=== PATIENT | female | born 1935 | race Caucasian/White ===

== ENCOUNTER → 2017-01-22 | Outpatient (CLI) | payer OTHER ==
[~2017-01-22] MED LIST: ATV5 PO; CMD/25 PO; CPROT OPR; DILT1TAB PO; HYDR12.56 PO; LORA10TA5 PO; LOSA1TAB PO; LPR25 PO; NEPA0.6D OPR; PRED1SUS3 OPL; PRLSR20 PO; ULT/50 PO
--- NOTE | 2017-01-22 16:09 | MAMMOGRAPHY REPORT ---
BILATERAL DIGITAL SCREENING MAMMOGRAM WITH CAD: 01/22/2017 CLINICAL HISTORY: Routine screening. Patient has no complaints. TECHNIQUE: Bilateral CC and MLO views were obtained. Current study was also evaluated with a Compute r Aided Detection (CAD) system. COMPARISON: Comparison is made to exams dated: 01/20/2016 mammogram, 01/18/2015 mammogram, 10/12/2013 m ammogram, 10/09/2012 mammogram, 10/08/2011 mammogram, and 10/05/2010 mammogram - [facility] enter. BREAST COMPOSITION: There are scattered areas of fibroglandular density in both breasts. FINDINGS: There are mild vascular calcifications and scattered benign-appearing calcifications bilate rally. No suspicious mass, architectural distortion or cluster of suspicious microcalcifications is seen. IMPRESSION: ACR BI-RADS CATEGORY 1: NEGATIVE There is no mammographic evidence of malignancy. A 1 year screening mammogram is recommended. The pa tient will receive written notification of the results. Approximately 10% of breast cancers are not detected with mammography. A negative mammographic report should not delay biopsy if a clinically suggestive mass is present. Desiree Petty M.D. ay/:01/22/2017 15:25:04 Ballistic Expert: Orlin Lewis, M, [facility] letter sent: Normal 1/2 BI-RADS Code: ACR BI-RADS Category 1: Negative
== END | disposition home or self-care (01) ==
LOC: C.MAMM 10:12
PROVIDERS: ATTEND Family Medicine
DX: Z12.31 Encounter for screening mammogram for malignant neoplasm of breast (principal)

== ENCOUNTER 2020-01-16 15:05 | Inpatient (IN) ==
[2020-01-16] MEDS ORDERED: SODIUM CHLORIDE 0.9% 1000ML 1,000 ML IV ONE (16:24)
[2020-01-16] MEDS ORDERED: ONDANSETRON INJ 2 MG/ML 2 ML VIAL IV STA (16:29)
[2020-01-16] MEDS ORDERED: MoRPHine SULFATE 4 MG/ML 1 ML CARP\\VIAL IV STA (16:29)
--- NOTE | 2020-01-16 16:40 | Emergency Department Note ---
Impression & Plan Acute pyelonephritis, Acute left flank pain, Hypertensive urgency ED Provider Note Provider: Thompson Magallanes MD DATE OF SERVICE: 01/16/2020 CHIEF COMPLAINT: Abdominal pain HISTORY OF PRESENT ILLNESS: Patient is a 84-year-old female with a history of diverticulitis presenting here today complaining of onset yesterday of severe left-sided left flank pain. Pain is fairly severe. Denies diarrhea. Dors is nausea and vomiting. Denies fever although she states she felt warm last night. Denies trauma. Denies headache or shortness of breath. Denies chest pain. No right-sided abdominal pain or tenderness. States feels similar when she had diverticulitis before. Had prior episode and prior bowel resection approximately 20 years ago without recurrence since. Denies a history of nephr olithiasis. Took some Motrin prior to arrival with little improvement of symptoms. Denies urinary symptoms. REVIEW OF SYSTEMS: A total of 10 review of systems was obtained and negative except as stated above in the HPI. PAST MEDICAL HISTORY: As noted above MEDICATIONS:Reviewed home medication list. SOCIAL HISTORY:Nonsmoker, Lives at home. PHYSICAL EXAM: GENERAL: alert and oriented laying on stretcher with eyes closed holding the left side of her abdomen appears uncomfortable. Head: normocephalic and atraumatic EYES: No injection, discharge or icterus. . NECK: Trachea midline. Supple. ENT: Mucous membranes pink and moist. LUNGS: Airway patent. No retractions. Breath sounds clear HEART: Regular rate and rhythm. No chest wall tenderness ABDOMEN: Soft left-sided tenderness. Not peritoneal. No right-sided abdominal tenderness. No guarding. BACK: Some left-sided flank tenderness appreciated. SKIN: Acyanotic, warm, dry, without rashes EXTREMITIES: Without tenderness or deformity with trace edema. NEUROLOGICAL: No focal deficits. No aphasia. No facial droop or slurred speech. EK bpm of sinus bradycardia with an incomplete right bundle branch block. No acute ST segment elevation is noted. Inferior T wave inversion noted. Compared to previous available from March 042018 appears similar. CONTINUOUS CARDIAC MONITORING: was ordered and showed a heart rate of 50's to 60's bpm in sinus bradycardia to NSR Patient's hypertension was referred to the hospitalist PDMP was checked without noted issue. HOSPITAL COURSE: 1628 Patient was first seen and H&P performed. 1820 Patient reassessed and updated. Patient was having improvement of pain and resolution on nausea. Discussed with her and family options/plan of care. Patient's laboratory studies and imaging reviewed. Differential includes Appendicitis, infections, diverticulitis, UTI, obstruction, mesenteric ischemia, aortic pathology, inflammatory bowel disease, renal colic, PUD, pancreatitis, biliary pathology, hernia, volvulus, constipation, as well as other pathologies. IMPRESSION/MEDICAL DECISION MAKING: Patient presents with severe left flank pain starting yesterday and states he felt a bit warm last night. No trauma reported. Patient states history diverticulitis and this feels similar. Patient denies a history of kidney stones. Patient likely without significant leukocytosis here. Patient does have evidence of a concerning UA with 2+ leuk esterase and greater than 30 white cells although 5-10 epithelial cells are noted on the sample. TSH within normal is. No evidence of transaminitis. Negative troponin. Doubt this represents PE or cardiac disease. Patient's creatinine is somewhat higher than the last 5 immediately available to me here from 2014 at 1.5. Given IV fluid, morphine, and Zofran here initially. CT scan was ordered to evaluate for acute intra-abdominal pathology. Given a dose of ceftriaxone here. Imaging likely without evidence of kidney stone or acute diverticulitis. Believe this likely represents a pyelonephritis given her pain complaint. Does not look septic at this time. Did receive some IV fluid. Will give dose ceftriaxone. Reassessment the patient is having improvement of her pain and her nausea is actually resolved. Discussed with the patient options of discharge for the observation. Given the severity of her pain earlier patient felt more comfortable being observed here overnight. Will contact the hospitalist. Patient was noted to be more hypertensive later in the encounter and given a small dose of hydralazine given some bradycardia here to help treat this. Patient states compliance with home medications. DIAGNOSIS: Pyelonephritis, left flank pain, hypertensive urgency DISPOSITION: Hospitalist will evaluate Patient was agreeable with this plan. Past Med/Surg History Social History Smoking Status: Never smoker Hx Alcohol Use: No Hx Substance Use: No Preferred Language: Danish Communication Ability: Effective Teaseler Required: No Beliefs That Will Affect Care: None Current Living Situation: Family Feels Safe at Home: Yes Allergies Allergies Allergy/AdvReac Type Severity Reaction Status Date / Time lisinopril Allergy Mild COUGH Verified 03/04/19 07:09 guaifenesin Allergy Unknown Unknown Verified 03/04/19 07:09 phenylpropanolamine Allergy Unknown Unknown Verified 03/04/19 07:09 sulindac Allergy Unknown Unknown Verified 03/04/19 07:09 Home Meds Home Medications Medication Instructions Recorded Confirmed Lorazepam (Ativan *) 0.5 - 1 mg PO BID PRN #0 05/16/07 04/08/19 OMEPRAZOLE (PRILOSEC) 20 mg PO BID #0 04/09/11 04/08/19 LORATADINE (CLARITIN) 10 mg PO DAILY PRN PRN #0 tab 11/24/11 04/08/19 LOSARTAN POTASSIUM (COZAAR) 25 mg PO QAM #0 tab 11/24/11 04/08/19 METOPROLOL TARTRATE (LOPRESSOR) 50 mg PO BID #0 tab 11/24/11 04/08/19 WARFARIN SOD (Coumadin) 2.5 mg PO QAM #0 tab 11/24/11 04/08/19 Alive Once Daily Women 50 Plus 1 tab PO DAILY 03/04/19 04/08/19 Restasis 2 drp OPHTHALMIC (EYE) Q12H 03/04/19 04/08/19 albuterol sulfate [ProAir HFA] 2 puff INHALATION Q6H PRN 03/04/19 04/08/19 alendronate [Fosamax] 70 mg PO WK 03/04/19 04/08/19 amiodarone 200 mg PO BID 03/04/19 04/08/19 atorvastatin 20 mg PO DAILY 03/04/19 04/08/19 cholecalciferol (vitamin D3) 1,000 unit PO DAILY 03/04/19 04/08/19 fluticasone propionate [Flonase 1 spray INTRANASAL DAILY 03/04/19 04/08/19 Allergy Relief] tolterodine [Detrol LA] 2 mg PO DAILY 03/04/19 04/08/19 Previous Rx's Medication Instructions Recorded furosemide 20 mg PO DAILY #30 tab 04/08/19 Results & Data (ED) Vital Signs Vital Signs - 24 hr 01/16/20 15:17 01/16/20 18:27 01/16/20 18:36 Temperature 36.3 C L Temperature Source Oral Oral Pulse Rate 80 Pulse Rate [Apical] 58 L Respiratory Rate 20 18 Respiratory Effort / Characteristics Non-Labored Respiratory Depth Normal Respiratory Pattern Regular Blood Pressure [Right Arm] 215/77 H Blood Pressure Mean [Right Arm] 123 Blood Pressure Position Sitting Pulse Oximetry 95 93 Oxygen Delivery Method Room Air Room Air Sepsis Recent Fever Within 48 Hours No Sepsis New/Unexplained Change in Mental Status No Sepsis Action Taken by Nursing No Action Required Laboratory Data Result diagrams: 01/16/20 16:39 01/16/20 16:39 Lab Results 01/16/20 01/16/20 01/16/20 Range/Units 16:39 16:39 16:39 WBC 10.57 (4.8-10.8) K/uL RBC 4.52 (4.2-5.4) M/uL Hgb 13.5 (12.0-16.0) g/dL Hct 41.8 (37-47) % MCV 92.5 (80-100) fL MCH 29.9 (25-34) pg MCHC 32.3 (32-36) g/dL RDW Std Deviation 48.5 H (36.4-46.3) fL RDW Coeff of Jay 14.2 (11.5-14.5) % Plt Count 248 (130-400) K/uL MPV 9.3 (7.4-10.4) fL Immature Gran % (Auto) 0.3 % Neut % (Auto) 79.0 % Lymph % (Auto) 10.8 % Johnson % (Auto) 7.3 % Eos % (Auto) 2.3 % Baso % (Auto) 0.3 % Neut # (Auto) 8.36 H (1.4-6.5) K/uL Lymph # (Auto) 1.14 L (1.2-3.4) K/uL Johnson # (Auto) 0.77 H (0.11-0.59) K/uL Eos # (Auto) 0.24 (0-0.5) K/uL Baso # (Auto) 0.03 (0-0.2) K/uL Immature Gran # (Auto) 0.03 H (0.00-0.02) K/uL PT (9.0-12.0) Seconds INR (0.9-1.1) Sodium 140 (136-145) mmol/L Potassium 4.7 (3.5-5.1) mmol/L Chloride 110 H (98-107) mmol/L Carbon Dioxide 23 (21-32) mmol/L Anion Gap 8.0 (3-11) BUN 25 H (7-18) mg/dl Creatinine 1.53 H (0.6-1.2) mg/dl Est Cr Clr Drug Dosing 31.2 ml/min Est GFR ( Amer) 36.3 Est GFR (Non-Af Amer) 31.4 BUN/Creatinine Ratio 16.0 (10-20) Glucose 109 H (70-99) mg/dl Calcium 9.4 (8.5-10.1) mg/dl Magnesium 2.2 (1.8-2.4) mg/dl Total Bilirubin 0.4 (0.2-1) mg/dl AST 21 (15-37) U/L ALT 21 (12-78) U/L Alkaline Phosphatase 110 (45-117) U/L Troponin I < 0.015 (0-0.045) ng/ml Total Protein 8.1 (6.4-8.2) gm/dl Albumin 3.7 (3.4-5.0) gm/dl Globulin 4.4 H (2.5-4.0) gm/dl Albumin/Globulin Ratio 0.8 L (0.9-2) Lipase 122 (73-393) U/L TSH 2.020 (0.300-4.500) uIu/ml Specimen Hemolysis Urine Color Yellow Urine Appearance Cloudy A (Clear) Urine pH 5.0 (4.5-7.5) Ur Specific Hardy 1.031 H (1.000-1.030) Urine Protein Negative (Negative) Urine Glucose (UA) Negative (Negative) Urine Ketones Trace H (Negative) Urine Blood Negative (Negative) Urine Nitrite Negative (Negative) Urine Bilirubin Negative (Negative) Urine Urobilinogen Negative (Negative) Ur Leukocyte Esterase 2+ H (Negative) Urine WBC (Auto) >30 H (0-5) /hpf Urine RBC (Auto) 0-4 (0-4) /hpf U Hyaline Cast (Auto) 10-30 H (0-5) /lpf U Epithel Cells (Auto) >30 H (0-5) /lpf Urine Bacteria (Auto) Negative (Negative) Ur Renal Epithelial Cell 5-10 H (0-5) /lpf WBC Casts 1-5 H (0) /lpf 08/22/20 Range/Units 16:39 WBC (4.8-10.8) K/uL RBC (4.2-5.4) M/uL Hgb (12.0-16.0) g/dL Hct (37-47) % MCV (80-100) fL MCH (25-34) pg MCHC (32-36) g/dL RDW Std Deviation (36.4-46.3) fL RDW Coeff of Jay (11.5-14.5) % Plt Count (130-400) K/uL MPV (7.4-10.4) fL Immature Gran % (Auto) % Neut % (Auto) % Lymph % (Auto) % Johnson % (Auto) % Eos % (Auto) % Baso % (Auto) % Neut # (Auto) (1.4-6.5) K/uL Lymph # (Auto) (1.2-3.4) K/uL Johnson # (Auto) (0.11-0.59) K/uL Eos # (Auto) (0-0.5) K/uL Baso # (Auto) (0-0.2) K/uL Immature Gran # (Auto) (0.00-0.02) K/uL PT 18.8 H (9.0-12.0) Seconds INR 1.8 H (0.9-1.1) Sodium (136-145) mmol/L Potassium (3.5-5.1) mmol/L Chloride (98-107) mmol/L Carbon Dioxide (21-32) mmol/L Anion Gap (3-11) BUN (7-18) mg/dl Creatinine (0.6-1.2) mg/dl Est Cr Clr Drug Dosing ml/min Est GFR ( Amer) Est GFR (Non-Af Amer) BUN/Creatinine Ratio (10-20) Glucose (70-99) mg/dl Calcium (8.5-10.1) mg/dl Magnesium (1.8-2.4) mg/dl Total Bilirubin (0.2-1) mg/dl AST (15-37) U/L ALT (12-78) U/L Alkaline Phosphatase (45-117) U/L Troponin I (0-0.045) ng/ml Total Protein (6.4-8.2) gm/dl Albumin (3.4-5.0) gm/dl Globulin (2.5-4.0) gm/dl Albumin/Globulin Ratio (0.9-2) Lipase (73-393) U/L TSH (0.300-4.500) uIu/ml Specimen Hemolysis Urine Color Urine Appearance (Clear) Urine pH (4.5-7.5) Ur Specific Hardy (1.000-1.030) Urine Protein (Negative) Urine Glucose (UA) (Negative) Urine Ketones (Negative) Urine Blood (Negative) Urine Nitrite (Negative) Urine Bilirubin (Negative) Urine Urobilinogen (Negative) Ur Leukocyte Esterase (Negative) Urine WBC (Auto) (0-5) /hpf Urine RBC (Auto) (0-4) /hpf U Hyaline Cast (Auto) (0-5) /lpf U Epithel Cells (Auto) (0-5) /lpf Urine Bacteria (Auto) (Negative) Ur Renal Epithelial Cell (0-5) /lpf WBC Casts (0) /lpf Administered Medications Discontinued Medications Hydralazine HCl (Hydralazine Hcl 20 Mg/Ml Vial) 5 mg IV NOW ONE Stop: 01/16/20 18:46 Last Admin: 01/16/20 19:01 Dose: 5 mg Documented by: [id number] Sodium Chloride (Nss 1000ml) 1,000 mls @ 999 mls/hr IV .Q1H1M ONE Stop: 01/16/20 17:24 Last Infusion: 01/16/20 18:10 Dose: 0 mls/hr Documented by: [id number] Admin: 01/16/20 16:42 Dose: 999 mls/hr Documented by: [id number] Ceftriaxone Sodium (Rocephin) 2,000 mg in 70 mls @ 140 mls/hr IV NOW STA Stop: 01/16/20 18:52 Last Admin: 01/16/20 19:02 Dose: 140 mls/hr Documented by: [id number] Ioversol (Ioversol 100ml) 91 ml IV ONCE ONE Stop: 01/16/20 17:58 Last Admin: 01/16/20 17:57 Dose: 91 ml Documented by: [id number] Morphine Sulfate (Morphine Sulfate 4 Mg/Ml 1 Ml Carp\Vial) 4 mg IV NOW STA Stop: 01/16/20 16:30 Last Admin: 01/16/20 16:45 Dose: 4 mg Documented by: [id number] Ondansetron HCl (Ondansetron Inj 2 Mg/Ml 2 Ml Vial) 4 mg IV NOW STA Stop: 01/16/20 16:30 Last Admin: 01/16/20 16:45 Dose: 4 mg Documented by: [id number] Discharge Plan Visit Data Chief Complaint: Flank Pain Stated Complaint: SEVERE FLANK PAIN ED Provider: Thompson Magallanes Discharge Problem: Acute pyelonephritis, Acute left flank pain, Hypertensive urgency Patient Disposition: Being Evaluated by Hospitalist Forms Stand Alone Forms: [facility] Prescriptions Prescriptions: No Action Lorazepam (Ativan *) 0.5 MG tablet 0.5 - 1 mg PO BID PRN Qty: 0 RF: 0 OMEPRAZOLE (PRILOSEC) 20 MG CONTR REL CAP 20 mg PO BID Qty: 0 RF: 0 LORATADINE (CLARITIN) 10 MG tablet 10 mg PO DAILY PRN PRN (Reason: Allergy Symptoms) Qty: 0 RF: 0 LOSARTAN POTASSIUM (COZAAR) 25 MG tablet 25 mg PO QAM Qty: 0 RF: 0 METOPROLOL TARTRATE (LOPRESSOR) 25 MG tablet 50 mg PO BID Qty: 0 RF: 0 WARFARIN SOD (Coumadin) 2.5 MG tablet 2.5 mg PO QAM Qty: 0 RF: 0 tolterodine [Detrol LA] 2 mg Capsule,Extended Release 24hr 2 mg PO DAILY RF: 0 atorvastatin 20 mg Tablet 20 mg PO DAILY RF: 0 amiodarone 200 mg Tablet 200 mg PO BID RF: 0 alendronate [Fosamax] 70 mg Tablet 70 mg PO WK RF: 0 albuterol sulfate [ProAir HFA] 90 mcg/actuation Hfa Aerosol Inhaler 2 puff INHALATION Q6H PRN (Reason: Shortness Of Breath) RF: 0 fluticasone propionate [Flonase Allergy Relief] 50 mcg/actuation [place],Suspension 1 spray INTRANASAL DAILY RF: 0 cholecalciferol (vitamin D3) 1,000 unit Capsule 1,000 unit PO DAILY RF: 0 Restasis 0.05 % Dropperette 2 drp OPHTHALMIC (EYE) Q12H RF: 0 Alive Once Daily Women 50 Plus 800-100 mcg Tablet 1 tab PO DAILY RF: 0 furosemide 20 mg tablet 20 mg PO DAILY Qty: 30 RF: 3 Referrals Referrals: Saida,David E., MD [Primary Care Provider] -
[2020-01-16 16:50] LABS: Basophils # (auto) 0.03 K/uL (0-0.2); Basophils % (auto) 0.3 %; Eosinophils # (auto) 0.24 K/uL (0-0.5); Eosinophils % (auto) 2.3 %; Hematocrit (blood only) 41.8 % (37-47); Hemoglobin 13.5 g/dL (12.0-16.0); Immature Granulocytes # (auto) 0.03 K/uL (0.00-0.02); Immature Granulocytes % (auto) 0.3 %; Lymphocytes # (auto) 1.14 K/uL (1.2-3.4); Lymphocytes % (auto) 10.8 %; Mean Corpuscular Hemoglobin 29.9 pg (25-34); Mean Corpuscular Hgb Conc 32.3 g/dL (32-36); Mean Corpuscular Volume 92.5 fL (80-100); Mean Platelet Volume 9.3 fL (7.4-10.4); Monocytes # (auto) 0.77 K/uL (0.11-0.59); Monocytes % (auto) 7.3 %; Neutrophils # (auto) 8.36 K/uL (1.4-6.5); Platelet Count 248 K/uL (130-400); RDW Coefficient of Variation 14.2 % (11.5-14.5); RDW Standard Deviation 48.5 fL (36.4-46.3); Red Blood Count 4.52 M/uL (4.2-5.4); White Blood Count 10.57 K/uL (4.8-10.8)
[2020-01-16 17:02] LABS: Appearance Urine Cloudy (Clear); Bacteria Urine Automated Negative (Negative); Bilirubin Urine Negative (Negative); Blood Urine Negative (Negative); Color Urine Yellow; Epithelial Cell Urine Auto >30 /lpf (0-5); Glucose Urine UA Negative (Negative); Ketones Urine Trace (Negative); Leukocyte Esterase Urine 2+ (Negative); Nitrite Urine Negative (Negative); Protein Urine Negative (Negative); RBC Urine Automated 0-4 /hpf (0-4); Specific Gravity Urine 1.031 (1.000-1.030); Urobilinogen Urine Negative (Negative); WBC Urine Automated >30 /hpf (0-5)
[2020-01-16 17:13] LABS: Albumin Level 3.7 gm/dl (3.4-5.0); Aspartate Aminotransferase 21 U/L (15-37); Blood Urea Nitrogen 25 mg/dl (7-18); Calcium 9.4 mg/dl (8.5-10.1); Carbon Dioxide 23 mmol/L (21-32); Chloride 110 mmol/L (98-107); Creatinine Clr Calc Pharmacy 31.2 ml/min; Est GFR (African American) 36.3; Est GFR (Non-African American) 31.4; Glucose 109 mg/dl (70-99); Lipase 122 U/L (73-393); Magnesium 2.2 mg/dl (1.8-2.4); Potassium 4.7 mmol/L (3.5-5.1); Sodium 140 mmol/L (136-145)
[2020-01-16 17:21] LABS: Alanine Aminotransferase 21 U/L (12-78); Albumin Globulin Ratio 0.8 (0.9-2); Alkaline Phosphatase 110 U/L (45-117); Bilirubin,Total 0.4 mg/dl (0.2-1); Globulin 4.4 gm/dl (2.5-4.0); Total Protein 8.1 gm/dl (6.4-8.2); Troponin I < 0.015 ng/ml (0-0.045)
[2020-01-16] MEDS ORDERED: IOVERSOL 100ml IV ONE (17:57)
--- NOTE | 2020-01-16 18:16 | CT Scan Report ---
ABDOMEN AND PELVIS CT WITH IV CONTRAST CT DOSE: 900.59 mGy.cm HISTORY: lower abd pain TECHNIQUE: Multiaxial CT images of the abdomen and pelvis were performed following the use of intrave nous contrast. A dose lowering technique was utilized adhering to the principles of ALARA. COMPARISON STUDY: Abdomen and pelvis CT 12/22/2006. FINDINGS: Mild dependent changes seen at the lung bases. No pneumoperitoneum. No pneumatosis. No susp icious lytic or blastic osseous lesions. The heart remains mildly enlarged. Degenerative changes with in the lumbar spine. No retroperitoneal or pelvic lymphadenopathy. No pelvic free fluid. The bladder is not well-distended. The uterus and bilateral adnexa are within normal limits. Prior rectosigmoid a nastomosis. Scattered colonic diverticula. No evidence for diverticulitis. No bowel wall thickening o r obstruction. The appendix is not identified and reportedly surgically absent. Mild calcified plaque within the normal caliber abdominal aorta. The liver, pancreas, spleen, and adrenal glands are unrem arkable. The kidneys enhance normally. No hydronephrosis. Prior cholecystectomy. The main portal vein is patent. IMPRESSION: 1. No bowel wall thickening or obstruction. 2. Colonic diverticulosis. No evidence for acute diverticulitis. 3. Prior cholecystectomy and appendectomy. 4. No hydronephrosis. ACT 112: Negative or not required by law. Electronically signed by: Ralph Benitez M.D. 01/16/2020 6:15 PM
[2020-01-16] MEDS ORDERED: cefTRIAXone SODIUM 2,000 MG/70 ML BAG IV STA (18:23)
[2020-01-16] MEDS ORDERED: HydrALAZINE HCL 20 MG/ML VIAL IV ONE (18:45)
[2020-01-16 19:00] LABS: INR 1.8 (0.9-1.1); Prothrombin Time 18.8 Seconds (9.0-12.0)
--- NOTE | 2020-01-16 21:50 | History and Physical Report ---
DATE OF ADMISSION: 01/16/2020 CHIEF COMPLAINT: Left flank pain. HISTORY OF PRESENT ILLNESS: This is an 84-year-old female with past medical history significant for moderate persistent asthma, chronic rhinitis, chronic kidney disease stage III, hypertension, incomplete right branch block, paroxysmal atrial fibrillation, GERD, Parkinson's disease, antiphospholipid antibody syndrome, generalized anxiety disorder, who presents with left flank pain. The patient said the pain started yesterday, 10/10 in severity, radiated to the left groin region. She was nauseous. Denies any fevers at home. She has occasional cough, runny nose from allergies and she is always short of breath because of her asthma, follows with pulmonary. Denies any chest pain. No headache, no blurred visions, no earache, no runny nose, no sore throat. She has a loss of sense of smell and taste for a long time from her medications .No diarrhea or constipation, no blood in stool or black stools, no burning micturition or hematuria. She has left ankle swelling on and off chronically. No rash seen. Ambulates okay. ALLERGIES: LISINOPRIL, GUAIFENESIN, PHENYLPROPANOLAMINE, SULINDAC. PAST MEDICAL HISTORY: As mentioned above. PAST SURGICAL HISTORY: Colonoscopy, cystoscopies, partial removal of colon in 2006, appendectomy, cholecystectomy. MEDICATIONS: The patient is on levothyroxine 50 mcg p.o. daily, Flonase 2 sprays into each nostril daily, Lasix 20 mg on Mondays, Wednesdays and Fridays, Lipitor 20 mg p.o. daily, Cozaar 50 mg p.o. daily, Imdur 30 mg p.o. daily, alendronate 70 mg p.o. weekly, amiodarone 200 mg p.o. daily, Flonase, Breo Ellipta 200/25 mcg 1 puff daily, omeprazole 20 mg p.o. b.i.d., Lopressor 50 mg p.o. b.i.d., albuterol 2 puffs every 4 hours p.r.n., Singulair 10 mg p.o. at bedtime, Coumadin 2.5 mg on all days except , on 3.75 mg, Ativan 0.25-0.5 mg b.i.d. p.r.n., triamcinolone 0.1% cream p.r.n., vitamin D 1000 units p.o. daily, multivitamins 1 tablet daily, Restasis 0.05% ophthalmic 2 drops to both eyes b.i.d., loratadine 10 mg p.o. daily p.r.n., albuterol nebulization q. 4 hours p.r.n. FAMILY HISTORY: Significant for mother had ovarian cancer, bowel rupture; father had black lung; sister had lung cancer; brother has heart disorder. SOCIAL HISTORY: . No smoking, no alcohol, no drug use. REVIEW OF SYSTEMS: As per HPI. Rest of review of systems negative. PHYSICAL EXAMINATION: GENERAL: The patient is of moderate build, not in acute distress. VITAL SIGNS: Temperature 36.3, pulse 58, respiratory rate 18, blood pressure 215/77, oxygen 93% on room air. HEENT: No pallor, no icterus. Pupils equal, round, reactive to light. Extraocular muscles intact. NECK: Supple. No neck masses seen. CARDIOVASCULAR: S1, S2 heard, regular rate and rhythm, no murmur, no gallop. RESPIRATORY SYSTEM: Normal AP diameter. No accessory muscle use. No wheezing, no crackles. ABDOMEN: Soft, bowel sounds present. Mild left lower quadrant tenderness. No guarding, no rigidity, no distention. Left mild CVA tenderness present. CENTRAL NERVOUS SYSTEM: Cranial nerves II-XII grossly intact. Nonfocal. EXTREMITIES: No edema, no erythema. LABORATORY DATA: WBC 10.5, hemoglobin 13.5, hematocrit 41.8, platelets 248. PT 18.8, INR 1.8. Sodium 140, potassium 4.7, chloride 110, bicarbonate 23, BUN 25, creatinine 1.5, serum glucose 109, calcium 9.4, magnesium 2.2, total bilirubin 0.4, AST 21, ALT 21, alkaline phosphatase 110. Troponin I less than 0.015. Lipase 122. TSH 2.02. Urinalysis positive for leukocyte esterase. IMAGING DATA: CT of abdomen and pelvis, no bowel wall thickening or obstruction, colonic diverticulitis. No evidence for acute diverticulitis. EKG: Sinus bradycardia at the rate of 57, incomplete right bundle branch block, no acute ST changes seen. ASSESSMENT AND PLAN: This is an 84-year-old female who presents with left flank pain and found to have urinary tract infection and possible pyelonephritis. 1. Left flank pain, possible pyelonephritis. UA is positive. The patient received Rocephin in the ER which will continue. IV morphine p.r.n. for pain, IV fluids. The patient's daughter is worried that several years ago, she had recurrent UTIs. At that time, in the colonoscopy was found to have colonic abscess and she had partial colectomy and the frequent urinary tract infections thought to be by colonic abscess and similar thing is not happening now, but CT scan seems okay. We will monitor. 2. Hypertension. Blood pressure is running high. Will continue her home medications of Lopressor, Imdur, losartan, and place on IV hydralazine p.r.n. Monitor blood pressure closely. 3. History of paroxysmal atrial fibrillation, on amiodarone, Lopressor, and Coumadin. INR is 1.8. Will continue on Coumadin. Follow the INR. 4. Hypothyroidism. Continue Synthroid. 5. History of antiphospholipid antibody syndrome, on Coumadin. 6. History of moderate persistent asthma, currently stable. Continue home inhalers. 7. Hyperlipidemia, continue statin. 8. Gastroesophageal reflux disease, PPI. 9. Generalized anxiety disorder, Ativan p.r.n. 10. Deep venous thrombosis prophylaxis, on Coumadin. Follow PT/INR. DISPOSITION: Admit to medical floor. Expect to discharge home and follow with family doctor. Level 1 full code. Social service to help with discharge planning. [facility] CENTERAugustina
[2020-01-16] MEDS ORDERED: MoRPHine SULFATE 4 MG/ML 1 ML CARP\\VIAL IV PRN (22:26)
[2020-01-16] MEDS ORDERED: HydrALAZINE HCL 20 MG/ML VIAL IV PRN (22:26)
[2020-01-16] MEDS ORDERED: ONDANSETRON INJ 2 MG/ML 2 ML VIAL IV PRN (22:26)
[2020-01-16] MEDS ORDERED: LORazepam 0.5 MG TAB PO PRN (22:26)
[2020-01-16] MEDS ORDERED: WARFARIN SOD 2.5 MG TAB PO STA (22:26)
[2020-01-16] MEDS ORDERED: ALBUTEROL HFA 8 GM INHALER INH PRN (22:39)
[2020-01-16] MEDS: SODIUM CHLORIDE 0.9% 1000ML 1,000 ML IV SCH (22:43)
[2020-01-16] MEDS: PANTOprazole 40 MG TAB PO SCH (23:37)
[2020-01-16] MEDS: METOPROLOL TARTRATE 50 MG TAB PO SCH (23:37)
[2020-01-17] MEDS: RESTASIS~ORDER AWAITING ACTION SCH ×3 (00:01→18:15)
[2020-01-17] MEDS: LEVOTHYROXINE SODIUM 50 MCG TABLET PO SCH (05:07)
[2020-01-17 05:43] LABS: Basophils # (auto) 0.02 K/uL (0-0.2); Basophils % (auto) 0.2 %; Eosinophils # (auto) 0.29 K/uL (0-0.5); Eosinophils % (auto) 2.8 %; Hematocrit (blood only) 38.5 % (37-47); Hemoglobin 12.1 g/dL (12.0-16.0); Immature Granulocytes # (auto) 0.02 K/uL (0.00-0.02); Immature Granulocytes % (auto) 0.2 %; Lymphocytes # (auto) 1.45 K/uL (1.2-3.4); Mean Corpuscular Hemoglobin 29.2 pg (25-34); Mean Corpuscular Hgb Conc 31.4 g/dL (32-36); Mean Platelet Volume 9.2 fL (7.4-10.4); Monocytes # (auto) 0.94 K/uL (0.11-0.59); Monocytes % (auto) 9.1 %; Neutrophils # (auto) 7.61 K/uL (1.4-6.5); Neutrophils % (auto) 73.7 %; Platelet Count 229 K/uL (130-400); RDW Coefficient of Variation 14.7 % (11.5-14.5); RDW Standard Deviation 50.2 fL (36.4-46.3); Red Blood Count 4.14 M/uL (4.2-5.4); White Blood Count 10.33 K/uL (4.8-10.8)
[2020-01-17 05:53] LABS: INR 2.1 (0.9-1.1)
[2020-01-17] MEDS ORDERED: ALENDRONATE SODIUM 70 MG TAB PO SCH (06:00)
[2020-01-17 06:10] LABS: BUN Creatinine Ratio 16.8 (10-20); Creatinine Clr Calc Pharmacy 41.6 ml/min; Est GFR (African American) 51.3; Est GFR (Non-African American) 44.3; Potassium 4.1 mmol/L (3.5-5.1)
[2020-01-17] MEDS: METOPROLOL TARTRATE 50 MG TAB PO SCH ×2 (09:21→21:07)
[2020-01-17] MEDS: ISOSORBIDE MONO EXTENDED REL 30 MG TABCR PO SCH (09:21)
[2020-01-17] MEDS: MONTELUKAST SODIUM 10 MG TABLET PO SCH (09:22)
[2020-01-17] MEDS: AMIODARONE 200 MG TAB PO SCH (09:22)
[2020-01-17] MEDS: ATORVASTATIN 20 MG TAB PO SCH (09:22)
[2020-01-17] MEDS: LORATADINE 10 MG TAB PO SCH (09:22)
[2020-01-17] MEDS: CEROVITE ADV FORMULA TAB PO SCH (09:22)
[2020-01-17] MEDS: CHOLECALCIFEROL 1,000 UNITS 25 MCG TAB PO SCH (09:23)
[2020-01-17] MEDS: FLUTICASONE PROPIONATE NA SPR 16 GM BTL SCH (09:23)
[2020-01-17] MEDS: PANTOprazole 40 MG TAB PO SCH ×2 (09:23→21:07)
[2020-01-17] MEDS: LOSARTAN POTASSIUM 50 MG TAB PO SCH (09:23)
[2020-01-17] MEDS: SODIUM CHLORIDE 0.9% 1000ML 1,000 ML IV SCH (11:24)
[2020-01-17] MEDS: ACETAMINOPHEN 325 MG TAB PO PRN ×2 (12:24→21:25)
--- NOTE | 2020-01-17 13:33 | Hospitalist Progress Note ---
Date of Service January 17, 2020 Assessment & Plan (1) Acute pyelonephritis: Admitted with left flank pain and noted to have positive UA with white blood cell cast in urine No sepsis Has been started on intravenous ceftriaxone Blood and urine cultures are pending Clinically better (2) Hypertensive urgency: Blood pressure was noted to be high at presentation likely secondary to pain and anxiety Has been improving We will continue current medications (3) Chronic kidney disease (CKD), stage III (moderate): Presented with acute on chronic kidney disease Secondary to infection and dehydration Receiving intravenous fluid Creatinine has been normalized (4) Asthma: Seems to be controlled No wheezing and/or shortness of breath (5) Paroxysmal A-fib: Rate is controlled Continue current medications (6) Antiphospholipid antibody syndrome: Has been on anticoagulation INR remains therapeutic Other significant medical conditions remain stable Admission and Anticipated Discharge Date Admission Date: January 16, 2020 Subjective 01/17/2020 The patient was seen and examined in medical floor She has been feeling lot better following admission but still has some pain left flank No fever and/or chills Review of Systems Review of Systems: All systems reviewed and are unremarkable except as noted below Gastrointestinal: Left flank and line pain Physical Exam 2 Physical Exam: Lying in bed comfortably Constitutional: well developed and well nourished; no acute distress and not ill appearing Eyes: PERRL, conjunctivae normal, anicteric sclerae ENMT: external ear and nose normal, oropharynx normal Neck: trachea midline, no thyromegaly Respiratory: normal respiratory effort; no respiratory distress Auscultation: lungs clear to auscultation bilaterally Cardiovascular: Rate/Rhythm: regular rate and regular rhythm Heart Sounds: no murmur Gastrointestinal (Abdomen): Inspection/Auscultation: abdomen normal to inspection and normal bowel sounds; abdomen not distended Percussion/Palpation: + abdomen tender (Left renal angle and hypogastrium) Musculoskeletal: No acute arthritis involving any joints Neurologic: moves all extremities; no focal motor deficits Alert, awake and oriented x3 Results & Data Results & Data ([facility]) Vital Signs (Past 12 Hours) Vital Signs Temp Pulse Resp BP Pulse Ox 01/17/20 07:49 36.6 C 56 L 20 165/83 H 91 Laboratory Results Short CBC 01/16/20 01/17/20 Range/Units 16:39 05:17 WBC 10.57 10.33 (4.8-10.8) K/uL Hgb 13.5 12.1 (12.0-16.0) g/dL Hct 41.8 38.5 (37-47) % Plt Count 248 229 (130-400) K/uL BMP 01/16/20 01/17/20 16:39 05:17 Sodium 140 140 Potassium 4.7 4.1 Chloride 110 H 113 H Carbon Dioxide 23 22 BUN 25 H 19 H Creatinine 1.53 H 1.15 D Glucose 109 H 98 Calcium 9.4 8.0 L Cardiac Enzymes 01/16/20 Range/Units 16:39 Troponin I < 0.015 (0-0.045) ng/ml Liver Function 01/16/20 Range/Units 16:39 Total Bilirubin 0.4 (0.2-1) mg/dl AST 21 (15-37) U/L ALT 21 (12-78) U/L Alkaline Phosphatase 110 (45-117) U/L Albumin 3.7 (3.4-5.0) gm/dl Urine 01/16/20 Range/Units 16:39 Urine Color Yellow Urine Appearance Cloudy A (Clear) Urine pH 5.0 (4.5-7.5) Ur Specific [place] 1.031 H (1.000-1.030) Urine Protein Negative (Negative) Urine Glucose (UA) Negative (Negative) Medications Administered Current Inpatient Medications Acetaminophen (Acetaminophen 325 Mg Tab) 650 mg PO Q4H PRN PRN Reason: pain/fever Stop: 02/15/20 22:25 Last Admin: 01/17/20 12:24 Dose: 650 mg Documented by: Albuterol (Albuterol Hfa 8 Gm Inhaler) 2 puffs INH Q6H PRN PRN Reason: Shortness Of Breath Stop: 02/15/20 22:38 Alendronate Sodium (Alendronate Sodium 70 Mg Tab) 70 mg PO Renee@0600 [facility] Stop: 02/16/20 05:59 Last Admin: 01/17/20 05:07 Dose: Not Given Documented by: Amiodarone HCl (Amiodarone 200 Mg Tab) 200 mg PO DAILY ALICIA Stop: 02/16/20 08:59 Last Admin: 01/17/20 09:22 Dose: 200 mg Documented by: Atorvastatin Calcium (Atorvastatin 20 Mg Tab) 20 mg PO DAILY [facility] Stop: 09/22/20 08:59 Last Admin: 01/17/20 09:22 Dose: 20 mg Documented by: Fluticasone Propionate (Fluticasone Propionate Na Spr 16 Gm Btl) 1 sprays NA DAILY [facility] Stop: 02/16/20 08:59 Last Admin: 01/17/20 09:23 Dose: Not Given Documented by: Hydralazine HCl (Hydralazine Hcl 20 Mg/Ml Vial) 7.5 mg IV Q6H PRN PRN Reason: Hypertension Stop: 02/15/20 22:25 Ceftriaxone Sodium 2,000 mg/ (Dextrose) 70 mls @ 100 mls/hr IV Q24H ALICIA; Protocol Stop: 01/25/20 18:41 Sodium Chloride (Nss 1000ml) 1,000 mls @ 80 mls/hr IV .[id number] [facility] Stop: 02/15/20 22:25 Last Admin: 01/17/20 11:24 Dose: 80 mls/hr Documented by: Isosorbide Mononitrate (Isosorbide [place] Extended Rel 30 Mg Tabcr) 30 mg PO DAILY ALICIA Stop: 02/16/20 08:59 Last Admin: 01/17/20 09:21 Dose: 30 mg Documented by: Levothyroxine Sodium (Levothyroxine Sodium 50 Mcg Tablet) 50 mcg PO DAILYBB [facility] Stop: 02/16/20 06:29 Last Admin: 01/17/20 05:07 Dose: 50 mcg Documented by: Loratadine (Loratadine 10 Mg Tab) 10 mg PO DAILY ALICIA Stop: 02/16/20 08:59 Last Admin: 01/17/20 09:22 Dose: 10 mg Documented by: Lorazepam (Lorazepam 0.5 Mg Tab) 0.25 - 0.5 mg PO DAILY PRN PRN Reason: Anxiety Stop: 02/15/20 22:25 Losartan Potassium (Losartan Potassium 50 Mg Tab) 50 mg PO DAILY [facility] Stop: 02/16/20 08:59 Last Admin: 01/17/20 09:23 Dose: 50 mg Documented by: Metoprolol Tartrate (Metoprolol Tartrate 50 Mg Tab) 50 mg PO BID [facility] Stop: 02/15/20 22:25 Last Admin: 01/17/20 09:21 Dose: 50 mg Documented by: Miscellaneous (Restasis~Order Awaiting Action) 1 ea N/A QS [facility] Stop: 02/16/20 00:00 Last Admin: 01/17/20 07:36 Dose: Not Given Documented by: Montelukast Sodium (Montelukast Sodium 10 Mg Tablet) 10 mg PO DAILY ALICIA Stop: 02/16/20 08:59 Last Admin: 01/17/20 09:22 Dose: 10 mg Documented by: Morphine Sulfate (Morphine Sulfate 4 Mg/Ml 1 Ml Carp\Vial) 3 mg IV Q3H PRN PRN Reason: Pain Stop: 01/30/20 22:25 Multivitamins/Minerals (Cerovite Adv Formula Tab) 1 tab PO DAILY ALICIA Stop: 02/16/20 08:59 Last Admin: 01/17/20 09:22 Dose: 1 tab Documented by: Ondansetron HCl (Ondansetron Inj 2 Mg/Ml 2 Ml Vial) 4 mg IV Q6H PRN PRN Reason: Nausea Stop: 02/15/20 22:25 Last Admin: 01/17/20 07:36 Dose: 4 mg Documented by: Pantoprazole Sodium (Pantoprazole 40 Mg Tab) 40 mg PO BID ALICIA Stop: 02/15/20 22:44 Last Admin: 01/17/20 09:23 Dose: 40 mg Documented by: Vitamin D (Cholecalciferol 1,000 Units 25 Mcg Tab) 1,000 units PO DAILY ALICIA Stop: 02/16/20 08:59 Last Admin: 01/17/20 09:23 Dose: 1,000 units Documented by:
[2020-01-17] MEDS ORDERED: cefTRIAXone SODIUM 2,000 MG in DEXTROSE 5% 50 ML IV SCH (18:00)
[2020-01-17] MEDS ORDERED: POLYETHYLENE (MIRALAX) 17 GM PACK PO PRN (19:40)
[2020-01-18] MEDS: SODIUM CHLORIDE 0.9% 1000ML 1,000 ML IV SCH (00:42)
[2020-01-18] MEDS: RESTASIS~ORDER AWAITING ACTION SCH ×2 (00:54→08:34)
[2020-01-18] MEDS: LEVOTHYROXINE SODIUM 50 MCG TABLET PO SCH (05:31)
[2020-01-18 06:00] LABS: Basophils # (auto) 0.02 K/uL (0-0.2); Basophils % (auto) 0.2 %; Eosinophils # (auto) 0.34 K/uL (0-0.5); Eosinophils % (auto) 3.3 %; Hematocrit (blood only) 38.8 % (37-47); Hemoglobin 12.1 g/dL (12.0-16.0); Immature Granulocytes # (auto) 0.03 K/uL (0.00-0.02); Immature Granulocytes % (auto) 0.3 %; Lymphocytes # (auto) 1.42 K/uL (1.2-3.4); Mean Corpuscular Hemoglobin 29.2 pg (25-34); Mean Corpuscular Hgb Conc 31.2 g/dL (32-36); Mean Corpuscular Volume 93.7 fL (80-100); Mean Platelet Volume 9.1 fL (7.4-10.4); Monocytes # (auto) 0.94 K/uL (0.11-0.59); Monocytes % (auto) 9.3 %; Neutrophils # (auto) 7.41 K/uL (1.4-6.5); Neutrophils % (auto) 72.9 %; Platelet Count 202 K/uL (130-400); RDW Coefficient of Variation 14.8 % (11.5-14.5); RDW Standard Deviation 50.5 fL (36.4-46.3); Red Blood Count 4.14 M/uL (4.2-5.4); White Blood Count 10.16 K/uL (4.8-10.8)
[2020-01-18 06:13] LABS: INR 2.9 (0.9-1.1); Prothrombin Time 29.2 Seconds (9.0-12.0)
[2020-01-18 06:19] LABS: BUN Creatinine Ratio 15.8 (10-20); Calcium 7.8 mg/dl (8.5-10.1); Creatinine Clr Calc Pharmacy 44.3 ml/min; Est GFR (African American) 55.4; Est GFR (Non-African American) 47.8; Potassium 4.2 mmol/L (3.5-5.1)
[2020-01-18] MEDS: ACETAMINOPHEN 325 MG TAB PO PRN (07:27)
[2020-01-18] MEDS: METOPROLOL TARTRATE 50 MG TAB PO SCH (07:27)
[2020-01-18] MEDS: PANTOprazole 40 MG TAB PO SCH (07:28)
[2020-01-18] MEDS: AMIODARONE 200 MG TAB PO SCH (07:28)
[2020-01-18] MEDS: LOSARTAN POTASSIUM 50 MG TAB PO SCH (07:28)
[2020-01-18] MEDS: ISOSORBIDE MONO EXTENDED REL 30 MG TABCR PO SCH (07:28)
[2020-01-18] MEDS: MONTELUKAST SODIUM 10 MG TABLET PO SCH (08:33)
[2020-01-18] MEDS: CEROVITE ADV FORMULA TAB PO SCH (08:33)
[2020-01-18] MEDS: LORATADINE 10 MG TAB PO SCH (08:33)
[2020-01-18] MEDS: CHOLECALCIFEROL 1,000 UNITS 25 MCG TAB PO SCH (08:33)
[2020-01-18] MEDS: ATORVASTATIN 20 MG TAB PO SCH (08:33)
[2020-01-18] MEDS: FLUTICASONE PROPIONATE NA SPR 16 GM BTL SCH (08:34)
--- NOTE | 2020-01-18 09:26 | Electrocardiogram Report ---
Test Reason : Blood Pressure : / mmHG Vent. Rate : 057 BPM Atrial Rate : 057 BPM P-R Int : 192 ms QRS Dur : 100 ms QT Int : 442 ms P-R-T Axes : 081 078 023 degrees QTc Int : 430 ms Sinus bradycardia Incomplete right bundle branch block Borderline ECG When compared with ECG of 04-MAR-2019 08:50, Nonspecific T wave abnormality no longer evident in Lateral leads Incomplete right bundle branch block now present Confirmed by Brenden Marroquin ([id number]) on 01/18/2020 9:25:50 AM Referred By: REFERRED SELF Confirmed By:Brenden Marroquin
[2020-01-18] MEDS ORDERED: HydrALAZINE HCL 20 MG/ML VIAL IV ONE (13:10)
[2020-01-18] MEDS ORDERED: cephALEXin 500 MG CAP PO SCH (14:00)
--- NOTE | 2020-01-19 08:38 | Discharge Summary ---
Date of Service January 19, 2020 Admission HPI Per Admitting Provider DICTATED BY: Pipo Morrison MD DATE OF ADMISSION: 01/16/2020 CHIEF COMPLAINT: Left flank pain. HISTORY OF PRESENT ILLNESS: This is an 84-year-old female with past medical history significant for moderate persistent asthma, chronic rhinitis, chronic kidney disease stage III, hypertension, incomplete right branch block, paroxysmal atrial fibrillation, GERD, Parkinson's disease, antiphospholipid antibody syndrome, generalized anxiety disorder, who presents with left flank pain. The patient said the pain started yesterday, 10/10 in severity, radiated to the left groin region. She was nauseous. Denies any fevers at home. She has occasional cough, runny nose from allergies and she is always short of breath because of her asthma, follows with pulmonary. Denies any chest pain. No headache, no blurred visions, no earache, no runny nose, no sore throat. She has a loss of sense of smell and taste for a long time from her medications .No diarrhea or constipation, no blood in stool or black stools, no burning micturition or hematuria. She has left ankle swelling on and off chronically. No rash seen. Ambulates okay. Admission Exam Per Admitting Provider GENERAL: The patient is of moderate build, not in acute distress. VITAL SIGNS: Temperature 36.3, pulse 58, respiratory rate 18, blood pressure 215/77, oxygen 93% on room air. HEENT: No pallor, no icterus. Pupils equal, round, reactive to light. Extraocular muscles intact. NECK: Supple. No neck masses seen. CARDIOVASCULAR: S1, S2 heard, regular rate and rhythm, no murmur, no gallop. RESPIRATORY SYSTEM: Normal AP diameter. No accessory muscle use. No wheezing, no crackles. ABDOMEN: Soft, bowel sounds present. Mild left lower quadrant tenderness. No guarding, no rigidity, no distention. Left mild CVA tenderness present. CENTRAL NERVOUS SYSTEM: Cranial nerves II-XII grossly intact. Nonfocal. EXTREMITIES: No edema, no erythema. Principal Diagnosis Possible pyelonephritis, hypertensive urgency, paroxysmal A. fib, controlled asthma Discharge Exam Constitutional well developed and well nourished; no acute distress and not ill appearing Eyes PERRL, conjunctivae normal, anicteric sclerae ENMT external ear and nose normal, oropharynx normal Neck trachea midline, no thyromegaly Respiratory normal respiratory effort; no respiratory distress Auscultation: lungs clear to auscultation bilaterally Cardiovascular Rate/Rhythm: regular rate and regular rhythm Heart Sounds: no murmur Gastrointestinal (Abdomen) Inspection/Auscultation: abdomen normal to inspection and normal bowel sounds; abdomen not distended Percussion/Palpation: + abdomen tender (Left renal angle and hypogastrium) Neurologic moves all extremities; no focal motor deficits Discharge Data Allergies Allergy/AdvReac Type Severity Reaction Status Date / Time lisinopril Allergy Mild COUGH Verified 01/16/20 20:24 guaifenesin Allergy Unknown Unknown Verified 01/16/20 20:24 phenylpropanolamine Allergy Unknown Unknown Verified 01/16/20 20:24 sulindac Allergy Unknown Unknown Verified 01/16/20 20:25 Consultations 01/16/20 18:43 ED Decision to Admit Stat 01/16/20 22:26 Consult Case Management - Discharge Planning Routine Ordered Studies 01/16/20 16:24 CT abd pelvis IV con only Stat Hospital Course (1) Acute pyelonephritis: Admitted with left flank pain and noted to have positive UA with white blood cell cast in urine No sepsis Has been started on intravenous ceftriaxone Blood and urine cultures are pending Clinically better (2) Hypertensive urgency: Blood pressure was noted to be high at presentation likely secondary to pain and anxiety Has been improving We will continue current medications (3) Chronic kidney disease (CKD), stage III (moderate): Presented with acute on chronic kidney disease Secondary to infection and dehydration Receiving intravenous fluid Creatinine has been normalized (4) Asthma: Seems to be controlled No wheezing and/or shortness of breath (5) Paroxysmal A-fib: Rate is controlled Continue current medications (6) Antiphospholipid antibody syndrome: Has been on anticoagulation INR remains therapeutic Other significant medical conditions remain stable Total Time Total Time Spent Total Time Spent (In Minutes): 35 minutes Total Time Includes: Examination of the Patient, Discharge Planning, Medication Reconciliation and Communication With Other Providers Discharge Plan Discharge Items Patient Disposition: Home - Self-Care Reason For Visit: LEFT FLANK PAIN Discharge Diagnosis: Possible pyelonephritis, hypertensive urgency, paroxysmal A. fib, controlled asthma Condition on Discharge: Good Activity: Resume your previous activity Non-emergency contact: Primary Care Provider Call non-emergency contact if: you have any medication questions Follow-up/Referrals: David Cintron MD [Primary Care Provider] - 01/25/20 11:00 am ( Date & Time 01/25/2020 11:00 AM Provider David Cintron III, MD Department Family Practice [facility] ) Diet: Heart Healthy Addtl Attending Provider Instructions: Please take precaution to avoid falls Drink more fluid Please have regular follow-up with your Coumadin clinic You are on antibiotic and that may interfere with your INR-please let Coumadin clinic know Pending Studies at Discharge: No Stand-Alone Forms: My [facility], Smoking Cessation Medications and DC Order Prescriptions: New cephalexin 500 mg Capsule 500 mg PO BID Qty: 14 RF: 0 Continued atorvastatin 20 mg Tablet 20 mg PO DAILY RF: 0 amiodarone 200 mg Tablet 200 mg PO DAILY RF: 0 alendronate [Fosamax] 70 mg Tablet 70 mg PO WK RF: 0 albuterol sulfate [ProAir HFA] 90 mcg/actuation Hfa Aerosol Inhaler 2 puff INHALATION Q6H PRN (Reason: Shortness Of Breath) RF: 0 fluticasone propionate [Flonase Allergy Relief] 50 mcg/actuation [place],Suspension 1 spray INTRANASAL DAILY RF: 0 cholecalciferol (vitamin D3) 1,000 unit Capsule 1,000 unit PO DAILY RF: 0 Restasis 0.05 % Dropperette 2 drp OPHTHALMIC (EYE) Q12H RF: 0 Alive Once Daily Women 50 Plus 800-100 mcg Tablet 1 tab PO DAILY RF: 0 furosemide 20 mg tablet 20 mg PO 3XWK RF: 0 loratadine [Claritin] 10 mg Tablet 10 mg PO DAILY RF: 0 losartan 50 mg Tablet 50 mg PO DAILY RF: 0 omeprazole 20 mg Capsule,Delayed Release(Dr/Ec) 20 mg PO BID RF: 0 montelukast 10 mg tablet 10 mg PO DAILY RF: 0 levothyroxine 50 mcg tablet 50 mcg PO QAM RF: 0 isosorbide mononitrate 30 mg tablet extended release 24 hr 30 mg PO DAILY RF: 0 Breo Ellipta 200-25 mcg/dose blister with device 2 inh INHALATION DAILY RF: 0 metoprolol tartrate 50 mg tablet 50 mg PO BID RF: 0 warfarin [Jantoven] 2.5 mg tablet 2.5 mg PO 2XWK RF: 0 warfarin [Jantoven] 2.5 mg tablet 1.25 mg PO 5XWK RF: 0 lorazepam 0.5 mg Tablet 0.25 - 0.5 mg PO DAILY PRN (Reason: Anxiety) RF: 0 warfarin [Coumadin] 2.5 mg Tablet 2.5 mg PO USEASDIRECTD RF: 0 Discharge Orders: Discharge Order (Routine); Ordered 01/18/20 Ordered By: Margot Casarez Admission Data Admit Date/Time: 01/16/20 19:56 Attending Provider: Margot Casarez Admit Provider: Pipo Morrison Primary Care Provider: David Cintron Other Providers: Pipo Morrison Other Interventions: Discharge Summary Assessment (RN) Last Done: 01/18/20 12:52
== END 2020-01-18 15:05 | disposition home or self-care (01) | DRG 690 ==
LOC: ED 15:05 → 3E 19:56

== ENCOUNTER 2020-03-18 23:25 | Inpatient (IN) ==
[2020-03-18] MEDS ORDERED: SODIUM CHLORIDE 0.9% 500 ML IV SCH (23:45)
--- NOTE | 2020-03-18 23:49 | Emergency Department Note ---
Impression & Plan Acute GI bleeding, Anemia, Coagulopathy, History of colonoscopy ED Provider Note NAME: SAMIR ALEJANDRO AGE: 84 SEX: F : 1935 ARRIVES VIA: Walk-In INFORMANT: [Patient] ED PROVIDER(S): [Todd Garcia MD] CHIEF COMPLAINT: Rectal bleeding HISTORY OF PRESENT ILLNESS: The patient is an 84-year-old female who states that 3 days ago she underwent a colonoscopy at [facility]. 2 polyps were removed. She has been bridging with Lovenox. She has taken Coumadin yesterday and today. The patient had some mild bleeding the first day after colonoscopy but in the last 24 hours, the bleeding has become fairly excessive. She feels the urge to have a bowel movement and she just passes blood. The patient has not had a fever. She has no pain really. No vomiting or nausea. She does feel more short of breath with exertion than baseline. She feels she looks pale in the mirror. The patient has never had a blood transfusion before. She states that she has never had colonic polyps removed before. REVIEW OF SYSTEMS: See HPI for pertinent positives and negatives. A total of ten systems were reviewed and were otherwise negative. PMHx/PSHx: See Below SOCIAL HISTORY: See Below. PHYSICAL EXAM: GENERAL: Patient is in no acute distress. HEENT: No acute trauma, normocephalic atraumatic, mucous membranes moist, no nasal congestion, no scleral icterus. NECK: No stridor, no adenopathy, no meningismus, trachea is midline. LUNGS: Clear to auscultation bilaterally, no wheeze, no rhonchi, breath sounds equal. HEART: Without murmurs gallops or rubs, regular rate and rhythm. ABDOMEN: Soft, nontender, bowel sounds positive, no hernias, no peritonitis. EXTREMITIES: No cyanosis, moderate bilateral pedal edema, full range of motion of all the joints without pain or difficulty, no signs for acute trauma. NEUROLOGIC: Oriented x 3, no acute motor or sensory deficits, no focal weakness. SKIN: No rash, no jaundice, no diaphoresis. Pale. Rectal: Dark maroon stool, heme positive. No external source for bleeding. DIFFERENTIAL DIAGNOSIS: Diverticulosis, AVM, coagulopathy, colitis, inflammatory bowel disease, malignancy, [place] tear, esophagitis, peptic ulcer disease, variceal bleed, gastritis, epistaxis, fissure, hemorrhoids, as well as other pathologies. EMERGENCY DEPARTMENT COURSE/PROCEDURES: ECG: Indication was GI bleeding and shortness of breath. The ECG shows a sinus bradycardia with a rate of 54. There is some nonspecific ST change. The QTc is 436. There is no ST elevation, no PVCs. Continuous Cardiac Monitoring: An order was placed for continuous cardiac monitoring. The monitor shows a rate of 56 with sinus bradycardia. MEDICAL DECISION MAKING: There is a mild leukocytosis, this could be consistent with infection or just the stress of her presentation. Hemoglobin was somewhat low at 10.5. This is about a two-point drop for her. There is a normal platelet count. INR is elevated 2.2, this is consistent with her Coumadin use. Creatinine is elevated at 1.61. The creatinine is higher than baseline and the elevation could be consistent with some dehydration. No concerning liver enzyme elevation. ECG shows a sinus bradycardia, no acute ischemia. Cardiac enzyme testing x1 is not consistent with acute cardiac injury. Chest film shows some cardiomegaly, no worrisome CHF or pneumonia. On exam, the patient had dark maroon-colored stool which was heme positive. She seemed pale. Abdominal and pelvis CT is pending. Patient received IV saline, 1 L. She was given a dose of oral vitamin K, 5 mg. The patient is in need of a hospital stay. I did discuss her case with the on- call GI physician. No emergent intervention this evening. She will need hydrated, her hemoglobin will need followed. She needs her coagulopathy reversed. She may require a colonoscopy if she continues to bleed. I did speak to the patient, I spoke with case management. The on-call hospitalist was consulted. Past Med/Surg History Medical History Antiphospholipid antibody syndrome Anxiety Asthma Chronic kidney disease (CKD), stage III (moderate) GERD (gastroesophageal reflux disease) HLD (hyperlipidemia) HTN (hypertension) Hypothyroid Incomplete bundle branch block Parkinsons Paroxysmal A-fib Rhinitis Social History Smoking Status: Never smoker Hx Alcohol Use: No Hx Substance Use: No Preferred Language: Swedish Communication Ability: Effective Corporate Director Of Pharmacy Required: No Beliefs That Will Affect Care: None Current Living Situation: Family Feels Safe at Home: Yes Assistive Devices: None Allergies Allergies Allergy/AdvReac Type Severity Reaction Status Date / Time lisinopril Allergy Mild COUGH Verified 03/19/20 00:26 guaifenesin Allergy Unknown Unknown Verified 03/19/20 00:26 phenylpropanolamine Allergy Unknown Unknown Verified 03/19/20 00:26 sulindac Allergy Unknown Unknown Verified 03/19/20 00:26 Home Meds Home Medications Medication Instructions Recorded Confirmed Alive Once Daily Women 50 Plus 1 tab PO DAILY 03/04/19 03/19/20 Restasis 2 drp OPHTHALMIC (EYE) Q12H 03/04/19 03/19/20 albuterol sulfate [ProAir HFA] 2 puff INHALATION Q6H PRN 03/04/19 03/19/20 alendronate [Fosamax] 70 mg PO WK 03/04/19 03/19/20 amiodarone 200 mg PO DAILY 03/04/19 03/19/20 atorvastatin 20 mg PO DAILY 03/04/19 03/19/20 cholecalciferol (vitamin D3) 1,000 unit PO DAILY 03/04/19 03/19/20 fluticasone propionate [Flonase 1 spray INTRANASAL DAILY 03/04/19 03/19/20 Allergy Relief] Breo Ellipta 2 inh INHALATION DAILY 01/16/20 03/19/20 furosemide 20 mg PO 3XWK 01/16/20 03/19/20 isosorbide mononitrate 30 mg PO DAILY 01/16/20 03/19/20 levothyroxine 50 mcg PO QAM 01/16/20 03/19/20 loratadine [Claritin] 10 mg PO DAILY 01/16/20 03/19/20 lorazepam 0.25 - 0.5 mg PO DAILY PRN 01/16/20 03/19/20 losartan 50 mg PO DAILY 01/16/20 03/19/20 metoprolol tartrate 50 mg PO BID 01/16/20 03/19/20 montelukast 10 mg PO DAILY 01/16/20 03/19/20 omeprazole 20 mg PO BID 01/16/20 03/19/20 warfarin See Rx Instructions .ROUTE .COMPLEX 03/19/20 03/19/20 Results & Data (ED) Vital Signs Vital Signs - 24 hr 03/18/20 23:30 03/18/20 23:40 03/19/20 00:16 Temperature 36.4 C L Temperature Source Oral Pulse Rate 54 L 53 L Pulse Rate from SpO2 Sensor 52 L Respiratory Rate 22 20 Respiratory Effort / Characteristics Non-Labored Spontaneous Respiratory Depth Normal Blood Pressure 167/61 H 184/44 H Blood Pressure Mean 96 104 Pulse Oximetry 98 96 98 Oxygen Delivery Method Room Air Room Air Sepsis New/Unexplained Change in Mental Status N/A Sepsis Action Taken by Nursing No Action Required 03/19/20 00:32 Temperature Temperature Source Pulse Rate 56 L Pulse Rate from SpO2 Sensor Respiratory Rate 23 Respiratory Effort / Characteristics Respiratory Depth Blood Pressure 200/54 H Blood Pressure Mean 113 Pulse Oximetry 98 Oxygen Delivery Method Sepsis New/Unexplained Change in Mental Status Sepsis Action Taken by Longterm Medications Current Medication List: was personally reviewed by me Laboratory Data Attestation: I reviewed the patient's lab results. Result diagrams: 03/18/20 23:50 03/18/20 23:50 Lab Results 03/18/20 03/18/20 03/18/20 Range/Units 23:50 23:50 23:50 WBC 11.00 H (4.8-10.8) K/uL RBC 3.58 L (4.2-5.4) M/uL Hgb 10.5 L (12.0-16.0) g/dL Hct 32.9 L (37-47) % MCV 91.9 (80-100) fL MCH 29.3 (25-34) pg MCHC 31.9 L (32-36) g/dL RDW Std Deviation 53.5 H (36.4-46.3) fL RDW Coeff of Jay 16.0 H (11.5-14.5) % Plt Count 187 (130-400) K/uL MPV 9.4 (7.4-10.4) fL Immature Gran % (Auto) 0.5 % Neut % (Auto) 65.4 % Lymph % (Auto) 21.9 % [place] % (Auto) 8.3 % Eos % (Auto) 3.5 % Baso % (Auto) 0.4 % Neut # (Auto) 7.19 H (1.4-6.5) K/uL Lymph # (Auto) 2.41 (1.2-3.4) K/uL [place] # (Auto) 0.91 H (0.11-0.59) K/uL Eos # (Auto) 0.39 (0-0.5) K/uL Baso # (Auto) 0.04 (0-0.2) K/uL Immature Gran # (Auto) 0.06 H (0.00-0.02) K/uL PT 21.9 H (9.0-12.0) Seconds INR 2.2 H (0.9-1.1) APTT 125.7 H* (21.0-31.0) Seconds PTT Ratio 4.5 Sodium 143 (136-145) mmol/L Potassium 4.8 (3.5-5.1) mmol/L Chloride 114 H (98-107) mmol/L Carbon Dioxide 25 (21-32) mmol/L Anion Gap 4.0 (3-11) BUN 30 H (7-18) mg/dl Creatinine 1.61 H (0.6-1.2) mg/dl Est Cr Clr Drug Dosing 30.2 ml/min Est GFR ( Amer) 34.2 Est GFR (Non-Af Amer) 29.5 BUN/Creatinine Ratio 18.4 (10-20) Glucose 104 H (70-99) mg/dl Calcium 8.5 (8.5-10.1) mg/dl Magnesium 2.0 (1.8-2.4) mg/dl Total Bilirubin 0.3 (0.2-1) mg/dl AST 32 (15-37) U/L ALT 54 (12-78) U/L Alkaline Phosphatase 85 (45-117) U/L Troponin I < 0.015 (0-0.045) ng/ml Total Protein 6.9 (6.4-8.2) gm/dl Albumin 3.2 L (3.4-5.0) gm/dl Globulin 3.7 (2.5-4.0) gm/dl Albumin/Globulin Ratio 0.9 (0.9-2) Specimen Hemolysis Blood Type Antibody Screen 03/19/20 Range/Units 00:15 WBC (4.8-10.8) K/uL RBC (4.2-5.4) M/uL Hgb (12.0-16.0) g/dL Hct (37-47) % MCV (80-100) fL MCH (25-34) pg MCHC (32-36) g/dL RDW Std Deviation (36.4-46.3) fL RDW Coeff of Jay (11.5-14.5) % Plt Count (130-400) K/uL MPV (7.4-10.4) fL Immature Gran % (Auto) % Neut % (Auto) % Lymph % (Auto) % [place] % (Auto) % Eos % (Auto) % Baso % (Auto) % Neut # (Auto) (1.4-6.5) K/uL Lymph # (Auto) (1.2-3.4) K/uL [place] # (Auto) (0.11-0.59) K/uL Eos # (Auto) (0-0.5) K/uL Baso # (Auto) (0-0.2) K/uL Immature Gran # (Auto) (0.00-0.02) K/uL PT (9.0-12.0) Seconds INR (0.9-1.1) APTT (21.0-31.0) Seconds PTT Ratio Sodium (136-145) mmol/L Potassium (3.5-5.1) mmol/L Chloride (98-107) mmol/L Carbon Dioxide (21-32) mmol/L Anion Gap (3-11) BUN (7-18) mg/dl Creatinine (0.6-1.2) mg/dl Est Cr Clr Drug Dosing ml/min Est GFR ( Amer) Est GFR (Non-Af Amer) BUN/Creatinine Ratio (10-20) Glucose (70-99) mg/dl Calcium (8.5-10.1) mg/dl Magnesium (1.8-2.4) mg/dl Total Bilirubin (0.2-1) mg/dl AST (15-37) U/L ALT (12-78) U/L Alkaline Phosphatase (45-117) U/L Troponin I (0-0.045) ng/ml Total Protein (6.4-8.2) gm/dl Albumin (3.4-5.0) gm/dl Globulin (2.5-4.0) gm/dl Albumin/Globulin Ratio (0.9-2) Specimen Hemolysis Blood Type O Negative Antibody Screen NEGATIVE Administered Medications Discontinued Medications Hydralazine HCl (Hydralazine Hcl 20 Mg/Ml Vial) 5 mg IV NOW STA Stop: 03/19/20 00:45 Last Admin: 03/19/20 01:00 Dose: 5 mg Documented by: [id number] Sodium Chloride (Nss) 500 mls @ 999 mls/hr IV .Q31M ALICIA Stop: 03/19/20 00:15 Last Infusion: 03/19/20 01:04 Dose: 0 mls/hr Documented by: [id number] Admin: 03/19/20 00:00 Dose: 999 mls/hr Documented by: [id number] Sodium Chloride (Nss 1000ml) 500 mls @ 999 mls/hr IV .Q31M ONE Stop: 03/19/20 01:08 Last Infusion: 03/19/20 01:17 Dose: 0 mls/hr Documented by: [id number] Admin: 03/19/20 00:45 Dose: 999 mls/hr Documented by: [id number] Phytonadione (Phytonadione 5 Mg Tab) 5 mg PO NOW STA Stop: 03/19/20 00:48 Last Admin: 03/19/20 01:00 Dose: 5 mg Documented by: [id number] Imaging Data Radiologist's Impression: XR chest 1V portable HISTORY: 84 years-old Female renal failure acute renal failure COMPARISON: Chest radiograph 05/25/2015 TECHNIQUE: Portable AP view of the chest FINDINGS: Cardiac silhouette is enlarged. No overt pulmonary edema, pneumothorax, or large pleural effusion. Mild subsegmental bibasilar opacities. Bones appear grossly intact. IMPRESSION: 1. Cardiomegaly without overt pulmonary edema. 2. Mild bibasilar densities favor atelectasis. Pneumonitis considered less likely. Abdominal and pelvis CT is pending. Discharge Plan Visit Data Chief Complaint: Rectal Bleed Stated Complaint: RECTAL BLEEDING, POLYPS REMOVED TUES ED Provider: Todd Garcia Discharge Problem: Acute GI bleeding, Anemia, Coagulopathy, History of colonoscopy Patient Disposition: Admitted As Inpatient Condition: Good Forms Stand Alone Forms: My HandUp PBC Prescriptions Prescriptions: No Action atorvastatin 20 mg Tablet 20 mg PO DAILY RF: 0 amiodarone 200 mg Tablet 200 mg PO DAILY RF: 0 alendronate [Fosamax] 70 mg Tablet 70 mg PO WK RF: 0 albuterol sulfate [ProAir HFA] 90 mcg/actuation Hfa Aerosol Inhaler 2 puff INHALATION Q6H PRN (Reason: Shortness Of Breath) RF: 0 fluticasone propionate [Flonase Allergy Relief] 50 mcg/actuation [place],Suspension 1 spray INTRANASAL DAILY RF: 0 cholecalciferol (vitamin D3) 1,000 unit Capsule 1,000 unit PO DAILY RF: 0 Restasis 0.05 % [place] 2 drp OPHTHALMIC (EYE) Q12H RF: 0 Alive Once Daily Women 50 Plus 800-100 mcg Tablet 1 tab PO DAILY RF: 0 furosemide 20 mg tablet 20 mg PO 3XWK RF: 0 loratadine [Claritin] 10 mg Tablet 10 mg PO DAILY RF: 0 losartan 50 mg Tablet 50 mg PO DAILY RF: 0 omeprazole 20 mg Capsule,Delayed Release(Dr/Ec) 20 mg PO BID RF: 0 montelukast 10 mg tablet 10 mg PO DAILY RF: 0 levothyroxine 50 mcg tablet 50 mcg PO QAM RF: 0 isosorbide mononitrate 30 mg tablet extended release 24 hr 30 mg PO DAILY RF: 0 Breo Ellipta 200-25 mcg/dose blister with device 2 inh INHALATION DAILY RF: 0 metoprolol tartrate 50 mg tablet 50 mg PO BID RF: 0 lorazepam 0.5 mg Tablet 0.25 - 0.5 mg PO DAILY PRN (Reason: Anxiety) RF: 0 warfarin 2.5 mg Tablet See Rx Instructions .ROUTE .COMPLEX RF: 0 Referrals Referrals: David Cintron MD [Primary Care Provider] - Discharge Problem: Anemia Qualifiers: Anemia type: unspecified type Qualified Code(s): D64.9 - Anemia, unspecified
[2020-03-19 00:05] LABS: Basophils # (auto) 0.04 K/uL (0-0.2); Basophils % (auto) 0.4 %; Eosinophils # (auto) 0.39 K/uL (0-0.5); Eosinophils % (auto) 3.5 %; Hematocrit (blood only) 32.9 % (37-47); Hemoglobin 10.5 g/dL (12.0-16.0); Immature Granulocytes # (auto) 0.06 K/uL (0.00-0.02); Immature Granulocytes % (auto) 0.5 %; Lymphocytes # (auto) 2.41 K/uL (1.2-3.4); Lymphocytes % (auto) 21.9 %; Mean Corpuscular Hemoglobin 29.3 pg (25-34); Mean Corpuscular Hgb Conc 31.9 g/dL (32-36); Mean Corpuscular Volume 91.9 fL (80-100); Mean Platelet Volume 9.4 fL (7.4-10.4); Monocytes # (auto) 0.91 K/uL (0.11-0.59); Monocytes % (auto) 8.3 %; Neutrophils # (auto) 7.19 K/uL (1.4-6.5); Neutrophils % (auto) 65.4 %; Platelet Count 187 K/uL (130-400); RDW Standard Deviation 53.5 fL (36.4-46.3); Red Blood Count 3.58 M/uL (4.2-5.4)
[2020-03-19 00:26] LABS: INR 2.2 (0.9-1.1); Partial Thromboplastin Ratio 4.5; Prothrombin Time 21.9 Seconds (9.0-12.0)
[2020-03-19 00:31] LABS: Alanine Aminotransferase 54 U/L (12-78); Albumin Level 3.2 gm/dl (3.4-5.0); Aspartate Aminotransferase 32 U/L (15-37); BUN Creatinine Ratio 18.4 (10-20); Blood Urea Nitrogen 30 mg/dl (7-18); Calcium 8.5 mg/dl (8.5-10.1); Carbon Dioxide 25 mmol/L (21-32); Chloride 114 mmol/L (98-107); Creatinine Clr Calc Pharmacy 30.2 ml/min; Est GFR (African American) 34.2; Est GFR (Non-African American) 29.5; Glucose 104 mg/dl (70-99); Potassium 4.8 mmol/L (3.5-5.1); Sodium 143 mmol/L (136-145)
[2020-03-19] MEDS ORDERED: SODIUM CHLORIDE 0.9% 1000ML 500 ML IV ONE (00:38)
[2020-03-19 00:42] LABS: Partial Thromboplastin Time 125.7 Seconds (21.0-31.0)
[2020-03-19] MEDS ORDERED: hydrALAZINE HCL 20 MG/ML VIAL IV STA (00:44)
[2020-03-19 00:46] LABS: Albumin Globulin Ratio 0.9 (0.9-2); Alkaline Phosphatase 85 U/L (45-117); Bilirubin,Total 0.3 mg/dl (0.2-1); Globulin 3.7 gm/dl (2.5-4.0); Total Protein 6.9 gm/dl (6.4-8.2); Troponin I < 0.015 ng/ml (0-0.045)
[2020-03-19] MEDS ORDERED: PHYTONADIONE 5 MG TAB PO STA (00:47)
--- NOTE | 2020-03-19 00:57 | XRay Report ---
XR chest 1V portable HISTORY: 84 years-old Female renal failure acute renal failure COMPARISON: Chest radiograph 05/25/2015 TECHNIQUE: Portable AP view of the chest FINDINGS: Cardiac silhouette is enlarged. No overt pulmonary edema, pneumothorax, or large pleural effusion. Mi ld subsegmental bibasilar opacities. Bones appear grossly intact. IMPRESSION: 1. Cardiomegaly without overt pulmonary edema. 2. Mild bibasilar densities favor atelectasis. Pneumonitis considered less likely. ACT 112: Negative or not required by law. The above report was generated using voice recognition software. It may contain grammatical, syntax o r spelling errors. Electronically signed by: Lon Pineda M.D. 03/19/2020 12:56 AM
--- NOTE | 2020-03-19 01:13 | History & Physical Report ---
Date of Service March 19, 2020 Assessment & Plan (1) Acute lower GI bleeding: In the setting of anticoagulation for hx antiphospholipid antibody syndrome/PAF with history TIA Post polypectomy bleed Rule out C. difficile Hypertensive urgency secondary to illness, anxiety Nonobstructive CAD as per records ARF secondary to illness Parkinson's disease as per records, stable on regimen Medical telemetry Hold anticoagulation for now Stool C. difficile GI consult RE L GIB (ER provider already in touch with Dr. Raphael.) Trend H&H, transfuse PRBC if hemoglobin less than 8 and or for symptomatic anemia Baseline UA, monitor creatinine response to IVF, hold home losartan until creatinine back to baseline Hydralazine 1 dose now, facilitate home BP meds, add Amlodipine to regimen if still uncontrolled. DVT prophylaxis. SCDs RE L GIB Full code Text document was generated using [employer] voice recognition software. It may contain grammatical or spelling errors. Kindly contact undersigned for clarification of any documentation item in question. . History of Present Illness Chief Complaint: Rectal bleeding Primary Care Provider: David Cintron MD History obtained from patient and records. Medical history significant for antiphospholipid antibody syndrome/PAF on Coumadin, nonobstructive CAD as per records, history TIA, hypertension, asthma, GERD, colonic polyps, Parkinson's disease as per records. Last confinement December 2019 for hypertensive urgency, possible pyelonephritis. Patient Coumadin on hold the last few weeks due to elevated INR and in anticipation of scheduled outpatient colonoscopy for March 15. Patient has been on weight-based Lovenox interim. Patient underwent outpatient colonoscopy 4 days ago. Diverticulosis and nonbleeding internal hemorrhoids noted during procedure. 2 polyps subsequently resected and retrieved. Coumadin Rx subsequently initiated post procedure, weight-based Lovenox injections completed following [facility] anticoagulation clinic's instructions post procedure. Patient noted loose bloody stools with minimal abdominal cramping which seem to progress every day. No hematemesis/coffee-ground emesis. No fever, no chills. No chest pain, no S OB. No headache. Some lightheadedness. Poor appetite. No OTC NSAID intake. At the ER, patient received vitamin K for L GIB, Coumadin coagulopathy. Medical History as above Surgical History : Cystoscopy, partial colectomy, appendectomy, cholecystectomy, vaginal delivery Family History : Ovarian cancer, lung cancer, heart disease Personal/Social history : Non-smoker, no EtOH intake Allergies Allergy/AdvReac Type Severity Reaction Status Date / Time lisinopril Allergy Mild COUGH Verified 03/19/20 00:26 guaifenesin Allergy Unknown Unknown Verified 03/19/20 00:26 phenylpropanolamine Allergy Unknown Unknown Verified 03/19/20 00:26 sulindac Allergy Unknown Unknown Verified 03/19/20 00:26 Home Medications Home Medications Medication Instructions Recorded Confirmed Type Alive Once Daily Women 50 Plus 1 tab PO DAILY 03/04/19 03/19/20 History Restasis 2 drp OPHTHALMIC (EYE) Q12H 03/04/19 03/19/20 History albuterol sulfate [ProAir HFA] 2 puff INHALATION Q6H PRN 03/04/19 03/19/20 History alendronate [Fosamax] 70 mg PO WK 03/04/19 03/19/20 History amiodarone 200 mg PO DAILY 03/04/19 03/19/20 History atorvastatin 20 mg PO DAILY 03/04/19 03/19/20 History cholecalciferol (vitamin D3) 1,000 unit PO DAILY 03/04/19 03/19/20 History fluticasone propionate [Flonase 1 spray INTRANASAL DAILY 03/04/19 03/19/20 History Allergy Relief] Breo Ellipta 2 inh INHALATION DAILY 01/16/20 03/19/20 History furosemide 20 mg PO 3XWK 01/16/20 03/19/20 History isosorbide mononitrate 30 mg PO DAILY 01/16/20 03/19/20 History levothyroxine 50 mcg PO QAM 01/16/20 03/19/20 History loratadine [Claritin] 10 mg PO DAILY 01/16/20 03/19/20 History lorazepam 0.25 - 0.5 mg PO DAILY PRN 01/16/20 03/19/20 History losartan 50 mg PO DAILY 01/16/20 03/19/20 History metoprolol tartrate 50 mg PO BID 01/16/20 03/19/20 History montelukast 10 mg PO DAILY 01/16/20 03/19/20 History omeprazole 20 mg PO BID 01/16/20 03/19/20 History warfarin See Rx Instructions .ROUTE .COMPLEX 03/19/20 03/19/20 History Past Med/Surg History Medical History Antiphospholipid antibody syndrome Anxiety Asthma Chronic kidney disease (CKD), stage III (moderate) GERD (gastroesophageal reflux disease) HLD (hyperlipidemia) HTN (hypertension) Hypothyroid Incomplete bundle branch block Parkinsons Paroxysmal A-fib Rhinitis Social History Smoking Status: Never smoker Hx Alcohol Use: No Hx Substance Use: No Preferred Language: Yi Communication Ability: Effective 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 Required: No Beliefs That Will Affect Care: None Current Living Situation: Family Current Living Situation Comment: Grandson Other Information That Helps Us Care for You: No Feels Safe at Home: Yes Safety Concerns: Feels Safe At This Time Assistive Devices: Denture - Lower Assistive Devices Comment: denures not with paient- partials Review of Systems Review of Systems: As per HPI, all 10 systems reviewed, all other ROS negative Physical Exam Physical Exam: GENERAL: Comfortable, slightly anxious, obese, no respiratory distress SKIN: Pallor , warm HEENT: Pale palpebral conjunctivae, no ptosis, dry buccal mucosa NECK : Supple, short neck, no tenderness CHEST : CTA, no tenderness HEART : Bradycardic , no obvious murmurs ABDOMEN: Some distention, minimal hypogastric tenderness EXTREMITIES : Minimal LE swelling, no LE tenderness, no other conspicuous deformities noted NEUROLOGIC : Coherent, no facial asymmetry, no other gross focality Results & Data Results & Data ([facility]) Vital Signs (Past 12 Hours) Vital Signs Temp Pulse Resp BP Pulse Ox 03/19/20 00:32 56 L 23 200/54 H 98 03/19/20 00:16 53 L 20 184/44 H 98 03/18/20 23:40 96 03/18/20 23:30 36.4 C L 54 L 22 167/61 H 98 Laboratory Results Laboratory Results WBC 11.00 K/uL (4.8-10.8) H 03/18/20 23:50 RBC 3.58 M/uL (4.2-5.4) L 03/18/20 23:50 Hgb 10.5 g/dL (12.0-16.0) L 03/18/20 23:50 Hct 32.9 % (37-47) L 03/18/20 23:50 MCV 91.9 fL (80-100) 03/18/20 23:50 MCH 29.3 pg (25-34) 03/18/20 23:50 MCHC 31.9 g/dL (32-36) L 03/18/20 23:50 RDW Std Deviation 53.5 fL (36.4-46.3) H 03/18/20 23:50 RDW Coeff of Jay 16.0 % (11.5-14.5) H 03/18/20 23:50 Plt Count 187 K/uL (130-400) 03/18/20 23:50 MPV 9.4 fL (7.4-10.4) 03/18/20 23:50 Immature Gran % (Auto) 0.5 % 03/18/20 23:50 Neut % (Auto) 65.4 % 03/18/20 23:50 Lymph % (Auto) 21.9 % 03/18/20 23:50 [place] % (Auto) 8.3 % 03/18/20 23:50 Eos % (Auto) 3.5 % 03/18/20 23:50 Baso % (Auto) 0.4 % 03/18/20 23:50 Neut # (Auto) 7.19 K/uL (1.4-6.5) H 03/18/20 23:50 Lymph # (Auto) 2.41 K/uL (1.2-3.4) 03/18/20 23:50 [place] # (Auto) 0.91 K/uL (0.11-0.59) H 03/18/20 23:50 Eos # (Auto) 0.39 K/uL (0-0.5) 03/18/20 23:50 Baso # (Auto) 0.04 K/uL (0-0.2) 03/18/20 23:50 Immature Gran # (Auto) 0.06 K/uL (0.00-0.02) H 03/18/20 23:50 PT 21.9 Seconds (9.0-12.0) H 03/18/20 23:50 INR 2.2 (0.9-1.1) H 03/18/20 23:50 APTT 125.7 Seconds (21.0-31.0) H* 03/18/20 23:50 PTT Ratio 4.5 03/18/20 23:50 Sodium 143 mmol/L (136-145) 03/18/20 23:50 Potassium 4.8 mmol/L (3.5-5.1) 03/18/20 23:50 Chloride 114 mmol/L (98-107) H 03/18/20 23:50 Carbon Dioxide 25 mmol/L (21-32) 03/18/20 23:50 Anion Gap 4.0 (3-11) 03/18/20 23:50 BUN 30 mg/dl (7-18) H 03/18/20 23:50 Creatinine 1.61 mg/dl (0.6-1.2) H 03/18/20 23:50 Est Cr Clr Drug Dosing 30.2 ml/min 03/18/20 23:50 Est GFR ( Amer) 34.2 03/18/20 23:50 Est GFR (Non-Af Amer) 29.5 03/18/20 23:50 BUN/Creatinine Ratio 18.4 (10-20) 03/18/20 23:50 Glucose 104 mg/dl (70-99) H 03/18/20 23:50 Calcium 8.5 mg/dl (8.5-10.1) 03/18/20 23:50 Magnesium 2.0 mg/dl (1.8-2.4) 03/18/20 23:50 Total Bilirubin 0.3 mg/dl (0.2-1) 03/18/20 23:50 AST 32 U/L (15-37) 03/18/20 23:50 ALT 54 U/L (12-78) 03/18/20 23:50 Alkaline Phosphatase 85 U/L (45-117) 03/18/20 23:50 Troponin I < 0.015 ng/ml (0-0.045) 03/18/20 23:50 Total Protein 6.9 gm/dl (6.4-8.2) 03/18/20 23:50 Albumin 3.2 gm/dl (3.4-5.0) L 03/18/20 23:50 Globulin 3.7 gm/dl (2.5-4.0) 03/18/20 23:50 Albumin/Globulin Ratio 0.9 (0.9-2) 03/18/20 23:50 Specimen Hemolysis 03/18/20 23:[address] abdomen pelvis initial read: Liver, spleen, and pancreas appear normal. Gallbladder is surgically absent. Previous colonic resection. Appendix not visualized. 5 x 3 mm metallic density cecum adjacent to ileocecal valve, surgical vascular clips from colonoscopy. Chest x-ray : 1. Cardiomegaly without overt pulmonary edema. 2. Mild bibasilar densities favor atelectasis. Pneumonitis considered less likely. EKG as per my interpretation : Rate 55, sinus bradycardia, normal axis, no ischemia
[2020-03-19] MEDS ORDERED: SODIUM CHLORIDE 0.45 % 1,000 ML IV SCH (01:20)
[2020-03-19] MEDS ORDERED: traMADol HCL 50 MG TABLET PO PRN (02:06)
[2020-03-19] MEDS ORDERED: HYDROmorphone INJ 0.5 MG/0.5 ML SYR IV PRN (02:06)
[2020-03-19] MEDS ORDERED: LORazepam 0.25 MG/0.5 ML VIAL IV PRN (02:06)
[2020-03-19] MEDS ORDERED: PROMETHAZINE HCL 12.5 MG in SODIUM CHLORIDE 0.9% 50 ML IV PRN (02:06)
[2020-03-19] MEDS ORDERED: ALBUT/IPRATROP 3MG/0.5MG NEB 3 ML VIAL NEB PRN (02:54)
[2020-03-19] MEDS ORDERED: ALBUT/IPRATROP 3MG/0.5MG NEB 3 ML VIAL NEB STA (03:42)
[2020-03-19] MEDS: ISOSORBIDE MONO EXTENDED REL 30 MG TABCR PO SCH (04:05)
[2020-03-19 04:10] LABS: Basophils # (auto) 0.03 K/uL (0-0.2); Basophils % (auto) 0.3 %; Eosinophils # (auto) 0.41 K/uL (0-0.5); Eosinophils % (auto) 3.7 %; Hematocrit (blood only) 31.6 % (37-47); Immature Granulocytes # (auto) 0.03 K/uL (0.00-0.02); Immature Granulocytes % (auto) 0.3 %; Lymphocytes # (auto) 2.56 K/uL (1.2-3.4); Lymphocytes % (auto) 23.3 %; Mean Corpuscular Hemoglobin 29.3 pg (25-34); Mean Corpuscular Hgb Conc 31.6 g/dL (32-36); Mean Corpuscular Volume 92.7 fL (80-100); Mean Platelet Volume 9.4 fL (7.4-10.4); Monocytes # (auto) 0.89 K/uL (0.11-0.59); Monocytes % (auto) 8.1 %; Neutrophils # (auto) 7.09 K/uL (1.4-6.5); Neutrophils % (auto) 64.3 %; Platelet Count 199 K/uL (130-400); RDW Standard Deviation 53.7 fL (36.4-46.3); Red Blood Count 3.41 M/uL (4.2-5.4); White Blood Count 11.01 K/uL (4.8-10.8)
[2020-03-19 04:19] LABS: INR 2.3 (0.9-1.1)
[2020-03-19 04:28] LABS: BUN Creatinine Ratio 20.3 (10-20); Blood Urea Nitrogen 28 mg/dl (7-18); Calcium 8.4 mg/dl (8.5-10.1); Carbon Dioxide 26 mmol/L (21-32); Chloride 116 mmol/L (98-107); Creatinine Clr Calc Pharmacy 35.5 ml/min; Est GFR (African American) 41.9; Est GFR (Non-African American) 36.1; Glucose 106 mg/dl (70-99); Potassium 4.8 mmol/L (3.5-5.1); Sodium 145 mmol/L (136-145)
[2020-03-19 04:33] LABS: Troponin I < 0.015 ng/ml (0-0.045)
[2020-03-19] MEDS: LEVOTHYROXINE SODIUM 50 MCG TABLET PO SCH (06:03)
[2020-03-19] MEDS: RESTASIS~ORDER AWAITING ACTION SCH ×2 (07:32→18:35)
--- NOTE | 2020-03-19 07:44 | XRay Report ---
XR chest 1V portable CLINICAL HISTORY: Shortness of breath. COMPARISON STUDY: Chest radiograph March 19, 2020 at 12:45 AM. FINDINGS: Lung volumes are normal. There is no pneumothorax or pleural effusion. No evidence for pulm onary edema or pneumonia. Moderate cardiomegaly is unchanged. IMPRESSION: No acute cardiopulmonary findings. ACT 112: Negative or not required by law. Electronically signed by: Heron Winchester M.D. 03/19/2020 7:42 AM
--- NOTE | 2020-03-19 08:08 | CT Scan Report ---
CT OF THE ABDOMEN AND PELVIS WITHOUT CONTRAST CLINICAL HISTORY: rectal bleeding after colonoscopy COMPARISON STUDY: CT of the abdomen and pelvis January 16, 2020. TECHNIQUE: Axial images of the abdomen and pelvis were obtained without IV contrast. Images were revi ewed in the axial, sagittal, and coronal planes. Automated exposure control was utilized for the chun dy. A dose lowering technique was utilized adhering to the principles of ALARA. FINDINGS: Note is made of moderate cardiomegaly. Interlobular septal thickening within the lower lung s suggests mild pulmonary edema. There are mild groundglass opacities. No pneumatosis, free air or po rtal venous gas is present. The liver is slightly dense. There is a lipoma within the proximal duoden um. There is no biliary ductal dilatation status post cholecystectomy. Evaluation of the abdomen and pelvis is suboptimal as unenhanced exam. The spleen, adrenal glands, kidneys and pancreas are unremar kable. There is no peripancreatic infiltration. No hydronephrosis is noted. A sigmoid resection is no jerri. Endoscopic clips within the proximal ascending colon are noted. There may be minimal adjacent hy perdense material. There is also possible intraluminal fluid versus wall thickening of the distal asc ending colon shown best on axial image 163 of 436. A few colonic diverticula are noted. There is no l ymphadenopathy. Subcutaneous injection sites of the anterior abdominal wall are noted. There are no s uspicious osseous lesions. IMPRESSION: 1. No pneumoperitoneum. No bowel obstruction. 2. Endoscopic clips from recent biopsy within the proximal ascending colon. Possible small amount of intraluminal hemorrhage versus wall thickening of the distal ascending colon which be correlated with colonoscopy results. No extraluminal hemorrhage. This finding will be called/faxed to the ordering p radha at time of dictation. ACT 112: Negative or not required by law. Electronically signed by: Heron Winchester M.D. 03/19/2020 8:06 AM
[2020-03-19] MEDS: FLUTICASONE/VILANTEROL 200/25MCG 14 PUFFS/INHALER INH SCH (09:26)
[2020-03-19] MEDS: ATORVASTATIN 20 MG TAB PO SCH (09:26)
[2020-03-19] MEDS: PANTOprazole 40 MG TAB PO SCH ×2 (09:27→20:45)
[2020-03-19] MEDS: AMIODARONE 200 MG TAB PO SCH (09:28)
[2020-03-19] MEDS: LORATADINE 10 MG TAB PO SCH (09:28)
[2020-03-19] MEDS: MONTELUKAST SODIUM 10 MG TABLET PO SCH (09:30)
[2020-03-19] MEDS: FLUTICASONE PROPIONATE NA SPR 16 GM BTL SCH (09:31)
[2020-03-19] MEDS: METOPROLOL TARTRATE 25 MG TAB PO SCH ×2 (09:32→20:46)
[2020-03-19 10:03] LABS: Appearance Urine Clear (Clear); Bacteria Urine Automated Negative (Negative); Bilirubin Urine Negative (Negative); Blood Urine Negative (Negative); Cast Urine Automated 0 /lpf (0-5); Color Urine Yellow; Glucose Urine UA Negative (Negative); Ketones Urine Negative (Negative); Leukocyte Esterase Urine Trace (Negative); Nitrite Urine Negative (Negative); Protein Urine Negative (Negative); RBC Urine Automated 0-4 /hpf (0-4); Specific Gravity Urine 1.018 (1.000-1.030); Urobilinogen Urine Negative (Negative)
[2020-03-19] MEDS ORDERED: POLYETHYLENE (MIRALAX) 17 GM PACK PO ONE ×2 (10:31→13:45)
--- NOTE | 2020-03-19 11:12 | Gastrointestinal Consultation ---
Date of Consultation March 19, 2020 Assessment & Plan (1) Acute lower GI bleeding: Patient with Lower GI bleeding post recent colonoscopy with Polypectomy in the setting of Coumadin use and coagulopathy, also has diverticulosis on colonoscopy. At this time bleeding seems to have slowed down and H/H is stable. Start Clear liquids, give a dose of Miralax to cleanse the colon. Please check H/H at 8 PM today. Repeat H/H and INR tomorrow, if stable with no bleeding then may discharge and resume Coumadin as OP in 48 hrs to allow healing of the polypectomy area. Otherwise if H/H drops or continues to bleed overnight then give 2 L of Golytely and plan for colonoscopy tomorrow. (2) Coagulopathy: History of Present Illness Reason for Consultation: Lower GI bleed Attending Physician: Edward Lopez MD History of Present Illness 84 years old female patient with Afib, antiphospholipid syndrome, Hx of TIA, CAD, HTN, Parkinson's disease, had surveillance colonoscopy on 03/15, one 12 mm polyp removed from ascending colon with saline lift and hot snare, two clips placed, she resumed Lovenox and Coumadin post procedure, after 48 hrs, she developed rectal bleeding hence presented to the hospital. Denies nausea, vomiting, abdominal pain or fever. She was found with INR of 2.2 and PTT of 125 hence given one dose of PO Vitamin K 5 mg. Hgb drop from 12 to 10 but now stable at 10. No rectal bleeding since admission but stool is still black. Allergies Allergy/AdvReac Type Severity Reaction Status Date / Time lisinopril Allergy Mild COUGH Verified 03/19/20 00:26 guaifenesin Allergy Unknown Unknown Verified 03/19/20 00:26 phenylpropanolamine Allergy Unknown Unknown Verified 03/19/20 00:26 sulindac Allergy Unknown Unknown Verified 03/19/20 00:26 Home Medications Home Medications Medication Instructions Recorded Confirmed Type Alive Once Daily Women 50 Plus 1 tab PO DAILY 03/04/19 03/19/20 History Restasis 2 drp OPHTHALMIC (EYE) Q12H 03/04/19 03/19/20 History albuterol sulfate [ProAir HFA] 2 puff INHALATION Q6H PRN 03/04/19 03/19/20 History alendronate [Fosamax] 70 mg PO WK 03/04/19 03/19/20 History amiodarone 200 mg PO DAILY 03/04/19 03/19/20 History atorvastatin 20 mg PO DAILY 03/04/19 03/19/20 History cholecalciferol (vitamin D3) 1,000 unit PO DAILY 03/04/19 03/19/20 History fluticasone propionate [Flonase 1 spray INTRANASAL DAILY 03/04/19 03/19/20 History Allergy Relief] Breo Ellipta 2 inh INHALATION DAILY 01/16/20 03/19/20 History furosemide 20 mg PO 3XWK 01/16/20 03/19/20 History isosorbide mononitrate 30 mg PO DAILY 01/16/20 03/19/20 History levothyroxine 50 mcg PO QAM 01/16/20 03/19/20 History loratadine [Claritin] 10 mg PO DAILY 01/16/20 03/19/20 History lorazepam 0.25 - 0.5 mg PO DAILY PRN 01/16/20 03/19/20 History losartan 50 mg PO DAILY 01/16/20 03/19/20 History metoprolol tartrate 50 mg PO BID 01/16/20 03/19/20 History montelukast 10 mg PO DAILY 01/16/20 03/19/20 History omeprazole 20 mg PO BID 01/16/20 03/19/20 History warfarin See Rx Instructions .ROUTE .COMPLEX 03/19/20 03/19/20 History Patient History Medical History Antiphospholipid antibody syndrome Anxiety Asthma Chronic kidney disease (CKD), stage III (moderate) GERD (gastroesophageal reflux disease) HLD (hyperlipidemia) HTN (hypertension) Hypothyroid Incomplete bundle branch block Parkinsons Paroxysmal A-fib Rhinitis Social History Smoking Status: Never smoker Hx Alcohol Use: No Hx Substance Use: No Preferred Language: Slovak Communication Ability: Effective Band Ripsaw Operator Required: No Beliefs That Will Affect Care: None Current Living Situation: Family Current Living Situation Comment: Grandson Other Information That Helps Us Care for You: No Feels Safe at Home: Yes Safety Concerns: Feels Safe At This Time Assistive Devices: Denture - Lower Assistive Devices Comment: denures not with paient- partials Review of Systems Constitutional: no fever, no chills, no fatigue and no weight loss Eyes: no eye pain and no worsening vision Ear, Nose, Mouth, Throat: no tinnitus, no dizziness, no nasal discharge and no epistaxis Respiratory: no cough, no dyspnea, no dyspnea on exertion and no wheezing Cardiovascular: no chest pain, no orthopnea, no palpitations and no edema Gastrointestinal: as per Subjective / HPI Genitourinary: no dysuria, no urinary frequency, no urinary incontinence and no hematuria Musculoskeletal: no stiffness and no myalgia Neurologic: no localized weakness, no paralysis, no tremor(s) and no headache(s) Endocrine: no polydipsia and no polyuria Hematologic / Lymphatic: no easy bleeding and no night sweats Physical Exam Constitutional: + well hydrated, cooperative and comfortable Eyes: PERRL, conjunctivae normal, anicteric sclerae ENMT: external ear and nose normal, oropharynx normal Neck: normal visual inspection and trachea midline Respiratory: normal respiratory effort, lungs clear to auscultation Auscultation: no wheezes Cardiovascular: RRR, no murmur, no edema Gastrointestinal (Abdomen): normal bowel sounds, soft, nontender, no hepatosplenomegaly Musculoskeletal: no cyanosis or clubbing, extremities motor strength 5/5 Skin: no rashes, warm and dry Neurologic: awake; no focal motor deficits Motor/Sensory: no tremor Results & Data ([facility]) Vital Signs (Past 12 Hours) Vital Signs Temp Pulse Pulse Resp BP BP Pulse Ox 03/19/20 07:29 36.4 C L 53 L 20 131/67 96 03/19/20 07:00 52 L 03/19/20 03:48 50 L 18 98 03/19/20 03:43 148/73 H 100 03/19/20 02:07 36.4 C L 51 L 20 161/58 H 98 03/19/20 01:01 52 L 20 160/67 H 98 03/19/20 00:32 56 L 23 200/54 H 98 03/19/20 00:16 53 L 20 184/44 H 98 03/18/20 23:40 96 03/18/20 23:30 36.4 C L 54 L 22 167/61 H 98 Laboratory Results Laboratory Results - last 24 hr 03/18/20 03/18/20 03/18/20 23:50 23:50 23:50 WBC 11.00 H RBC 3.58 L Hgb 10.5 L Hct 32.9 L MCV 91.9 MCH 29.3 MCHC 31.9 L RDW Std Deviation 53.5 H RDW Coeff of Jay 16.0 H Plt Count 187 MPV 9.4 Immature Gran % (Auto) 0.5 Neut % (Auto) 65.4 Lymph % (Auto) 21.9 [place] % (Auto) 8.3 Eos % (Auto) 3.5 Baso % (Auto) 0.4 Neut # (Auto) 7.19 H Lymph # (Auto) 2.41 Freestone # (Auto) 0.91 H Eos # (Auto) 0.39 Baso # (Auto) 0.04 Immature Gran # (Auto) 0.06 H PT 21.9 H INR 2.2 H APTT 125.7 H* PTT Ratio 4.5 Sodium 143 Potassium 4.8 Chloride 114 H Carbon Dioxide 25 Anion Gap 4.0 BUN 30 H Creatinine 1.61 H Est Cr Clr Drug Dosing 30.2 Est GFR ( Amer) 34.2 Est GFR (Non-Af Amer) 29.5 BUN/Creatinine Ratio 18.4 Glucose 104 H Calcium 8.5 Magnesium 2.0 Total Bilirubin 0.3 AST 32 ALT 54 Alkaline Phosphatase 85 Troponin I < 0.015 Total Protein 6.9 Albumin 3.2 L Globulin 3.7 Albumin/Globulin Ratio 0.9 Specimen Hemolysis Urine Color Urine Appearance Urine pH Ur Specific [place] Urine Protein Urine Glucose (UA) Urine Ketones Urine Blood Urine Nitrite Urine Bilirubin Urine Urobilinogen Ur Leukocyte Esterase Urine WBC (Auto) Urine RBC (Auto) U Hyaline Cast (Auto) U Epithel Cells (Auto) Urine Bacteria (Auto) Stl C. diff Tox B Gene Blood Type Antibody Screen 03/19/20 03/19/20 03/19/20 00:15 03:53 03:53 WBC 11.01 H RBC 3.41 L Hgb 10.0 L Hct 31.6 L MCV 92.7 MCH 29.3 MCHC 31.6 L RDW Std Deviation 53.7 H RDW Coeff of Jay 16.0 H Plt Count 199 MPV 9.4 Immature Gran % (Auto) 0.3 Neut % (Auto) 64.3 Lymph % (Auto) 23.3 Fre[place] % (Auto) 8.1 Eos % (Auto) 3.7 Baso % (Auto) 0.3 Neut # (Auto) 7.09 H Lymph # (Auto) 2.56 Fre[place] # (Auto) 0.89 H Eos # (Auto) 0.41 Baso # (Auto) 0.03 Immature Gran # (Auto) 0.03 H PT 23.0 H INR 2.3 H APTT PTT Ratio Sodium Potassium Chloride Carbon Dioxide Anion Gap BUN Creatinine Est Cr Clr Drug Dosing Est GFR ( Amer) Est GFR (Non-Af Amer) BUN/Creatinine Ratio Glucose Calcium Magnesium Total Bilirubin AST ALT Alkaline Phosphatase Troponin I Total Protein Albumin Globulin Albumin/Globulin Ratio Specimen Hemolysis Urine Color Urine Appearance Urine pH Ur Specific [place] Urine Protein Urine Glucose (UA) Urine Ketones Urine Blood Urine Nitrite Urine Bilirubin Urine Urobilinogen Ur Leukocyte Esterase Urine WBC (Auto) Urine RBC (Auto) U Hyaline Cast (Auto) U Epithel Cells (Auto) Urine Bacteria (Auto) Stl C. diff Tox B Gene Blood Type O Negative Antibody Screen NEGATIVE 03/19/20 03/19/20 03/19/20 03:53 05:40 09:46 WBC RBC Hgb Hct MCV MCH MCHC RDW Std Deviation RDW Coeff of Jay Plt Count MPV Immature Gran % (Auto) Neut % (Auto) Lymph % (Auto) Freestone % (Auto) Eos % (Auto) Baso % (Auto) Neut # (Auto) Lymph # (Auto) Fre[place] # (Auto) Eos # (Auto) Baso # (Auto) Immature Gran # (Auto) PT INR APTT PTT Ratio Sodium 145 Potassium 4.8 Chloride 116 H Carbon Dioxide 26 Anion Gap 3.0 BUN 28 H Creatinine 1.36 H Est Cr Clr Drug Dosing 35.5 Est GFR ( Amer) 41.9 Est GFR (Non-Af Amer) 36.1 BUN/Creatinine Ratio 20.3 H Glucose 106 H Calcium 8.4 L Magnesium Total Bilirubin AST ALT Alkaline Phosphatase Troponin I < 0.015 Total Protein Albumin Globulin Albumin/Globulin Ratio Specimen Hemolysis Urine Color Yellow Urine Appearance Clear Urine pH 6.0 Ur Specific [place] 1.018 Urine Protein Negative Urine Glucose (UA) Negative Urine Ketones Negative Urine Blood Negative Urine Nitrite Negative Urine Bilirubin Negative Urine Urobilinogen Negative Ur Leukocyte Esterase Trace H Urine WBC (Auto) 1-5 Urine RBC (Auto) 0-4 U Hyaline Cast (Auto) 0 U Epithel Cells (Auto) 10-20 H Urine Bacteria (Auto) Negative Stl C. diff Tox B Gene Negative Cdiff Gene Blood Type Antibody Screen
[2020-03-19 12:35] LABS: Hemoglobin 8.7 g/dL (12.0-16.0)
[2020-03-19] MEDS ORDERED: Nursing to Pharmacy Communication SCH (13:45)
--- NOTE | 2020-03-19 13:52 | Gastroenterology Progress Note ---
Date of Service March 19, 2020 Assessment & Plan Admission and Anticipated Discharge Date Admission Date: March 19, 2020 Subjective Repeat H/H showed significant drop hence will need another dose of vitamin K, one unit PRBC in view of her CAD and will perform urgent colonoscopy today to control the bleeding. Please obtain COVID test. Give rectal enema. NPO. Results & Data ([facility]) Vital Signs (Past 12 Hours) Vital Signs Temp Pulse Pulse Resp BP Pulse Ox 03/19/20 12:00 36.3 C L 52 L 18 130/54 L 96 03/19/20 07:29 36.4 C L 53 L 20 131/67 96 03/19/20 07:00 52 L 03/19/20 03:48 50 L 18 98 03/19/20 03:43 148/73 H 100 03/19/20 02:07 36.4 C L 51 L 20 161/58 H 98
[2020-03-19] MEDS ORDERED: PHYTONADIONE 5 MG in SODIUM CHLORIDE 0.9% 50 ML IV STA (13:53)
[2020-03-19] MEDS ORDERED: SODIUM CHLORIDE 0.9% 250 ML IV PRN (13:57)
[2020-03-19 14:34] LABS: INR 1.8 (0.9-1.1); Prothrombin Time 18.8 Seconds (9.0-12.0)
--- NOTE | 2020-03-19 15:11 | Hospitalist Progress Note ---
Date of Service March 19, 2020 Assessment & Plan (1) Acute lower GI bleeding: Present to the ER with episode of GI bleed associated with abdomen discomfort S/P recent colonoscopy with Polypectomy in the setting of Coumadin use about [address] abdomen showed endoscopic clips from recent biopsy within the proximal ascending colon. Possible small amount of intraluminal hemorrhage versus wall thickening of the distal ascending colon. Hgb on admission 10.5 with baseline 12.1 (01/13 Hgb dropped to 8.7 today Received PO Vit K in the ER INR on presentation 2.2 with repeat INR 2.3 few 2-3 hrs after receiving Vit K Gastro on board case discussed with Dr. Raphael that plan to do emergent colonoscopy Enema and Miralax x 2 given to cleanse the colon Continue to hold coumadin Will give an additional VIt K 5mg x1 COVID 19 screen done for pre-op negative Type and cross and will transfuse 1 unit PRBC now. Will put another 1 unit on hold Keep NPO for now for the colonoscopy Continue monitor PT/INR and CBC Continue monitor closely Hx Antiphospholipid antibody Will hold coumadin due to GI bleed Discussed with patient about the risk of holding anticoagulant that can lead to clot, but if resume the anticoagulant that can worsening the bleeding Continue monitor Afib Rate controlled with amiodarone and metoprolol EKG showed sinus bradycardia Coumadin on hold due to GI bleeding and plan for urgent colonoscopy Received Vit K, INR 1.8 Continue monitor closely in telemetry Hypothyroidism Continue levothyroxine Hypertension Elevated BP on admission possible related to hospital setting Will keep BP low to avoid further bleeding Losartan on hold Continue Metoprolol and Isosorbide mononitrate Will add hydralazine PRN MATEO Possible related to GI bleeding/dehydration Creatinine on admission 1.6 Received IVF, creatinine improved to 1.3 Continue to hold Lasix and Losartan Consider to add low dose amlodipine if BP remains elevating Continue monitor BMP DVT prophylaxis. SCDs due to GI bleeding CODE STATUS Full code Disposition Continue monitor in telemetry Admission and Anticipated Discharge Date Admission Date: March 19, 2020 Subjective Pt was seen and examined Lying in be with no distress Pt said that she feels ok She said that early today she felt dizzy She had 2 episodes of dark stools early today Denies any chest pain, palpitation, dizziness and SOB Physical Exam Physical Exam: General- No acute distress Head- atraumatic Eyes- PERRL, EOMI, ENT- oropharynx clear Neck- supple, no JVD Lungs- clear to auscultation Heart- regular rhythm; no murmur Abdomen- normal bowel sounds, soft, nontender Extremities- no calf tenderness Neuro- alert, oriented x 3; PERRL, EOMI; no facial palsy; no dysarthria Skin- warm & dry Results & Data Results & Data ([facility]) Vital Signs (Past 12 Hours) Vital Signs Temp Pulse Pulse Resp BP Pulse Ox 03/19/20 14:50 36.3 C L 56 L 16 153/68 H 95 03/19/20 14:25 36.4 C L 60 18 159/68 H 95 03/19/20 14:10 36.4 C L 60 16 159/72 H 96 03/19/20 12:00 36.3 C L 52 L 18 130/54 L 96 03/19/20 07:29 36.4 C L 53 L 20 131/67 96 03/19/20 07:00 52 L 03/19/20 03:48 50 L 18 98 03/19/20 03:43 148/73 H 100
[2020-03-19] MEDS ORDERED: PROPOFOL IV EMULSION 10 MG/ML 20 ML VIAL IV ONE (15:54)
[2020-03-19] MEDS ORDERED: hydrALAZINE HCL 20 MG/ML VIAL IV PRN (15:57)
[2020-03-19] MEDS ORDERED: ePHEDrine sulfate 50 MG/ML AMP IV PRN (16:29)
[2020-03-19] MEDS ORDERED: ATROPINE SULFATE 0.1 MG/ML 10ML SYR IV PRN (16:29)
--- NOTE | 2020-03-19 16:29 | Anesthesiology Consultation ---
Date of Service March 19, 2020 Assessment & Plan ASA [id number] Proposed Anesthesia Anesthesia Type: MAC Risk / Benefits Reviewed With: PT / POA / Parent / Guardian, Accepts Plan and Informed Consent Obtained History Surgery Operation Date: 03/19/20 15:00 Proposed Procedures p Colonoscopy - Janell Raphael MD Height/Weight Height: 5 ft 4 in Weight: 94.2 kg Allergies Allergy/AdvReac Type Severity Reaction Status Date / Time lisinopril Allergy Mild COUGH Verified 03/19/20 00:26 guaifenesin Allergy Unknown Unknown Verified 03/19/20 00:26 phenylpropanolamine Allergy Unknown Unknown Verified 03/19/20 00:26 sulindac Allergy Unknown Unknown Verified 03/19/20 00:26 Medications Home Medications Medication Instructions Recorded Confirmed Last Taken Alive Once Daily Women 50 Plus 1 tab PO DAILY 03/04/19 03/19/20 03/18/20 Restasis 2 drp OPHTHALMIC (EYE) Q12H 03/04/19 03/19/20 03/18/20 albuterol sulfate [ProAir HFA] 2 puff INHALATION Q6H PRN 03/04/19 03/19/20 Unknown alendronate [Fosamax] 70 mg PO WK 03/04/19 03/19/20 03/13/20 amiodarone 200 mg PO DAILY 03/04/19 03/19/20 03/18/20 atorvastatin 20 mg PO DAILY 03/04/19 03/19/20 03/18/20 cholecalciferol (vitamin D3) 1,000 unit PO DAILY 03/04/19 03/19/20 03/18/20 fluticasone propionate [Flonase 1 spray INTRANASAL DAILY 03/04/19 03/19/2002/25 Allergy Relief] Breo Ellipta 2 inh INHALATION DAILY 01/16/20 03/19/20 03/18/20 furosemide 20 mg PO 3XWK 01/16/20 03/19/20 03/18/20 isosorbide mononitrate 30 mg PO DAILY 01/16/20 03/19/20 03/18/20 levothyroxine 50 mcg PO QAM 01/16/20 03/19/20 03/18/20 loratadine [Claritin] 10 mg PO DAILY 01/16/20 03/19/20 03/18/20 lorazepam 0.25 - 0.5 mg PO DAILY PRN 01/16/20 03/19/20 Unknown losartan 50 mg PO DAILY 01/16/20 03/19/20 03/18/20 metoprolol tartrate 50 mg PO BID 01/16/20 03/19/20 03/18/20 montelukast 10 mg PO DAILY 01/16/20 03/19/20 03/18/20 omeprazole 20 mg PO BID 01/16/20 03/19/20 03/18/20 warfarin See Rx Instructions .ROUTE .COMPLEX 03/19/20 03/19/20 03/18/20 Active Medications Generic Name Dose Route Start Last Admin Trade Name Freq PRN Reason Stop Dose Admin Amiodarone HCl 200 mg 03/19/20 09:00 03/19/20 09:28 Amiodarone 200 Mg Tab PO 04/18/20 08:59 200 mg DAILY ALICIA Administration Atorvastatin Calcium 20 mg 03/19/20 09:00 03/19/20 09:26 Atorvastatin 20 Mg Tab PO 04/18/20 08:59 20 mg DAILY ALICIA Administration Fluticasone Propionate 1 sprays 03/19/20 09:00 03/19/20 09:31 Fluticasone Propionate Na Spr 16 Gm Btl NA 04/18/20 08:59 Not Given DAILY ALICIA Fluticasone/Vilanterol 2 puffs 03/19/20 09:00 03/19/20 09:26 Fluticasone/Vilanterol 200/25mcg 14 Puffs/Inhaler INH 04/18/20 08:59 2 puffs DAILY ALICIA Administration Sodium Chloride 1,000 mls @ 60 mls/hr 03/19/20 01:20 03/19/20 03:41 1/2 Nss IV 04/18/20 01:19 0 mls/hr .[id number] ALICIA Infusion Isosorbide Mononitrate 30 mg 03/19/20 02:55 03/19/20 04:05 Isosorbide Cavalier Extended Rel 30 Mg Tabcr PO 04/18/20 02:54 30 mg DAILY ALICIA Administration Levothyroxine Sodium 50 mcg 03/19/20 06:30 03/19/20 06:03 Levothyroxine Sodium 50 Mcg Tablet PO 04/18/20 06:29 50 mcg DAILYBB ALICIA Administration Loratadine 10 mg 03/19/20 09:00 03/19/20 09:28 Loratadine 10 Mg Tab PO 04/18/20 08:59 10 mg DAILY ALICIA Administration Metoprolol Tartrate 25 mg 03/19/20 09:00 03/19/20 09:32 Metoprolol Tartrate 25 Mg Tab PO 04/18/20 08:59 Not Given BID ALICIA Miscellaneous 1 ea 03/19/20 08:00 03/19/20 07:32 Restasis~Order Awaiting Action N/A 04/18/20 07:59 1 ea QS ALICIA Administration Montelukast Sodium 10 mg 03/19/20 09:00 03/19/20 09:30 Montelukast Sodium 10 Mg Tablet PO 04/18/20 08:59 10 mg DAILY ALICIA Administration Pantoprazole Sodium 40 mg 03/19/20 09:00 03/19/20 09:27 Pantoprazole 40 Mg Tab PO 04/18/20 08:59 40 mg BID ALICIA Administration NPO Date Last Intake of Fluids: 03/19/20 Time Last Intake of Fluids: 12:00 Date Last Intake of Solids: 03/18/20 Time Last Intake of Solids: 12:00 Past Medical History Medical History Antiphospholipid antibody syndrome Anxiety Asthma Chronic kidney disease (CKD), stage III (moderate) GERD (gastroesophageal reflux disease) HLD (hyperlipidemia) HTN (hypertension) Hypothyroid Incomplete bundle branch block Parkinsons Paroxysmal A-fib Rhinitis Exercise / Class Metabolic Activity II 4-5 Yardwork/Stairs/Walk up hill Past Anesthesia History No Hx of Anesthesia Complications and No Family Hx of Anesthesia Complications History of PONV No Hx of PONV and No Hx of Motion Sickness Social History Smoking Status: Never smoker Hx Alcohol Use: No Hx Substance Use: No substance use type: does not use Review of Systems denies fever/cough/ colds/ chest pain/ SOB/ SWETHA denies SWETHA Physical Exam Vital Signs Last Vital Signs Temp 36.1 C L 03/19/20 16:28 Pulse 58 L 03/19/20 16:28 Resp 18 03/19/20 16:28 BP 168/49 H 03/19/20 16:28 Pulse Ox 97 03/19/20 16:28 ENMT Mouth: no TMJ abnormality and no dentition abnormality Thyromental Distance: > or= 3.5 Finger Breadths Mallampati Class: II Neck neck extension not limited Respiratory normal respiratory effort; no respiratory distress Auscultation: lungs clear to auscultation bilaterally Cardiovascular Rate/Rhythm: regular rate and regular rhythm Neurologic moves all extremities Psychiatric Orientation: alert and oriented x 3 Testing Laboratory Results 03/19/20 12:12 03/19/20 03:53 PT 18.8 Seconds (9.0-12.0) H 03/19/20 14:05 INR 1.8 (0.9-1.1) H 03/19/20 14:05 APTT 125.7 Seconds (21.0-31.0) H* 03/18/20 23:50 Urine Color Yellow 03/19/20 09:46 Urine Appearance Clear (Clear) 03/19/20 09:46 Urine pH 6.0 (4.5-7.5) 03/19/20 09:46 Ur Specific [place] 1.018 (1.000-1.030) 03/19/20 09:46 Urine Protein Negative (Negative) 03/19/20 09:46 Urine Glucose (UA) Negative (Negative) 03/19/20 09:46 Urine Ketones Negative (Negative) 03/19/20 09:46 Urine Nitrite Negative (Negative) 03/19/20 09:46 Ur Leukocyte Esterase Trace (Negative) H 03/19/20 09:46 Urine WBC (Auto) 1-5 /hpf (0-5) 03/19/20 09:46 Urine RBC (Auto) 0-4 /hpf (0-4) 03/19/20 09:46 U Hyaline Cast (Auto) 0 /lpf (0-5) 03/19/20 09:46 U Epithel Cells (Auto) 10-20 /lpf (0-5) H 03/19/20 09:46 Urine Bacteria (Auto) Negative (Negative) 03/19/20 09:46 Blood Type O Negative 03/19/20 00:15 Antibody Screen NEGATIVE 03/19/20 00:15
--- NOTE | 2020-03-19 17:08 | Operative Report ---
Post Operative Report Pre & Post Diagnosis Operation Date: 03/19/20 15:00 Pre-Op Diagnosis: Lower gastrointestinal bleed Post-Op Diagnosis: Lower gastrointestinal bleed I identified the patient and participated in the time-out.: Yes Procedure Operation Date: 03/19/20 15:00 Actual Procedures p Colonoscopy(Not Applicable) - Janell Raphael MD Surgeon Janell Raphael MD Nib Inspector None Estimated Blood Loss 2 Findings See Below (Bleeding post polypectomy ulcer, treated with clips and Epi) Specimens None Description of Procedure Colonoscopy I attest to the content of the Intraoperative Record and any orders documented therein. Any exceptions are noted below.
--- NOTE | 2020-03-19 17:40 | GI REPORT ---
Patient Name: Jolanta Horn Procedure Date: 03/19/2020 4:15 PM Date of : 1935 Admit Type: Inpatient Age: 84 Gender: Female Attending MD: Janell Raphael MD Procedure: Colonoscopy Providers: Janell Raphael MD Referring MD: MAMI BASURTO Indications: Rectal bleeding Medicines: Propofol per Anesthesia Complications: No immediate complications. Estimated Blood Loss: Estimated blood loss: none. Procedure: Pre-Anesthesia Assessment: - Prior to the procedure, a History and Physical was performed, and patient medications, allergies and sensitivities were reviewed. The patient's tolerance of previous anesthesia was reviewed. - The risks and benefits of the procedure and the sedation options and risks were discussed with the patient. All questions were answered and informed consent was obtained. - Patient identification and proposed procedure were verified prior to the procedure by the physician and the nurse. The procedure was verified in the procedure room. - Pre-procedure physical examination revealed no contraindications to sedation. After I obtained informed consent, the scope was passed under direct vision. Throughout the procedure, the patient's blood pressure, pulse, and oxygen saturations were monitored continuously. The Scope was introduced through the anus and advanced to the cecum, identified by appendiceal orifice and ileocecal valve. The colonoscopy was performed without difficulty. The patient tolerated the procedure well. The quality of the bowel preparation was fair. The ileocecal valve, appendiceal orifice, and rectum were photographed. Findings: The perianal and digital rectal examinations were normal. Oozing blood was seen in the ascending colon, secondary to previous polypectomy procedure. Two endoclips were seen and remained intact on the ulcer base. There was a blood clot above the area of oozing, this was removed with cold snare to expose the bleeding point. Coagulation for hemostasis using snare tip with soft coag current (4:80) was successful. Area was successfully injected with 5 mL of a 1:10,000 solution of epinephrine for hemostasis. Four hemostatic clips were successfully placed (MR conditional). There was no bleeding at the end of the procedure. A single (solitary) ten mm ulcer was found in the descending colon. No bleeding was present. For hemostasis, four hemostatic clips were successfully placed (MR conditional). There was no bleeding at the end of the procedure. Area was successfully injected with 4 mL of a 1:10,000 solution of epinephrine for hemostasis. There was evidence of a prior end-to-side colo-colonic anastomosis in the sigmoid colon. This was patent and was characterized by healthy appearing mucosa. The anastomosis was traversed. Impression: - Bleeding in the ascending colon secondary to previous polypectomy. Treated with snare tip soft coag, Epinephrine injection and Clips with adequate control of bleeding. - Non-bleeding post polypectomy ulcer in the descending colon. Clips (MR conditional) were placed. Injected. - Patent end-to-side colo-colonic anastomosis, characterized by healthy appearing mucosa. Recommendation: - Return patient to [facility] for [facility] care. - Clear liquid diet. - No aspirin, ibuprofen, naproxen, or other non-steroidal anti-inflammatory drugs for 5 days. - Hold Coumadin for 3 days. - Monitor H/H, if remains stable after 24 hrs then may consider Heparin drip without bolus. Janell Raphael MD 03/19/2020 5:40:12 PM This report has been signed electronically. Note Initiated On: 03/19/2020 4:15 PM Number of Addenda: 0 I attest to the content of the Intraoperative Record and orders documented therein, exceptions below {[id number]}
--- NOTE | 2020-03-19 17:45 | Anesthesiology Progress Note ---
Date of Service March 19, 2020 Anesthesia Post Procedure Vital Signs Vital Signs: Temp Pulse Pulse Pulse Resp BP BP 03/19/20 17:35 60 24 132/71 03/19/20 17:25 61 16 162/55 H 03/19/20 17:15 37.5 C 62 16 135/48 L 03/19/20 16:28 36.1 C L 58 L 18 168/49 H 03/19/20 16:15 36.3 C L 56 L 18 151/48 H 03/19/20 16:11 36.3 C L 56 L 18 147/42 H 03/19/20 16:05 36.3 C L 55 L 18 146/58 H 03/19/20 16:03 36.3 C L 56 L 16 163/52 H 03/19/20 15:41 36.7 C 59 L 20 158/75 H 03/19/20 14:50 36.3 C L 56 L 16 153/68 H 03/19/20 14:25 36.4 C L 60 18 159/68 H 03/19/20 14:20 61 03/19/20 14:10 36.4 C L 60 16 159/72 H 03/19/20 12:00 36.3 C L 52 L 18 130/54 L 03/19/20 07:29 36.4 C L 53 L 20 131/67 03/19/20 07:00 52 L 03/19/20 03:48 50 L 18 03/19/20 03:43 148/73 H 03/19/20 02:07 36.4 C L 51 L 20 161/58 H 03/19/20 01:01 52 L 20 160/67 H 03/19/20 00:32 56 L 23 200/54 H 03/19/20 00:16 53 L 20 184/44 H 03/18/20 23:40 03/18/20 23:30 36.4 C L 54 L 22 167/61 H Pulse Ox 03/19/20 17:35 99 03/19/20 17:25 99 03/19/20 17:15 99 03/19/20 16:28 97 03/19/20 16:15 99 03/19/20 16:11 97 03/19/20 16:05 99 03/19/20 16:03 97 03/19/20 15:41 96 03/19/20 14:50 95 03/19/20 14:25 95 03/19/20 14:20 03/19/20 14:10 96 03/19/20 12:00 96 03/19/20 07:29 96 03/19/20 07:00 03/19/20 03:48 98 03/19/20 03:43 100 03/19/20 02:07 98 03/19/20 01:01 98 03/19/20 00:32 98 03/19/20 00:16 98 03/18/20 23:40 96 03/18/20 23:30 98 Pain Intensity Chest: Pain Intensity: 3 Transfer of Care Handoff Completed per policy Notes Mental Status: alert / awake / arousable and participated in evaluation Patient Amnestic to Procedure: Yes Nausea / Vomiting: adequately controlled Pain: adequately controlled Airway Patency, RR, SpO2: stable & adequate BP & HR: stable & adequate Hydration State: stable & adequate Anesthetic Complications: no major complications apparent and Pt Satisfied with anesthetic care
[2020-03-19 21:11] LABS: Hemoglobin 9.2 g/dL (12.0-16.0)
[2020-03-20] MEDS: RESTASIS~ORDER AWAITING ACTION SCH ×3 (00:57→15:51)
[2020-03-20] MEDS: LEVOTHYROXINE SODIUM 50 MCG TABLET PO SCH (05:32)
[2020-03-20 06:06] LABS: INR 1.3 (0.9-1.1)
[2020-03-20 08:45] LABS: Hematocrit (blood only) 29.1 % (37-47); Hemoglobin 9.2 g/dL (12.0-16.0); Mean Corpuscular Hemoglobin 29.1 pg (25-34); Mean Corpuscular Hgb Conc 31.6 g/dL (32-36); Mean Corpuscular Volume 92.1 fL (80-100); Mean Platelet Volume 9.6 fL (7.4-10.4); Platelet Count 172 K/uL (130-400); RDW Coefficient of Variation 16.2 % (11.5-14.5); RDW Standard Deviation 54.2 fL (36.4-46.3); Red Blood Count 3.16 M/uL (4.2-5.4); White Blood Count 10.44 K/uL (4.8-10.8)
[2020-03-20 08:59] LABS: BUN Creatinine Ratio 15.5 (10-20); Creatinine Clr Calc Pharmacy 45.5 ml/min; Est GFR (Non-African American) 48.3
[2020-03-20] MEDS: MONTELUKAST SODIUM 10 MG TABLET PO SCH (09:25)
[2020-03-20] MEDS: METOPROLOL TARTRATE 25 MG TAB PO SCH ×2 (09:25→22:05)
[2020-03-20] MEDS: LORATADINE 10 MG TAB PO SCH (09:25)
[2020-03-20] MEDS: PANTOprazole 40 MG TAB PO SCH ×2 (09:26→20:52)
[2020-03-20] MEDS: AMIODARONE 200 MG TAB PO SCH (09:26)
[2020-03-20] MEDS: ATORVASTATIN 20 MG TAB PO SCH (09:26)
[2020-03-20] MEDS: FLUTICASONE PROPIONATE NA SPR 16 GM BTL SCH (09:26)
[2020-03-20] MEDS: ISOSORBIDE MONO EXTENDED REL 30 MG TABCR PO SCH (09:26)
[2020-03-20] MEDS: FLUTICASONE/VILANTEROL 200/25MCG 14 PUFFS/INHALER INH SCH (09:32)
--- NOTE | 2020-03-20 10:33 | Gastroenterology Progress Note ---
Date of Service March 20, 2020 Assessment & Plan Admission and Anticipated Discharge Date Admission Date: March 19, 2020 Subjective Patient was seen and examined today, feels well, no bleeding since colonoscopy yesterday, had normal color BM today. On exam abdomen is soft. Labs: reviewed H/H stable. Recommend: Start IV Heparin drip today without a bolus. If H/H remains stable tomorrow while on Heparin then can discharge home on Coumadin. Results & Data ([facility]) Vital Signs (Past 12 Hours) Vital Signs Temp Pulse Pulse Resp BP Pulse Ox 03/20/20 09:29 36.6 C 55 L 16 134/63 96 03/20/20 07:00 36.5 C 54 L 59 L 20 157/73 H 96 03/20/20 04:44 145/68 H 03/20/20 03:52 36.4 C L 63 19 169/72 H 95 03/20/20 00:08 58 L 03/19/20 23:25 36.5 C 60 18 159/61 H 96
[2020-03-20] MEDS ORDERED: Heparin IV Standard *NO* Bolus IV SCH (13:43)
--- NOTE | 2020-03-20 13:48 | Hospitalist Progress Note ---
Date of Service March 20, 2020 Assessment & Plan (1) Acute lower GI bleeding: Present to the ER with episode of GI bleed associated with abdomen discomfort S/P recent colonoscopy with Polypectomy in the setting of Coumadin use about [address] abdomen showed endoscopic clips from recent biopsy within the proximal ascending colon. Possible small amount of intraluminal hemorrhage versus wall thickening of the distal ascending colon. Hgb on admission 10.5 with baseline 12.1 (01/13 Hgb dropped to 8.7 today Received PO Vit K in the ER INR on presentation 2.2 with repeat INR 2.3 few 2-3 hrs after receiving Vit K Gastro on board case discussed with Dr. Raphael that plan to do emergent colonoscopy Enema and Miralax x 2 given to cleanse the colon Continue to hold coumadin Will give an additional VIt K 5mg x1 COVID 19 screen done for pre-op negative Type and cross and will transfuse 1 unit PRBC now. Will put another 1 unit on hold Keep NPO for now for the colonoscopy Continue monitor PT/INR and CBC Continue monitor closely 03/20 S/P emergent colonoscopy on 03/[address] Raphael Bleeding in the ascending colon secondary to previous polypectomy. Treated with snare tip soft coag, Epinephrine injection and Clips with adequate control of bleeding. Case discussed with Gastro and ok to start heparin drip with no bolus around 3PM today if no bleeding reoccurs Continue to avoid NSAID Diet advanced as tolerated Plan to resume coumadin tomorrow Continue monitor hemoglobin Hx Antiphospholipid antibody Continue to hold coumadin due to GI bleed Discussed with patient about the risk of holding anticoagulant that can lead to clot, but if resume the anticoagulant that can worsening the bleeding Ok with Gastro to start on heparin drip today Continue monitor H/H Afib Rate controlled with amiodarone and metoprolol EKG showed sinus bradycardia Coumadin on hold due to GI bleeding Received Vit K, INR 1.3 today Initiated heparin drip Continue monitor closely in telemetry Hypothyroidism Continue levothyroxine Hypertension Elevated BP on admission possible related to hospital setting Will keep BP low to avoid further bleeding Losartan on hold Continue Metoprolol and Isosorbide mononitrate Will add hydralazine PRN MATEO Possible related to GI bleeding/dehydration Creatinine on admission 1.6 Received IVF, creatinine improved to 1.1 today Continue to hold losartan Will give lasix x1 today since received adequate IVF and blood product BP stable Continue monitor BMP DVT prophylaxis. will start on heparin drip CODE STATUS Full code Disposition Continue monitor in telemetry Admission and Anticipated Discharge Date Admission Date: March 19, 2020 Subjective Pt was seen and examined. Lying in bed with no distress. Pt said that she feels ok She said that she had a normal bowel movement today with no bleeding She said that her breathing is ok Denies any chest pain, palpitation, dizziness and SOB Physical Exam Physical Exam: General- No acute distress Head- atraumatic Eyes- PERRL, EOMI, ENT- oropharynx clear Neck- supple, no JVD Lungs- clear to auscultation Heart- regular rhythm; no murmur Abdomen- normal bowel sounds, soft, nontender Extremities- no calf tenderness Neuro- alert, oriented x 3; PERRL, EOMI; no facial palsy; no dysarthria Skin- warm & dry Results & Data Results & Data ([facility]) Vital Signs (Past 12 Hours) Vital Signs Temp Pulse Pulse Resp BP Pulse Ox 03/20/20 11:37 36.8 C 58 L 20 137/64 97 03/20/20 09:29 36.6 C 55 L 16 134/63 96 03/20/20 07:00 36.5 C 54 L 59 L 20 157/73 H 96 03/20/20 04:44 145/68 H 03/20/20 03:52 36.4 C L 63 19 169/72 H 95
[2020-03-20] MEDS ORDERED: FUROSEMIDE 20 MG TAB PO ONE (14:00)
[2020-03-20] MEDS ORDERED: HEPARIN SODIUM/DEXTROSE 25,000 UNITS/500 ML BAG IV SCH (15:00)
[2020-03-20] MEDS: ACETAMINOPHEN 325 MG TAB PO PRN (15:50)
[2020-03-20 16:32] LABS: Partial Thromboplastin Ratio 4.2
[2020-03-20 16:52] LABS: Partial Thromboplastin Time 118.3 Seconds (21.0-31.0)
--- NOTE | 2020-03-20 21:35 | Electrocardiogram Report ---
Test Reason : Blood Pressure : / mmHG Vent. Rate : 054 BPM Atrial Rate : 054 BPM P-R Int : 194 ms QRS Dur : 104 ms QT Int : 460 ms P-R-T Axes : 077 065 019 degrees QTc Int : 436 ms Sinus bradycardia Otherwise normal ECG When compared with ECG of 16-JAN-2020 16:40, No significant change was found Confirmed by Ranulfo Alexander ([id number]) on 03/20/2020 9:35:45 PM Referred By: REFERRED SELF Confirmed By:Ranulfo Alexander
[2020-03-21 00:13] LABS: Partial Thromboplastin Ratio > 5.0
[2020-03-21 00:14] LABS: Partial Thromboplastin Time > 139.0 Seconds (21.0-31.0)
[2020-03-21] MEDS: RESTASIS~ORDER AWAITING ACTION SCH ×2 (00:40→07:21)
[2020-03-21 01:42] LABS: Partial Thromboplastin Ratio > 5.0
[2020-03-21 01:50] LABS: Partial Thromboplastin Time > 139.0 Seconds (21.0-31.0)
[2020-03-21 02:37] LABS: Hematocrit (blood only) 27.4 % (37-47); Hemoglobin 8.8 g/dL (12.0-16.0); Mean Corpuscular Hemoglobin 29.2 pg (25-34); Mean Corpuscular Hgb Conc 32.1 g/dL (32-36); Mean Platelet Volume 9.1 fL (7.4-10.4); Nucleated RBC # (auto) 0.03 K/uL (0-0); Nucleated RBC % (auto) 0.3 %; Platelet Count 154 K/uL (130-400); RDW Coefficient of Variation 16.4 % (11.5-14.5); RDW Standard Deviation 54.1 fL (36.4-46.3); Red Blood Count 3.01 M/uL (4.2-5.4); White Blood Count 8.74 K/uL (4.8-10.8)
[2020-03-21 02:59] LABS: INR 1.2 (0.9-1.1); Partial Thromboplastin Ratio 2.8; Prothrombin Time 12.8 Seconds (9.0-12.0)
[2020-03-21] MEDS: LEVOTHYROXINE SODIUM 50 MCG TABLET PO SCH (06:22)
[2020-03-21] MEDS: PANTOprazole 40 MG TAB PO SCH (08:51)
[2020-03-21] MEDS: FLUTICASONE PROPIONATE NA SPR 16 GM BTL SCH (08:51)
[2020-03-21] MEDS: AMIODARONE 200 MG TAB PO SCH (08:52)
[2020-03-21] MEDS: MONTELUKAST SODIUM 10 MG TABLET PO SCH (08:52)
[2020-03-21] MEDS: ISOSORBIDE MONO EXTENDED REL 30 MG TABCR PO SCH (08:52)
[2020-03-21] MEDS: METOPROLOL TARTRATE 25 MG TAB PO SCH (08:52)
[2020-03-21] MEDS: LORATADINE 10 MG TAB PO SCH (08:53)
[2020-03-21] MEDS: ATORVASTATIN 20 MG TAB PO SCH (08:53)
[2020-03-21] MEDS: FLUTICASONE/VILANTEROL 200/25MCG 14 PUFFS/INHALER INH SCH (08:54)
[2020-03-21] MEDS ORDERED: LOSARTAN POTASSIUM 50 MG TAB PO SCH (09:00)
--- NOTE | 2020-03-21 09:25 | Gastroenterology Progress Note ---
Date of Service March 21, 2020 Assessment & Plan (1) Acute lower GI bleeding: Pt is a 84 y/o female seen for post polypectomy bleeding, bleeding site clipped, injected w epinephrine. No more signs of LGIB since then. Blood ct stable. - No contraindication for DC home and resume Coumadin from GI standpoint; Avoid NSAIDs 5 days post colonoscopy on 03/19 - Advance diet as tolerated - Relayed pt's complaints of slight CAMPOS w chest pressure upon ambulation to bathroom to her primary hospitalist; defer further workup to hospitalist - GI to sign off; pls recall prn Admission and Anticipated Discharge Date Admission Date: March 19, 2020 Supervising Physician Co-Signing Physician Notes I performed a history and physical examination of the patient today, including specifically on physical exam - soft abdomen. I have discussed the patient's management with the advanced practitioner. Please refer to the nurse practitioner's note for the documented findings and plan of care. Bleeding resolved after colonoscopy with clips placement. Resume Coumadin. Recall Gi if needed. Subjective Pt reports 2 BMs yesterday w/o black/tarry appearance or bloody. Denies abd pain, n/v. Did report feeling slightly SOB and having mid chest pressure on ambulation to bathroom this AM, symptoms are improved w rest VS, H/H stable. Review of Systems Review of Systems: All systems reviewed & are unremarkable except as noted in HPI & below Physical Exam Constitutional: WD/WN, vitals as above well groomed, cooperative and comfortable Eyes: PERRL, conjunctivae normal, anicteric sclerae ENMT: external ear and nose normal, oropharynx normal Respiratory: normal respiratory effort, lungs clear to auscultation Cardiovascular: RRR, no murmur, no edema Gastrointestinal (Abdomen): normal bowel sounds, soft, nontender, no hepatosplenomegaly Skin: no rashes, warm and dry no jaundice Psychiatric: A+Ox3, euthymic affect Lymphatic: no lymphedema Results & Data ([facility]) Vital Signs (Past 12 Hours) Vital Signs Temp Pulse Pulse Resp BP Pulse Ox 03/21/20 07:02 36.7 C 61 18 184/77 H 96 03/21/20 04:00 36.6 C 58 L 18 155/71 H 96 03/20/20 23:45 58 L 03/20/20 23:00 36.6 C 71 18 148/60 H 94
[2020-03-21 09:40] LABS: Partial Thromboplastin Ratio > 5.0
[2020-03-21 09:41] LABS: Partial Thromboplastin Time > 139.0 Seconds (21.0-31.0)
[2020-03-21] MEDS ORDERED: hydrALAZINE HCL 20 MG/ML VIAL IV ONE (09:52)
--- NOTE | 2020-03-21 10:53 | Hospitalist Progress Note ---
Date of Service March 21, 2020 Assessment & Plan (1) Acute lower GI bleeding: Present to the ER with episode of GI bleed associated with abdomen discomfort S/P recent colonoscopy with Polypectomy in the setting of Coumadin use about [address] abdomen showed endoscopic clips from recent biopsy within the proximal ascending colon. Possible small amount of intraluminal hemorrhage versus wall thickening of the distal ascending colon. Hgb on admission 10.5 with baseline 12.1 (01/13 Hgb dropped to 8.7 today Received PO Vit K in the ER INR on presentation 2.2 with repeat INR 2.3 few 2-3 hrs after receiving Vit K Gastro on board case discussed with Dr. Raphael that plan to do emergent colonoscopy Enema and Miralax x 2 given to cleanse the colon Continue to hold coumadin Will give an additional VIt K 5mg x1 COVID 19 screen done for pre-op negative Type and cross and will transfuse 1 unit PRBC now. Will put another 1 unit on hold Keep NPO for now for the colonoscopy Continue monitor PT/INR and CBC Continue monitor closely 03/21 S/P emergent colonoscopy on 03/[address] Raphael Bleeding in the ascending colon secondary to previous polypectomy. Treated with snare tip soft coag, Epinephrine injection and Clips with adequate control of bleeding. Case discussed with Gastro and ok to start heparin drip Continue to avoid NSAID for at least 5 days Diet advanced as tolerated has been on heparin drip and no active sign of bleeding Will resume coumadin today Ok from GI standpoint to transition to Lovenox bridge until INR therapeutic Called the [facility] clinic to discuss the case, waiting for call back Will check cbc with 1 week to monitor hemoglobin Hx Antiphospholipid antibody Continue to hold coumadin due to GI bleed Discussed with patient about the risk of holding anticoagulant that can lead to clot, but if resume the anticoagulant that can worsening the bleeding Ok with Gastro to start on heparin drip Currently on heparin drip and no evidence of active bleeding Pt has risk factors for stoke, GI is ok about Lovenox bridge until INR therapeutic called co[facility] clinic and waiting for call back Follow up with the [facility] clinic to monitor PT/INR Afib Rate controlled with amiodarone and metoprolol EKG showed sinus bradycardia Coumadin on hold due to GI bleeding Received Vit K, INR 1.2 today On IV heparin drip Will resume coumadin today Hypothyroidism Continue levothyroxine Hypertension Elevated BP on admission possible related to hospital setting Will keep BP low to avoid further bleeding Losartan resumed Continue Metoprolol and Isosorbide mononitrate lasix 20mg x1 today MATEO Possible related to GI bleeding/dehydration Creatinine on admission 1.6 Received IVF, creatinine improved to 1.1 today Continue to hold losartan Will give lasix x1 today since received adequate IVF and blood product BP stable Continue monitor BMP Resolved DVT prophylaxis on IV heparin drip CODE STATUS Full code Disposition Plan to discharge home today Admission and Anticipated Discharge Date Admission Date: March 19, 2020 Subjective Pt was seen and examined. Sitting in bed with no distress. Pt said that she feels ok she said that early this morning she had mild breathing discomfort after walking from the bathroom She said that is doing good now She has no more bowel movement Denies any chest pain, palpitation, dizziness and SOB Physical Exam Physical Exam: General- No acute distress Head- atraumatic Eyes- PERRL, EOMI, ENT- oropharynx clear Neck- supple, no JVD Lungs- clear to auscultation Heart- regular rhythm; no murmur Abdomen- normal bowel sounds, soft, nontender Extremities- no calf tenderness Neuro- alert, oriented x 3; PERRL, EOMI; no facial palsy; no dysarthria Skin- warm & dry Results & Data Results & Data ([facility]) Vital Signs (Past 12 Hours) Vital Signs Temp Pulse Pulse Resp BP Pulse Ox 03/21/20 10:44 69 18 157/71 H 03/21/20 07:02 36.7 C 61 18 184/77 H 96 03/21/20 04:00 36.6 C 58 L 18 155/71 H 96 03/20/20 23:45 58 L 03/20/20 23:00 36.6 C 71 18 148/60 H 94
[2020-03-21] MEDS ORDERED: FUROSEMIDE 20 MG TAB PO ONE (11:00)
[2020-03-21 12:25] LABS: Partial Thromboplastin Ratio 1.8
[2020-03-21] MEDS: ACETAMINOPHEN 325 MG TAB PO PRN (13:09)
[2020-03-21] MEDS ORDERED: ENOXAPARIN 100 MG/1ML SYR SQ SCH (13:15)
[2020-03-21] MEDS ORDERED: WARFARIN SOD 2.5 MG TAB PO SCH (16:00)
--- NOTE | 2020-03-22 08:55 | Discharge Summary ---
Date of Service March 21, 2020 Admission HPI Per Admitting Provider History obtained from patient and records. Medical history significant for antiphospholipid antibody syndrome/PAF on Coumadin, nonobstructive CAD as per records, history TIA, hypertension, asthma, GERD, colonic polyps, Parkinson's disease as per records. Last confinement December 2019 for hypertensive urgency, possible pyelonephritis. Patient Coumadin on hold the last few weeks due to elevated INR and in anticipa tion of scheduled outpatient colonoscopy for March 15. Patient has been on weight-based Lovenox interim. Patient underwent outpatient colonoscopy 4 days ago. Diverticulosis and nonbleeding internal hemorrhoids noted during procedure. 2 polyps subsequently resected and retrieved. Coumadin Rx subsequently initiated post procedure, weight-based Lovenox injections completed following [facility] anticoagulation clinic's instructions post procedure. Patient noted loose bloody stools with minimal abdominal cramping which seem to progress every day. No hematemesis/coffee-ground emesis. No fever, no chills. No chest pain, no S OB. No headache. Some lightheadedness. Poor appetite. No OTC NSAID intake. At the ER, patient received vitamin K for L GIB, Coumadin coagulopathy. Medical History as above Surgical History : Cystoscopy, partial colectomy, appendectomy, cholecystectomy, vaginal delivery Family History : Ovarian cancer, lung cancer, heart disease Personal/Social history : Non-smoker, no EtOH intake Admission Exam Per Admitting Provider GENERAL: Comfortable, slightly anxious, obese, no respiratory distress SKIN: Pallor , warm HEENT: Pale palpebral conjunctivae, no ptosis, dry buccal mucosa NECK : Supple, short neck, no tenderness CHEST : CTA, no tenderness HEART : Bradycardic , no obvious murmurs ABDOMEN: Some distention, minimal hypogastric tenderness EXTREMITIES : Minimal LE swelling, no LE tenderness, no other conspicuous deformities noted NEUROLOGIC : Coherent, no facial asymmetry, no other gross focality Principal Diagnosis Acute lower GI bleeding: Hx Antiphospholipid antibody Hx Atrial fibrillation Hypothyroidism Hypertension Acute Kidney injury Discharge Exam General- No acute distress Head- atraumatic Eyes- PERRL, EOMI, ENT- oropharynx clear Neck- supple, no JVD Lungs- clear to auscultation Heart- regular rhythm; no murmur Abdomen- normal bowel sounds, soft, nontender Extremities- no calf tenderness Neuro- alert, oriented x 3; PERRL, EOMI; no facial palsy; no dysarthria Skin- warm & dry Discharge Data Allergies Allergy/AdvReac Type Severity Reaction Status Date / Time lisinopril Allergy Mild COUGH Verified 03/19/20 00:26 guaifenesin Allergy Unknown Unknown Verified 03/19/20 00:26 phenylpropanolamine Allergy Unknown Unknown Verified 03/19/20 00:26 sulindac Allergy Unknown Unknown Verified 03/19/20 00:26 Consultations 03/19/20 00:29 ED Decision to Admit Stat 03/19/20 02:06 Consult Gastroenterology Routine 03/19/20 08:36 Consult Gastroenterology Routine Procedures Performed Operation Date: 03/19/20 15:00 Actual Procedures p Colonoscopy(Not Applicable) - Janell Raphael MD Ordered Studies 03/18/20 23:45 CT abd pelvis wo con Urgent XR chest 1V portable CLINICAL HISTORY: Shortness of breath. COMPARISON STUDY: Chest radiograph March 19, 2020 at 12:45 AM. FINDINGS: Lung volumes are normal. There is no pneumothorax or pleural effusion. No evidence for pulmonary edema or pneumonia. Moderate cardiomegaly is unchanged. IMPRESSION: No acute cardiopulmonary findings. ACT 112: Negative or not required by law. Electronically signed by: Heron Winchester M.D. 03/19/2020 7:42 AM Dictated: 03/19/20 0741 Transcribed: 03/19/2041 XR chest 1V portable HISTORY: 84 years-old Female renal failure acute renal failure COMPARISON: Chest radiograph 05/25/2015 TECHNIQUE: Portable AP view of the chest FINDINGS: Cardiac silhouette is enlarged. No overt pulmonary edema, pneumothorax, or large pleural effusion. Mild subsegmental bibasilar opacities. Bones appear grossly intact. IMPRESSION: 1. Cardiomegaly without overt pulmonary edema. 2. Mild bibasilar densities favor atelectasis. Pneumonitis considered less likely. ACT 112: Negative or not required by law. The above report was generated using voice recognition software. It may contain grammatical, syntax or spelling errors. Electronically signed by: Lon Pineda M.D. 03/19/2020 12:56 AM Dictated: 03/19/20 0055 Transcribed: 03/19/2054 CT OF THE ABDOMEN AND PELVIS WITHOUT CONTRAST CLINICAL HISTORY: rectal bleeding after colonoscopy COMPARISON STUDY: CT of the abdomen and pelvis January 16, 2020. TECHNIQUE: Axial images of the abdomen and pelvis were obtained without IV contrast. Images were reviewed in the axial, sagittal, and coronal planes. Automated exposure control was utilized for the study. A dose lowering technique was utilized adhering to the principles of ALARA. FINDINGS: Note is made of moderate cardiomegaly. Interlobular septal thickening within the lower lungs suggests mild pulmonary edema. There are mild groundglass opacities. No pneumatosis, free air or portal venous gas is present. The liver is slightly dense. There is a lipoma within the proximal duodenum. There is no biliary ductal dilatation status post cholecystectomy. Evaluation of the abdomen and pelvis is suboptimal as unenhanced exam. The spleen, adrenal glands, kidneys and pancreas are unremarkable. There is no peripancreatic infiltration. No hydronephrosis is noted. A sigmoid resection is noted. Endoscopic clips within the proximal ascending colon are noted. There may be minimal adjacent hyperdense material. There is also possible intraluminal fluid versus wall thickening of the distal ascending colon shown best on axial image 163 of 436. A few colonic diverticula are noted. There is no lymphadenopathy. Subcutaneous injection sites of the anterior abdominal wall are noted. There are no suspicious osseous lesions. IMPRESSION: 1. No pneumoperitoneum. No bowel obstruction. 2. Endoscopic clips from recent biopsy within the proximal ascending colon. Possible small amount of intraluminal hemorrhage versus wall thickening of the distal ascending colon which be correlated with colonoscopy results. No extraluminal hemorrhage. This finding will be called/faxed to the ordering pr aman at time of dictation. ACT 112: Negative or not required by law. Electronically signed by: Heron Winchester M.D. 03/19/2020 8:06 AM Hospital Course (1) Acute lower GI bleeding: Present to the ER with episode of GI bleed associated with abdomen discomfort S/P recent colonoscopy with Polypectomy in the setting of Coumadin use about [address] abdomen showed endoscopic clips from recent biopsy within the proximal ascending colon. Possible small amount of intraluminal hemorrhage versus wall thickening of the distal ascending colon. Hgb on admission 10.5 with baseline 12.1 (01/13 Hgb dropped to 8.7 today Received PO Vit K in the ER INR on presentation 2.2 with repeat INR 2.3 few 2-3 hrs after receiving Vit K Gastro on board case discussed with Dr. Raphael that plan to do emergent colonoscopy Enema and Miralax x 2 given to cleanse the colon Continue to hold coumadin Will give an additional VIt K 5mg x1 COVID 19 screen done for pre-op negative Type and cross and will transfuse 1 unit PRBC now. Will put another 1 unit on hold Keep NPO for now for the colonoscopy Continue monitor PT/INR and CBC Continue monitor closely 03/21 S/P emergent colonoscopy on 03/[address] Raphael Bleeding in the ascending colon secondary to previous polypectomy. Treated with snare tip soft coag, Epinephrine injection and Clips with adequate control of bleeding. Case discussed with Gastro and ok to start heparin drip Continue to avoid NSAID for at least 5 days Diet advanced as tolerated has been on heparin drip and no active sign of bleeding Will resume coumadin today Ok from GI standpoint to transition to Lovenox bridge until INR therapeutic Called the coag clinic to discuss the case, waiting for call back Will check cbc with 1 week to monitor hemoglobin Hx Antiphospholipid antibody Continue to hold coumadin due to GI bleed Discussed with patient about the risk of holding anticoagulant that can lead to clot, but if resume the anticoagulant that can worsening the bleeding Ok with Gastro to start on heparin drip Currently on heparin drip and no evidence of active bleeding Pt has risk factors for stoke, GI is ok about Lovenox bridge until INR therapeutic called coag clinic and waiting for call back Follow up with the coag clinic to monitor PT/INR Afib Rate controlled with amiodarone and metoprolol EKG showed sinus bradycardia Coumadin on hold due to GI bleeding Received Vit K, INR 1.2 today On IV heparin drip Will resume coumadin today Hypothyroidism Continue levothyroxine Hypertension Elevated BP on admission possible related to hospital setting Will keep BP low to avoid further bleeding Losartan resumed Continue Metoprolol and Isosorbide mononitrate lasix 20mg x1 today MATEO Possible related to GI bleeding/dehydration Creatinine on admission 1.6 Received IVF, creatinine improved to 1.1 today Continue to hold losartan Will give lasix x1 today since received adequate IVF and blood product BP stable Continue monitor BMP Resolved DVT prophylaxis on IV heparin drip CODE STATUS Full code Disposition Plan to discharge home today Total Time Total Time Spent Total Time Spent (In Minutes): 35 minutes Total Time Includes: Examination of the Patient, Discharge Planning, Medication Reconciliation, Communication With Other Providers and Other Discharge Plan Discharge Items Patient Disposition: Home - Self-Care Reason For Visit: HTN URG, LGIB Discharge Diagnosis: Acute lower GI bleeding: Hx Antiphospholipid antibody Hx Atrial fibrillation Hypothyroidism Hypertension Acute Kidney injury Condition on Discharge: Good Activity: Resume your previous activity Non-emergency contact: Primary Care Provider Call non-emergency contact if: you have any medication questions Follow-up/Referrals: David Cintron MD [Primary Care Provider] - 03/23/20 10:00 am Diet: Heart Healthy Addtl Attending Provider Instructions: Follow up with your primary care provider Dr. Cintron on 03/23 @ 10AM Follow up with the coumadin clinic to monitor PT/INR on 03/23 (Check PT/INR on Saturday ) Check CBC on Saturday (03/23) to monitor your hemoglobin (Your physician will order it ) Seek medical attention if you see any blood in your stool or any abnormal bleeding Next dose of Lovenox tomorrow (Coag clinic will intruct you if you need to continue the Lovenox injection at your next coumadin clinic appointment Take Coumadin 2.5 mg today and tomorrow (Then on Saturday follow the coumadin clinic recommendation) Avoid any NSAID for now such as motrin, aleve, advil, naproxen, Ibuprofen, .... fall precaution Pending Studies at Discharge: No Stand-Alone Forms: My [facility] [employer], Smoking Cessation Medications and DC Order Prescriptions: New enoxaparin 100 mg/mL Syringe 100 mg subcut DAILY 2 Days Qty: 2 RF: 0 Continued atorvastatin 20 mg Tablet 20 mg PO DAILY RF: 0 amiodarone 200 mg Tablet 200 mg PO DAILY RF: 0 alendronate [Fosamax] 70 mg Tablet 70 mg PO WK RF: 0 albuterol sulfate [ProAir HFA] 90 mcg/actuation Hfa Aerosol Inhaler 2 puff INHALATION Q6H PRN (Reason: Shortness Of Breath) RF: 0 fluticasone propionate [Flonase Allergy Relief] 50 mcg/actuation Centre,Suspension 1 spray INTRANASAL DAILY RF: 0 cholecalciferol (vitamin D3) 1,000 unit Capsule 1,000 unit PO DAILY RF: 0 Restasis 0.05 % Dropperette 2 drp OPHTHALMIC (EYE) Q12H RF: 0 Alive Once Daily Women 50 Plus 800-100 mcg Tablet 1 tab PO DAILY RF: 0 furosemide 20 mg tablet 20 mg PO 3XWK RF: 0 loratadine [Claritin] 10 mg Tablet 10 mg PO DAILY RF: 0 losartan 50 mg Tablet 50 mg PO DAILY RF: 0 omeprazole 20 mg Capsule,Delayed Release(Dr/Ec) 20 mg PO BID RF: 0 montelukast 10 mg tablet 10 mg PO DAILY RF: 0 levothyroxine 50 mcg tablet 50 mcg PO QAM RF: 0 isosorbide mononitrate 30 mg tablet extended release 24 hr 30 mg PO DAILY RF: 0 Breo Ellipta 200-25 mcg/dose blister with device 2 inh INHALATION DAILY RF: 0 metoprolol tartrate 50 mg tablet 50 mg PO BID RF: 0 lorazepam 0.5 mg Tablet 0.25 - 0.5 mg PO DAILY PRN (Reason: Anxiety) RF: 0 warfarin 2.5 mg Tablet See Rx Instructions .ROUTE .COMPLEX RF: 0 Discharge Orders: Discharge Order (Routine); Ordered 03/21/20 Ordered By: Edward Lopez Admission Data Admit Date/Time: 03/19/20 01:15 Attending Provider: Edward Lopez Admit Provider: Sergio Carvajal Primary Care Provider: David Cintron Other Providers: Janell Raphael ; Sergio Carvajal ; Raj Workman ; Noa Ellis ; Stacey Lovett ; Rajwinder Marcum ; Matt Aceves ; Rob Vargas ; River Gold ; Nestor Garcia ; Bassem Kim ; Dayan Ochoa ; Maura Cerna ; Addis Mcneal ; Micaela Zarate Other Interventions: Discharge Summary Assessment (RN) Last Done: 03/21/20 14:07
--- NOTE | 2020-04-03 14:33 | Coding Query ---
CODING QUERY To promote full compliance with coding requirements relating to patient care, provider participation is requested in all cases of wallcovering texturer uncertainty. Please assist us with the question(s) below: Coding Question(s): Acute lower GI bleeding is documented with documentation on the H&P of Coumadin Coagulopathy and documentation of recent colonoscopy with Polypectomy in the setting of Coumadin use and documentation of bleeding in the ascending colon secondary to previous polypectomy. Please specify below, in your clinical opinion, regarding the etiology of Acute Lower GI Bleeding. ( ) Acute Lower GI Bleeding likely due to both Coumadin Coagulopathy and due to Complication of recent Polypectomy ( ) Acute Lower GI Bleeding likely due to Coumadin Coagulopathy ( ) Acute Lower GI Bleeding likely due to Complication of recent Polypectomy ( x) Acute Lower GI Bleeding likely due to Other: Please Specify Due to recent Polypectomy in the setting of Coumadin use and Lovenox ( ) Acute Lower GI Bleeding with Unknown likely etiology Physician's Response(s): Thank you Caren Raza Principal Diagnosis: "that condition established after study, to be chiefly responsible for occasioning the admission of the patient to the hospital for care." Co-Existing Principal Diagnosis: "when two or more diagnoses equally meet the criteria for principal diagnosis as determined by the circumstances of admission, diagnostic work up, and/or therapy provided, and the Alphabetic Index, Tabular List, or another coding guideline does not provide sequencing direction, any one of the diagnoses may be sequenced first." "When the physician has documented what appears to be a current diagnosis in the body of the record, but has not included the diagnosis in the final diagnostic statement, the physician should be asked whether the diagnosis should be added." (Source Coding Clinic 2 QTR90. p3-4) MARYLU
== END 2020-03-21 14:56 | disposition home or self-care (01) | DRG 920 ==
LOC: ED 23:25 → 2W 03-19 01:15

== ENCOUNTER 2022-09-10 07:19 | Inpatient (IN) ==
[2022-09-10] MEDS ORDERED: ACETAMINOPHEN 500 MG TAB PO STA (07:50)
[2022-09-10] MEDS ORDERED: dexAMETHasone**PF** 10 MG/ML VIAL IV ONE (07:50)
[2022-09-10] MEDS ORDERED: ALBUT/IPRATROP 3MG/0.5MG NEB 3 ML VIAL NEB ONE (07:50)
--- NOTE | 2022-09-10 07:54 | Emergency Department Note ---
Impression & Plan Asthma exacerbation ED Provider Note Name: SAMIR ALEJANDRO Age: 87 Sex: F Arrives Via: Walk-In Informant: Patient, daughter ED Provider: Lyndon Monreal MD Chief Complaint: Shortness of breath Impression: As per impressions above Medical Decision Making: Pleasant 87-year-old female with a history of paroxysmal A-fib on Coumadin, asthma, hypothyroid, GERD, hypertension amongst others arrives for evaluation of worsening shortness of breath. On arrival patient with diffuse wheezing tight lung sounds. She was given hour-long DuoNeb with IV steroids. She does have a mild improvement in her breathing but her cough and wheezing is still somewhat concerning. Do not feel this is consistent with PE given her exam and history she is on Coumadin. She may have an underlying congestive background but I do not feel this is the primary cause of her breathing issues. I did obtain septic work-up initially though there is no clear evidence that this is sepsis or pneumonia at this time. She was treated with some IV doxycycline for possible secondary infection and management of complicated bronchitis. Given her poor lung sounds and continued cough I think hospitalization would be indicated and hospitalist consulted for further management Prior Medical Record and Triage/Nursing Notes reviewed by Me External chart reviewed by me Differentials:Asthma/COPD exacerbation, CHF, pneumonia, pneumothorax, PE, COVID, multiple other pathologies considered Vital Signs: reviewed and remarkable for mild hypertension Interventions: DuoNeb 1 hour, Decadron 10 mg IV, doxycycline 100 mg IV Labs:Reviewed and remarkable for unremarkable white blood cell count/lactate/procalcitonin all labs reviewed Imagin view chest x-ray as per my interpretation no infiltrate, effusion or pneumothorax. EKG:As per my interpretation. Indication shortness of breath. Normal sinus rhythm at 61 bpm and a QTc of 477. There is an incomplete right bundle branch block. There is no ectopy nor ischemia. When compared to an EKG of January 02, 2022 there is no significant change. Cardiac/Tele Monitoring: Cardiac Monitoring: An Order was placed for continuous cardiac monitoring. The monitor shows a rate of 60 with a normal sinus rhythm. Consults:Hospitalist Plan: Disposition:Hospitalization. Condition: Good History of Present Illness:87-year-old female arrives for evaluation of shortness of breath. Patient with 2 to 3 days worsening cough congestion fatigue. Chills at home. No overt fevers. Unable to bring up what ever she is coughing. Denies any chest pain, syncope, back pain abdominal pain. She does note that she has had no appetite the last few days. No leg swelling. Denies urinary burning or frequency. No headache or neck stiffness. Denies any recent sick contacts. No medication prior to arrival other than her inhaler which does not help. She does have a history of bronchitis about 6 months ago requiring antibiotics and steroids. No previous hospitalizations for this. Past History:See Below Home Medications:See Below Allergies:See Below Vitals:Blood Pressure: 170/76, Pulse 70, RR 18, T 36.7C, O2 92% on RA Physical Exam: GENERAL: Patient is tired appearing and in mild distress. EYES: No scleral icterus, unremarkable pupils. ENT: Mucous membranes moist, no nasal congestion. NECK: No masses appreciated, nomeningismus, trachea is midline. RESPIRATORY: Moderate tachypnea/dyspnea with diffuse wheezing and crackles all lung degroot CARDIOVASCULAR: Irregular GASTROINTESTINAL: Abdomen soft, non-tender, no peritonitis. EXTREMITIES: Normal motion all extremities, no cyanosis, no edema. NEUROLOGIC: Alert and oriented, no acute motor or sensory deficits. SKIN: No rash, no jaundice, no diaphoresis. PSYCH: Appropriate GCS: 15 ED Course: Times/Reassessments: Patient is breathing improved though still has diffuse tight lung sounds and moderately worse cough agreeable to hospitalization Lyndon Monreal MD Past Med/Surg History Medical History (Updated 09/11/22 @ 13:21 by Lyndon Monreal MD) Acute GI bleeding Anemia Antiphospholipid antibody syndrome Anxiety Asthma CAD (coronary artery disease) Moderate nonobstructive coronary artery disease via April 08, 2019 coronary angiography Chronic cough CKD (chronic kidney disease) stage 4, GFR 15-29 ml/min Diastolic congestive heart failure Elevated brain natriuretic peptide (BNP) level GERD (gastroesophageal reflux disease) History of TIA (transient ischemic attack) (04/10/11) HLD (hyperlipidemia) HTN (hypertension) Hypothyroid Incomplete bundle branch block Parkinsons Paroxysmal A-fib Rhinitis Senile osteoporosis (04/10/11) Shortness of breath Surgical History History of appendectomy History of cholecystectomy History of colonoscopy History of partial colectomy Family History Brother Heart disease Brother Heart disease Sister Cancer Mother Cancer Social History Smoking Status: Never smoker Hx Alcohol Use: No Hx Substance Use: No Preferred Language: Divehi Communication Ability: Effective Scorekeeper Required: No Beliefs That Will Affect Care: None Current Living Situation: Other Current Living Situation Comment: Live with grandson Other Information That Helps Us Care for You: No Feels Safe at Home: Yes Safety Concerns: Feels Safe At This Time Assistive Devices: Cane and Glasses Allergies Allergies Allergy/AdvReac Type Severity Reaction Status Date / Time lisinopril Allergy Mild COUGH Verified 03/19/20 00:26 guaifenesin Allergy Unknown Unknown Verified 03/19/20 00:26 phenylpropanolamine Allergy Unknown Unknown Verified 03/19/20 00:26 sulindac Allergy Unknown Unknown Verified 03/19/20 00:26 Home Meds Home Medications Medication Instructions Recorded Confirmed albuterol sulfate 90 mcg/actuation 2 puff inhalation Q6H PRN 03/04/19 09/10/22 aerosol inhaler (ProAir HFA) Shortness Of Breath amiodarone 200 mg tablet 200 mg PO DAILY 03/04/19 09/10/22 atorvastatin 20 mg tablet 20 mg PO DAILY 03/04/19 09/10/22 cholecalciferol (vitamin D3) 25 1,000 unit PO DAILY 03/04/19 09/10/22 mcg (1,000 unit) capsule cyclosporine 0.05 % eye drops in a 2 drp ophthalmic (eye) Q12H 03/04/19 09/10/22 dropperette (Restasis) fluticasone propionate 50 1 spray intranasal DAILY PRN 03/04/19 09/10/22 mcg/actuation nasal allergies spray,suspension (Flonase Allergy Relief) multivit,mineral-folic acid 800 1 tab PO DAILY 03/04/19 09/10/22 mcg-vit K 100 mcg-herbal no.289 tablet (Alive Once Daily Women 50 Plus) fluticasone furoate 200 1 inh inhalation DAILY 01/16/20 09/10/22 mcg-vilanterol 25 mcg/dose inhalation powder (Breo Ellipta) furosemide 20 mg tablet 20 mg PO DAILY 01/16/20 09/10/22 levothyroxine 50 mcg tablet 50 mcg PO QPM 01/16/20 09/10/22 loratadine 10 mg tablet (Claritin) 10 mg PO DAILY 01/16/20 09/10/22 lorazepam 0.5 mg tablet 0.25 - 0.5 mg PO DAILY PRN Anxiety 01/16/20 09/10/22 losartan 50 mg tablet 50 mg PO DAILY 01/16/20 09/10/22 montelukast 10 mg tablet 10 mg PO HS 01/16/20 09/10/22 warfarin 2.5 mg tablet See Rx Instructions .Route .COMPLEX 03/19/20 09/10/22 amlodipine 5 mg tablet 5 mg PO DAILY 09/10/22 09/10/22 benzonatate 100 mg capsule 100 mg PO TID PRN Cough 09/10/22 09/10/22 hydralazine 25 mg tablet 12.5 mg PO TID 09/10/22 09/10/22 isosorbide mononitrate 60 mg 60 mg PO DAILY 09/10/22 09/10/22 tablet,extended release 24 hr metoprolol succinate 25 mg 25 mg PO DAILY 09/10/22 09/10/22 tablet,extended release 24 hr omeprazole 40 mg capsule,delayed 40 mg PO BID 09/10/22 09/10/22 release Results & Data (ED) Vital Signs Vital Signs - 24 hr 09/10/22 07:29 Temperature 36.7 C Temperature Source Temporal Artery Scan Pulse Rate 70 Respiratory Rate 18 Respiratory Effort / Characteristics Non-Labored Respiratory Depth Normal Respiratory Pattern Regular Blood Pressure 170/76 H Blood Pressure Mean 107 Pulse Oximetry 92 Oxygen Delivery Method Room Air Sepsis Recent Fever Within 48 Hours No Sepsis New/Unexplained Change in Mental Status N/A Sepsis Action Taken by Nursing No Action Required Laboratory Data 09/11/22 08:07 09/11/22 08:07 Lab Results 09/10/22 09/10/22 09/10/22 Range/Units 07:59 07:59 07:59 WBC 10.37 (4.8-10.8) K/ul RBC 3.97 L (4.20-5.40) M/uL Hgb 11.8 L (12.0-16.0) g/dl Hct 35.6 L (37.0-47.0) % MCV 89.7 (80.0-100.0) fL MCH 29.7 (25.0-34.0) pg MCHC 33.1 (32.0-36.0) g/dL RDW Std Deviation 50.4 H (36.4-46.3) fL RDW Coeff of Jay 15.3 H (11.5-14.5) % Plt Count 212 (130-400) K/uL MPV 9.3 L (9.4-12.4) fL Immature Gran % (Auto) 0.5 % Neut % (Auto) 82.2 % Lymph % (Auto) 7.4 % Andrews % (Auto) 8.3 % Eos % (Auto) 1.2 % Baso % (Auto) 0.4 % Neut # (Auto) 8.53 H (1.40-6.50) K/uL Lymph # (Auto) 0.77 L (1.2-3.4) K/uL Andrews # (Auto) 0.86 H (0.11-0.59) K/uL Eos # (Auto) 0.12 (0-0.50) K/uL Baso # (Auto) 0.04 (0-0.2) K/uL Immature Gran # (Auto) 0.05 (0.01-0.20) K/uL PT (9.0-12.0) Seconds INR (0.9-1.1) APTT (21.0-31.0) Seconds PTT Ratio Sodium 140 (136-145) mmol/L Potassium 3.1 L (3.5-5.1) mmol/L Chloride 111 H (98-107) mmol/L Carbon Dioxide 22 (21-32) mmol/L Anion Gap 7 (3-11) BUN 13 (6-23) mg/dl Creatinine 1.18 (0.6-1.2) mg/dl Est Cr Clr Drug Dosing 37.8 ml/min Est GFR ( Amer) 48.7 ml/min Est GFR (Non-Af Amer) 42.0 ml/min BUN/Creatinine Ratio 11.0 (10-20) Glucose 111 H (70-99(Fasting)) mg/dl Lactate 1.4 (0.4-2.0) mmol/L Calcium 8.8 (8.6-10.3) mg/dl Magnesium 1.9 (1.7-2.4) mg/dl Total Bilirubin 0.7 (0.2-1.0) mg/dl Direct Bilirubin 0.2 (0-0.2) mg/dl AST 17 (13-39) U/L ALT 14 (7-52) U/L Alkaline Phosphatase 90 (34-104) U/L Troponin I High Sens 15.8 H (0-14) pg/ml Total Protein 7.3 (6.0-8.3) gm/dl Albumin 3.9 (3.4-5.0) gm/dl Procalcitonin (0-0.5) ng/ml Urine Color Urine Appearance (Clear) Urine pH (4.5-7.5) Ur Specific [place] (1.000-1.030) Urine Protein (Negative) Urine Glucose (UA) (Negative) Urine Ketones (Negative) Urine Blood (Negative) Urine Nitrite (Negative) Urine Bilirubin (Negative) Urine Urobilinogen (Negative) Ur Leukocyte Esterase (Negative) Urine WBC (Auto) (0-5) /hpf Urine RBC (Auto) (0-4) /hpf U Hyaline Cast (Auto) (0-5) /lpf U Epithel Cells (Auto) (0-5) /lpf Urine Bacteria (Auto) (Negative) SARS-CoV-2 (PCR) (Negative) Influenza Type A (PCR) (Neg) Influenza Type B (PCR) (Neg) RSV (RT-PCR) (Neg) 09/10/22 09/10/22 09/10/22 Range/Units 07:59 07:59 09:30 WBC (4.8-10.8) K/ul RBC (4.20-5.40) M/uL Hgb (12.0-16.0) g/dl Hct (37.0-47.0) % MCV (80.0-100.0) fL MCH (25.0-34.0) pg MCHC (32.0-36.0) g/dL RDW Std Deviation (36.4-46.3) fL RDW Coeff of Jay (11.5-14.5) % Plt Count (130-400) K/uL MPV (9.4-12.4) fL Immature Gran % (Auto) % Neut % (Auto) % Lymph % (Auto) % Andrews % (Auto) % Eos % (Auto) % Baso % (Auto) % Neut # (Auto) (1.40-6.50) K/uL Lymph # (Auto) (1.2-3.4) K/uL Andrews # (Auto) (0.11-0.59) K/uL Eos # (Auto) (0-0.50) K/uL Baso # (Auto) (0-0.2) K/uL Immature Gran # (Auto) (0.01-0.20) K/uL PT 22.3 H (9.0-12.0) Seconds INR 2.2 H (0.9-1.1) APTT 66.2 H* (21.0-31.0) Seconds PTT Ratio 2.4 Sodium (136-145) mmol/L Potassium (3.5-5.1) mmol/L Chloride (98-107) mmol/L Carbon Dioxide (21-32) mmol/L Anion Gap (3-11) BUN (6-23) mg/dl Creatinine (0.6-1.2) mg/dl Est Cr Clr Drug Dosing ml/min Est GFR ( Amer) ml/min Est GFR (Non-Af Amer) ml/min BUN/Creatinine Ratio (10-20) Glucose (70-99(Fasting)) mg/dl Lactate (0.4-2.0) mmol/L Calcium (8.6-10.3) mg/dl Magnesium (1.7-2.4) mg/dl Total Bilirubin (0.2-1.0) mg/dl Direct Bilirubin (0-0.2) mg/dl AST (13-39) U/L ALT (7-52) U/L Alkaline Phosphatase (34-104) U/L Troponin I High Sens (0-14) pg/ml Total Protein (6.0-8.3) gm/dl Albumin (3.4-5.0) gm/dl Procalcitonin 0.10 (0-0.5) ng/ml Urine Color Yellow Urine Appearance Clear (Clear) Urine pH 6.0 (4.5-7.5) Ur Specific [place] 1.008 (1.000-1.030) Urine Protein Negative (Negative) Urine Glucose (UA) Negative (Negative) Urine Ketones Negative (Negative) Urine Blood Negative (Negative) Urine Nitrite Negative (Negative) Urine Bilirubin Negative (Negative) Urine Urobilinogen Negative (Negative) Ur Leukocyte Esterase Trace H (Negative) Urine WBC (Auto) 1-5 (0-5) /hpf Urine RBC (Auto) 0-4 (0-4) /hpf U Hyaline Cast (Auto) 1-5 (0-5) /lpf U Epithel Cells (Auto) 5-10 H (0-5) /lpf Urine Bacteria (Auto) Negative (Negative) SARS-CoV-2 (PCR) (Negative) Influenza Type A (PCR) (Neg) Influenza Type B (PCR) (Neg) RSV (RT-PCR) (Neg) 09/10/22 Range/Units 09:35 WBC (4.8-10.8) K/ul RBC (4.20-5.40) M/uL Hgb (12.0-16.0) g/dl Hct (37.0-47.0) % MCV (80.0-100.0) fL MCH (25.0-34.0) pg MCHC (32.0-36.0) g/dL RDW Std Deviation (36.4-46.3) fL RDW Coeff of Jay (11.5-14.5) % Plt Count (130-400) K/uL MPV (9.4-12.4) fL Immature Gran % (Auto) % Neut % (Auto) % Lymph % (Auto) % Andrews % (Auto) % Eos % (Auto) % Baso % (Auto) % Neut # (Auto) (1.40-6.50) K/uL Lymph # (Auto) (1.2-3.4) K/uL Andrews # (Auto) (0.11-0.59) K/uL Eos # (Auto) (0-0.50) K/uL Baso # (Auto) (0-0.2) K/uL Immature Gran # (Auto) (0.01-0.20) K/uL PT (9.0-12.0) Seconds INR (0.9-1.1) APTT (21.0-31.0) Seconds PTT Ratio Sodium (136-145) mmol/L Potassium (3.5-5.1) mmol/L Chloride (98-107) mmol/L Carbon Dioxide (21-32) mmol/L Anion Gap (3-11) BUN (6-23) mg/dl Creatinine (0.6-1.2) mg/dl Est Cr Clr Drug Dosing ml/min Est GFR ( Amer) ml/min Est GFR (Non-Af Amer) ml/min BUN/Creatinine Ratio (10-20) Glucose (70-99(Fasting)) mg/dl Lactate (0.4-2.0) mmol/L Calcium (8.6-10.3) mg/dl Magnesium (1.7-2.4) mg/dl Total Bilirubin (0.2-1.0) mg/dl Direct Bilirubin (0-0.2) mg/dl AST (13-39) U/L ALT (7-52) U/L Alkaline Phosphatase (34-104) U/L Troponin I High Sens (0-14) pg/ml Total Protein (6.0-8.3) gm/dl Albumin (3.4-5.0) gm/dl Procalcitonin (0-0.5) ng/ml Urine Color Urine Appearance (Clear) Urine pH (4.5-7.5) Ur Specific [place] (1.000-1.030) Urine Protein (Negative) Urine Glucose (UA) (Negative) Urine Ketones (Negative) Urine Blood (Negative) Urine Nitrite (Negative) Urine Bilirubin (Negative) Urine Urobilinogen (Negative) Ur Leukocyte Esterase (Negative) Urine WBC (Auto) (0-5) /hpf Urine RBC (Auto) (0-4) /hpf U Hyaline Cast (Auto) (0-5) /lpf U Epithel Cells (Auto) (0-5) /lpf Urine Bacteria (Auto) (Negative) SARS-CoV-2 (PCR) NEGATIVE (Negative) Influenza Type A (PCR) Negative (Neg) Influenza Type B (PCR) Negative (Neg) RSV (RT-PCR) Negative (Neg) Administered Medications Acetaminophen (Acetaminophen 325 Mg Tab) 650 mg PO Q4H PRN PRN Reason: Pain or Fever Stop: 10/10/22 13:12 Last Admin: 09/10/22 20:01 Dose: 650 mg Documented By: TRISTIN Albuterol (Albut/Ipratrop 3mg/0.5mg Neb 3 Ml Vial) 3 ml NEB QIDR ALICIA; Protocol Stop: 10/10/22 12:14 Last Admin: 09/11/22 11:07 Dose: 3 ml Documented By: Admin: 09/11/22 07:08 Dose: 3 ml Documented By: Admin: 09/10/22 19:24 Dose: 3 ml Documented By: Admin: 09/10/22 15:23 Dose: 3 ml Documented By: Admin: 09/10/22 15:23 Dose: Not Given Documented By: [email or web address] Amiodarone HCl (Amiodarone 200 Mg Tab) 200 mg PO DAILY ALICIA Stop: 10/11/22 08:59 Last Admin: 09/11/22 08:44 Dose: 200 mg Documented By: [id number] Amlodipine Besylate (Amlodipine Besylate 5 Mg Tab) 5 mg PO DAILY ALICIA Stop: 10/11/22 08:59 Last Admin: 09/11/22 08:45 Dose: 5 mg Documented By: [id number] Atorvastatin Calcium (Atorvastatin 20 Mg Tab) 20 mg PO DAILY ALICIA Stop: 10/11/22 08:59 Last Admin: 09/11/22 08:44 Dose: 20 mg Documented By: [id number] Benzonatate (Benzonatate 100 Mg Capsule) 100 mg PO TID PRN PRN Reason: Cough Stop: 10/10/22 13:12 Last Admin: 09/10/22 21:03 Dose: 100 mg Documented By: TRISTIN Fluticasone/Vilanterol (Fluticasone/Vilanterol 200/25mcg 14 Puffs/Inhaler) 1 puffs INH DAILY ALICIA Stop: 10/11/22 08:59 Last Admin: 09/11/22 08:46 Dose: 1 puffs Documented By: [id number] Furosemide (Furosemide 20 Mg Tab) 20 mg PO DAILY ALICIA Stop: 10/11/22 08:59 Last Admin: 09/11/22 11:58 Dose: Not Given Documented By: [id number] Hydralazine HCl (Hydralazine Hcl 25 Mg Tab) 12.5 mg PO TID [facility] Stop: 10/10/22 13:59 Last Admin: 09/11/22 08:44 Dose: 12.5 mg Documented By: [id number] Admin: 09/10/22 20:02 Dose: 12.5 mg Documented By: Admin: 09/10/22 14:00 Dose: 12.5 mg Documented By: MILAGRO Doxycycline Hyclate 100 mg/ (Dextrose) 110 mls @ 50 mls/hr IV Q12H ALICIA Stop: 09/17/22 20:59 Last Infusion: 09/11/22 11:58 Dose: 0 mls/hr Documented By: [id number] Admin: 09/11/22 08:50 Dose: 50 mls/hr Documented By: [id number] Infusion: 09/10/22 23:18 Dose: 0 mls/hr Documented By: Admin: 09/10/22 21:03 Dose: 50 mls/hr Documented By: TRISTIN Isosorbide Mononitrate (Isosorbide Andrews Extended Rel 60 Mg Tabcr) 60 mg PO CANDIDO Y ALICIA Stop: 10/11/22 08:59 Last Admin: 09/11/22 08:43 Dose: 60 mg Documented By: [id number] Levothyroxine Sodium (Levothyroxine Sodium 50 Mcg Tablet) 50 mcg PO QPM ALICIA Stop: 10/10/22 20:59 Last Admin: 09/10/22 20:01 Dose: 50 mcg Documented By: TRISTIN Loratadine (Loratadine 10 Mg Tab) 10 mg PO DAILY ALICIA Stop: 10/11/22 08:59 Last Admin: 09/11/22 08:45 Dose: 10 mg Documented By: [id number] Losartan Potassium (Losartan Potassium 50 Mg Tab) 50 mg PO DAILY ALICIA Stop: 10/11/22 08:59 Last Admin: 09/11/22 08:45 Dose: 50 mg Documented By: [id number] Metoprolol Succinate (Metoprolol Succ 25mg Ext Rel Tab) 25 mg PO DAILY ALICIA Stop: 10/11/22 08:59 Last Admin: 09/11/22 08:46 Dose: 25 mg Documented By: [id number] Miscellaneous (Restasis~Order Awaiting Action) 1 each N/A QS ALICIA Stop: 10/10/22 15:59 Last Admin: 09/11/22 08:40 Dose: Not Given Documented By: [id number] Admin: 09/11/22 00:02 Dose: Not Given Documented By: Admin: 09/10/22 15:00 Dose: Not Given Documented By: MILAGRO Montelukast Sodium (Montelukast Sodium 10 Mg Tablet) 10 mg PO HS ALICIA Stop: 10/10/22 20:59 Last Admin: 09/10/22 20:02 Dose: 10 mg Documented By: TRISTIN Pantoprazole Sodium (Pantoprazole 40 Mg Tab) 40 mg PO BID ALICIA Stop: 10/10/22 20:59 Last Admin: 09/11/22 08:46 Dose: 40 mg Documented By: [id number] Admin: 09/10/22 20:01 Dose: 40 mg Documented By: TRISTIN Sodium Chloride (Sodium Chlor 7% 4 Ml Neb) 4 ml NEB BIDR ALICIA Stop: 10/10/22 18:59 Last Admin: 09/11/22 07:08 Dose: 4 ml Documented By: Admin: 09/10/22 19:24 Dose: 4 ml Documented By: [email or web address] Vitamin D (Cholecalciferol 1,000 Units 25 Mcg Tab) 1,000 units PO DAILY ALICIA Stop: 10/11/22 08:59 Last Admin: 09/11/22 08:46 Dose: 1,000 units Documented By: [id number] Warfarin Sodium (Warfarin Sod 2.5 Mg Tab) 2.5 mg PO [id number]@1600 ALICIA Stop: 10/10/22 15:59 Last Admin: 09/10/22 17:03 Dose: Not Given Documented By: MILAGRO Discontinued Medications Acetaminophen (Acetaminophen 500 Mg Tab) 1,000 mg PO NOW STA Stop: 09/10/22 07:51 Last Admin: 09/10/22 08:19 Dose: 1,000 mg Documented By: PAIGE Albuterol (Albut/Ipratrop 3mg/0.5mg Neb 3 Ml Vial) 12 ml NEB ONE ONE; Protocol Stop: 09/10/22 07:51 Last Admin: 09/10/22 08:23 Dose: 12 ml Documented By: FIOR Dexamethasone Sodium Phosphate (DexamethasonePf 10 Mg/Ml Vial) 10 mg IV NOW ONE Stop: 09/10/22 07:51 Last Admin: 09/10/22 08:18 Dose: 10 mg Documented By: PAIGE Furosemide (Furosemide Inj 20 Mg/2 Ml Vial) 20 mg IV ONE ONE Stop: 09/10/22 20:55 Last Admin: 09/10/22 21:03 Dose: 20 mg Documented By: TRISTIN Sodium Chloride (Nss 1000ml) 1,000 mls @ 999 mls/hr IV .Q1H1M ALICIA Stop: 09/10/22 09:00 Last Infusion: 09/10/22 09:27 Dose: 0 mls/hr Documented By: Admin: 09/10/22 08:19 Dose: 999 mls/hr Documented By: PAIGE Doxycycline Hyclate 100 mg/ (Dextrose) 110 mls @ 50 mls/hr IV NOW STA Stop: 09/10/22 12:04 Last Infusion: 09/10/22 13:16 Dose: 0 mls/hr Documented By: Admin: 09/10/22 10:26 Dose: 50 mls/hr Documented By: PAIGE Perflutren Lipid Microsphere (Perflutren Lipid Microsphere (Definity)) 2 ml IV ONCE ONE Stop: 09/11/22 07:52 Last Admin: 09/11/22 07:51 Dose: 2 ml Documented By: DANNY Potassium Chloride (Potassium Chloride Crtab 20 Meq Tabcr) 40 meq PO NOW STA Stop: 09/10/22 13:36 Last Admin: 09/10/22 14:00 Dose: 40 meq Documented By: MILAGRO Potassium Chloride (Potassium Chloride Crtab 20 Meq Tabcr) 20 meq PO NOW STA Stop: 09/10/22 20:56 Last Admin: 09/10/22 21:03 Dose: 20 meq Documented By: TRISTIN Discharge Plan Visit Data Chief Complaint: Shortness of Breath/Dyspnea Stated Complaint: SHORTNESS OF BREATH ED Provider: Lyndon Monreal Discharge Problem: Asthma exacerbation Patient Disposition: Admitted As Inpatient Discharge Instructions Interventions: ED Discharge Assessment Last Done: 09/10/22 12:19
[2022-09-10] MEDS ORDERED: SODIUM CHLORIDE 0.9% 1000ML 1,000 ML IV SCH (08:00)
--- NOTE | 2022-09-10 08:32 | XRay Report ---
XR chest 1V portable CLINICAL HISTORY: Sepsis TECHNIQUE: Single frontal radiograph of the chest was obtained. Comparison: Comparison is made to chest radiograph 01/02/2022 FINDINGS: No lines and tubes are seen. Cardiomegaly is noted. The lungs are clear. No evidence of pleural effus ion or pneumothorax. IMPRESSION: Cardiomegaly without evidence of pneumonia or other acute abnormality. ACT 112: Negative or not required by law. Electronically signed by: Steve Bailon M.D. 09/10/2022 8:31 AM
[2022-09-10 08:33] LABS: Basophils # (auto) 0.04 K/uL (0-0.2); Basophils % (auto) 0.4 %; Eosinophils # (auto) 0.12 K/uL (0-0.50); Eosinophils % (auto) 1.2 %; Hematocrit (blood only) 35.6 % (37.0-47.0); Hemoglobin 11.8 g/dl (12.0-16.0); Immature Granulocytes # (auto) 0.05 K/uL (0.01-0.20); Immature Granulocytes % (auto) 0.5 %; Lymphocytes # (auto) 0.77 K/uL (1.2-3.4); Lymphocytes % (auto) 7.4 %; Mean Corpuscular Hemoglobin 29.7 pg (25.0-34.0); Mean Corpuscular Hgb Conc 33.1 g/dL (32.0-36.0); Mean Corpuscular Volume 89.7 fL (80.0-100.0); Mean Platelet Volume 9.3 fL (9.4-12.4); Monocytes # (auto) 0.86 K/uL (0.11-0.59); Monocytes % (auto) 8.3 %; Neutrophils # (auto) 8.53 K/uL (1.40-6.50); Neutrophils % (auto) 82.2 %; Platelet Count 212 K/uL (130-400); RDW Coefficient of Variation 15.3 % (11.5-14.5); RDW Standard Deviation 50.4 fL (36.4-46.3); Red Blood Count 3.97 M/uL (4.20-5.40); White Blood Count 10.37 K/ul (4.8-10.8)
[2022-09-10 09:13] LABS: Troponin I High Sensitivity 15.8 pg/ml (0-14)
[2022-09-10 09:44] LABS: Albumin Level 3.9 gm/dl (3.4-5.0); Bilirubin Direct 0.2 mg/dl (0-0.2); Bilirubin,Total 0.7 mg/dl (0.2-1.0); Calcium 8.8 mg/dl (8.6-10.3); Magnesium 1.9 mg/dl (1.7-2.4); Potassium 3.1 mmol/L (3.5-5.1)
[2022-09-10 09:47] LABS: INR 2.2 (0.9-1.1); Partial Thromboplastin Ratio 2.4; Prothrombin Time 22.3 Seconds (9.0-12.0)
[2022-09-10 09:48] LABS: Appearance Urine Clear (Clear); Bacteria Urine Automated Negative (Negative); Bilirubin Urine Negative (Negative); Blood Urine Negative (Negative); Color Urine Yellow; Glucose Urine UA Negative (Negative); Ketones Urine Negative (Negative); Leukocyte Esterase Urine Trace (Negative); Nitrite Urine Negative (Negative); Protein Urine Negative (Negative); RBC Urine Automated 0-4 /hpf (0-4); Specific Gravity Urine 1.008 (1.000-1.030); Urobilinogen Urine Negative (Negative)
[2022-09-10 09:50] LABS: Creatinine Clr Calc Pharmacy 37.8 ml/min; Est GFR (African American) 48.7 ml/min; Total Protein 7.3 gm/dl (6.0-8.3)
[2022-09-10] MEDS ORDERED: DOXYCYCLINE HYCLATE 100 MG in DEXTROSE 5% 100 ML IV STA (09:53)
[2022-09-10 10:18] LABS: Partial Thromboplastin Time 66.2 Seconds (21.0-31.0)
[2022-09-10 10:49] LABS: Influenza A virus by PCR Negative (Neg); Influenza B virus by PCR Negative (Neg); RSV by PCR Negative (Neg); SARS CoV2 RNA(COVID-19) Ceph NEGATIVE (Negative)
--- NOTE | 2022-09-10 11:45 | History & Physical Report ---
Date of Service September 10, 2022 Assessment & Plan (1) Asthma exacerbation: Plan: 87 y/o female with asthma, antiphospholipid antibody syndrome, CKD4, HTN, hyperlipidemia, hypothyroid, PAF, Parkinsons, CAD, anxiety, and prior GI bleed who presents to the ED today with worsening asthma symptoms that started after URI four days ago. Has been using albuterol with transient relief. Not currently hypoxic in the ED. Suspect exacerbation triggered by viral illness. Unlikely to have PE as pt is chronically anticoagulated on warfarin/INR is therapeutic. - Admit to PCU - Received dexamethasone in the ED - consider continuing methylpred - Scheduled nebs QID with up to Q2 hrs prn - Consult pulmonology for additional recommendations - Continue doxycycline started in the ED - Check VBG, [facility] resp panel - Labs in AM - CBC, BMP, INR (2) Hypokalemia: Plan: Oral repletion ordered Mag normal (3) Paroxysmal A-fib: (4) HTN (hypertension): (5) Antiphospholipid antibody syndrome: (6) CKD (chronic kidney disease) stage 4, GFR 15-29 ml/min: (7) Hypothyroid: (8) GERD (gastroesophageal reflux disease): (9) Anxiety: Plan Continue other home medications as appropriate Pt seen and reviewed with collaborating physician, Dr. Duke. Plan of care discussed and as outlined above Code Status: Full code DVT Prophylaxis: therapeutic on chronic warfarin Sven Miner PA-C History of Present Illness Chief Complaint: Worsening asthma symptoms Primary Care Provider: David Cintron MD This is a 87 y/o female with asthma, antiphospholipid antibody syndrome, CKD4, HTN, hyperlipidemia, hypothyroid, PAF, Parkinsons, CAD, anxiety, and prior GI bleed who presents to the ED today with worsening asthma symptoms, specifically chest tightness and wheezing. Pt reports starting with a "head cold" on Th day of last week (four days ago). Three days ago, "it moved into my chest" which she describes as chest tightness/congestion and wheezing. Her cough was initially productive but now non-productive for the last two days, may come in fits to the point of emesis. She has had intermittent fevers up to 101F with associated chills and sweats. Some transient relief of respiratory symptoms with albuterol but only taking 3x/day. Significant chest tightness today but denies chest pain or palpitations. Breathing worse with any exertion. Loss of appetite but denies N/V/D. No known sick contacts. Using Tessalon Perles for the cough with some relief. Cannot tolerate Mucinex due to GI upset. Allergies Allergy/AdvReac Type Severity Reaction Status Date / Time lisinopril Allergy Mild COUGH Verified 03/19/20 00:26 guaifenesin Allergy Unknown Unknown Verified 03/19/20 00:26 phenylpropanolamine Allergy Unknown Unknown Verified 03/19/20 00:26 sulindac Allergy Unknown Unknown Verified 03/19/20 00:26 Home Medications Medication Instructions Recorded Confirmed Type albuterol sulfate 90 mcg/actuation 2 puff inhalation Q6H PRN 03/04/19 09/10/22 History aerosol inhaler (ProAir HFA) Shortness Of Breath amiodarone 200 mg tablet 200 mg PO DAILY 03/04/19 09/10/22 History atorvastatin 20 mg tablet 20 mg PO DAILY 03/04/19 09/10/22 History cholecalciferol (vitamin D3) 25 1,000 unit PO DAILY 03/04/19 09/10/22 History mcg (1,000 unit) capsule cyclosporine 0.05 % eye drops in a 2 drp ophthalmic (eye) Q12H 03/04/19 09/10/22 History dropperette (Restasis) fluticasone propionate 50 1 spray intranasal DAILY PRN 03/04/19 09/10/22 History mcg/actuation nasal allergies spray,suspension (Flonase Allergy Relief) multivit,mineral-folic acid 800 1 tab PO DAILY 03/04/19 09/10/22 History mcg-vit K 100 mcg-herbal no.289 tablet (Alive Once Daily Women 50 Plus) fluticasone furoate 200 1 inh inhalation DAILY 01/16/20 09/10/22 History mcg-vilanterol 25 mcg/dose inhalation powder (Breo Ellipta) furosemide 20 mg tablet 20 mg PO DAILY 01/16/20 09/10/22 History levothyroxine 50 mcg tablet 50 mcg PO QPM 01/16/20 09/10/22 History loratadine 10 mg tablet (Claritin) 10 mg PO DAILY 01/16/20 09/10/22 History lorazepam 0.5 mg tablet 0.25 - 0.5 mg PO DAILY PRN Anxiety 01/16/20 09/10/22 History losartan 50 mg tablet 50 mg PO DAILY 01/16/20 09/10/22 History montelukast 10 mg tablet 10 mg PO HS 01/16/20 09/10/22 History warfarin 2.5 mg tablet See Rx Instructions .Route .COMPLEX 03/19/20 09/10/22 History amlodipine 5 mg tablet 5 mg PO DAILY 09/10/22 09/10/22 History benzonatate 100 mg capsule 100 mg PO TID PRN Cough 09/10/22 09/10/22 History hydralazine 25 mg tablet 12.5 mg PO TID 09/10/22 09/10/22 History isosorbide mononitrate 60 mg 60 mg PO DAILY 09/10/22 09/10/22 History tablet,extended release 24 hr metoprolol succinate 25 mg 25 mg PO DAILY 09/10/22 09/10/22 History tablet,extended release 24 hr omeprazole 40 mg capsule,delayed 40 mg PO BID 09/10/22 09/10/22 History release Past Med/Surg History Medical History (Updated 09/10/22 @ 16:30 by Darling Miner PA-C) Acute GI bleeding Anemia Antiphospholipid antibody syndrome Anxiety Asthma CAD (coronary artery disease) Moderate nonobstructive coronary artery disease via April 08, 2019 coronary angiography Chronic cough CKD (chronic kidney disease) stage 4, GFR 15-29 ml/min Diastolic congestive heart failure Elevated brain natriuretic peptide (BNP) level GERD (gastroesophageal reflux disease) History of TIA (transient ischemic attack) (04/10/11) HLD (hyperlipidemia) HTN (hypertension) Hypothyroid Incomplete bundle branch block Parkinsons Paroxysmal A-fib Rhinitis Senile osteoporosis (04/10/11) Shortness of breath Surgical History History of appendectomy History of cholecystectomy History of colonoscopy History of partial colectomy Family History Brother Heart disease Brother Heart disease Sister Cancer Mother Cancer Social History Smoking Status: Never smoker Hx Alcohol Use: No Hx Substance Use: No Preferred Language: Tamazight Communication Ability: Effective Non Destructive Tester Required: No Beliefs That Will Affect Care: None Current Living Situation: Other Current Living Situation Comment: Live with grandson Other Information That Helps Us Care for You: No Feels Safe at Home: Yes Safety Concerns: Feels Safe At This Time Assistive Devices: None Review of Systems Review of Systems: All systems reviewed & are unremarkable except as noted in HPI & below Constitutional: + fever, + chills, + sweats, + fatigue and + anorexia Eyes: no diplopia Ear, Nose, Mouth, Throat: + nasal congestion and + sore throat Respiratory: + cough, + chest congestion, + dyspnea and + wheezing Cardiovascular: no chest pain, no palpitations, no syncope and no edema Gastrointestinal: no abdominal pain, no nausea, no vomiting and no diarrhea/loose stools Genitourinary: no dysuria and no hematuria Musculoskeletal: no back pain and no neck pain Integumentary: no yellowing of the skin Neurologic: + dizziness; no headache(s) Psychiatric: no depression and no anxiety Physical Exam Constitutional: + ill appearing markedly increased WOB, conversational dyspnea Eyes: + anicteric sclerae Neck: trachea midline Respiratory: + labored breathing, + tachypneic and + audible wheezes Auscultation: + diminished lung sounds and + wheezes Cardiovascular: Rate/Rhythm: regular rate and regular rhythm Extremities: no pedal edema Gastrointestinal (Abdomen): Inspection/Auscultation: normal bowel sounds; abdomen not distended Percussion/Palpation: abdomen soft; abdomen nontender Musculoskeletal: Head/Neck/Chest: normocephalic, head atraumatic and neck supple Skin: no jaundice Neurologic: moves all extremities; no focal motor deficits and not confused Psychiatric: A+Ox3, euthymic affect Results & Data Results & Data Vital Signs (Past 12 Hours) Vital Signs Temp Pulse Pulse Resp BP Pulse Ox O2 Del Method 09/10/22 11:30 64 21 92 Room Air 09/10/22 11:00 67 22 93 Room Air 09/10/22 11:00 164/52 H 09/10/22 10:30 68 28 H 93 Room Air 09/10/22 10:30 152/53 H 09/10/22 10:00 69 25 H 92 Room Air 09/10/22 10:00 149/52 H 09/10/22 09:31 70 27 H 95 Room Air 09/10/22 09:31 159/55 H 09/10/22 09:30 72 30 H 96 Room Air 09/10/22 09:01 136/48 L 09/10/22 09:01 62 25 H 99 09/10/22 09:00 63 24 100 Nebulizer 09/10/22 08:30 60 25 H 99 Nebulizer 09/10/22 08:30 171/59 H 09/10/22 08:07 62 30 H 09/10/22 07:50 Room Air 09/10/22 08:23 63 26 H 94 Room Air 09/10/22 08:10 61 09/10/22 07:50 93 Room Air 09/10/22 07:29 36.7 C 70 18 170/76 H 92 Room Air Laboratory Results Laboratory Results - last 24 hr 09/10/22 09/10/22 09/10/22 07:59 07:59 07:59 WBC 10.37 RBC 3.97 L Hgb 11.8 L Hct 35.6 L MCV 89.7 MCH 29.7 MCHC 33.1 RDW Std Deviation 50.4 H RDW Coeff of Jay 15.3 H Plt Count 212 MPV 9.3 L Immature Gran % (Auto) 0.5 Neut % (Auto) 82.2 Lymph % (Auto) 7.4 [place] % (Auto) 8.3 Eos % (Auto) 1.2 Baso % (Auto) 0.4 Neut # (Auto) 8.53 H Lymph # (Auto) 0.77 L [place] # (Auto) 0.86 H Eos # (Auto) 0.12 Baso # (Auto) 0.04 Immature Gran # (Auto) 0.05 PT INR APTT PTT Ratio Sodium 140 Potassium 3.1 L Chloride 111 H Carbon Dioxide 22 Anion Gap 7 BUN 13 Creatinine 1.18 Est Cr Clr Drug Dosing 37.8 Est GFR ( Amer) 48.7 Est GFR (Non-Af Amer) 42.0 BUN/Creatinine Ratio 11.0 Glucose 111 H Lactate 1.4 Calcium 8.8 Magnesium 1.9 Total Bilirubin 0.7 Direct Bilirubin 0.2 AST 17 ALT 14 Alkaline Phosphatase 90 Troponin I High Sens 15.8 H Total Protein 7.3 Albumin 3.9 Procalcitonin Urine Color Urine Appearance Urine pH Ur Specific Datil Urine Protein Urine Glucose (UA) Urine Ketones Urine Blood Urine Nitrite Urine Bilirubin Urine Urobilinogen Ur Leukocyte Esterase Urine WBC (Auto) Urine RBC (Auto) U Hyaline Cast (Auto) U Epithel Cells (Auto) Urine Bacteria (Auto) SARS-CoV-2 (PCR) Influenza Type A (PCR) Influenza Type B (PCR) RSV (RT-PCR) 09/10/22 09/10/22 09/10/22 07:59 07:59 09:30 WBC RBC Hgb Hct MCV MCH MCHC RDW Std Deviation RDW Coeff of Jay Plt Count MPV Immature Gran % (Auto) Neut % (Auto) Lymph % (Auto) [place] % (Auto) Eos % (Auto) Baso % (Auto) Neut # (Auto) Lymph # (Auto) [place] # (Auto) Eos # (Auto) Baso # (Auto) Immature Gran # (Auto) PT 22.3 H INR 2.2 H APTT 66.2 H* PTT Ratio 2.4 Sodium Potassium Chloride Carbon Dioxide Anion Gap BUN Creatinine Est Cr Clr Drug Dosing Est GFR ( Amer) Est GFR (Non-Af Amer) BUN/Creatinine Ratio Glucose Lactate Calcium Magnesium Total Bilirubin Direct Bilirubin AST ALT Alkaline Phosphatase Troponin I High Sens Total Protein Albumin Procalcitonin 0.10 Urine Color Yellow Urine Appearance Clear Urine pH 6.0 Ur Specific Datil 1.008 Urine Protein Negative Urine Glucose (UA) Negative Urine Ketones Negative Urine Blood Negative Urine Nitrite Negative Urine Bilirubin Negative Urine Urobilinogen Negative Ur Leukocyte Esterase Trace H Urine WBC (Auto) 1-5 Urine RBC (Auto) 0-4 U Hyaline Cast (Auto) 1-5 U Epithel Cells (Auto) 5-10 H Urine Bacteria (Auto) Negative SARS-CoV-2 (PCR) Influenza Type A (PCR) Influenza Type B (PCR) RSV (RT-PCR) 09/10/22 09:35 WBC RBC Hgb Hct MCV MCH MCHC RDW Std Deviation RDW Coeff of Jay Plt Count MPV Immature Gran % (Auto) Neut % (Auto) Lymph % (Auto) [place] % (Auto) Eos % (Auto) Baso % (Auto) Neut # (Auto) Lymph # (Auto) [place] # (Auto) Eos # (Auto) Baso # (Auto) Immature Gran # (Auto) PT INR APTT PTT Ratio Sodium Potassium Chloride Carbon Dioxide Anion Gap BUN Creatinine Est Cr Clr Drug Dosing Est GFR ( Amer) Est GFR (Non-Af Amer) BUN/Creatinine Ratio Glucose Lactate Calcium Magnesium Total Bilirubin Direct Bilirubin AST ALT Alkaline Phosphatase Troponin I High Sens Total Protein Albumin Procalcitonin Urine Color Urine Appearance Urine pH Ur Specific Datil Urine Protein Urine Glucose (UA) Urine Ketones Urine Blood Urine Nitrite Urine Bilirubin Urine Urobilinogen Ur Leukocyte Esterase Urine WBC (Auto) Urine RBC (Auto) U Hyaline Cast (Auto) U Epithel Cells (Auto) Urine Bacteria (Auto) SARS-CoV-2 (PCR) NEGATIVE Influenza Type A (PCR) Negative Influenza Type B (PCR) Negative RSV (RT-PCR) Negative Diagnostic Findings Chest X-Ray 09/10/22 07:50 XR chest 1V portable CLINICAL HISTORY: Sepsis TECHNIQUE: Single frontal radiograph of the chest was obtained. Comparison: Comparison is made to chest radiograph 01/02/2022 FINDINGS: No lines and tubes are seen. Cardiomegaly is noted. The lungs are clear. No evidence of pleural effusion or pneumothorax. IMPRESSION: Cardiomegaly without evidence of pneumonia or other acute abnormality. Medications Administered Doxycycline Hyclate 100 mg/ (Dextrose) 110 mls @ 50 mls/hr IV NOW STA Stop: 09/10/22 12:04 Last Admin: 09/10/22 10:26 Dose: 50 mls/hr Documented By: PAIGE Discontinued Medications Acetaminophen (Acetaminophen 500 Mg Tab) 1,000 mg PO NOW STA Stop: 09/10/22 07:51 Last Admin: 09/10/22 08:19 Dose: 1,000 mg Documented By: PAIGE Albuterol (Albut/Ipratrop 3mg/0.5mg Neb 3 Ml Vial) 12 ml NEB ONE ONE; Protocol Stop: 09/10/22 07:51 Last Admin: 09/10/22 08:23 Dose: 12 ml Documented By: FIOR Dexamethasone Sodium Phosphate (DexamethasonePf 10 Mg/Ml Vial) 10 mg IV NOW ONE Stop: 09/10/22 07:51 Last Admin: 09/10/22 08:18 Dose: 10 mg Documented By: PAIGE Sodium Chloride (Nss 1000ml) 1,000 mls @ 999 mls/hr IV .Q1H1M ALICIA Stop: 09/10/22 09:00 Last Infusion: 09/10/22 09:27 Dose: 0 mls/hr Documented By: Admin: 09/10/22 08:19 Dose: 999 mls/hr Documented By: NMS Code Status & VTE Plan VTE Prophylaxis Plan VTE Prophylaxis will be ordered: No Reason for no VTE drug order: Treatment not indicated Supervising Physician Co-Signing Physician Notes Patient was seen and examined independently. Chart reviewed. Case discussed with AVRIL
[2022-09-10 12:43] LABS: Base Excess VBG -5.9 mEq/L; HCO3 VBG 19 mmol/L; Oxygen Saturation VBG 78.2 %; PCO2 VBG 33 mmHg (38-50); PO2 VBG 44 mmHg; pH VBG 7.36 (7.36-7.41)
[2022-09-10] MEDS ORDERED: ACETAMINOPHEN 325 MG TAB PO PRN (13:13)
[2022-09-10] MEDS ORDERED: POTASSIUM CHLORIDE CRTAB 20 MEQ TABCR PO STA ×2 (13:35→20:55)
[2022-09-10] MEDS: hydrALAZINE HCL 25 MG TAB PO SCH ×2 (14:00→20:02)
[2022-09-10] MEDS: ALBUT/IPRATROP 3MG/0.5MG NEB 3 ML VIAL NEB SCH ×3 (15:23→19:24)
--- NOTE | 2022-09-10 15:45 | Pulmonary Consultation ---
Date of Consultation September 10, 2022 Assessment & Plan (1) Shortness of breath: Likely multifactorial possibly secondary to acute viral bronchitis, acute CHF and deconditioning. CT chest without contrast ordered to further evaluate for parenchymal lung disease. Notably, the patient is chronically on amiodarone. Pulmonary embolism unlikely given low pretest probability and given that she is on chronic warfarin. Chest x-ray was largely unrevealing. (2) Elevated brain natriuretic peptide (BNP) level: Suspect an element of acute CHF in the context of an elevated BNP, idiopathic dyspnea and elevated BP on admission. Echocardiogram ordered. (3) Chronic cough: Possibly exacerbated secondary to CHF and possible viral bronchitis. Cepheid viral panel negative on admission. Continue DuoNebs every 4 hours. Discontinue methylprednisolone at this time as no evidence of overt bronchospasm. Hypertonic saline and flutter valve ordered for mucociliary clearance. Incentive spirometer to treat and prevent atelectasis. Discussed with RT at bedside. Plan Thank you for allowing us to participate in the care of this patient. We will continue to follow. History of Present Illness Reason for Consultation: Asthma Attending Physician: Fei Duke MD History of Present Illness Chart reviewed extensively along with imaging. History obtained from discussion with patient and chart review. 87-year-old female with a past medical history of recurrent bronchitis, obesity, hypertension and anxiety who presented to the hospital due to increasing cough and shortness of breath. Patient notes that earlier today she had sputum production which was quite significant. She also has shortness of breath with minimal activity. She notes that she is followed by pulmonology at [facility] as an outpatient. She describes that she takes Breo Ellipta daily and albuterol 3 times a day. She is also on Singulair. She notes that she had some upper respiratory symptoms which started last week including some sinus congestion. She also noted some rigors and fevers earlier today which is since subsided this afternoon. She denies any significant chest pain. Chest x-ray on admission with evidence of cardiomegaly. No infiltrate seen. CT abdomen pelvis from 2019 reviewed in particular lower lung degroot. No evidence of ILD noted lower lung degroot on CT abdomen pelvis. Minimal pleural thickening on the left. No pleural effusion. Videofluoroscopic swallow study 2020 with no aspiration identified. Mild esophageal dysmotility. She is currently on methylprednisolone 40 mg 3 times daily and doxycycline as ordered by her primary team. Procalcitonin negative on admission. BNP was elevated to 437. Patient denies any significant history of tobacco abuse. She is ambulatory at home. She lives with her son. She occasionally drives. Patient notes that she has "bronchitis twice a year". Allergies Allergy/AdvReac Type Severity Reaction Status Date / Time lisinopril Allergy Mild COUGH Verified 03/19/20 00:26 guaifenesin Allergy Unknown Unknown Verified 03/19/20 00:26 phenylpropanolamine Allergy Unknown Unknown Verified 03/19/20 00:26 sulindac Allergy Unknown Unknown Verified 03/19/20 00:26 Home Medications Medication Instructions Recorded Confirmed Type albuterol sulfate 90 mcg/actuation 2 puff inhalation Q6H PRN 03/04/19 09/10/22 History aerosol inhaler (ProAir HFA) Shortness Of Breath amiodarone 200 mg tablet 200 mg PO DAILY 03/04/19 09/10/22 History atorvastatin 20 mg tablet 20 mg PO DAILY 03/04/19 09/10/22 History cholecalciferol (vitamin D3) 25 1,000 unit PO DAILY 03/04/19 09/10/22 History mcg (1,000 unit) capsule cyclosporine 0.05 % eye drops in a 2 drp ophthalmic (eye) Q12H 03/04/19 09/10/22 History dropperette (Restasis) fluticasone propionate 50 1 spray intranasal DAILY PRN 03/04/19 09/10/22 History mcg/actuation nasal allergies spray,suspension (Flonase Allergy Relief) multivit,mineral-folic acid 800 1 tab PO DAILY 03/04/19 09/10/22 History mcg-vit K 100 mcg-herbal no.289 tablet (Alive Once Daily Women 50 Plus) fluticasone furoate 200 1 inh inhalation DAILY 01/16/20 09/10/22 History mcg-vilanterol 25 mcg/dose inhalation powder (Breo Ellipta) furosemide 20 mg tablet 20 mg PO DAILY 01/16/20 09/10/22 History levothyroxine 50 mcg tablet 50 mcg PO QPM 01/16/20 09/10/22 History loratadine 10 mg tablet (Claritin) 10 mg PO DAILY 01/16/20 09/10/22 History lorazepam 0.5 mg tablet 0.25 - 0.5 mg PO DAILY PRN Anxiety 01/16/20 09/10/22 History losartan 50 mg tablet 50 mg PO DAILY 01/16/20 09/10/22 History montelukast 10 mg tablet 10 mg PO HS 01/16/20 09/10/22 History warfarin 2.5 mg tablet See Rx Instructions .Route .COMPLEX 03/19/20 09/10/22 History amlodipine 5 mg tablet 5 mg PO DAILY 09/10/22 09/10/22 History benzonatate 100 mg capsule 100 mg PO TID PRN Cough 09/10/22 09/10/22 History hydralazine 25 mg tablet 12.5 mg PO TID 09/10/22 09/10/22 History isosorbide mononitrate 60 mg 60 mg PO DAILY 09/10/22 09/10/22 History tablet,extended release 24 hr metoprolol succinate 25 mg 25 mg PO DAILY 09/10/22 09/10/22 History tablet,extended release 24 hr omeprazole 40 mg capsule,delayed 40 mg PO BID 09/10/22 09/10/22 History release Patient History Medical History (Updated 09/10/22 @ 15:35 by Sudheer Sarmiento MD) Acute GI bleeding Anemia Antiphospholipid antibody syndrome Anxiety Asthma CAD (coronary artery disease) Moderate nonobstructive coronary artery disease via April 08, 2019 coronary angiography Chronic cough CKD (chronic kidney disease) stage 4, GFR 15-29 ml/min Diastolic congestive heart failure Elevated brain natriuretic peptide (BNP) level GERD (gastroesophageal reflux disease) History of TIA (transient ischemic attack) (04/10/11) HLD (hyperlipidemia) HTN (hypertension) Hypothyroid Incomplete bundle branch block Parkinsons Paroxysmal A-fib Rhinitis Senile osteoporosis (04/10/11) Shortness of breath Surgical History History of appendectomy History of cholecystectomy History of colonoscopy History of partial colectomy Family History Brother Heart disease Brother Heart disease Sister Cancer Mother Cancer Social History Smoking Status: Never smoker Hx Alcohol Use: No Hx Substance Use: No Preferred Language: Syriac Communication Ability: Effective Car Salter Required: No Beliefs That Will Affect Care: None Current Living Situation: Other Current Living Situation Comment: Live with grandson Other Information That Helps Us Care for You: No Feels Safe at Home: Yes Safety Concerns: Feels Safe At This Time Assistive Devices: None Review of Systems Review of Systems: All systems reviewed & are unremarkable except as noted in HPI & below Physical Exam Physical Exam: Constitutional: Patient appears to be of their stated age. Patient is in no apparent distress. Patient is well-developed. Eyes: Pupils are equal round and reactive to light. Conjunctivae are normal. Anicteric sclera. Ears nose, mouth and throat: Deferred. Neck: Trachea is midline. Visual inspection is normal. Respiratory: Mildly diminished at the bases with some mild crackles. Cardiovascular: Regular rate and rhythm. No murmurs. No edema. Gastrointestinal: Normal bowel sounds, soft, nontender and nondistended. No hepatosplenomegaly noted. Musculoskeletal: No cyanosis. Patient is able to move all extremities. Strength is 5 out of 5 in the upper and lower extremities. Skin: No rashes, warm dry and intact. Neurologic: No obvious focal neurological deficits seen. Psychiatric: Alert and oriented x3 with a euthymic affect. Results & Data Results & Data Vital Signs (Past 12 Hours) Vital Signs Temp Pulse Pulse Resp BP BP BP 09/10/22 15:26 98 H 20 09/10/22 15:20 36.4 C L 65 22 166/65 H 09/10/22 13:33 09/10/22 13:13 36.5 C 72 18 157/62 H 09/10/22 13:13 09/10/22 11:30 64 21 09/10/22 11:00 67 22 09/10/22 11:00 164/52 H 09/10/22 10:30 68 28 H 09/10/22 10:30 152/53 H 09/10/22 10:00 69 25 H 09/10/22 10:00 149/52 H 09/10/22 09:31 70 27 H 09/10/22 09:31 159/55 H 09/10/22 09:30 72 30 H 09/10/22 09:01 136/48 L 09/10/22 09:01 62 25 H 09/10/22 09:00 63 24 09/10/22 08:30 60 25 H 09/10/22 08:30 171/59 H 09/10/22 08:07 62 30 H 09/10/22 07:50 09/10/22 08:23 63 26 H 09/10/22 08:10 61 09/10/22 07:50 09/10/22 07:29 36.7 C 70 18 170/76 H Pulse Ox Pulse Ox O2 Del Method O2 Del Method 09/10/22 15:26 95 Room Air 09/10/22 15:20 95 Room Air 09/10/22 13:33 Room Air 09/10/22 13:13 93 Room Air 09/10/22 13:13 93 Room Air 09/10/22 11:30 92 Room Air 09/10/22 11:00 93 Room Air 09/10/22 11:00 09/10/22 10:30 93 Room Air 09/10/22 10:30 09/10/22 10:00 92 Room Air 09/10/22 10:00 09/10/22 09:31 95 Room Air 09/10/22 09:31 09/10/22 09:30 96 Room Air 09/10/22 09:01 09/10/22 09:01 99 09/10/22 09:00 100 Nebulizer 09/10/22 08:30 99 Nebulizer 09/10/22 08:30 09/10/22 08:07 09/10/22 07:50 Room Air 09/10/22 08:23 94 Room Air 09/10/22 08:10 09/10/22 07:50 93 Room Air 09/10/22 07:29 92 Room Air PG Care Time/CCT Total # of Minutes Spent Total Time Spent with Patient: Total time spent is greater than 50% in coordination of care (as documented) at patient's floor/unit and/or counseling patient: Coding Level of Care Code 82361 INT INP/OBS CARE 3/75MIN Diagnoses Shortness of breath R06.02 Elevated brain natriuretic peptide (BNP) level R79.89 Chronic cough R05.3
[2022-09-10] MEDS ORDERED: WARFARIN SOD 2.5 MG TAB PO SCH (16:00)
--- NOTE | 2022-09-10 17:17 | CT Scan Report ---
CT chest diagnostic wo con CLINICAL HISTORY: dyspnea, crackles, aspiration, chf? TECHNIQUE: Multidetector row helical CT of the chest was performed. Coronal and sagittal reformations were obtained. Automated dose lowering techniques and/or adjustment according to patient size were u tilized for this exam. CT DOSE: 440.15 mGycm Comparison: Comparison is made to chest radiograph 03/12/2023 FINDINGS: Lungs and pleura: Bronchiectasis is seen. There is trace left pleural effusion and atelectasis. Heart and pericardium: Cardiomegaly is seen with biatrial enlargement. Vessels: Moderate atherosclerotic changes in the aorta and coronary arteries. Pulmonary trunk measure s 32 mm in diameter. Mediastinum and zacarias: Subcentimeter lymph nodes are seen. Chest wall and lower neck: Unremarkable. Abdomen: Patient is status post cholecystectomy. Partial visualization of duodenal diverticulum. Bones: Degenerative changes in the thoracic spine. IMPRESSION: Atelectasis and bronchiectasis are seen. There is a trace left pleural effusion. There is mild pulmon sai hypertension and cardiomegaly but no evidence of significant pulmonary edema. ACT 112: Negative or not required by law. Electronically signed by: Steve Bailon M.D. 09/10/2022 5:16 PM
--- NOTE | 2022-09-10 17:46 | Electrocardiogram Report ---
Test Reason : Blood Pressure : / mmHG Vent. Rate : 061 BPM Atrial Rate : 061 BPM P-R Int : 198 ms QRS Dur : 098 ms QT Int : 474 ms P-R-T Axes : 044 033 040 degrees QTc Int : 477 ms Normal sinus rhythm Incomplete right bundle branch block Nonspecific ST abnormality Abnormal ECG When compared with ECG of 02-JAN-2022 09:18, No significant change was found Confirmed by Rahul Ponce ([id number]) on 09/10/2022 5:46:09 PM Referred By: REFERRED SELF Confirmed By:Gurmeet Ponce
[2022-09-10 17:52] LABS: Adenovirus PCR Not Detected (NotDetected); Bordetella parapertussis PCR Not Detected (NotDetected); Bordetella pertussis PCR Not Detected (NotDetected); Chlamydia pneumoniae PCR Not Detected (NotDetected); Coronavirus 229E PCR Not Detected (NotDetected); Coronavirus CoV-2 (COVID19)PCR Not Detected (NotDetected); Coronavirus HKU1 PCR Not Detected (NotDetected); Coronavirus NL63 PCR Not Detected (NotDetected); Coronavirus OC43PCR Not Detected (NotDetected); Human Metapneumovirus PCR Not Detected (NotDetected); Influenza A PCR Not Detected (NotDetected); Influenza B PCR Not Detected (NotDetected); Mycoplasma pneumoniae PCR Not Detected (NotDetected); Parainfluenza Virus 1 PCR Not Detected (NotDetected); Parainfluenza Virus 2 PCR Not Detected (NotDetected); Parainfluenza Virus 4 PCR Not Detected (NotDetected); Respiratory Syncytial VirusPCR Not Detected (NotDetected); Rhinovirus/Enterovirus PCR Not Detected (NotDetected)
[2022-09-10] MEDS ORDERED: methylPREDNISolone 40 MG in SYRINGE 0 ML IV SCH (18:00)
[2022-09-10 18:07] LABS: Parainfluenza Virus 3 PCR DETECTED (NotDetected)
[2022-09-10] MEDS: SODIUM CHLOR 7% 4 ML NEB NEB SCH (19:24)
[2022-09-10] MEDS: PANTOprazole 40 MG TAB PO SCH (20:01)
[2022-09-10] MEDS: LEVOTHYROXINE SODIUM 50 MCG TABLET PO SCH (20:01)
[2022-09-10] MEDS: MONTELUKAST SODIUM 10 MG TABLET PO SCH (20:02)
[2022-09-10] MEDS ORDERED: FUROSEMIDE INJ 20 MG/2 ML VIAL IV ONE (20:54)
[2022-09-10] MEDS: BENZONATATE 100 MG CAPSULE PO PRN (21:03)
[2022-09-10] MEDS: DOXYCYCLINE HYCLATE 100 MG in DEXTROSE 5% 100 ML IV SCH (21:03)
[2022-09-11] MEDS: ALBUT/IPRATROP 3MG/0.5MG NEB 3 ML VIAL NEB SCH ×4 (07:08→19:46)
[2022-09-11] MEDS: SODIUM CHLOR 7% 4 ML NEB NEB SCH ×2 (07:08→20:33)
[2022-09-11] MEDS ORDERED: PERFLUTREN LIPID MICROSPHERE (DEFINITY) IV ONE (07:51)
[2022-09-11] MEDS: ISOSORBIDE MONO EXTENDED REL 60 MG TABCR PO SCH (08:43)
[2022-09-11] MEDS: ATORVASTATIN 20 MG TAB PO SCH (08:44)
[2022-09-11] MEDS: AMIODARONE 200 MG TAB PO SCH (08:44)
[2022-09-11] MEDS: hydrALAZINE HCL 25 MG TAB PO SCH ×3 (08:44→20:32)
[2022-09-11] MEDS: LORATADINE 10 MG TAB PO SCH (08:45)
[2022-09-11] MEDS: LOSARTAN POTASSIUM 50 MG TAB PO SCH (08:45)
[2022-09-11] MEDS: amLODIPine BESYLATE 5 MG TAB PO SCH (08:45)
[2022-09-11 08:46] LABS: Basophils # (auto) 0.01 K/uL (0-0.2); Basophils % (auto) 0.1 %; Hematocrit (blood only) 31.8 % (37.0-47.0); Hemoglobin 10.3 g/dl (12.0-16.0); Immature Granulocytes # (auto) 0.08 K/uL (0.01-0.20); Immature Granulocytes % (auto) 0.9 %; Lymphocytes # (auto) 0.81 K/uL (1.2-3.4); Mean Corpuscular Hemoglobin 29.4 pg (25.0-34.0); Mean Corpuscular Hgb Conc 32.4 g/dL (32.0-36.0); Mean Corpuscular Volume 90.9 fL (80.0-100.0); Mean Platelet Volume 9.2 fL (9.4-12.4); Monocytes % (auto) 11.1 %; Neutrophils # (auto) 7.14 K/uL (1.40-6.50); Neutrophils % (auto) 78.9 %; Platelet Count 187 K/uL (130-400); RDW Coefficient of Variation 15.5 % (11.5-14.5); RDW Standard Deviation 51.2 fL (36.4-46.3); White Blood Count 9.04 K/ul (4.8-10.8)
[2022-09-11] MEDS: FLUTICASONE/VILANTEROL 200/25MCG 14 PUFFS/INHALER INH SCH (08:46)
[2022-09-11] MEDS: METOPROLOL SUCC 25MG EXT REL TAB PO SCH (08:46)
[2022-09-11] MEDS: PANTOprazole 40 MG TAB PO SCH ×2 (08:46→20:30)
[2022-09-11] MEDS: CHOLECALCIFEROL 1,000 UNITS 25 MCG TAB PO SCH (08:46)
[2022-09-11] MEDS: DOXYCYCLINE HYCLATE 100 MG in DEXTROSE 5% 100 ML IV SCH ×2 (08:50→20:30)
[2022-09-11 09:03] LABS: BUN Creatinine Ratio 18.2 (10-20); Calcium 8.4 mg/dl (8.6-10.3); Creatinine Clr Calc Pharmacy 36.9 ml/min; Est GFR (African American) 47.2 ml/min; Est GFR (Non-African American) 40.8 ml/min; Magnesium 1.9 mg/dl (1.7-2.4); Potassium 3.8 mmol/L (3.5-5.1)
[2022-09-11 09:32] LABS: Prothrombin Time 20.2 Seconds (9.0-12.0)
[2022-09-11] MEDS: FUROSEMIDE 20 MG TAB PO SCH (11:58)
--- NOTE | 2022-09-11 12:11 | Hospitalist Progress Note ---
Date of Service September 11, 2022 Assessment & Plan (1) Asthma exacerbation: (2) Hypokalemia: (3) Paroxysmal A-fib: (4) HTN (hypertension): (5) Antiphospholipid antibody syndrome: (6) CKD (chronic kidney disease) stage 4, GFR 15-29 ml/min: (7) Hypothyroid: (8) GERD (gastroesophageal reflux disease): (9) Anxiety: (10) Diastolic heart failure: (11) Parainfluenza virus bronchitis: Plan 87 y/o female with asthma, antiphospholipid antibody syndrome, CKD4, HTN, hyperlipidemia, hypothyroid, PAF, Parkinsons, CAD, anxiety, and prior GI bleed who presents to the ED today with worsening asthma symptoms that started after URI four days ago. Chest x-ray on admission personally reviewed; cardiomegaly without any evidence of pneumonia or pulmonary edema CT chest personally reviewed; atelectasis and bronchiectasis present. Mild pulmonary hypertension cardiomegaly present. Respiratory viral panel positive for parainfluenza virus Labs reviewed; BNP greater than 400. Discussed with pulmonology; recommend [id number] DuoNeb and hypertonic saline. Currently on doxycycline; will provide 5-day course. Echocardiogram results reviewed; EF of 60 to 65%; moderate concentric left ventricular hypertrophy. Grade 3 diastolic dysfunction present. Patient follows up with cardiology as outpatient and has a follow-up coming up. Continue to monitor oxygen saturation; maintain saturation above 92% PT OT evaluation. Chronic conditions; Hypertensioncontinue to monitor blood pressure. Continue on amlodipine, losartan, metoprolol and isosorbide mononitrate, hydralazine Diastolic heart failure, compensatedcontinue on beta-regino, Lasix 20 mg once daily. Atrial fibrillationcontinue on warfarin and beta-regino. Continue telemetry monitoring. Antiphospholipid syndromecontinue on warfarin Hypothyroidismcontinue on levothyroxine Full code DVT prophylaxis warfarin Dispositionpending PT OT eval. Please note the above document was generated using voice recognition software. It may contain grammatical, syntax or spelling errors. Any formal questions or concerns about the content, text or information contained within the body of this dictation should be directly addressed to the provider for clarification Admission and Anticipated Discharge Date Admission Date: September 10, 2022 Subjective Patient seen and examined at bedside. She is lying on the bed comfortably; reports exertional shortness of breath. She also reports generalized weakness. Review of Systems Review of Systems: All systems reviewed & are unremarkable except as noted in Subjective Physical Exam Physical Exam: Constitutional: WD/WN, vitals as above, NAD, sitting up in bed, pleasant, conversing easily Respiratory: Occasional wheeze; no other additional sounds. Cardiovascular: RRR, no murmur, no edema Vessels: no JVD or carotid bruit Chest: normal inspection of chest Abdomen: normal bowel sounds, soft, nontender, no hepatosplenomegaly Musculoskeletal: no cyanosis or clubbing, extremities motor strength 5/5 Skin: no rashes, warm and dry normal turgor Neurologic: PERRL, EOMI, accommodation nl, no face palsy, no dysarthria CN's II- XI intact bilaterally and moves all extremities Psychiatric: A+Ox3, euthymic affect Lymphatic: no cervical or axillary lymphadenopathy : deferred Results & Data Results & Data Vital Signs (Past 12 Hours) Vital Signs Temp Pulse Pulse Resp BP Pulse Ox O2 Del Method 09/11/22 11:53 36.7 C 64 20 140/57 L 95 Room Air 09/11/22 11:07 60 18 97 Room Air 09/11/22 09:00 Room Air 09/11/22 08:00 36.4 C L 62 20 153/73 H 97 Room Air 09/11/22 07:00 66 09/11/22 07:08 77 18 94 Room Air 09/11/22 04:27 36.7 C 63 18 161/65 H 96 Room Air Laboratory Results Laboratory Results WBC 9.04 K/ul (4.8-10.8) 09/11/22 08:07 RBC 3.50 M/uL (4.20-5.40) L 09/11/22 08:07 Hgb 10.3 g/dl (12.0-16.0) L 09/11/22 08:07 Hct 31.8 % (37.0-47.0) L 09/11/22 08:07 MCV 90.9 fL (80.0-100.0) 09/11/22 08:07 MCH 29.4 pg (25.0-34.0) 09/11/22 08:07 MCHC 32.4 g/dL (32.0-36.0) 09/11/22 08:07 RDW Std Deviation 51.2 fL (36.4-46.3) H 09/11/22 08:07 RDW Coeff of Jay 15.5 % (11.5-14.5) H 09/11/22 08:07 Plt Count 187 K/uL (130-400) 09/11/22 08:07 MPV 9.2 fL (9.4-12.4) L 09/11/22 08:07 Immature Gran % (Auto) 0.9 % 09/11/22 08:07 Neut % (Auto) 78.9 % 09/11/22 08:07 Lymph % (Auto) 9.0 % 09/11/22 08:07 Stark % (Auto) 11.1 % 09/11/22 08:07 Eos % (Auto) 0.0 % 09/11/22 08:07 Baso % (Auto) 0.1 % 09/11/22 08:07 Neut # (Auto) 7.14 K/uL (1.40-6.50) H 09/11/22 08:07 Lymph # (Auto) 0.81 K/uL (1.2-3.4) L 09/11/22 08:07 Stark # (Auto) 1.00 K/uL (0.11-0.59) H 09/11/22 08:07 Eos # (Auto) 0.00 K/uL (0-0.50) 09/11/22 08:07 Baso # (Auto) 0.01 K/uL (0-0.2) 09/11/22 08:07 Immature Gran # (Auto) 0.08 K/uL (0.01-0.20) 09/11/22 08:07 PT 20.2 Seconds (9.0-12.0) H 09/11/22 08:07 INR 2.0 (0.9-1.1) H 09/11/22 08:07 APTT 66.2 Seconds (21.0-31.0) H* 09/10/22 07:59 PTT Ratio 2.4 09/10/22 07:59 VBG pH 7.36 (7.36-7.41) 09/10/22 12:32 VBG pCO2 33 mmHg (38-50) L 09/10/22 12:32 VBG pO2 44 mmHg 04/17/23 12:32 VBG HCO3 19 mmol/L 09/10/22 12:32 VBG O2 Saturation 78.2 % 09/10/22 12:32 VBG Base Excess -5.9 mEq/L 09/10/22 12:32 Sodium 140 mmol/L (136-145) 09/11/22 08:07 Potassium 3.8 mmol/L (3.5-5.1) D 09/11/22 08:07 Chloride 112 mmol/L (98-107) H 09/11/22 08:07 Carbon Dioxide 19 mmol/L (21-32) L 09/11/22 08:07 Anion Gap 9 (3-11) 09/11/22 08:07 BUN 22 mg/dl (6-23) 09/11/22 08:07 Creatinine 1.21 mg/dl (0.6-1.2) H 09/11/22 08:07 Est Cr Clr Drug Dosing 36.9 ml/min 09/11/22 08:07 Est GFR ( Amer) 47.2 ml/min 09/11/22 08:07 Est GFR (Non-Af Amer) 40.8 ml/min 09/11/22 08:07 BUN/Creatinine Ratio 18.2 (10-20) 09/11/22 08:07 Glucose 121 mg/dl (70-99(Fasting)) H 09/11/22 08:07 Lactate 1.4 mmol/L (0.4-2.0) 09/10/22 07:59 Calcium 8.4 mg/dl (8.6-10.3) L 09/11/22 08:07 Magnesium 1.9 mg/dl (1.7-2.4) 09/11/22 08:07 Total Bilirubin 0.7 mg/dl (0.2-1.0) 09/10/22 07:59 Direct Bilirubin 0.2 mg/dl (0-0.2) 09/10/22 07:59 AST 17 U/L (13-39) 09/10/22 07:59 ALT 14 U/L (7-52) 09/10/22 07:59 Alkaline Phosphatase 90 U/L (34-104) 09/10/22 07:59 Troponin I High Sens 11.8 pg/ml (0-14) D 09/10/22 12:32 B-Natriuretic Peptide 437 pg/ml (0-100) H 09/10/22 14:37 Total Protein 7.3 gm/dl (6.0-8.3) 09/10/22 07:59 Albumin 3.9 gm/dl (3.4-5.0) 09/10/22 07:59 Procalcitonin 0.10 ng/ml (0-0.5) 09/10/22 07:59 Urine Color Yellow 09/10/22 09:30 Urine Appearance Clear (Clear) 09/10/22 09:30 Urine pH 6.0 (4.5-7.5) 09/10/22 09:30 Ur Specific [facility] 1.008 (1.000-1.030) 09/10/22 09:30 Urine Protein Negative (Negative) 09/10/22 09:30 Urine Glucose (UA) Negative (Negative) 09/10/22 09:30 Urine Ketones Negative (Negative) 09/10/22 09:30 Urine Blood Negative (Negative) 09/10/22 09:30 Urine Nitrite Negative (Negative) 09/10/22 09:30 Urine Bilirubin Negative (Negative) 09/10/22 09:30 Urine Urobilinogen Negative (Negative) 09/10/22 09:30 Ur Leukocyte Esterase Trace (Negative) H 09/10/22 09:30 Urine WBC (Auto) 1-5 /hpf (0-5) 09/10/22 09:30 Urine RBC (Auto) 0-4 /hpf (0-4) 09/10/22 09:30 U Hyaline Cast (Auto) 1-5 /lpf (0-5) 09/10/22 09:30 U Epithel Cells (Auto) 5-10 /lpf (0-5) H 09/10/22 09:30 Urine Bacteria (Auto) Negative (Negative) 09/10/22 09:30 Adenovirus (PCR) Not Detected (NotDetected) 09/10/22 16:42 B. pertussis DNA (PCR) Not Detected (NotDetected) 09/10/22 16:42 B.parapertussis DNA PCR Not Detected (NotDetected) 09/10/22 16:42 C. pneumoniae DNA (PCR) Not Detected (NotDetected) 09/10/22 16:42 Coronavirus OC43 (PCR) Not Detected (NotDetected) 09/10/22 16:42 Coronavirus HKU1 (PCR) Not Detected (NotDetected) 09/10/22 16:42 Coronavirus 229E (PCR) Not Detected (NotDetected) 09/10/22 16:42 SARS-CoV-2 (PCR) Not Detected (NotDetected) 09/10/22 16:42 Coronavirus NL63 (PCR) Not Detected (NotDetected) 09/10/22 16:42 Human Metapneumovir PCR Not Detected (NotDetected) 09/10/22 16:42 Influenza Type A (PCR) Not Detected (NotDetected) 09/10/22 16:42 Influenza Type B (PCR) Not Detected (NotDetected) 09/10/22 16:42 M. pneumoniae (PCR) Not Detected (NotDetected) 09/10/22 16:42 Parainfluenza 1 (PCR) Not Detected (NotDetected) 09/10/22 16:42 Parainfluenza 2 (PCR) Not Detected (NotDetected) 09/10/22 16:42 Parainfluenza 3 (PCR) DETECTED (NotDetected) A* 09/10/22 16:42 Parainfluenza 4 (PCR) Not Detected (NotDetected) 09/10/22 16:42 RSV (RT-PCR) Negative (Neg) 09/10/22 09:35 RSV (PCR) Not Detected (NotDetected) 09/10/22 16:42 Entero/Rhino (PCR) Not Detected (NotDetected) 09/10/22 16:42 Impressions Chest X-Ray 09/10/22 07:50 XR chest 1V portable CLINICAL HISTORY: Sepsis TECHNIQUE: Single frontal radiograph of the chest was obtained. Comparison: Comparison is made to chest radiograph 01/02/2022 FINDINGS: No lines and tubes are seen. Cardiomegaly is noted. The lungs are clear. No evidence of pleural effusion or pneumothorax. IMPRESSION: Cardiomegaly without evidence of pneumonia or other acute abnormality. ACT 112: Negative or not required by law. Electronically signed by: Steve Bailon M.D. 09/10/2022 8:[address] 09/10/22 15:34 CT chest diagnostic wo con CLINICAL HISTORY: dyspnea, crackles, aspiration, chf? TECHNIQUE: Multidetector row helical CT of the chest was performed. Coronal and sagittal reformations were obtained. Automated dose lowering techniques and/or adjustment according to patient size were utilized for this exam. CT DOSE: 440.15 mGycm Comparison: Comparison is made to chest radiograph 03/12/2023 FINDINGS: Lungs and pleura: Bronchiectasis is seen. There is trace left pleural effusion and atelectasis. Heart and pericardium: Cardiomegaly is seen with biatrial enlargement. Vessels: Moderate atherosclerotic changes in the aorta and coronary arteries. Pulmonary trunk measures 32 mm in diameter. Mediastinum and zacarias: Subcentimeter lymph nodes are seen. Chest wall and lower neck: Unremarkable. Abdomen: Patient is status post cholecystectomy. Partial visualization of duodenal diverticulum. Bones: Degenerative changes in the thoracic spine. IMPRESSION: Atelectasis and bronchiectasis are seen. There is a trace left pleural effusion. There is mild pulmonary hypertension and cardiomegaly but no evidence of significant pulmonary edema. ACT 112: Negative or not required by law. Electronically signed by: Steve Bailon M.D. 09/10/2022 5:16 PM
--- NOTE | 2022-09-11 13:12 | Pulmonology Progress Note ---
Date of Service September 11, 2022 Assessment & Plan (1) Shortness of breath: Plan: * Likely multifactorial possibly secondary to acute viral bronchitis, acute CHF and deconditioning. * Chest CT shows atelectasis and bronchiectasis. * Continue with hypertonic saline which has provided some relief. * Continue IS and Flutter valve. * Encourage OOB and activity as tolerated. (2) Elevated brain natriuretic peptide (BNP) level: Plan: * Suspect an element of acute CHF in the context of an elevated BNP, idiopathic dyspnea and elevated BP on admission. * Echocardiogram demonstrates diastolic dysfunction. (3) Chronic cough: Plan: * Possibly exacerbated secondary to CHF and viral bronchitis (positive parainfluenza on extended viral panel). Plan Thank you for allowing us to participate in the care of this patient. We will continue to follow. Admission and Anticipated Discharge Date Admission Date: September 10, 2022 Subjective Patient was seen and evaluated by myself. She reports that the nebulized treatments have seemed to be helping and she is able to cough up some yellowish sputum. She has been able to walk back and forth throughout her room, although she does get relatively short of breath. She reports that this is much better than when she arrived. Review of Systems Review of Systems: A complete 6 point review of systems was reviewed with the patient with pertinent positives and negatives as per history of present illness. All else were negative. Physical Exam Physical Exam: VITAL SIGNS - Vital signs and nursing notes were reviewed. GENERAL - 87-year-old female appearing her stated age who is in no acute distress. Communicates well with provider and answers questions appropriately. NOSE - Midline and without cyanosis. MOUTH/OROPHARYNX - Without perioral cyanosis. NECK - Neck with FROM. LUNGS - Auscultation reveals slight wheeze at the LEFT-sided lung base. Coarse breath sounds appreciated throughout. CARDIAC - RRR with S1/S2. No murmur, rubs, or gallops appreciated. ABDOMEN - BS normoactive all four quadrants. No tenderness, palpable masses, or ascites noted. EXTREMITIES -no peripheral cyanosis. No pretibial edema present. +3/5 radial palpated throughout. PSYCH - A&Ox3 and cooperates fully with examiner. Pt is very pleasant and interacts well with examiner. Results & Data Results & Data Vital Signs (Past 12 Hours) Vital Signs Temp Pulse Pulse Resp BP Pulse Ox O2 Del Method 09/11/22 11:53 36.7 C 64 20 140/57 L 95 Room Air 09/11/22 11:07 60 18 97 Room Air 09/11/22 09:00 Room Air 09/11/22 08:00 36.4 C L 62 20 153/73 H 97 Room Air 09/11/22 07:00 66 09/11/22 07:08 77 18 94 Room Air 09/11/22 04:27 36.7 C 63 18 161/65 H 96 Room Air PG Care Time/CCT Total # of Minutes Spent Total Time Spent with Patient: Total time spent is greater than 50% in coordination of care (as documented) at patient's floor/unit and/or counseling patient: Coding Level of Care Code 05079 SUB INP/OBS CARE 3/50MIN Diagnoses Shortness of breath R06.02 Elevated brain natriuretic peptide (BNP) level R79.89 Chronic cough R05.3
[2022-09-11] MEDS: WARFARIN SOD 1.25 MG TAB PO SCH (15:55)
[2022-09-11] MEDS ORDERED: ARTIFICIAL TEARS OPB PRN (16:02)
[2022-09-11] MEDS: MONTELUKAST SODIUM 10 MG TABLET PO SCH (20:31)
[2022-09-11] MEDS: LEVOTHYROXINE SODIUM 50 MCG TABLET PO SCH (20:32)
[2022-09-12 06:19] LABS: A calco-baum cmplx NotReported Not Detected (NotDetected); Bact fragilis Not Reported Not Detected (NotDetected); C auris Not Reported Not Detected (NotDetected); Calbicans Not Reported Not Detected (NotDetected); Candida glabrata Not Reported Not Detected (NotDetected); Candida krusei Not Reported Not Detected (NotDetected); Cneoformans/gatti Not Reported Not Detected (NotDetected); Cparapsilosis Not Reported Not Detected (NotDetected); Ctropicalis Not Reported Not Detected (NotDetected); E cloacae compx Not Reported Not Detected (NotDetected); Efaecalis Not Reported Not Detected (NotDetected); Efaecium Not Reported Not Detected (NotDetected); Enterobacterales Not Reported Not Detected (NotDetected); Escherichia coli Not Reported Not Detected (NotDetected); H influenzae Not Reported Not Detected (NotDetected); K aerogenes Not Reported Not Detected (NotDetected); Koxytoca Not Reported Not Detected (NotDetected); Kpneumoniae grp Not Reported Not Detected (NotDetected); Lmonocyt Not Reported Not Detected (NotDetected); N meningitidis Not Reported Not Detected (NotDetected); P aeruginosa Not Reported Not Detected (NotDetected); Proteus spp Not Reported Not Detected (NotDetected); Salmonella spp Not Reported Not Detected (NotDetected); Smarcescens Not Reported Not Detected (NotDetected); Staph lugdunensis Not Reported Not Detected (NotDetected); Staph spp. Not Reported Not Detected (NotDetected); Staphaureus Not Reported Not Detected (NotDetected); Staphepi Not Reported Not Detected (NotDetected); Stenmaltophilia Not Reported Not Detected (NotDetected); Strep agal(GrpB) Not Reported Not Detected (NotDetected); Strep pneum Not Reported Not Detected (NotDetected); Strep pyog (GrpA) Not Reported Not Detected (NotDetected); Strep spp Not Reported Not Detected (NotDetected)
[2022-09-12] MEDS: POLYETHYLENE (MIRALAX) 17 GM PACK PO PRN ×2 (06:19→16:56)
[2022-09-12] MEDS ORDERED: VANCOMYCIN CONSULT ACTIVE PRN (06:30)
[2022-09-12] MEDS ORDERED: VANCOMYCIN HCL 1,000 MG in SODIUM CHLORIDE 0.9% 250 ML IV SCH (06:30)
[2022-09-12] MEDS ORDERED: VANCOMYCIN HCL 2,000 MG in SODIUM CHLORIDE 0.9% 500 ML IV ONE (07:00)
[2022-09-12] MEDS: ALBUT/IPRATROP 3MG/0.5MG NEB 3 ML VIAL NEB SCH ×4 (07:26→20:07)
[2022-09-12] MEDS: SODIUM CHLOR 7% 4 ML NEB NEB SCH ×3 (07:26→20:07)
[2022-09-12] MEDS: hydrALAZINE HCL 25 MG TAB PO SCH ×3 (08:10→20:43)
[2022-09-12] MEDS: PANTOprazole 40 MG TAB PO SCH ×2 (08:10→20:43)
[2022-09-12] MEDS: AMIODARONE 200 MG TAB PO SCH (08:10)
[2022-09-12] MEDS: CHOLECALCIFEROL 1,000 UNITS 25 MCG TAB PO SCH (08:12)
[2022-09-12] MEDS: ATORVASTATIN 20 MG TAB PO SCH (08:13)
[2022-09-12] MEDS: amLODIPine BESYLATE 5 MG TAB PO SCH (08:13)
[2022-09-12] MEDS: ISOSORBIDE MONO EXTENDED REL 60 MG TABCR PO SCH (08:13)
[2022-09-12] MEDS: METOPROLOL SUCC 25MG EXT REL TAB PO SCH (08:13)
[2022-09-12] MEDS: FUROSEMIDE 20 MG TAB PO SCH ×2 (08:13→16:06)
[2022-09-12] MEDS: LORATADINE 10 MG TAB PO SCH (08:14)
[2022-09-12] MEDS: LOSARTAN POTASSIUM 50 MG TAB PO SCH (08:14)
[2022-09-12 08:17] LABS: Basophils # (auto) 0.04 K/uL (0-0.2); Basophils % (auto) 0.3 %; Eosinophils % (auto) 0.8 %; Hematocrit (blood only) 32.8 % (37.0-47.0); Hemoglobin 10.7 g/dl (12.0-16.0); Immature Granulocytes # (auto) 0.07 K/uL (0.01-0.20); Immature Granulocytes % (auto) 0.6 %; Lymphocytes # (auto) 1.93 K/uL (1.2-3.4); Lymphocytes % (auto) 16.3 %; Mean Corpuscular Hemoglobin 29.7 pg (25.0-34.0); Mean Corpuscular Hgb Conc 32.6 g/dL (32.0-36.0); Mean Corpuscular Volume 91.1 fL (80.0-100.0); Mean Platelet Volume 9.4 fL (9.4-12.4); Monocytes # (auto) 1.01 K/uL (0.11-0.59); Monocytes % (auto) 8.5 %; Neutrophils # (auto) 8.68 K/uL (1.40-6.50); Neutrophils % (auto) 73.5 %; Platelet Count 242 K/uL (130-400); RDW Coefficient of Variation 15.7 % (11.5-14.5); RDW Standard Deviation 52.1 fL (36.4-46.3); White Blood Count 11.83 K/ul (4.8-10.8)
[2022-09-12] MEDS: FLUTICASONE/VILANTEROL 200/25MCG 14 PUFFS/INHALER INH SCH (08:20)
[2022-09-12] MEDS: DOXYCYCLINE HYCLATE 100 MG in DEXTROSE 5% 100 ML IV SCH (08:27)
[2022-09-12 08:31] LABS: Albumin Globulin Ratio 1.3 (0.9-2); Albumin Level 3.8 gm/dl (3.4-5.0); BUN Creatinine Ratio 22.6 (10-20); Bilirubin,Total 0.4 mg/dl (0.2-1.0); Calcium 8.8 mg/dl (8.6-10.3); Creatinine Clr Calc Pharmacy 36.2 ml/min; Est GFR (African American) 45.9 ml/min; Est GFR (Non-African American) 39.6 ml/min; Potassium 3.9 mmol/L (3.5-5.1); Total Protein 6.8 gm/dl (6.0-8.3)
[2022-09-12 08:37] LABS: INR 1.8 (0.9-1.1); Prothrombin Time 18.8 Seconds (9.0-12.0)
--- NOTE | 2022-09-12 13:29 | Pharmacy Report ---
Pharmacy PK ABX Note - Date of Service September 12, 2022 - Assessment and Plan Assessment 87 year old F receiving receiving empiric vancomycin for treatment of possible bacteremia (no obvious source). Pertinent microbiologic data includes: 1 of 2 blood cultures (09/10) growing gram-positive cocci clusters. BCID-2 panel negative for reported organisms. May represent Micrococcus vs. non-reported Staphylococcus species. Possible contamination? Decision to treat likely based on clinical signs/symptoms of infection. Leukocytosis noted today (WBC: 11.8 K) and patient reported fever/chills. Empiric vancomycin okay for now. Patient with acute shortness of breath (possibly secondary to acute viral bronchitis, CHF, etc.). No evidence of pneumonia on chest x-ray. Day # 1 of antimicrobial therapy. Plan Vancomycin * Loading dose: 2000 mg IV x 1 * Maintenance dose: 1250 mg IV every 24 hours * Regimen is predicted to achieve target AUC/MING of 400-600 mg/L.hr * Will order random vanco level if therapy continued beyond 48 hours Pharmacy will continue to follow and will adjust dose/frequency as necessary. Thank you. Pharmacy has transitioned to AUC monitoring for vancomycin. AUC/MING is the preferred PK/PD target and is associated with decreased risk of nephrotoxicity compared to traditional trough targets.
--- NOTE | 2022-09-12 15:13 | Hospitalist Progress Note ---
Date of Service September 12, 2022 Assessment & Plan (1) Asthma exacerbation: (2) Hypokalemia: (3) Paroxysmal A-fib: (4) HTN (hypertension): (5) Antiphospholipid antibody syndrome: (6) CKD (chronic kidney disease) stage 4, GFR 15-29 ml/min: (7) Hypothyroid: (8) GERD (gastroesophageal reflux disease): (9) Anxiety: (10) Diastolic heart failure: (11) Parainfluenza virus bronchitis: Plan per Dr. Dorman's notes with addendum: 87 y/o female with asthma, antiphospholipid antibody syndrome, CKD4, HTN, hyperlipidemia, hypothyroid, PAF, Parkinsons, CAD, anxiety, and prior GI bleed who presents to the ED today with worsening asthma symptoms that started after URI four days ago. Chest x-ray on admission personally reviewed; cardiomegaly without any evidence of pneumonia or pulmonary edema CT chest personally reviewed; atelectasis and bronchiectasis present. Mild pulmonary hypertension cardiomegaly present. Respiratory viral panel positive for parainfluenza virus Labs reviewed; BNP greater than 400. Discussed with pulmonology; recommend snqop-ior-vpyau DuoNeb and hypertonic saline. Currently on doxycycline; will provide 5-day course. Echocardiogram results reviewed; EF of 60 to 65%; moderate concentric left ventricular hypertrophy. Grade 3 diastolic dysfunction present. Patient follows up with cardiology as outpatient and has a follow-up coming up. Continue to monitor oxygen saturation; maintain saturation above 92% PT OT evaluation. 09/12 clinically improving continue Nebs + HS continue ABx monitor closely r/o Bacteremia - Blood cx: (+) gram positive cocci in 1 bottle - awaiting final report - continue empiric Vanco Chronic conditions; Hypertensioncontinue to monitor blood pressure. Continue on amlodipine, losartan, metoprolol and isosorbide mononitrate, hydralazine Diastolic heart failure, compensatedcontinue on beta-regino, Lasix 20 mg--> increase to BID Atrial fibrillationcontinue on warfarin and beta-regino. Continue telemetry monitoring. Antiphospholipid syndromecontinue on warfarin Hypothyroidismcontinue on levothyroxine Full code DVT prophylaxis warfarin Disposition- PT/OT eval plan of care discussed with patient in detail and at length all questions answered she is understanding, agreeable, comfortable with the plan of care Admission and Anticipated Discharge Date Admission Date: September 12, 2022 Subjective ff up for asthma exacerbation, etc seen resting in bed, comfortable on room air states her breathing is improving cough improving no chest pain, dyspnea, palpitations, dizziness no other symptoms Review of Systems Review of Systems: all noted and negative except for above Physical Exam Physical Exam: General- oriented x 3, not in distress, speaks in sentences with no effort or accessory muscle use Eyes- anicteric Neck- no JVD Lungs- mild rhonchi at the bases no wheezing Heart- normal rate, regular rhythm; no murmurs Abdomen- normal bowel sounds, nondistended, soft, nontender Extremities- mild pretibial edema, no calf tenderness Neuro- alert, oriented x 3; no gross focal neurologic deficits Skin- warm & dry Results & Data Results & Data Vital Signs (Past 12 Hours) Vital Signs Temp Pulse Pulse Resp BP Pulse Ox O2 Del Method 09/12/22 07:00 67 09/12/22 11:17 67 22 93 Room Air 09/12/22 10:37 36.4 C L 59 L 20 138/72 96 Room Air 09/12/22 08:05 62 18 95 Room Air 09/12/22 07:44 36.3 C L 63 20 153/70 H 97 Room Air 09/12/22 07:42 Room Air all noted and reviewed including below
[2022-09-12] MEDS ORDERED: WARFARIN SOD 2.5 MG TAB PO SCH (16:00)
--- NOTE | 2022-09-12 17:17 | Pulmonology Progress Note ---
Date of Service September 12, 2022 Assessment & Plan (1) Shortness of breath: Plan: * Likely multifactorial possibly secondary to acute viral bronchitis, acute CHF and deconditioning. * Chest CT shows atelectasis and bronchiectasis. * Continue with hypertonic saline which has provided some relief. * Continue IS and Flutter valve. * Encourage OOB and activity as tolerated. (2) Elevated brain natriuretic peptide (BNP) level: Plan: * Suspect an element of acute CHF in the context of an elevated BNP, idiopathic dyspnea and elevated BP on admission. * Echocardiogram demonstrates diastolic dysfunction. (3) Chronic cough: Plan: * Possibly exacerbated secondary to CHF and viral bronchitis (positive parainfluenza on extended viral panel). Plan Attending: Dr. Sarmiento Impression: 87-year-old female with history of chronic otitis, obesity, hypertension, atrial fibrillation, anxiety, and tobacco abuse disorder. She presented to the hospital with shortness of breath and cough and found to have parainfluenza with acute bronchitis. Patient empirically started on doxycycline. Procalcitonin was negative on admission. BNP was elevated at 437. Patient reports significant improvement in the last 24 hours. She continues to have productive cough but reports that she is significantly less short of breath. Recommendations: 1. Parainfluenza with acute bronchitis: * Patient is on respiratory precautions. We will continue this for now * Continue on doxycycline for bronchitis although procalcitonin is negative. Can discontinue empiric antibiotics after 5 days. * No indication for steroids at this time as patient has no bronchospasm * Home medications include Breo Ellipta and montelukast. Continue while inpatient * Continue with pulmonary toileting including hypertonic saline with nebulizer treatments and flutter valve * Patient with significant improvement from a pulmonary perspective. Can be discharged home when comorbidities return to baseline 2. Shortness of breath: * Multifactorial to parainfluenza, obesity and deconditioning, CHF * Continue with supportive care for parainfluenza per above * Continue diuretics * Increase activity as tolerated * Continue incentive spirometry 3. Chronic cough: * No indication for steroids * Parainfluenza as well as bronchitis. Continue to treat as above * Continue with Flonase nasal spray * Continue to encourage clearance of sputum. Would not use benzonatate [id number] as it is beneficial for patient to expectorate. Okay to use as needed HS Thank you for allowing us to participate in the care of this patient. We will sign off at this time. Please feel free to reconsult or contact us for further questions or clarification of treatment plan. Admission and Anticipated Discharge Date Admission Date: September 12, 2022 Subjective Attending: Dr. Sarmiento Patient seen and examined in room 281. She is doing much much better. She is seen at bedside. She does have cough with some sputum production. At this time patient states that she feels much better than even yesterday. Denies any excessive shortness of breath. Continues to tolerate pulmonary toileting. Review of Systems Review of Systems: A total of 10 systems was reviewed and is negative other than as listed in the HPI Physical Exam Physical Exam: GENERAL : No acute distress. No conversational dyspnea. EYES: No icterus, gaze conjugate NOSE: No evidence of epistaxis MOUTH: No lesions or candidiasis NECK: Supple LUNGS: Rhonchi in the posterior mid and upper degroot. No appreciation of bronchospasm. HEART: Regular, rate controlled ABDOMEN: Soft, NT, ND, BS Present EXTREMITIES: No LE edema, pedal pulses intact NEURO: A&OX3 Results & Data Results & Data Vital Signs (Past 12 Hours) Vital Signs Temp Pulse Pulse Resp BP Pulse Ox O2 Del Method 09/12/22 15:43 36.3 C L 66 20 129/63 95 Room Air 09/12/22 15:37 68 20 94 Room Air 09/12/22 07:00 67 09/12/22 11:17 67 22 93 Room Air 09/12/22 10:37 36.4 C L 59 L 20 138/72 96 Room Air 09/12/22 08:05 62 18 95 Room Air 09/12/22 07:44 36.3 C L 63 20 153/70 H 97 Room Air 09/12/22 07:42 Room Air PG Care Time/CCT Total # of Minutes Spent Total Time Spent with Patient: Total time spent is greater than 50% in coordination of care (as documented) at patient's floor/unit and/or counseling patient: 20 minutes [id number] with patient Coding Level of Care Code 02040 SUB INP/OBS CARE 2/35MIN Diagnoses Shortness of breath R06.02 Elevated brain natriuretic peptide (BNP) level R79.89 Chronic cough R05.3
[2022-09-12] MEDS: MONTELUKAST SODIUM 10 MG TABLET PO SCH (20:42)
[2022-09-12] MEDS: DOXYCYCLINE HYCLATE 100 MG CAP PO SCH (20:43)
[2022-09-12] MEDS: LEVOTHYROXINE SODIUM 50 MCG TABLET PO SCH (20:43)
[2022-09-12] MEDS ORDERED: VANCOMYCIN HCL 1,250 MG in SODIUM CHLORIDE 0.9% 250 ML IV SCH (21:00)
[2022-09-13] MEDS: SODIUM CHLOR 7% 4 ML NEB NEB SCH ×2 (07:29→19:31)
[2022-09-13] MEDS: ALBUT/IPRATROP 3MG/0.5MG NEB 3 ML VIAL NEB SCH ×4 (07:30→19:31)
[2022-09-13 07:46] LABS: INR 1.7 (0.9-1.1); Prothrombin Time 17.9 Seconds (9.0-12.0)
[2022-09-13] MEDS: LORATADINE 10 MG TAB PO SCH (08:09)
[2022-09-13] MEDS: DOXYCYCLINE HYCLATE 100 MG CAP PO SCH ×2 (08:09→21:41)
[2022-09-13] MEDS: hydrALAZINE HCL 25 MG TAB PO SCH ×3 (08:10→21:40)
[2022-09-13] MEDS: PANTOprazole 40 MG TAB PO SCH ×2 (08:10→21:42)
[2022-09-13] MEDS: LOSARTAN POTASSIUM 50 MG TAB PO SCH (08:11)
[2022-09-13] MEDS: amLODIPine BESYLATE 5 MG TAB PO SCH (08:11)
[2022-09-13] MEDS: FUROSEMIDE 20 MG TAB PO SCH (08:12)
[2022-09-13] MEDS: METOPROLOL SUCC 25MG EXT REL TAB PO SCH (08:12)
[2022-09-13] MEDS: CHOLECALCIFEROL 1,000 UNITS 25 MCG TAB PO SCH (08:12)
[2022-09-13] MEDS: ATORVASTATIN 20 MG TAB PO SCH (08:13)
[2022-09-13] MEDS: AMIODARONE 200 MG TAB PO SCH (08:13)
[2022-09-13] MEDS: ISOSORBIDE MONO EXTENDED REL 60 MG TABCR PO SCH (08:13)
[2022-09-13] MEDS: bisacodyL 10 MG SUPP PR SCH (08:14)
[2022-09-13] MEDS: FLUTICASONE/VILANTEROL 200/25MCG 14 PUFFS/INHALER INH SCH (08:14)
[2022-09-13 08:36] LABS: Creatinine Clr Calc Pharmacy 37.7 ml/min; Est GFR (African American) 48.2 ml/min; Est GFR (Non-African American) 41.6 ml/min
[2022-09-13 11:49] LABS: Basophils # (auto) 0.04 K/uL (0-0.2); Basophils % (auto) 0.4 %; Eosinophils # (auto) 0.15 K/uL (0-0.50); Eosinophils % (auto) 1.6 %; Hematocrit (blood only) 32.5 % (37.0-47.0); Hemoglobin 10.5 g/dl (12.0-16.0); Immature Granulocytes # (auto) 0.05 K/uL (0.01-0.20); Immature Granulocytes % (auto) 0.5 %; Lymphocytes # (auto) 1.39 K/uL (1.2-3.4); Lymphocytes % (auto) 15.1 %; Mean Corpuscular Hemoglobin 29.1 pg (25.0-34.0); Mean Corpuscular Hgb Conc 32.3 g/dL (32.0-36.0); Mean Platelet Volume 9.3 fL (9.4-12.4); Monocytes # (auto) 0.92 K/uL (0.11-0.59); Neutrophils # (auto) 6.67 K/uL (1.40-6.50); Neutrophils % (auto) 72.4 %; Platelet Count 235 K/uL (130-400); RDW Coefficient of Variation 15.8 % (11.5-14.5); RDW Standard Deviation 52.1 fL (36.4-46.3); Red Blood Count 3.61 M/uL (4.20-5.40); White Blood Count 9.22 K/ul (4.8-10.8)
[2022-09-13] MEDS ORDERED: FUROSEMIDE 40 MG/4 ML VIAL IV ONE (13:49)
--- NOTE | 2022-09-13 14:21 | XRay Report ---
XR chest 1V portable HISTORY: Acute bronchitis. Shortness of breath. COMPARISON: Chest CT 09/10/2022. FINDINGS: No pneumothorax. No pleural effusions. No new focal lung consolidations to suggest a pneumo etelvina. No evidence for pulmonary edema. The cardiac silhouette is mildly enlarged. Mild central bronchi al wall thickening persists. IMPRESSION: 1. Mild central bronchial wall thickening persists. 2. Stable mild cardiomegaly. ACT 112: Negative or not required by law. Electronically signed by: Ralph Benitez M.D. 09/13/2022 2:20 PM
[2022-09-13] MEDS: guaiFENesin 600 MG TABCR PO SCH ×2 (14:27→21:40)
[2022-09-13] MEDS ORDERED: WARFARIN SOD 5 MG TAB PO ONE (16:00)
--- NOTE | 2022-09-13 16:29 | Hospitalist Progress Note ---
Date of Service September 13, 2022 Assessment & Plan (1) Asthma exacerbation: (2) Hypokalemia: (3) Paroxysmal A-fib: (4) HTN (hypertension): (5) Antiphospholipid antibody syndrome: (6) CKD (chronic kidney disease) stage 4, GFR 15-29 ml/min: (7) Hypothyroid: (8) GERD (gastroesophageal reflux disease): (9) Anxiety: (10) Diastolic heart failure: (11) Parainfluenza virus bronchitis: Plan per Dr. Dorman's notes with addendum: 87 y/o female with asthma, antiphospholipid antibody syndrome, CKD4, HTN, hyperlipidemia, hypothyroid, PAF, Parkinsons, CAD, anxiety, and prior GI bleed who presents to the ED today with worsening asthma symptoms that started after URI four days ago. Chest x-ray on admission personally reviewed; cardiomegaly without any evidence of pneumonia or pulmonary edema CT chest personally reviewed; atelectasis and bronchiectasis present. Mild pulmonary hypertension cardiomegaly present. Respiratory viral panel positive for parainfluenza virus Labs reviewed; BNP greater than 400. Discussed with pulmonology; recommend [id number] DuoNeb and hypertonic saline. Currently on doxycycline; will provide 5-day course. Echocardiogram results reviewed; EF of 60 to 65%; moderate concentric left ventricular hypertrophy. Grade 3 diastolic dysfunction present. Patient follows up with cardiology as outpatient and has a follow-up coming up. Continue to monitor oxygen saturation; maintain saturation above 92% PT OT evaluation. 4/20 Positive rhonchi, intermittent crackles today Chest x-ray: 1. Mild central bronchial wall thickening persists. 2. Stable mild cardiomegaly. Lasix 40 mg IV given Mucinex added Continue DuoNeb 4 times daily, hypertonic saline twice daily, doxycycline twice daily Continue flutter valve Continue usual Gloria Gunderson Pulmonary service on board r/o Bacteremia - Blood cx: Micrococcus species Likely contaminant Discontinue vancomycin Chronic conditions; Hypertensioncontinue to monitor blood pressure. Continue on amlodipine, losartan, metoprolol and isosorbide mononitrate, hydralazine Blood pressure stable at this time Monitor closely Diastolic heart failure, compensated Given Lasix 40 mg IV today Monitor closely Atrial fibrillation INR still subtherapeutic, 1.7 Coumadin 5 mg p.o. today INR daily Continue metoprolol succinate 25 mg p.o. daily, amiodarone 200 mg daily Antiphospholipid syndromecontinue on warfarin Hypothyroidismcontinue on levothyroxine Full code DVT prophylaxis warfarin Disposition- PT/OT eval plan of care discussed with patient in detail and at length all questions answered she is understanding, agreeable, comfortable with the plan of care Admission and Anticipated Discharge Date Admission Date: September 12, 2022 Subjective Follow-up for asthma exacerbation, etc. Seen resting in bed, comfortable, not in distress, on room air States she had a coughing spell this morning, with minimal sputum On exam, patient reports no shortness of breath, chest pain No other new symptoms Review of Systems Review of Systems: all noted and negative except for above Physical Exam Physical Exam: General- oriented x 3, not in distress, speaks in sentences with no effort or accessory muscle use Eyes- anicteric Neck- no JVD Lungs- (+) rhonchi with intermittent crackles bilaterally Heart- normal rate, regular rhythm; no murmurs Abdomen- normal bowel sounds, nondistended, soft, nontender Extremities-mild lower extremity edema, no calf tenderness Neuro- alert, oriented x 3; no gross focal neurologic deficits Skin- warm & dry Results & Data Results & Data Vital Signs (Past 12 Hours) Vital Signs Temp Pulse Pulse Resp BP BP Pulse Ox 09/13/22 16:00 36.5 C 64 20 117/53 L 95 09/13/22 14:13 60 09/13/22 11:38 36.7 C 70 19 133/63 95 09/13/22 11:07 61 16 94 09/13/22 08:03 09/13/22 07:39 36.4 C L 68 19 133/66 94 09/13/22 07:31 67 18 94 09/13/22 06:03 66 O2 Del Method 09/13/22 16:00 Room Air 09/13/22 14:13 09/13/22 11:38 Room Air 09/13/22 11:07 Room Air 09/13/22 08:03 Room Air 09/13/22 07:39 Room Air 09/13/22 07:31 Room Air 09/13/22 06:03 all noted and reviewed including below
[2022-09-13] MEDS: LEVOTHYROXINE SODIUM 50 MCG TABLET PO SCH (21:40)
[2022-09-13] MEDS: MONTELUKAST SODIUM 10 MG TABLET PO SCH (21:42)
[2022-09-14] MEDS: ALBUT/IPRATROP 3MG/0.5MG NEB 3 ML VIAL NEB SCH ×4 (07:05→19:08)
[2022-09-14] MEDS: SODIUM CHLOR 7% 4 ML NEB NEB SCH ×2 (08:06→19:08)
[2022-09-14 08:10] LABS: BUN Creatinine Ratio 21.7 (10-20); Calcium 9.1 mg/dl (8.6-10.3); Est GFR (African American) 40.3 ml/min; Est GFR (Non-African American) 34.8 ml/min; Potassium 4.3 mmol/L (3.5-5.1)
[2022-09-14 08:27] LABS: INR 1.8 (0.9-1.1); Prothrombin Time 18.9 Seconds (9.0-12.0)
[2022-09-14] MEDS: hydrALAZINE HCL 25 MG TAB PO SCH ×3 (09:00→20:56)
[2022-09-14] MEDS: guaiFENesin 600 MG TABCR PO SCH ×2 (09:00→20:56)
[2022-09-14] MEDS: PANTOprazole 40 MG TAB PO SCH ×2 (09:00→20:56)
[2022-09-14] MEDS: AMIODARONE 200 MG TAB PO SCH (09:01)
[2022-09-14] MEDS: CHOLECALCIFEROL 1,000 UNITS 25 MCG TAB PO SCH (09:01)
[2022-09-14] MEDS: LOSARTAN POTASSIUM 50 MG TAB PO SCH (09:01)
[2022-09-14] MEDS: amLODIPine BESYLATE 5 MG TAB PO SCH (09:01)
[2022-09-14] MEDS: LORATADINE 10 MG TAB PO SCH (09:01)
[2022-09-14] MEDS: DOXYCYCLINE HYCLATE 100 MG CAP PO SCH ×2 (09:01→20:57)
[2022-09-14] MEDS: FLUTICASONE/VILANTEROL 200/25MCG 14 PUFFS/INHALER INH SCH (09:02)
[2022-09-14] MEDS: ISOSORBIDE MONO EXTENDED REL 60 MG TABCR PO SCH (09:02)
[2022-09-14] MEDS: METOPROLOL SUCC 25MG EXT REL TAB PO SCH (09:02)
[2022-09-14] MEDS: ATORVASTATIN 20 MG TAB PO SCH (09:02)
[2022-09-14] MEDS: bisacodyL 10 MG SUPP PR SCH (09:03)
[2022-09-14] MEDS: POLYETHYLENE (MIRALAX) 17 GM PACK PO PRN (09:11)
[2022-09-14] MEDS: ONDANSETRON INJ 2 MG/ML 2 ML VIAL IV PRN (12:48)
[2022-09-14] MEDS: FUROSEMIDE 20 MG TAB PO SCH (12:48)
[2022-09-14] MEDS: methylPREDNISolone 40 MG in SYRINGE 0 ML IV SCH ×2 (12:48→22:03)
--- NOTE | 2022-09-14 16:27 | Hospitalist Progress Note ---
Date of Service September 14, 2022 Assessment & Plan (1) Asthma exacerbation: (2) Hypokalemia: (3) Paroxysmal A-fib: (4) HTN (hypertension): (5) Antiphospholipid antibody syndrome: (6) CKD (chronic kidney disease) stage 4, GFR 15-29 ml/min: (7) Hypothyroid: (8) GERD (gastroesophageal reflux disease): (9) Anxiety: (10) Diastolic heart failure: (11) Parainfluenza virus bronchitis: Plan per Dr. Dorman's notes with addendum: 87 y/o female with asthma, antiphospholipid antibody syndrome, CKD4, HTN, hyperlipidemia, hypothyroid, PAF, Parkinsons, CAD, anxiety, and prior GI bleed who presents to the ED today with worsening asthma symptoms that started after URI four days ago. Chest x-ray on admission personally reviewed; cardiomegaly without any evidence of pneumonia or pulmonary edema CT chest personally reviewed; atelectasis and bronchiectasis present. Mild pulmonary hypertension cardiomegaly present. Respiratory viral panel positive for parainfluenza virus Labs reviewed; BNP greater than 400. Discussed with pulmonology; recommend [id number] DuoNeb and hypertonic saline. Currently on doxycycline; will provide 5-day course. Echocardiogram results reviewed; EF of 60 to 65%; moderate concentric left ventricular hypertrophy. Grade 3 diastolic dysfunction present. Patient follows up with cardiology as outpatient and has a follow-up coming up. Continue to monitor oxygen saturation; maintain saturation above 92% PT OT evaluation. 09/13 Positive rhonchi, intermittent crackles today Chest x-ray: 1. Mild central bronchial wall thickening persists. 2. Stable mild cardiomegaly. Lasix 40 mg IV given Mucinex added Continue DuoNeb 4 times daily, hypertonic saline twice daily, doxycycline twice daily Continue flutter valve Pulmonary service on board 09/14 Patient still having persistent rhonchi/crackles We will start Solu-Medrol 40 mg IV every 12 Continue DuoNeb, hypertonic saline nebs Continue Mucinex Continue doxycycline Continue usual Breo, Singulair r/o Bacteremia - Blood cx: Micrococcus species -Contamination Discontinue vancomycin Chronic conditions; Hypertensioncontinue to monitor blood pressure. Continue on amlodipine, losartan, metoprolol and isosorbide mononitrate, hydralazine Blood pressure stable at this time Monitor closely Diastolic heart failure, compensated Resume usual Lasix 20 mg p.o. daily Atrial fibrillation INR still subtherapeutic, 1.8 Coumadin 3 mg p.o. today INR daily Continue metoprolol succinate 25 mg p.o. daily, amiodarone 200 mg daily Antiphospholipid syndromecontinue on warfarin Hypothyroidismcontinue on levothyroxine Full code DVT prophylaxis warfarin Disposition- PT/OT eval plan of care discussed with patient in detail and at length all questions answered she is understanding, agreeable, comfortable with the plan of care Admission and Anticipated Discharge Date Admission Date: September 12, 2022 Subjective Follow-up for asthma exacerbation, etc. Seen resting in bed, comfortable, not in distress States she feels somewhat better compared to yesterday Still having cough, seems to be expectorating phlegm more easily Still having some dyspnea on exertion No fevers or chills No other new symptom Review of Systems Review of Systems: all noted and negative except for above Physical Exam Physical Exam: General- oriented x 3, not in distress, speaks in sentences with no effort or accessory muscle use Eyes- anicteric Neck- no JVD Lungs- (+) crackles bilaterally No wheezing Good air entry bilaterally Heart- normal rate, regular rhythm; no murmurs Abdomen- normal bowel sounds, nondistended, soft, no tenderness Extremities-mild lower leg edema, no calf tenderness Neuro- alert, oriented x 3; no gross focal neurologic deficits Skin- warm & dry Results & Data Results & Data Vital Signs (Past 12 Hours) Vital Signs Temp Pulse Pulse Pulse Resp BP BP 09/14/22 15:51 36.3 C L 64 20 122/70 09/14/22 14:39 77 18 09/14/22 11:40 36.3 C L 69 20 147/67 H 09/14/22 11:12 77 17 09/14/22 09:00 58 L 09/14/22 09:00 09/14/22 07:30 36.4 C L 68 18 135/64 09/14/22 07:07 79 18 Pulse Ox O2 Del Method 09/14/22 15:51 90 Room Air 09/14/22 14:39 95 Room Air 09/14/22 11:40 95 Room Air 09/14/22 11:12 96 Room Air 09/14/22 09:00 09/14/22 09:00 Room Air 09/14/22 07:30 94 Room Air 09/14/22 07:07 95 Room Air all noted and reviewed including below
[2022-09-14] MEDS: WARFARIN SOD 3 MG TAB PO SCH (17:44)
[2022-09-14] MEDS: LEVOTHYROXINE SODIUM 50 MCG TABLET PO SCH (20:56)
[2022-09-14] MEDS: MONTELUKAST SODIUM 10 MG TABLET PO SCH (21:55)
[2022-09-15] MEDS: SODIUM CHLOR 7% 4 ML NEB NEB SCH ×2 (07:05→20:30)
[2022-09-15] MEDS: ALBUT/IPRATROP 3MG/0.5MG NEB 3 ML VIAL NEB SCH ×4 (07:05→20:30)
[2022-09-15] MEDS ORDERED: Nursing to Pharmacy Communication SCH (07:45)
[2022-09-15] MEDS: DOXYCYCLINE HYCLATE 100 MG CAP PO SCH ×2 (08:27→20:25)
[2022-09-15] MEDS: hydrALAZINE HCL 25 MG TAB PO SCH ×3 (08:27→21:32)
[2022-09-15] MEDS: LOSARTAN POTASSIUM 50 MG TAB PO SCH (08:28)
[2022-09-15] MEDS: PANTOprazole 40 MG TAB PO SCH ×2 (08:28→20:25)
[2022-09-15] MEDS: FUROSEMIDE 20 MG TAB PO SCH (08:28)
[2022-09-15] MEDS: methylPREDNISolone 40 MG in SYRINGE 0 ML IV SCH ×2 (08:30→20:26)
[2022-09-15 08:31] LABS: Calcium 9.3 mg/dl (8.6-10.3); Creatinine Clr Calc Pharmacy 24.7 ml/min; Est GFR (African American) 29.4 ml/min; Est GFR (Non-African American) 25.4 ml/min; Potassium 4.3 mmol/L (3.5-5.1)
[2022-09-15] MEDS: ATORVASTATIN 20 MG TAB PO SCH (08:31)
[2022-09-15] MEDS: CHOLECALCIFEROL 1,000 UNITS 25 MCG TAB PO SCH (08:31)
[2022-09-15] MEDS: AMIODARONE 200 MG TAB PO SCH (08:31)
[2022-09-15] MEDS: METOPROLOL SUCC 25MG EXT REL TAB PO SCH (08:31)
[2022-09-15] MEDS: guaiFENesin 600 MG TABCR PO SCH ×2 (08:31→20:25)
[2022-09-15] MEDS: ISOSORBIDE MONO EXTENDED REL 60 MG TABCR PO SCH (08:31)
[2022-09-15] MEDS: bisacodyL 10 MG SUPP PR SCH (08:31)
[2022-09-15] MEDS: FLUTICASONE/VILANTEROL 200/25MCG 14 PUFFS/INHALER INH SCH (08:32)
[2022-09-15 08:46] LABS: Prothrombin Time 20.7 Seconds (9.0-12.0)
[2022-09-15] MEDS: amLODIPine BESYLATE 5 MG TAB PO SCH (09:52)
[2022-09-15] MEDS: LORATADINE 10 MG TAB PO SCH (09:53)
[2022-09-15] MEDS: BENZONATATE 100 MG CAPSULE PO PRN (15:25)
[2022-09-15] MEDS: WARFARIN SOD 3 MG TAB PO SCH (15:25)
--- NOTE | 2022-09-15 18:50 | Hospitalist Progress Note ---
Date of Service September 15, 2022 Assessment & Plan (1) Asthma exacerbation: (2) Hypokalemia: (3) Paroxysmal A-fib: (4) HTN (hypertension): (5) Antiphospholipid antibody syndrome: (6) CKD (chronic kidney disease) stage 4, GFR 15-29 ml/min: (7) Hypothyroid: (8) GERD (gastroesophageal reflux disease): (9) Anxiety: (10) Diastolic heart failure: (11) Parainfluenza virus bronchitis: Plan per Dr. Dorman's notes with addendum: 87 y/o female with asthma, antiphospholipid antibody syndrome, CKD4, HTN, hyperlipidemia, hypothyroid, PAF, Parkinsons, CAD, anxiety, and prior GI bleed who presents to the ED today with worsening asthma symptoms that started after URI four days ago. Chest x-ray on admission personally reviewed; cardiomegaly without any evidence of pneumonia or pulmonary edema CT chest personally reviewed; atelectasis and bronchiectasis present. Mild pulmonary hypertension cardiomegaly present. Respiratory viral panel positive for parainfluenza virus Labs reviewed; BNP greater than 400. Discussed with pulmonology; recommend [id number] DuoNeb and hypertonic saline. Currently on doxycycline; will provide 5-day course. Echocardiogram results reviewed; EF of 60 to 65%; moderate concentric left ventricular hypertrophy. Grade 3 diastolic dysfunction present. Patient follows up with cardiology as outpatient and has a follow-up coming up. Continue to monitor oxygen saturation; maintain saturation above 92% PT OT evaluation. 09/13 Positive rhonchi, intermittent crackles today Chest x-ray: 1. Mild central bronchial wall thickening persists. 2. Stable mild cardiomegaly. Lasix 40 mg IV given Mucinex added Continue DuoNeb 4 times daily, hypertonic saline twice daily, doxycycline twice daily Continue flutter valve Pulmonary service on board 09/14 Patient still having persistent rhonchi/crackles We will start Solu-Medrol 40 mg IV every 12 Continue DuoNeb, hypertonic saline nebs Continue Mucinex Continue doxycycline Continue usual Breo, Singulair 09/15 Clinically improving Rhonchi improving Continue Solu-Medrol 40 mg IV every 12 hours Continue nebs, Mucinex, doxycycline, usual inhalers Monitor closely May need to stop exercise test upon discharge r/o Bacteremia - Blood cx: Micrococcus species -Contamination Discontinue vancomycin Chronic conditions; Hypertensioncontinue to monitor blood pressure. Continue on amlodipine, losartan, metoprolol and isosorbide mononitrate, hydralazine Blood pressure stable at this time Monitor closely Diastolic heart failure, compensated Resume usual Lasix 20 mg p.o. daily Atrial fibrillation INR still subtherapeutic, 1.8 Coumadin 3 mg p.o. today INR daily Continue metoprolol succinate 25 mg p.o. daily, amiodarone 200 mg daily Antiphospholipid syndromecontinue on warfarin Hypothyroidismcontinue on levothyroxine Full code DVT prophylaxis warfarin Disposition- PT/OT eval plan of care discussed with patient in detail and at length all questions answered she is understanding, agreeable, comfortable with the plan of care Admission and Anticipated Discharge Date Admission Date: September 12, 2022 Subjective Follow-up for acute bronchitis, etc. Seen resting in bed, comfortable, no distress States breathing is improving, also having less cough compared to yesterday No chest pain, fevers or chills No other new symptoms Review of Systems Review of Systems: all noted and negative except for above Physical Exam Physical Exam: General- oriented x 3, not in distress, speaks in sentences with no effort or accessory muscle use Eyes- anicteric Neck- no JVD Lungs-positive scattered rhonchi bilaterally, no wheezing, breath sounds improved compared to yesterday Heart- normal rate, regular rhythm; no murmurs Abdomen- normal bowel sounds, nondistended, soft, nontender Extremities-trace pretibial edema, no calf tenderness Neuro- alert, oriented x 3; no gross focal neurologic deficits Skin- warm & dry Results & Data Results & Data Vital Signs (Past 12 Hours) Vital Signs Temp Pulse Pulse Resp BP BP Pulse Ox 09/15/22 16:00 69 09/15/22 15:44 36.6 C 62 19 128/51 L 99 09/15/22 15:12 73 17 96 09/15/22 11:49 36.6 C 65 19 136/55 L 95 09/15/22 08:00 69 09/15/22 08:00 09/15/22 11:11 79 18 96 09/15/22 08:11 36.5 C 67 20 148/67 H 95 09/15/22 07:07 78 17 96 O2 Del Method 09/15/22 16:00 09/15/22 15:44 Room Air 09/15/22 15:12 Room Air 09/15/22 11:49 Room Air 09/15/22 08:00 09/15/22 08:00 Room Air 09/15/22 11:11 Room Air 09/15/22 08:11 Room Air 09/15/22 07:07 Room Air all noted and reviewed including below
[2022-09-15] MEDS: ONDANSETRON INJ 2 MG/ML 2 ML VIAL IV PRN (19:26)
[2022-09-15] MEDS: LEVOTHYROXINE SODIUM 50 MCG TABLET PO SCH (20:25)
[2022-09-15] MEDS: MONTELUKAST SODIUM 10 MG TABLET PO SCH (20:25)
[2022-09-16] MEDS: ALBUT/IPRATROP 3MG/0.5MG NEB 3 ML VIAL NEB SCH ×4 (06:53→20:01)
[2022-09-16] MEDS: SODIUM CHLOR 7% 4 ML NEB NEB SCH (06:54)
[2022-09-16 07:43] LABS: BUN Creatinine Ratio 33.3 (10-20); Calcium 9.3 mg/dl (8.6-10.3); Creatinine Clr Calc Pharmacy 23.8 ml/min; Est GFR (African American) 28.1 ml/min; Est GFR (Non-African American) 24.2 ml/min; Potassium 4.7 mmol/L (3.5-5.1)
[2022-09-16 07:55] LABS: INR 2.7 (0.9-1.1); Prothrombin Time 28.2 Seconds (9.0-12.0)
[2022-09-16] MEDS: ISOSORBIDE MONO EXTENDED REL 60 MG TABCR PO SCH (08:07)
[2022-09-16] MEDS: LORATADINE 10 MG TAB PO SCH (08:07)
[2022-09-16] MEDS: AMIODARONE 200 MG TAB PO SCH (08:07)
[2022-09-16] MEDS: PANTOprazole 40 MG TAB PO SCH ×2 (08:07→19:21)
[2022-09-16] MEDS: guaiFENesin 600 MG TABCR PO SCH ×2 (08:08→19:20)
[2022-09-16] MEDS: METOPROLOL SUCC 25MG EXT REL TAB PO SCH (08:08)
[2022-09-16] MEDS: FUROSEMIDE 20 MG TAB PO SCH (08:08)
[2022-09-16] MEDS: ATORVASTATIN 20 MG TAB PO SCH (08:08)
[2022-09-16] MEDS: amLODIPine BESYLATE 5 MG TAB PO SCH (08:08)
[2022-09-16] MEDS: FLUTICASONE/VILANTEROL 200/25MCG 14 PUFFS/INHALER INH SCH (08:08)
[2022-09-16] MEDS: DOXYCYCLINE HYCLATE 100 MG CAP PO SCH ×2 (08:08→19:19)
[2022-09-16] MEDS: CHOLECALCIFEROL 1,000 UNITS 25 MCG TAB PO SCH (08:08)
[2022-09-16] MEDS: DOCUSATE SODIUM/SENNA 50/8.6MG TAB PO SCH (08:10)
[2022-09-16] MEDS: methylPREDNISolone 40 MG in SYRINGE 0 ML IV SCH ×2 (08:12→19:21)
[2022-09-16] MEDS ORDERED: XOPENEX/ATROVENT 1.25mg/0.5MG NEB COMBO NEB STA (08:54)
[2022-09-16] MEDS: LOSARTAN POTASSIUM 50 MG TAB PO SCH (08:59)
[2022-09-16] MEDS: hydrALAZINE HCL 25 MG TAB PO SCH ×3 (09:00→19:20)
[2022-09-16] MEDS ORDERED: LEVALBUTEROL 1.25MG/0.5ML NEB INH STA (09:03)
[2022-09-16] MEDS ORDERED: IPRATROPIUM BROMIDE NEB SOLN 0.02% 2.5 ML VIAL INH STA (09:04)
[2022-09-16] MEDS: ACETYLCYSTEINE 10% INHAL SOLN 4 ML **DISPENSED BY RESP. INH SCH ×2 (09:38→20:00)
--- NOTE | 2022-09-16 09:49 | XRay Report ---
XR chest 1V portable HISTORY: 87 years-old Female ff up acute bronchitis acute shortness of breath COMPARISON: 09/13/2022 TECHNIQUE: AP view of the chest FINDINGS: Cardiac silhouette is enlarged. Mild bibasilar densities. The patient is mildly rotated. No pneumotho rax, large pleural effusion or overt pulmonary edema. Mild bronchial wall thickening. Degenerative ch anges of the shoulders and spine. IMPRESSION: 1. Cardiomegaly without pulmonary edema. 2. Persistent bronchial wall thickening suggestive of bronchitis. 3. Mild bibasilar opacities favor atelectasis. ACT 112: Negative or not required by law. The above report was generated using voice recognition software. It may contain grammatical, syntax o r spelling errors. Electronically signed by: López Pineda M.D. 09/16/2022 9:48 AM
[2022-09-16] MEDS: WARFARIN SOD 1.25 MG TAB PO SCH (15:18)
--- NOTE | 2022-09-16 16:27 | Hospitalist Progress Note ---
Date of Service September 16, 2022 Assessment & Plan (1) Asthma exacerbation: (2) Hypokalemia: (3) Paroxysmal A-fib: (4) HTN (hypertension): (5) Antiphospholipid antibody syndrome: (6) CKD (chronic kidney disease) stage 4, GFR 15-29 ml/min: (7) Hypothyroid: (8) GERD (gastroesophageal reflux disease): (9) Anxiety: (10) Diastolic heart failure: (11) Parainfluenza virus bronchitis: Plan per Dr. Dorman's notes with addendum: 87 y/o female with asthma, antiphospholipid antibody syndrome, CKD4, HTN, hyperlipidemia, hypothyroid, PAF, Parkinsons, CAD, anxiety, and prior GI bleed who presents to the ED today with worsening asthma symptoms that started after URI four days ago. Chest x-ray on admission personally reviewed; cardiomegaly without any evidence of pneumonia or pulmonary edema CT chest personally reviewed; atelectasis and bronchiectasis present. Mild pulmonary hypertension cardiomegaly present. Respiratory viral panel positive for parainfluenza virus Labs reviewed; BNP greater than 400. Discussed with pulmonology; recommend [id number] DuoNeb and hypertonic saline. Currently on doxycycline; will provide 5-day course. Echocardiogram results reviewed; EF of 60 to 65%; moderate concentric left ventricular hypertrophy. Grade 3 diastolic dysfunction present. Patient follows up with cardiology as outpatient and has a follow-up coming up. Continue to monitor oxygen saturation; maintain saturation above 92% PT OT evaluation. 09/13 Positive rhonchi, intermittent crackles today Chest x-ray: 1. Mild central bronchial wall thickening persists. 2. Stable mild cardiomegaly. Lasix 40 mg IV given Mucinex added Continue DuoNeb 4 times daily, hypertonic saline twice daily, doxycycline twice daily Continue flutter valve Pulmonary service on board 09/14 Patient still having persistent rhonchi/crackles We will start Solu-Medrol 40 mg IV every 12 Continue DuoNeb, hypertonic saline nebs Continue Mucinex Continue doxycycline Continue usual Breo, Singulair 09/15 Clinically improving Rhonchi improving Continue Solu-Medrol 40 mg IV every 12 hours Continue nebs, Mucinex, doxycycline, usual inhalers Monitor closely May need to stop exercise test upon discharge 09/16 add Mucomyst, Chest physiotherapy encouraged to take Tessalon perles continue the rest of present regimen r/o Bacteremia - Blood cx: Micrococcus species -Contamination Discontinue vancomycin Chronic conditions; Hypertensioncontinue to monitor blood pressure. Continue on amlodipine, losartan, metoprolol and isosorbide mononitrate, hydralazine Blood pressure stable at this time Monitor closely Diastolic heart failure, compensated Resume usual Lasix 20 mg p.o. daily tomorrow if crea ok Atrial fibrillation INR still subtherapeutic, 1.8 Coumadin 3 mg p.o. today INR daily Continue metoprolol succinate 25 mg p.o. daily, amiodarone 200 mg daily Antiphospholipid syndromecontinue on warfarin Hypothyroidismcontinue on levothyroxine Full code DVT prophylaxis warfarin Disposition- anticipate d/c home when medically stable, 2 step O2 test plan of care discussed with patient in detail and at length all questions answered she is understanding, agreeable, comfortable with the plan of care Admission and Anticipated Discharge Date Admission Date: September 12, 2022 Subjective ff up for asthma exacerbation, etc seen resting in bed, not in distress reports increased cough - productive and dyspnea today no chest pain no fever/chills no other symptoms Review of Systems Review of Systems: all noted and negative except for above Physical Exam Physical Exam: General- oriented x 3, not in distress, speaks in sentences with no effort or accessory muscle use Eyes- anicteric Neck- no JVD Lungs- (+) scattered rhonchi/crackles good air entry bilaterally Heart- normal rate, regular rhythm; no murmurs Abdomen- normal bowel sounds, nondistended, soft, no tenderness Extremities- no pretibial edema, no calf tenderness Neuro- alert, oriented x 3; no gross focal neurologic deficits Skin- warm & dry Results & Data Results & Data Vital Signs (Past 12 Hours) Vital Signs Temp Pulse Pulse Resp BP BP Pulse Ox 09/16/22 15:00 60 09/16/22 15:54 36.4 C L 61 19 131/68 93 09/16/22 15:01 84 16 94 09/16/22 11:38 36.3 C L 70 20 148/60 H 95 09/16/22 10:39 85 18 90 09/16/22 09:39 65 16 09/16/22 08:00 09/16/22 07:52 36.6 C 68 19 143/60 H 94 04/23/23 06:55 77 18 95 O2 Del Method O2 Flow Rate 09/16/22 15:00 09/16/22 15:54 Nasal Cannula 2 09/16/22 15:01 Nasal Cannula 1 09/16/22 11:38 Nasal Cannula 2 09/16/22 10:39 Nasal Cannula 2 09/16/22 09:39 Nasal Cannula 2 09/16/22 08:00 Room Air 09/16/22 07:52 Room Air 09/16/22 06:55 Room Air all noted and reviewed including below
[2022-09-16] MEDS: LEVOTHYROXINE SODIUM 50 MCG TABLET PO SCH (19:20)
[2022-09-16] MEDS: MONTELUKAST SODIUM 10 MG TABLET PO SCH (19:21)
[2022-09-17] MEDS: ALBUT/IPRATROP 3MG/0.5MG NEB 3 ML VIAL NEB SCH ×4 (06:58→19:50)
[2022-09-17] MEDS: ACETYLCYSTEINE 10% INHAL SOLN 4 ML **DISPENSED BY RESP. INH SCH ×2 (07:00→19:50)
[2022-09-17] MEDS: hydrALAZINE HCL 25 MG TAB PO SCH ×3 (09:17→19:20)
[2022-09-17] MEDS: FLUTICASONE/VILANTEROL 200/25MCG 14 PUFFS/INHALER INH SCH (09:18)
[2022-09-17] MEDS: DOXYCYCLINE HYCLATE 100 MG CAP PO SCH (09:19)
[2022-09-17] MEDS: LOSARTAN POTASSIUM 50 MG TAB PO SCH (09:19)
[2022-09-17] MEDS: CHOLECALCIFEROL 1,000 UNITS 25 MCG TAB PO SCH (09:19)
[2022-09-17] MEDS: ISOSORBIDE MONO EXTENDED REL 60 MG TABCR PO SCH (09:19)
[2022-09-17] MEDS: AMIODARONE 200 MG TAB PO SCH (09:19)
[2022-09-17] MEDS: PANTOprazole 40 MG TAB PO SCH ×2 (09:19→19:20)
[2022-09-17] MEDS: ATORVASTATIN 20 MG TAB PO SCH (09:19)
[2022-09-17] MEDS: LORATADINE 10 MG TAB PO SCH (09:20)
[2022-09-17] MEDS: METOPROLOL SUCC 25MG EXT REL TAB PO SCH (09:20)
[2022-09-17] MEDS: guaiFENesin 600 MG TABCR PO SCH ×2 (09:20→19:22)
[2022-09-17] MEDS: amLODIPine BESYLATE 5 MG TAB PO SCH (09:20)
[2022-09-17] MEDS: DOCUSATE SODIUM/SENNA 50/8.6MG TAB PO SCH (09:26)
[2022-09-17 10:12] LABS: BUN Creatinine Ratio 36.4 (10-20); Calcium 9.3 mg/dl (8.6-10.3); Creatinine Clr Calc Pharmacy 22.4 ml/min; Est GFR (Non-African American) 22.5 ml/min; Potassium 4.5 mmol/L (3.5-5.1)
[2022-09-17] MEDS: methylPREDNISolone 40 MG in SYRINGE 0 ML IV SCH (10:14)
[2022-09-17] MEDS: predniSONE 20 MG TAB PO SCH (10:37)
[2022-09-17] MEDS ORDERED: SODIUM CHLORIDE 0.9% 1000ML 1,000 ML IV SCH (12:30)
[2022-09-17] MEDS ORDERED: WARFARIN SOD 2.5 MG TAB PO SCH (16:00)
--- NOTE | 2022-09-17 17:57 | Hospitalist Progress Note ---
Date of Service September 17, 2022 Assessment & Plan (1) Asthma exacerbation: Plan: Acute on chronic diastolic CHF (1) Asthma exacerbation: (2) Hypokalemia: (3) Paroxysmal A-fib: (4) HTN (hypertension): (5) Antiphospholipid antibody syndrome: (6) CKD (chronic kidney disease) stage 4, GFR 15-29 ml/min: (7) Hypothyroid: (8) GERD (gastroesophageal reflux disease): (9) Anxiety: (10) Diastolic heart failure: (11) Parainfluenza virus bronchitis: Plan per Dr. Dorman's notes with addendum: 87 y/o female with asthma, antiphospholipid antibody syndrome, CKD4, HTN, hyperlipidemia, hypothyroid, PAF, Parkinsons, CAD, anxiety, and prior GI bleed who presents to the ED today with worsening asthma symptoms that started after URI four days ago. Chest x-ray on admission personally reviewed; cardiomegaly without any evidence of pneumonia or pulmonary edema CT chest personally reviewed; atelectasis and bronchiectasis present. Mild pulmonary hypertension cardiomegaly present. Respiratory viral panel positive for parainfluenza virus Labs reviewed; BNP greater than 400. Discussed with pulmonology; recommend [id number] DuoNeb and hypertonic saline. Currently on doxycycline; will provide 5-day course. Echocardiogram results reviewed; EF of 60 to 65%; moderate concentric left ventricular hypertrophy. Grade 3 diastolic dysfunction present. Patient follows up with cardiology as outpatient and has a follow-up coming up. Continue to monitor oxygen saturation; maintain saturation above 92% PT OT evaluation. 09/13 Positive rhonchi, intermittent crackles today Chest x-ray: 1. Mild central bronchial wall thickening persists. 2. Stable mild cardiomegaly. Lasix 40 mg IV given Mucinex added Continue DuoNeb 4 times daily, hypertonic saline twice daily, doxycycline twice daily Continue flutter valve Pulmonary service on board 09/14 Patient still having persistent rhonchi/crackles We will start Solu-Medrol 40 mg IV every 12 Continue DuoNeb, hypertonic saline nebs Continue Mucinex Continue doxycycline Continue usual Breo, Singulair 09/15 Clinically improving Rhonchi improving Continue Solu-Medrol 40 mg IV every 12 hours Continue nebs, Mucinex, doxycycline, usual inhalers Monitor closely May need to stop exercise test upon discharge 09/16 add Mucomyst, Chest physiotherapy encouraged to take Tessalon perles continue the rest of present regimen 09/17 Respiratory status improved today Breath sounds improved, coughing less Continue with Mucomyst and chest physiotherapy Continue nebs, Mucinex, doxycycline, inhalers Acute kidney injury Hold losartan, Lasix Gentle IV fluids ordered Repeat BMP tomorrow Acute on chronic diastolic CHF Resolved Holding Lasix in light of elevated creatinine Monitor closely Bacteremia ruled out - Blood cx: Micrococcus species Mycin discontinued Chronic conditions; Hypertensioncontinue to monitor blood pressure. Continue on amlodipine,metoprolol and isosorbide mononitrate, hydralazine Hold losartan Monitor Atrial fibrillation INR 4.0 Hold Coumadin INR daily Continue metoprolol succinate 25 mg p.o. daily, amiodarone 200 mg daily Antiphospholipid syndromecontinue on warfarin Hypothyroidismcontinue on levothyroxine Full code DVT prophylaxis warfarin Disposition- anticipate d/c home when medically stable, 2 step O2 test plan of care discussed with patient in detail and at length all questions answered she is understanding, agreeable, comfortable with the plan of care Admission and Anticipated Discharge Date Admission Date: September 12, 2022 Subjective Follow-up for asthma exacerbation, parainfluenza virus, etc. Seen sitting up in bedside chair, comfortable, in good spirits States she feels improved today compared to yesterday Shortness of breath has resolved, coughing also less No chest pain, fevers or chills No abdominal pain, nausea or vomiting No other new symptom Review of Systems Review of Systems: all noted and negative except for above Physical Exam Physical Exam: General- oriented x 3, not in distress, speaks in sentences with no effort or accessory muscle use Eyes- anicteric Neck- no JVD Lungs- mild rhonchi at the bases no wheezing good air entry bilaterally Heart- normal rate, regular rhythm; no murmurs Abdomen- normal bowel sounds, nondistended, soft, nontender Extremities- no pretibial edema, no calf tenderness Neuro- alert, oriented x 3; no gross focal neurologic deficits Skin- warm & dry Results & Data Results & Data Vital Signs (Past 12 Hours) Vital Signs Temp Pulse Pulse Resp BP BP Pulse Ox 09/17/22 15:57 56 L 20 91 09/17/22 15:45 36.8 C 60 20 127/68 91 09/17/22 15:34 60 04/24/23 11:17 36.2 C L 61 20 137/57 L 94 09/17/22 10:29 63 18 96 09/17/22 09:59 09/17/22 07:30 65 09/17/22 07:17 36.7 C 61 20 136/68 95 09/17/22 07:04 62 18 95 O2 Del Method O2 Flow Rate 09/17/22 15:57 Room Air 09/17/22 15:45 Room Air 09/17/22 15:34 09/17/22 11:17 Room Air 09/17/22 10:29 Room Air 09/17/22 09:59 Room Air 09/17/22 07:30 09/17/22 07:17 Room Air, Nebulizer 09/17/22 07:04 Nasal Cannula 1 all noted and reviewed including below
[2022-09-17] MEDS: LEVOTHYROXINE SODIUM 50 MCG TABLET PO SCH (19:20)
[2022-09-17] MEDS: MONTELUKAST SODIUM 10 MG TABLET PO SCH (19:21)
[2022-09-17 22:17] LABS: Appearance Urine Clear (Clear); Bilirubin Urine Negative (Negative); Blood Urine Negative (Negative); Color Urine Yellow; Glucose Urine UA Negative (Negative); Ketones Urine Negative (Negative); Leukocyte Esterase Urine Negative (Negative); Nitrite Urine Negative (Negative); Protein Urine Negative (Negative); Specific Gravity Urine 1.016 (1.000-1.030); Urobilinogen Urine Negative (Negative); pH Urine 5.5 (4.5-7.5)
[2022-09-18] MEDS: ALBUT/IPRATROP 3MG/0.5MG NEB 3 ML VIAL NEB SCH ×2 (06:58→15:27)
[2022-09-18] MEDS: ACETYLCYSTEINE 10% INHAL SOLN 4 ML **DISPENSED BY RESP. INH SCH (06:58)
[2022-09-18 07:31] LABS: BUN Creatinine Ratio 38.1 (10-20); Calcium 9.2 mg/dl (8.6-10.3); Creatinine Clr Calc Pharmacy 25.4 ml/min; Est GFR (Non-African American) 25.9 ml/min; Potassium 4.1 mmol/L (3.5-5.1)
[2022-09-18 07:50] LABS: INR 3.8 (0.9-1.1); Prothrombin Time 38.7 Seconds (9.0-12.0)
[2022-09-18] MEDS: AMIODARONE 200 MG TAB PO SCH (09:53)
[2022-09-18] MEDS: guaiFENesin 600 MG TABCR PO SCH (09:54)
[2022-09-18] MEDS: ATORVASTATIN 20 MG TAB PO SCH (09:54)
[2022-09-18] MEDS: DOCUSATE SODIUM/SENNA 50/8.6MG TAB PO SCH (09:54)
[2022-09-18] MEDS: ISOSORBIDE MONO EXTENDED REL 60 MG TABCR PO SCH (09:55)
[2022-09-18] MEDS: METOPROLOL SUCC 25MG EXT REL TAB PO SCH (09:55)
[2022-09-18] MEDS: predniSONE 20 MG TAB PO SCH (09:55)
[2022-09-18] MEDS: CHOLECALCIFEROL 1,000 UNITS 25 MCG TAB PO SCH (09:56)
[2022-09-18] MEDS: amLODIPine BESYLATE 5 MG TAB PO SCH (09:56)
[2022-09-18] MEDS: PANTOprazole 40 MG TAB PO SCH (09:56)
[2022-09-18] MEDS: LORATADINE 10 MG TAB PO SCH (09:56)
[2022-09-18] MEDS: hydrALAZINE HCL 25 MG TAB PO SCH (09:57)
[2022-09-18] MEDS: FLUTICASONE/VILANTEROL 200/25MCG 14 PUFFS/INHALER INH SCH (09:57)
--- NOTE | 2022-09-18 11:21 | Hospitalist Progress Note ---
Date of Service September 18, 2022 Assessment & Plan (1) Asthma exacerbation: Plan: Acute on chronic diastolic CHF (1) Asthma exacerbation: (2) Hypokalemia: (3) Paroxysmal A-fib: (4) HTN (hypertension): (5) Antiphospholipid antibody syndrome: (6) CKD (chronic kidney disease) stage 4, GFR 15-29 ml/min: (7) Hypothyroid: (8) GERD (gastroesophageal reflux disease): (9) Anxiety: (10) Diastolic heart failure: (11) Parainfluenza virus bronchitis: Plan per Dr. Dorman's notes with addendum: 87 y/o female with asthma, antiphospholipid antibody syndrome, CKD4, HTN, hyperlipidemia, hypothyroid, PAF, Parkinsons, CAD, anxiety, and prior GI bleed who presents to the ED today with worsening asthma symptoms that started after URI four days ago. Chest x-ray on admission personally reviewed; cardiomegaly without any evidence of pneumonia or pulmonary edema CT chest personally reviewed; atelectasis and bronchiectasis present. Mild pulmonary hypertension cardiomegaly present. Respiratory viral panel positive for parainfluenza virus Labs reviewed; BNP greater than 400. Discussed with pulmonology; recommend [id number] DuoNeb and hypertonic saline. Currently on doxycycline; will provide 5-day course. Echocardiogram results reviewed; EF of 60 to 65%; moderate concentric left ventricular hypertrophy. Grade 3 diastolic dysfunction present. Patient follows up with cardiology as outpatient and has a follow-up coming up. Continue to monitor oxygen saturation; maintain saturation above 92% PT OT evaluation. 09/13 Positive rhonchi, intermittent crackles today Chest x-ray: 1. Mild central bronchial wall thickening persists. 2. Stable mild cardiomegaly. Lasix 40 mg IV given Mucinex added Continue DuoNeb 4 times daily, hypertonic saline twice daily, doxycycline twice daily Continue flutter valve Pulmonary service on board 09/14 Patient still having persistent rhonchi/crackles We will start Solu-Medrol 40 mg IV every 12 Continue DuoNeb, hypertonic saline nebs Continue Mucinex Continue doxycycline Continue usual Breo, Singulair 09/15 Clinically improving Rhonchi improving Continue Solu-Medrol 40 mg IV every 12 hours Continue nebs, Mucinex, doxycycline, usual inhalers Monitor closely May need to stop exercise test upon discharge 09/16 add Mucomyst, Chest physiotherapy encouraged to take Tessalon perles continue the rest of present regimen 09/17 Respiratory status improved today Breath sounds improved, coughing less Continue with Mucomyst and chest physiotherapy Continue nebs, Mucinex, doxycycline, inhalers 09/18 Respiratory status much better On room air Breath sounds significantly improved, coughing much less Discharge plan: Patient already completed 7-day course of doxycycline as inpatient Continue with DuoNeb 3 times daily at home for 2 to 3 days then as needed Mucinex twice daily x5 days Prednisone 30 mg x 2 days, 20 mg x 2 days, 10 mg x 2 days then stop Continue usual Breo, Singulair Acute kidney injury Creatinine increased from 1.3, up to 1.9 Gentle IV fluids given Creatinine improved to 1.7 Hold losartan Lasix 1 dose tomorrow then further advised depending on repeat BMP primary care physician visit this coming Acute on chronic diastolic CHF Resolved Management of Lasix per above Bacteremia ruled out - Blood cx: Micrococcus species-contamination Vancomycin discontinued Chronic conditions; Hypertension BP stable Continue on amlodipine,metoprolol and isosorbide mononitrate, hydralazine Hold losartan in light of creatinine elevation Monitor Atrial fibrillation 3.8 Hold Coumadin Jemal INR on , then dose Coumadin accordingly Continue metoprolol succinate 25 mg p.o. daily, amiodarone 200 mg daily Antiphospholipid syndromeINR 3.8, Coumadin on hold Hypothyroidismcontinue on levothyroxine Full code Disposition Discharge to home Follow-up with PCP this coming September 20 plan of care discussed with patient in detail and at length all questions answered she is understanding, agreeable, comfortable with the plan of care Admission and Anticipated Discharge Date Admission Date: September 12, 2022 Subjective ff up for asthma exacerbation, etc. Seen resting in bedside chair, comfortable, in good spirits Not in distress States she feels much better overall Coughing spells resolved, able to expectorate more phlegm easily No shortness of breath, chest pain No other new symptoms Ambulated with respiratory therapist this morning with no problems No other symptoms States she is ready for discharge today Review of Systems Review of Systems: all noted and negative except for above Physical Exam Physical Exam: General- oriented x 3, not in distress, speaks in sentences with no effort or accessory muscle use Eyes- anicteric Neck- no JVD Lungs-intermittent faint rhonchi bilaterally at the bases, no wheezing, good air entry bilaterally Heart- normal rate, regular rhythm; no murmurs Abdomen- normal bowel sounds, nondistended, soft, nontender Extremities-trace pretibial edema, no erythema/warmth/tenderness, no calf tenderness Neuro- alert, oriented x 3; no gross focal neurologic deficits Skin- warm & dry Results & Data Results & Data Vital Signs (Past 12 Hours) Vital Signs Temp Pulse Pulse Pulse Pulse Pulse Resp 09/18/22 11:12 36.4 C L 58 L 18 09/18/22 11:09 68 18 09/18/22 09:01 80 74 68 09/18/22 07:35 36.8 C 60 18 09/18/22 06:59 54 L 18 09/18/22 03:37 36.4 C L 65 18 09/18/22 01:00 62 Resp Resp Resp BP BP Pulse Ox Pulse Ox 09/18/22 11:12 137/73 94 09/18/22 11:09 95 09/18/22 09:01 24 18 16 91 09/18/22 07:35 113/80 96 09/18/22 06:59 92 09/18/22 03:37 115/51 L 94 09/18/22 01:00 Pulse Ox Pulse Ox O2 Del Method 09/18/22 11:12 Room Air 09/18/22 11:09 Room Air 09/18/22 09:01 96 98 09/18/22 07:35 Room Air 09/18/22 06:59 Room Air 09/18/22 03:37 Room Air 09/18/22 01:00 all noted and reviewed including below
--- NOTE | 2022-09-21 16:54 | Discharge Summary ---
Discharge Summary Date of Service September 21, 2022 delayed entry date of service 09/18/22 Notes For Next Care Provider Medication Changes From Visit DuoNeb-nebulizer treatment Mucinex-for cough Prednisone taper as follows 30 mg daily x2 days, then 20 mg daily x2 days, then 10 mg daily x2 days, then stop Hold losartan for now. Take 1 dose of Lasix 20 mg tomorrow, then further advice to be given by your primary care physician on follow-up visit. Admission HPI Per Admitting Provider This is a 87 y/o female with asthma, antiphospholipid antibody syndrome, CKD4, HTN, hyperlipidemia, hypothyroid, PAF, Parkinsons, CAD, anxiety, and prior GI bleed who presents to the ED today with worsening asthma symptoms, specifically chest tightness and wheezing. Pt reports starting with a "head cold" on of last week (four days ago). Three days ago, "it moved into my chest" which she describes as chest tightness/congestion and wheezing. Her cough was initially productive but now non-productive for the last two days, may come in fits to the point of emesis. She has had intermittent fevers up to 101F with associated chills and sweats. Some transient relief of respiratory symptoms with albuterol but only taking 3x/day. Significant chest tightness today but denies chest pain or palpitations. Breathing worse with any exertion. Loss of appetite but denies N/V/D. No known sick contacts. Using Tessalon Perles for the cough with some relief. Cannot tolerate Mucinex due to GI upset. Admission Exam Per Admitting Provider Constitutional: + ill appearingmarkedly increased WOB, conversational dyspnea Eyes: + anicteric sclerae Neck: trachea midline Respiratory: + labored breathing, + tachypneic and + audible wheezes Auscultation: + diminished lung sounds and + wheezes Cardiovascular: Rate/Rhythm: regular rate and regular rhythm Extremities: no pedal edema Gastrointestinal (Abdomen): Inspection/Auscultation: normal bowel sounds; abdomen not distended Percussion/Palpation: abdomen soft; abdomen nontender Musculoskeletal: Head/Neck/Chest: normocephalic, head atraumatic and neck supple Skin: no jaundice Neurologic: moves all extremities; no focal motor deficits and not confused Psychiatric: A+Ox3, euthymic affect Principal Dx & Hospital Course #1 = Principal Diagnosis (1) Asthma exacerbation: Acute on chronic diastolic CHF (1) Asthma exacerbation: (2) Hypokalemia: (3) Paroxysmal A-fib: (4) HTN (hypertension): (5) Antiphospholipid antibody syndrome: (6) CKD (chronic kidney disease) stage 4, GFR 15-29 ml/min: (7) Hypothyroid: (8) GERD (gastroesophageal reflux disease): (9) Anxiety: (10) Diastolic heart failure: (11) Parainfluenza virus bronchitis: Plan per Dr. Dorman's notes with addendum: 87 y/o female with asthma, antiphospholipid antibody syndrome, CKD4, HTN, hyperlipidemia, hypothyroid, PAF, Parkinsons, CAD, anxiety, and prior GI bleed who presents to the ED today with worsening asthma symptoms that started after URI four days ago. Chest x-ray on admission personally reviewed; cardiomegaly without any evidence of pneumonia or pulmonary edema CT chest personally reviewed; atelectasis and bronchiectasis present. Mild pulmonary hypertension cardiomegaly present. Respiratory viral panel positive for parainfluenza virus Labs reviewed; BNP greater than 400. Discussed with pulmonology; recommend [id number] DuoNeb and hypertonic saline. Currently on doxycycline; will provide 5-day course. Echocardiogram results reviewed; EF of 60 to 65%; moderate concentric left ventricular hypertrophy. Grade 3 diastolic dysfunction present. Patient follows up with cardiology as outpatient and has a follow-up coming up. Continue to monitor oxygen saturation; maintain saturation above 92% PT OT evaluation. patient displated slow progress during admission she had persistent cough, and diffuse rhonchi repeat CXR : Mild central bronchial wall thickening, did not show any signs of pneumonia required 2 L of oxygen at one point had to be placed on Solumedrol IV, scheduled Duoneb and Mucomyst, Mucinex, Doxycycline 09/18 Respiratory status much better On room air Breath sounds significantly improved, coughing much less Discharge plan: Patient already completed 7-day course of doxycycline as inpatient Continue with DuoNeb 3 times daily at home for 2 to 3 days then as needed Mucinex twice daily x5 days Prednisone 30 mg x 2 days, 20 mg x 2 days, 10 mg x 2 days then stop Continue usual Gloria Gunderson Acute kidney injury Creatinine increased from 1.3, up to 1.9 Gentle IV fluids given Creatinine improved to 1.7 Hold losartan Lasix 1 dose tomorrow then further advised depending on repeat BMP primary care physician visit this coming Acute on chronic diastolic CHF Resolved Management of Lasix per above Bacteremia ruled out - Blood cx: Micrococcus species-contamination Vancomycin discontinued Chronic conditions; Hypertension BP stable Continue on amlodipine,metoprolol and isosorbide mononitrate, hydralazine Hold losartan in light of creatinine elevation Monitor Atrial fibrillation 3.8 Hold Coumadin Jemal INR on , then dose Coumadin accordingly Continue metoprolol succinate 25 mg p.o. daily, amiodarone 200 mg daily Antiphospholipid syndromeINR 3.8, Coumadin on hold Hypothyroidismcontinue on levothyroxine Full code Disposition Discharge to home Follow-up with PCP this coming September 20 plan of care discussed with patient in detail and at length all questions answered she is understanding, agreeable, comfortable with the plan of care Discharge Exam General- oriented x 3, not in distress, speaks in sentences with no effort or accessory muscle use Eyes- anicteric Neck- no JVD Lungs-intermittent faint rhonchi bilaterally at the bases, no wheezing, good air entry bilaterally Heart- normal rate, regular rhythm; no murmurs Abdomen- normal bowel sounds, nondistended, soft, nontender Extremities-trace pretibial edema, no erythema/warmth/tenderness, no calf tenderness Neuro- alert, oriented x 3; no gross focal neurologic deficits Skin- warm & dry Updated Medication List Medication Instructions Recorded Confirmed Type amiodarone 200 mg tablet 200 mg PO DAILY 03/04/19 09/10/22 History atorvastatin 20 mg tablet 20 mg PO DAILY 03/04/19 09/10/22 History cholecalciferol (vitamin D3) 25 1,000 unit PO DAILY 03/04/19 09/10/22 History mcg (1,000 unit) capsule cyclosporine 0.05 % eye drops in a 2 drp ophthalmic (eye) Q12H 03/04/19 09/10/22 History dropperette (Restasis) fluticasone propionate 50 1 spray intranasal DAILY PRN 03/04/19 09/10/22 History mcg/actuation nasal allergies spray,suspension (Flonase Allergy Relief) multivit,mineral-folic acid 800 1 tab PO DAILY 03/04/19 09/10/22 History mcg-vit K 100 mcg-herbal no.289 tablet (Alive Once Daily Women 50 Plus) fluticasone furoate 200 1 inh inhalation DAILY 01/16/20 09/10/22 History mcg-vilanterol 25 mcg/dose inhalation powder (Breo Ellipta) furosemide 20 mg tablet 20 mg PO DAILY 01/16/20 09/10/22 History levothyroxine 50 mcg tablet 50 mcg PO QPM 01/16/20 09/10/22 History loratadine 10 mg tablet (Claritin) 10 mg PO DAILY 01/16/20 09/10/22 History lorazepam 0.5 mg tablet 0.25 - 0.5 mg PO DAILY PRN Anxiety 01/16/20 09/10/22 History losartan 50 mg tablet 50 mg PO DAILY 01/16/20 09/10/22 History montelukast 10 mg tablet 10 mg PO HS 01/16/20 09/10/22 History warfarin 2.5 mg tablet See Rx Instructions .Route .COMPLEX 03/19/20 09/10/22 History amlodipine 5 mg tablet 5 mg PO DAILY 09/10/22 09/10/22 History benzonatate 100 mg capsule 100 mg PO TID PRN Cough 09/10/22 09/10/22 History hydralazine 25 mg tablet 12.5 mg PO TID 09/10/22 09/10/22 History isosorbide mononitrate 60 mg 60 mg PO DAILY 09/10/22 09/10/22 History tablet,extended release 24 hr metoprolol succinate 25 mg 25 mg PO DAILY 09/10/22 09/10/22 History tablet,extended release 24 hr omeprazole 40 mg capsule,delayed 40 mg PO BID 09/10/22 09/10/22 History release guaifenesin 600 mg tablet, 600 mg PO Q12 5 days #10 tabs 09/18/22 Rx extended release 12 hr (Mucinex) ipratropium 0.5 mg-albuterol 3 mg 3 ml NEB TID 7 days #90 mL 09/18/22 Rx (2.5 mg base)/3 mL nebulization soln prednisone 10 mg tablet 10 mg PO DAILY #12 tabs 09/18/22 Rx Hospital Stay Data Consultations 09/10/22 11:12 ED Decision to Admit Stat 09/10/22 12:35 Consult Pulmonology Routine Diagnostic Imagining Performed 09/10/22 15:34 CT chest diagnostic wo con Urgent Comparison: Comparison is made to chest radiograph 03/12/2023 FINDINGS: Lungs and pleura: Bronchiectasis is seen. There is trace left pleural effusion and atelectasis. Heart and pericardium: Cardiomegaly is seen with biatrial enlargement. Vessels: Moderate atherosclerotic changes in the aorta and coronary arteries. Pulmonary trunk measures 32 mm in diameter. Mediastinum and zacarias: Subcentimeter lymph nodes are seen. Chest wall and lower neck: Unremarkable. Abdomen: Patient is status post cholecystectomy. Partial visualization of duodenal diverticulum. Bones: Degenerative changes in the thoracic spine. IMPRESSION: Atelectasis and bronchiectasis are seen. There is a trace left pleural effusion. There is mild pulmonary hypertension and cardiomegaly but no evidence of significant pulmonary edema. ACT 112: Negative or not required by law. Electronically signed by: Steve Bailon M.D. 09/10/2022 5:16 PM Pending Results Patient Have Any Pending Studies at Discharge: Yes Discharge Instructions Given to Patient (Per Discharging Provider) PLEASE REFER TO YOUR NEW MEDICATION LIST AND FOLLOW INSTRUCTIONS CAREFULLY. YOUR NEW MEDICATIONS INCLUDE: DuoNeb-nebulizer treatment Mucinex-for cough Prednisone taper as follows 30 mg daily x2 days, then 20 mg daily x2 days, then 10 mg daily x2 days, then stop Hold losartan for now. Take 1 dose of Lasix 20 mg tomorrow, then further advice to be given by your primary care physician on follow-up visit. PLEASE CALL YOUR PRIMARY CARE PHYSICIAN OR RETURN TO THE ER IF WITH WORSENING OF SYMPTOMS, INCLUDING Shortness of breath, cough, fevers or chills, leg swelling, diarrhea, bleeding, etc. FOLLOW UP WITH PRIMARY CARE PHYSICIAN OUTLINED ABOVE. Total Time Total Time Spent Total Time Spent (In Minutes): > 30 minutes
== END 2022-09-18 14:50 | disposition home or self-care (01) | DRG 202 ==
LOC: ED 07:19 → 2N 07:19 → SUATTDRO 11:41 → 2N 12:19

== ENCOUNTER 2023-11-25 19:06 | Inpatient (IN) ==
--- NOTE | 2023-11-25 19:42 | Emergency Department Note ---
Impression & Plan Breathlessness, Chest pressure, Atrial fibrillation with rapid ventricular response ED Provider Note Provider: Thompson Magallanes MD DATE OF SERVICE: 11/25/2023 CHIEF COMPLAINT: Chest pain, shortness of breath, tremulous/weak HISTORY OF PRESENT ILLNESS: Patient is a 88-year-old female past medical history significant for atrial fibrillation, CKD, asthma, hypertension, hypothyroidism, diastolic heart failure presenting here with daughter today reporting since she awoke this morning symptoms. Saying central to left-sided chest pressure and pain no other radiation of pain. No abdominal pain or nausea or vomiting. Has been feeling short of breath. Tremulous reports of fever 102 Fahrenheit at home. Did take some Tylenol earlier this morning without real improvement of symptoms. Normally heart rate according to daughter is in the 60s. Has much more pronounced tremor of the right hand as well as the jaw. No trauma or syncope reported. No recent sick contacts reported. Denies any skin ulcers or rash. No headache reported. PAST MEDICAL HISTORY: As noted above MEDICATIONS: Reviewed home medications and states compliance SOCIAL HISTORY: Lives at home with grandson PHYSICAL EXAM: GENERAL: alert and oriented in no acute distress on stretcher Head: normocephalic and atraumatic EYES: No injection, discharge or icterus. PERRL, EOMI. NECK: Trachea midline. ENT: Mucous membranes pink and moist. Pharynx without erythema or exudate. TMs clear bilaterally LUNGS: Airway patent. No retractions. Breath sounds clear with good air entry bilaterally. HEART: Irregular regular tachycardic rate and rhythm. No chest wall tenderness ABDOMEN: Soft and non-tender, without guarding or rebound. SKIN: Acyanotic, warm, dry, without rashes EXTREMITIES: Without tenderness or deformity trace edema of the legs NEUROLOGICAL: Jaw tremor and right arm tremor appreciable. No focal deficits. No aphasia. No facial droop or slurred speech. Gross sensation intact in all 4 extremities. EK beats per epidural atrial fibrillation. No acute ST segment elevation with nonspecific T wave changes and QTc of 449. CONTINUOUS CARDIAC MONITORING: was ordered and showed a heart rate of 90s-120s bpm in A-fib 1 view chest x-ray per my interpretation: No evidence of pneumonia, pleural effusion, pneumothorax, or significant pulmonary edema. Patient's laboratory studies and imaging reviewed. Differential includes Infection, dehydration, metabolic abnormality, hypo/hyperglycemia, electrolyte disturbance, anemia, hypoxia, cardiac sources, intracerebral event, toxicologic, neurologic, as well as other pathologies. IMPRESSION/MEDICAL DECISION MAKING: Patient fatigue tachycardic in rapid A-fib upon arrival here. Afebrile reports fever at home. Somewhat tremulous. Cultures lactate were ordered in addition to respiratory viral panel. Reports chest pressure and shortness of breath. Given a small mount of fluid she does not appear fluid overloaded. Will obtain x-ray to exclude pneumonia as well as blood work. Denies any significant rashes. Does not appear meningitic. No trauma or syncope reported. Anticoagulated and INR was checked. Benign abdomen on exam. Question if the chest pressure is related to her rapid A-fib and given a small amount of metoprolol for better rate control. Chest x-ray per my review without findings of pneumonia pneumothorax or significant pulmonary edema. Blood work with slight leukocytosis of 13.5. No anemia. INR therapeutic 2.5. Stable CKD 1.4 creatinine. No severe electrolyte abnormalities signs of renal dysfunction. Normal procalcitonin and lipase. Notice of hepatitis. Troponin normal. Negative respiratory viral panel as well as tickborne smear. With leukocytosis and fever earlier however will cover with a dose of ceftriaxone given her age and blood cultures are pending. Patient on reassessment having improvement of symptoms. Not having significant chest pain or pressure or shortness of breath. Several doses of IV metoprolol for improved rate control of her A-fib RVR. Will avoid additional IV fluids given concern for fluid overload in this patient with heart failure; received 250 mL IV fluid here. DIAGNOSIS: Rapid A-fib, weakness, chest pain, shortness of breath DISPOSITION: Hospitalist will evaluate Patient was agreeable with this plan. Critical Care I have personally spent 32 minutes of critical care time in the direct management of this patient. This includes bedside care, interpretation of diagnostic studies, and testing, discussion with consultants, patient, and family members, and other required patient management activities. These 32 minutes is in excess of all separately billable procedures. Past Med/Surg History Problem List (Updated 11/25/23 @ 21:37 by Thompson Magallanes M.D.) Atrial fibrillation with rapid ventricular response (Acute) Chest pressure (Acute) Breathlessness (Acute) Parainfluenza virus bronchitis Diastolic heart failure Hypokalemia Chronic cough Elevated brain natriuretic peptide (BNP) level Shortness of breath Anxiety GERD (gastroesophageal reflux disease) Hypothyroid Asthma exacerbation (Acute) CKD (chronic kidney disease) stage 4, GFR 15-29 ml/min Antiphospholipid antibody syndrome Paroxysmal A-fib HTN (hypertension) Asthma Medical History (Updated 11/25/23 @ 21:37 by Thompson Magallanes M.D.) CAD (coronary artery disease) Moderate nonobstructive coronary artery disease via April 08, 2019 coronary angiography Diastolic congestive heart failure Senile osteoporosis (04/10/11) History of TIA (transient ischemic attack) (04/10/11) Anemia Acute GI bleeding HLD (hyperlipidemia) Parkinsons Incomplete bundle branch block Rhinitis Surgical History History of partial colectomy History of appendectomy History of cholecystectomy History of colonoscopy Family History Brother Heart disease Brother Heart disease Sister Cancer Mother Cancer Social History Smoking Status: Never smoker Do You Dip or Chew Tobacco: No; Hx Alcohol Use: No Hx Substance Use: No Preferred Language: Georgian Communication Ability: Effective Sales And Service Technician Required: No Beliefs That Will Affect Care: None Current Living Situation: Other Current Living Situation Comment: Live with grandson Feels Safe at Home: Yes Assistive Devices: Cane and Glasses Allergies Allergies Allergy/AdvReac Type Severity Reaction Status Date / Time lisinopril Allergy Mild COUGH Verified 03/19/20 00:26 guaifenesin Allergy Unknown Unknown Verified 03/19/20 00:26 phenylpropanolamine Allergy Unknown Unknown Verified 03/19/20 00:26 sulindac Allergy Unknown Unknown Verified 03/19/20 00:26 Home Meds Home Medications Medication Instructions Recorded Confirmed amlodipine 5 mg tablet 5 mg PO QAM 11/25/23 11/25/23 atorvastatin 20 mg tablet 20 mg PO QAM 11/25/23 11/25/23 benzonatate 100 mg capsule 100 mg PO TID PRN Cough 11/25/23 11/25/23 cholecalciferol (vitamin D3) 25 25 mcg PO QAM 11/25/23 11/25/23 mcg (1,000 unit) tablet cyclosporine 0.05 % eye drops in a 2 drp ophthalmic (eye) [facility] 11/25/23 11/25/23 dropperette diclofenac sodium 1 % topical gel 1 ea topical BID 11/25/23 11/25/23 fluticasone furoate 200 1 ea inhalation QA 11/25/23 11/25/23 mcg-vilanterol 25 mcg/dose inhalation powder (Breo Ellipta) fluticasone propionate 50 2 spray intranasal DAILY 11/25/23 11/25/23 mcg/actuation nasal spray,suspension furosemide 20 mg tablet 20 mg PO 2XWK 11/25/23 11/25/23 furosemide 20 mg tablet 20 mg PO QAM 11/25/23 11/25/23 hydralazine 25 mg tablet 12.5 mg PO TID 11/25/23 11/25/23 ipratropium 0.5 mg-albuterol 3 mg 3 ml inhalation TID PRN Shortness 11/25/23 11/25/23 (2.5 mg base)/3 mL nebulization Of Breath soln isosorbide mononitrate 60 mg 60 mg PO QA 11/25/23 11/25/23 tablet,extended release 24 hr levothyroxine 50 mcg tablet 50 mcg PO DAILYBB 11/25/23 11/25/23 (Levoxyl) loratadine 10 mg tablet 10 mg PO DAILY PRN ALLERGIES 11/25/23 11/25/23 metoprolol succinate 25 mg 25 mg PO [facility] 11/25/23 11/25/23 tablet,extended release 24 hr montelukast 10 mg tablet 10 mg PO HS 11/25/23 11/25/23 [id number] acid 240 1 tab PO DAILY 11/25/23 11/25/23 mcg-vit K 120 [id number] 293 tablet (Alive Women's 50 Plus (fruit-veg blend)) omeprazole 40 mg capsule,delayed 40 mg PO [facility] 11/25/23 11/25/23 release potassium chloride 20 mEq 20 meq PO [facility] 11/25/23 11/25/23 tablet,extended release(part/cryst) (Klor-Con M) warfarin 2.5 mg tablet (Jantoven) 2.5 mg PO UD 11/25/23 11/25/23 Results & Data (ED) Vital Signs Vital Signs - 24 hr 11/25/23 19:08 11/25/23 19:22 11/25/23 19:42 Temperature 37.5 C Temperature Source Temporal Artery Scan Pulse Rate 123 H 120 H 108 H Pulse Rate from SpO2 Sensor 110 H Respiratory Rate 20 28 H Respiratory Effort / Characteristics Non-Labored Respiratory Depth Normal Respiratory Pattern Regular Blood Pressure 179/85 H Blood Pressure Mean 116 Pulse Oximetry 96 97 Oxygen Delivery Method Room Air Room Air Sepsis Recent Fever Within 48 Hours No Sepsis New/Unexplained Change in Mental Status N/A Sepsis Action Taken by Nursing No Action Required 11/25/23 19:51 11/25/23 19:54 11/25/23 19:58 Temperature 37.2 C Temperature Source Oral Pulse Rate 111 H 113 H Pulse Rate from SpO2 Sensor 113 H Respiratory Rate 30 H Respiratory Effort / Characteristics Respiratory Depth Respiratory Pattern Blood Pressure 157/111 H Blood Pressure Mean Pulse Oximetry 95 Oxygen Delivery Method Sepsis Recent Fever Within 48 Hours Sepsis New/Unexplained Change in Mental Status Sepsis Action Taken by Nursing 11/25/23 20:06 11/25/23 20:12 11/25/23 20:30 Temperature Temperature Source Pulse Rate 99 H 113 H 110 H Pulse Rate from SpO2 Sensor 107 H 111 H Respiratory Rate 24 26 H 26 H Respiratory Effort / Characteristics Respiratory Depth Respiratory Pattern Blood Pressure 151/104 H Blood Pressure Mean 119 Pulse Oximetry 96 94 96 Oxygen Delivery Method Room Air Room Air Sepsis Recent Fever Within 48 Hours Sepsis New/Unexplained Change in Mental Status Sepsis Action Taken by Nursing 11/25/23 20:52 11/25/23 20:57 11/25/23 21:58 Temperature Temperature Source Pulse Rate 110 H 120 H 109 H Pulse Rate from SpO2 Sensor 119 H Respiratory Rate 30 H Respiratory Effort / Characteristics Respiratory Depth Respiratory Pattern Blood Pressure 151/104 H 176/152 H Blood Pressure Mean Pulse Oximetry 95 Oxygen Delivery Method Room Air Sepsis Recent Fever Within 48 Hours Sepsis New/Unexplained Change in Mental Status Sepsis Action Taken by Nursing 11/25/23 22:03 11/25/23 22:30 Temperature Temperature Source Pulse Rate 113 H 106 H Pulse Rate from SpO2 Sensor Respiratory Rate 28 H 26 H Respiratory Effort / Characteristics Respiratory Depth Respiratory Pattern Blood Pressure 166/90 H Blood Pressure Mean 115 Pulse Oximetry 93 94 Oxygen Delivery Method Room Air Sepsis Recent Fever Within 48 Hours Sepsis New/Unexplained Change in Mental Status Sepsis Action Taken by Nursing Laboratory Data 11/25/23 20:19 11/25/23 20:19 Lab Results 11/25/23 11/25/23 Range/Units 20:05 20:19 WBC 13.58 H (4.8-10.8) K/ul RBC 4.53 (4.20-5.40) M/uL Hgb 13.4 (12.0-16.0) g/dl Hct 41.0 (37.0-47.0) % MCV 90.5 (80.0-100.0) fL MCH 29.6 (25.0-34.0) pg MCHC 32.7 (32.0-36.0) g/dL RDW Std Deviation 49.6 H (36.4-46.3) fL RDW Coeff of Jay 15.0 H (11.5-14.5) % Plt Count 198 (130-400) K/uL MPV 9.4 (9.4-12.4) fL Immature Gran % (Auto) 0.7 % Neut % (Auto) 80.8 % Lymph % (Auto) 8.8 % [place] % (Auto) 8.7 % Eos % (Auto) 0.6 % Baso % (Auto) 0.4 % Neut # (Auto) 10.99 H (1.40-6.50) K/uL Lymph # (Auto) 1.19 L (1.20-3.40) K/uL [place] # (Auto) 1.18 H (0.11-0.59) K/uL Eos # (Auto) 0.08 (0.00-0.50) K/uL Baso # (Auto) 0.05 (0.00-0.20) K/uL Immature Gran # (Auto) 0.09 (0.01-0.20) K/uL PT 25.1 H (9.0-12.0) Seconds INR 2.5 H (0.9-1.1) APTT 54 H (21-31) Seconds PTT Ratio 2.0 Sodium 138 (136-145) mmol/L Potassium 4.5 (3.5-5.1) mmol/L Chloride 109 H (98-107) mmol/L Carbon Dioxide 21 (21-32) mmol/L Anion Gap 8 (3-11) BUN 27 H (6-23) mg/dl Creatinine 1.44 H (0.6-1.2) mg/dl Est Cr Clr Drug Dosing Not Reportable Est GFR ( Amer) 38.0 ml/min Est GFR (Non-Af Amer) 32.8 ml/min BUN/Creatinine Ratio 18.8 (10-20) Glucose 107 H (70-99(Fasting)) mg/dl Lactate 1.3 (0.4-2.0) mmol/L Calcium 8.7 (8.6-10.3) mg/dl Total Bilirubin 0.5 (0.2-1.0) mg/dl AST 14 (13-39) U/L ALT 12 (7-52) U/L Alkaline Phosphatase 103 (34-104) U/L Troponin I High Sens 9.3 (0-14) pg/ml Total Protein 7.1 (6.0-8.3) gm/dl Albumin 3.8 (3.4-5.0) gm/dl Globulin 3.3 (2.5-4.0) gm/dl Albumin/Globulin Ratio 1.2 (0.9-2) Lipase 21 (11-82) U/L Procalcitonin 0.05 (0-0.5) ng/ml Adenovirus (PCR) Not Detected (NotDetected) Anaplasma Smear See Comment Babesia Smear See Comment B. pertussis DNA (PCR) Not Detected (NotDetected) B.parapertussis DNA PCR Not Detected (NotDetected) Lyme Disease Screen Negative (Negative) C. pneumoniae DNA (PCR) Not Detected (NotDetected) Coronavirus OC43 (PCR) Not Detected (NotDetected) Coronavirus HKU1 (PCR) Not Detected (NotDetected) Coronavirus 229E (PCR) Not Detected (NotDetected) SARS-CoV-2 (PCR) Not Detected (NotDetected) Coronavirus NL63 (PCR) Not Detected (NotDetected) Human Metapneumovir PCR Not Detected (NotDetected) Influenza Type A (PCR) Not Detected (NotDetected) Influenza Type B (PCR) Not Detected (NotDetected) M. pneumoniae (PCR) Not Detected (NotDetected) Parainfluenza 1 (PCR) Not Detected (NotDetected) Parainfluenza 2 (PCR) Not Detected (NotDetected) Parainfluenza 3 (PCR) Not Detected (NotDetected) Parainfluenza 4 (PCR) Not Detected (NotDetected) RSV (PCR) Not Detected (NotDetected) Entero/Rhino (PCR) Not Detected (NotDetected) Administered Medications Discontinued Medications Acetaminophen (Acetaminophen 500 Mg Tab) 1,000 mg PO NOW STA Stop: 11/25/23 22:02 Last Admin: 11/25/23 22:05 Dose: 1,000 mg Documented By: ADELAIDE Sodium Chloride (Nss) 250 mls @ 999 mls/hr IV .Q16M ONE Stop: 11/25/23 19:52 Last Infusion: 11/25/23 20:59 Dose: Infused Documented By: Admin: 11/25/23 19:55 Dose: 999 mls/hr Documented By: ADELAIDE Ceftriaxone Sodium (Rocephin) 2,000 mg in 50 mls @ 100 mls/hr IV NOW STA Stop: 11/25/23 21:37 Last Infusion: 11/25/23 21:58 Dose: Infused Documented By: Admin: 11/25/23 21:23 Dose: 100 mls/hr Documented By: JENNIFER Metoprolol Tartrate (Metoprolol Tartrate 1 Mg/Ml Vial) 5 mg IV NOW STA Stop: 11/25/23 19:38 Last Admin: 11/25/23 19:54 Dose: 5 mg Documented By: ADELAIDE Metoprolol Tartrate (Metoprolol Tartrate 1 Mg/Ml Vial) 5 mg IV NOW STA Stop: 11/25/23 21:37 Last Admin: 11/25/23 21:58 Dose: 5 mg Documented By: ADELAIDE Discharge Plan Visit Data Chief Complaint: Chest Pain Stated Complaint: CHEST PAIN, FEVER. ED Provider: Thompson Magallanes Discharge Problem: Breathlessness, Chest pressure, Atrial fibrillation with rapid ventricular response Patient Disposition: Being Evaluated by Hospitalist Forms Stand Alone Forms: [facility] Prescriptions Prescriptions: No Action atorvastatin 20 mg tablet 20 mg PO QAM omeprazole 40 mg capsule,delayed release(DR/EC) 40 mg PO [facility] levothyroxine [Levoxyl] 50 mcg tablet 50 mcg PO DAILYBB montelukast 10 mg tablet 10 mg PO HS metoprolol succinate 25 mg tablet extended release 24 hr 25 mg PO QAM fluticasone furoate-vilanterol [Breo Ellipta] 200-25 mcg/dose blister with device 1 ea INHALATION QAM hydralazine 25 mg tablet 12.5 mg PO TID Rx Instructions: 1/2 TABLET MORNING,NOON AND BEFORE BED isosorbide mononitrate 60 mg tablet extended release 24 hr 60 mg PO QAM potassium chloride [Klor-Con M20] 20 mEq tablet,ER particles/crystals 20 meq PO QAM diclofenac sodium 1 % gel 1 ea TOPICAL BID Rx Instructions: APPLY TO RIGHT LEG AND RIGHT KNEE ipratropium-albuterol 0.5 mg-3 mg(2.5 mg base)/3 mL solution for nebulization 3 ml INHALATION TID PRN (Reason: Shortness Of Breath) warfarin [Jantoven] 2.5 mg tablet 2.5 mg PO UD Rx Instructions: TAKE 1 TABLET ON SATURDAY AND SATURDAY AND TAKE 1/2 TABLET ALL OTHER DAYS OR DIRECTED BY COAGULATION CLINIC amlodipine 5 mg tablet 5 mg PO QAM benzonatate 100 mg capsule 100 mg PO TID PRN (Reason: Cough) furosemide 20 mg tablet 20 mg PO QAM loratadine 10 mg Tablet 10 mg PO DAILY PRN (Reason: ALLERGIES) cholecalciferol (vitamin D3) 25 mcg (1,000 unit) Tablet 25 mcg PO QAM furosemide 20 mg tablet 20 mg PO 2XWK Rx Instructions: TAKE 20 MG AN ADDITIONAL DOSE TO THE ROUTINE ORDER ON SATURDAY AND THURSDAYS MORNINGING Alive Women's 50 Plus (blend) 240-120-300 mcg Tablet 1 tab PO DAILY fluticasone propionate [Flonase] 50 mcg/actuation [place],Suspension 2 spray INTRANASAL DAILY Rx Instructions: administer into each nostril cyclosporine 0.05 % Dropperette 2 drp OPHTHALMIC (EYE) [facility] Referrals Referrals: David Cintron MD [Primary Care Provider] -
[2023-11-25] MEDS: METOPROLOL TARTRATE 1 MG/ML VIAL IV STA ×2 (19:54→21:58)
[2023-11-25] MEDS: SODIUM CHLORIDE 0.9% 250 ML IV ONE (19:55)
[2023-11-25 20:47] LABS: Basophils # (auto) 0.05 K/uL (0.00-0.20); Basophils % (auto) 0.4 %; Eosinophils # (auto) 0.08 K/uL (0.00-0.50); Eosinophils % (auto) 0.6 %; Hemoglobin 13.4 g/dl (12.0-16.0); Immature Granulocytes # (auto) 0.09 K/uL (0.01-0.20); Immature Granulocytes % (auto) 0.7 %; Lymphocytes # (auto) 1.19 K/uL (1.20-3.40); Lymphocytes % (auto) 8.8 %; Mean Corpuscular Hemoglobin 29.6 pg (25.0-34.0); Mean Corpuscular Hgb Conc 32.7 g/dL (32.0-36.0); Mean Corpuscular Volume 90.5 fL (80.0-100.0); Mean Platelet Volume 9.4 fL (9.4-12.4); Monocytes # (auto) 1.18 K/uL (0.11-0.59); Monocytes % (auto) 8.7 %; Neutrophils # (auto) 10.99 K/uL (1.40-6.50); Neutrophils % (auto) 80.8 %; Platelet Count 198 K/uL (130-400); RDW Standard Deviation 49.6 fL (36.4-46.3); Red Blood Count 4.53 M/uL (4.20-5.40); White Blood Count 13.58 K/ul (4.8-10.8)
[2023-11-25 20:51] LABS: INR 2.5 (0.9-1.1); Partial Thromboplastin Time 54 Seconds (21-31); Prothrombin Time 25.1 Seconds (9.0-12.0)
[2023-11-25 20:56] LABS: Alanine Aminotransferase 12 U/L (7-52); Albumin Globulin Ratio 1.2 (0.9-2); Albumin Level 3.8 gm/dl (3.4-5.0); Alkaline Phosphatase 103 U/L (34-104); Anion Gap 8 (3-11); Aspartate Aminotransferase 14 U/L (13-39); BUN Creatinine Ratio 18.8 (10-20); Bilirubin,Total 0.5 mg/dl (0.2-1.0); Blood Urea Nitrogen 27 mg/dl (6-23); Calcium 8.7 mg/dl (8.6-10.3); Carbon Dioxide 21 mmol/L (21-32); Chloride 109 mmol/L (98-107); Est GFR (Non-African American) 32.8 ml/min; Globulin 3.3 gm/dl (2.5-4.0); Glucose 107 mg/dl (70-99(Fasting)); Lipase 21 U/L (11-82); Potassium 4.5 mmol/L (3.5-5.1); Sodium 138 mmol/L (136-145); Total Protein 7.1 gm/dl (6.0-8.3)
[2023-11-25 21:03] LABS: Troponin I High Sensitivity 9.3 pg/ml (0-14)
[2023-11-25 21:13] LABS: Procalcitonin 0.05 ng/ml (0-0.5)
[2023-11-25 21:14] LABS: Adenovirus PCR Not Detected (NotDetected); Bordetella parapertussis PCR Not Detected (NotDetected); Bordetella pertussis PCR Not Detected (NotDetected); Chlamydia pneumoniae PCR Not Detected (NotDetected); Coronavirus 229E PCR Not Detected (NotDetected); Coronavirus CoV-2 (COVID19)PCR Not Detected (NotDetected); Coronavirus HKU1 PCR Not Detected (NotDetected); Coronavirus NL63 PCR Not Detected (NotDetected); Coronavirus OC43PCR Not Detected (NotDetected); Human Metapneumovirus PCR Not Detected (NotDetected); Influenza A PCR Not Detected (NotDetected); Influenza B PCR Not Detected (NotDetected); Mycoplasma pneumoniae PCR Not Detected (NotDetected); Parainfluenza Virus 1 PCR Not Detected (NotDetected); Parainfluenza Virus 2 PCR Not Detected (NotDetected); Parainfluenza Virus 3 PCR Not Detected (NotDetected); Parainfluenza Virus 4 PCR Not Detected (NotDetected); Respiratory Syncytial VirusPCR Not Detected (NotDetected); Rhinovirus/Enterovirus PCR Not Detected (NotDetected)
[2023-11-25] MEDS: cefTRIAXone SODIUM 2,000 MG/50 ML BAG IV STA (21:23)
[2023-11-25 21:47] LABS: Lyme Screen Rflx Confirmation Negative (Negative)
[2023-11-25] MEDS: ACETAMINOPHEN 500 MG TAB PO STA (22:05)
[2023-11-26] MEDS ORDERED: NITROGLYCERIN SL 0.4 MG/TAB TAB SL PRN (02:11)
[2023-11-26] MEDS ORDERED: ALBUT/IPRATROP 3MG/0.5MG NEB 3 ML VIAL INH PRN (02:11)
[2023-11-26] MEDS ORDERED: POLYETHYLENE (MIRALAX) 17 GM PACK PO PRN (02:11)
[2023-11-26 02:22] LABS: Appearance Urine Clear (Clear); Bacteria Urine Automated None Seen (None Seen); Bilirubin Urine Negative (Negative); Blood Urine Negative (Negative); Cast Urine Automated 0-2 /lpf (0-2); Color Urine Yellow; Epithelial Cell Urine Auto 0-2 /hpf (0-2); Glucose Urine UA Negative (Negative); Ketones Urine Negative (Negative); Leukocyte Esterase Urine Trace (Negative); Nitrite Urine Negative (Negative); Protein Urine Trace (Negative); RBC Urine Automated 0-2 /hpf (0-2); Urobilinogen Urine Negative (Negative); WBC Urine Automated 0-5 /hpf (0-5)
[2023-11-26] MEDS ORDERED: ARTIFICIAL TEARS OP PRN (02:30)
[2023-11-26] MEDS: SODIUM CHLORIDE 0.9% 1,000 ML IV SCH (02:38)
[2023-11-26] MEDS: LEVOTHYROXINE SODIUM 50 MCG TABLET PO SCH (05:51)
--- NOTE | 2023-11-26 06:54 | XRay Report ---
XR chest 1V not portable CLINICAL HISTORY: Chest pain, nonspecific COMPARISON STUDY: Chest radiograph and chest CT November 30, 2022. FINDINGS: Lung volumes are normal. Lungs are clear. There is no pneumothorax or pleural effusion. Car diomegaly is unchanged. Opacity along the left heart border favors epicardial fat pad. Mediastinal co ntours are normal. There is no evidence for pulmonary edema. IMPRESSION: No acute cardiopulmonary findings. Stable cardiomegaly. ACT 112: Negative or not required by law. Electronically signed by: Heron Winchester M.D. 11/26/2023 6:52 AM
[2023-11-26 06:56] LABS: INR 2.1 (0.9-1.1); Prothrombin Time 21.4 Seconds (9.0-12.0)
[2023-11-26 06:57] LABS: Hematocrit (blood only) 42.1 % (37.0-47.0); Hemoglobin 13.7 g/dl (12.0-16.0); Mean Corpuscular Hemoglobin 29.3 pg (25.0-34.0); Mean Corpuscular Hgb Conc 32.5 g/dL (32.0-36.0); Mean Corpuscular Volume 90.1 fL (80.0-100.0); Mean Platelet Volume 10.1 fL (9.4-12.4); Platelet Count 191 K/uL (130-400); RDW Coefficient of Variation 15.1 % (11.5-14.5); RDW Standard Deviation 49.4 fL (36.4-46.3); Red Blood Count 4.67 M/uL (4.20-5.40); White Blood Count 14.58 K/ul (4.8-10.8)
[2023-11-26 06:58] LABS: Troponin I High Sensitivity 10.3 pg/ml (0-14)
[2023-11-26 06:59] LABS: Basophils # (auto) 0.04 K/uL (0.00-0.20); Basophils % (auto) 0.3 %; Eosinophils # (auto) 0.09 K/uL (0.00-0.50); Eosinophils % (auto) 0.6 %; Immature Granulocytes # (auto) 0.07 K/uL (0.01-0.20); Immature Granulocytes % (auto) 0.5 %; Lymphocytes # (auto) 1.42 K/uL (1.20-3.40); Lymphocytes % (auto) 9.7 %; Monocytes # (auto) 1.58 K/uL (0.11-0.59); Monocytes % (auto) 10.8 %; Neutrophils # (auto) 11.38 K/uL (1.40-6.50); Neutrophils % (auto) 78.1 %; RBC Morphology Unremarkable
--- NOTE | 2023-11-26 07:03 | History & Physical Report ---
Date of Service November 26, 2023 Assessment & Plan (1) Chest pain: Plan: 88-year-old female with past medical history significant for moderate persistent asthma, chronic rhinitis, pulmonary hypertension, CKD stage IV, hypertension, incomplete right bundle guero block, paroxysmal atrial fibrillation, chronic diastolic CHF, obesity, GERD, generalized anxiety disorder, anti phospholipid antibody syndrome comes because of chest pains. Patient states yesterday morn ing she had some chest pain but that seemed improved but today morning again developed severe chest pains in the middle of the chest which prompted her to come to the ER. There is no radiation. Has some shortness of breath. No cough. Had an and episode of fever 102 F at home. No nausea. No headache. Normal bowel and bladder movements. Ambulates with a cane. Lives with her grandson. Hemodynamics are okay. Chest pains initial workup was okay we will follow serial cardiac enzymes and echo n.p.o. telemetry cardiac consult rapid A-fib received IV Lopressor x 2 in the ER will continue home metoprolol succinate and warfarin INR is 2.5 close monitor cardiology consulted fever Leukocytosis respiratory bio fire negative procalcitonin negative. Lactic acid is okay. Anaplasma smear, Babesia smear And Lyme screen negative UA is negative chest x-ray no acute findings ER started on Rocephin which will be continued for now will follow cultures will monitor CKD stage IV presented with creatinine 1.41. with seems to be around baseline we will follow repeat labs. history of moderate persistent asthma will continue home inhalers hypothyroidism on Synthyroid GERD esophageal dysmotility on omeprazole chronic diastolic CHF will monitor for volume overload on Lasix moderate nonobstructive CAD with a cardiac cath in March 2019 on statin and beta-regino and warfarin and imdur. antiphospholipid antibody syndrome on warfarin hypertension on amlodipine, lasix, hydralazine, Imdur, metoprolol succinate monitor hyperlipidemia on statin DVT prophylaxis on warfarin follow PT/INR disposition med/telemetry full code. History of Present Illness Chief Complaint: Chest pain and fever Primary Care Provider: David Cintron MD 88-year-old female with past medical history significant for moderate persistent asthma, chronic rhinitis, pulmonary hypertension, CKD stage IV, hypertension, incomplete right bundle guero block, paroxysmal atrial fibri llation, chronic diastolic CHF, obesity, GERD, generalized anxiety disorder, anti phospholipid antibody syndrome comes because of chest pains. Patient states yesterday morning she had some chest pain but that seemed improved but today morning again developed severe chest pains in the middle of the chest which prompted her to come to the ER. There is no radiation. Has some shortness of breath. No cough. Had an and episode of fever 102 F at home. No nausea. No headache. Normal bowel and bladder movements. Ambulates with a cane. Lives with her grandson. Hemodynamics are okay. past medical history. As mentioned above Past surgical history. Colonoscopy. Cystoscopy. Partial removal of colon. Appendectomy. Cholecystectomy. Social history. No smoking. No alcohol use. No drug use. Family history. Mother had ovarian cancer. Bowel ruptured. Father had black lung. Sister had lung cancer. Allergies Allergy/AdvReac Type Severity Reaction Status Date / Time lisinopril Allergy Mild COUGH Verified 03/19/20 00:26 guaifenesin Allergy Unknown Unknown Verified 03/19/20 00:26 phenylpropanolamine Allergy Unknown Unknown Verified 03/19/20 00:26 sulindac Allergy Unknown Unknown Verified 03/19/20 00:26 Home Medications Medication Instructions Recorded Confirmed Type amlodipine 5 mg tablet 5 mg PO QAM 11/25/23 11/25/23 History atorvastatin 20 mg tablet 20 mg PO QAM 11/25/23 11/25/23 History benzonatate 100 mg capsule 100 mg PO TID PRN Cough 11/25/23 11/25/23 History cholecalciferol (vitamin D3) 25 25 mcg PO QAM 11/25/23 11/25/23 History mcg (1,000 unit) tablet cyclosporine 0.05 % eye drops in a 2 drp ophthalmic (eye) [facility] 11/25/23 11/25/23 History dropperette diclofenac sodium 1 % topical gel 1 ea topical BID 11/25/23 11/25/23 History fluticasone furoate 200 1 ea inhalation QAM 11/25/23 11/25/23 History mcg-vilanterol 25 mcg/dose inhalation powder (Breo Ellipta) fluticasone propionate 50 2 spray intranasal DAILY 11/25/23 11/25/23 History mcg/actuation nasal spray,suspension furosemide 20 mg tablet 20 mg PO 2XWK 11/25/23 11/25/23 History furosemide 20 mg tablet 20 mg PO QAM 11/25/23 11/25/23 History hydralazine 25 mg tablet 12.5 mg PO TID 11/25/23 11/25/23 History ipratropium 0.5 mg-albuterol 3 mg 3 ml inhalation TID PRN Shortness 11/25/23 11/25/23 History (2.5 mg base)/3 mL nebulization Of Breath soln isosorbide mononitrate 60 mg 60 mg PO QAM 11/25/23 11/25/23 History tablet,extended release 24 hr levothyroxine 50 mcg tablet 50 mcg PO DAILYBB 11/25/23 11/25/23 History (Levoxyl) loratadine 10 mg tablet 10 mg PO DAILY PRN ALLERGIES 11/25/23 11/25/23 History metoprolol succinate 25 mg 25 mg PO QAM 11/25/23 11/25/23 History tablet,extended release 24 hr montelukast 10 mg tablet 10 mg PO HS 11/25/23 11/25/23 History awjabxpe-fbnh-hsksn acid 240 1 tab PO DAILY 11/25/23 11/25/23 History mcg-vit K 120 scl-owetwj-orhb 293 tablet (Alive Women's 50 Plus (fruit-veg blend)) omeprazole 40 mg capsule,delayed 40 mg PO AMHS 11/25/23 11/25/23 History release potassium chloride 20 mEq 20 meq PO QAM 11/25/23 11/25/23 History tablet,extended release(part/cryst) (Klor-Con M) warfarin 2.5 mg tablet (Jantoven) 2.5 mg PO UD 11/25/23 11/25/23 History Past Med/Surg History Problem List (Updated 11/26/23 @ 06:50 by Pipo Morrison MD) Chest pain Atrial fibrillation with rapid ventricular response (Acute) Chest pressure (Acute) Breathlessness (Acute) Parainfluenza virus bronchitis Diastolic heart failure Hypokalemia Chronic cough Elevated brain natriuretic peptide (BNP) level Shortness of breath Anxiety GERD (gastroesophageal reflux disease) Hypothyroid Asthma exacerbation (Acute) CKD (chronic kidney disease) stage 4, GFR 15-29 ml/min Antiphospholipid antibody syndrome Paroxysmal A-fib HTN (hypertension) Asthma Medical History (Updated 11/26/23 @ 06:50 by Piop Morrison MD) CAD (coronary artery disease) Moderate nonobstructive coronary artery disease via April 08, 2019 coronary angiography Diastolic congestive heart failure Senile osteoporosis (04/10/11) History of TIA (transient ischemic attack) (04/10/11) Anemia Acute GI bleeding HLD (hyperlipidemia) Parkinsons Incomplete bundle branch block Rhinitis Surgical History History of partial colectomy History of appendectomy History of cholecystectomy History of colonoscopy Family History Brother Heart disease Brother Heart disease Sister Cancer Mother Cancer Social History Smoking Status: Never smoker Do You Dip or Chew Tobacco: No; Hx Alcohol Use: No Hx Substance Use: No Preferred Language: Kazakh Communication Ability: Effective 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 ENT- oropharynx clear Neck- supple, no JVD. Lungs- clear to auscultation no wheezing or crackles Heart- regular rhythm; no murmur, no gallop. Abdomen- normal bowel sounds, soft, nontender, no distension Extremities- no erythema seen Neuro- alert, oriented PERRL no facial palsy; no dysarthria; moves extremities. Results & Data Results & Data Vital Signs (Past 12 Hours) Vital Signs Temp Pulse Pulse Resp BP BP Pulse Ox 11/26/23 00:12 37.0 C 88 16 131/77 99 11/25/23 23:36 89 11/25/23 23:19 92 H 11/25/23 22:30 106 H 26 H 94 11/25/23 22:03 113 H 28 H 166/90 H 93 11/25/23 21:58 109 H 176/152 H 11/25/23 20:57 120 H 30 H 95 11/25/23 20:52 110 H 151/104 H 11/25/23 20:30 110 H 26 H 151/104 H 96 11/25/23 20:12 113 H 26 H 94 11/25/23 20:06 99 H 24 96 11/25/23 19:58 37.2 C 11/25/23 19:54 113 H 157/111 H 11/25/23 19:51 111 H 30 H 95 11/25/23 19:42 108 H 28 H 97 11/25/23 19:22 120 H 11/25/23 19:08 37.5 C 123 H 20 179/85 H 96 O2 Del Method 11/26/23 00:12 Room Air 11/25/23 23:36 11/25/23 23:19 11/25/23 22:30 11/25/23 22:03 Room Air 11/25/23 21:58 11/25/23 20:57 Room Air 11/25/23 20:52 11/25/23 20:30 Room Air 11/25/23 20:12 Room Air 11/25/23 20:06 11/25/23 19:58 11/25/23 19:54 11/25/23 19:51 11/25/23 19:42 Room Air 11/25/23 19:22 11/25/23 19:08 Room Air Diagnostic Findings Laboratory Results WBC 13.58 K/ul (4.8-10.8) H 11/25/23 20:19 RBC 4.53 M/uL (4.20-5.40) 11/25/23 20:19 Hgb 13.4 g/dl (12.0-16.0) 11/25/23 20:19 Hct 41.0 % (37.0-47.0) 11/25/23 20:19 MCV 90.5 fL (80.0-100.0) 11/25/23 20:19 MCH 29.6 pg (25.0-34.0) 11/25/23 20:19 MCHC 32.7 g/dL (32.0-36.0) 11/25/23 20:19 RDW Std Deviation 49.6 fL (36.4-46.3) H 11/25/23 20:19 RDW Coeff of Jay 15.0 % (11.5-14.5) H 11/25/23 20:19 Plt Count 198 K/uL (130-400) 11/25/23 20:19 MPV 9.4 fL (9.4-12.4) 11/25/23 20:19 Immature Gran % (Auto) 0.7 % 11/25/23 20:19 Neut % (Auto) 80.8 % 11/25/23 20:19 Lymph % (Auto) 8.8 % 11/25/23 20:19 Ray % (Auto) 8.7 % 11/25/23 20:19 Eos % (Auto) 0.6 % 11/25/23 20:19 Baso % (Auto) 0.4 % 11/25/23 20:19 Neut # (Auto) 10.99 K/uL (1.40-6.50) H 11/25/23 20:19 Lymph # (Auto) 1.19 K/uL (1.20-3.40) L 11/25/23 20:19 Ray # (Auto) 1.18 K/uL (0.11-0.59) H 11/25/23 20:19 Eos # (Auto) 0.08 K/uL (0.00-0.50) 11/25/23 20:19 Baso # (Auto) 0.05 K/uL (0.00-0.20) 11/25/23 20:19 Immature Gran # (Auto) 0.09 K/uL (0.01-0.20) 11/25/23 20:19 PT 25.1 Seconds (9.0-12.0) H 11/25/23 20:19 INR 2.5 (0.9-1.1) H 11/25/23 20:19 APTT 54 Seconds (21-31) H 11/25/23 20:19 PTT Ratio 2.0 11/25/23 20:19 Sodium 138 mmol/L (136-145) 11/25/23 20:19 Potassium 4.5 mmol/L (3.5-5.1) 11/25/23 20:19 Chloride 109 mmol/L (98-107) H 11/25/23 20:19 Carbon Dioxide 21 mmol/L (21-32) 11/25/23 20:19 Anion Gap 8 (3-11) 11/25/23 20:19 BUN 27 mg/dl (6-23) H 11/25/23 20:19 Creatinine 1.44 mg/dl (0.6-1.2) H 11/25/23 20:19 Est Cr Clr Drug Dosing Not Reportable 11/25/23 20:19 Est GFR ( Amer) 38.0 ml/min 11/25/23 20:19 Est GFR (Non-Af Amer) 32.8 ml/min 11/25/23 20:19 BUN/Creatinine Ratio 18.8 (10-20) 11/25/23 20:19 Glucose 107 mg/dl (70-99(Fasting)) H 11/25/23 20:19 POC Glucose 87 mg/dl (70-99) 11/26/23 05:53 Lactate 1.3 mmol/L (0.4-2.0) 11/25/23 20:19 Calcium 8.7 mg/dl (8.6-10.3) 11/25/23 20:19 Total Bilirubin 0.5 mg/dl (0.2-1.0) 11/25/23 20:19 AST 14 U/L (13-39) 11/25/23 20:19 ALT 12 U/L (7-52) 11/25/23 20:19 Alkaline Phosphatase 103 U/L (34-104) 11/25/23 20:19 Troponin I High Sens 9.3 pg/ml (0-14) 11/25/23 20:19 Total Protein 7.1 gm/dl (6.0-8.3) 11/25/23 20:19 Albumin 3.8 gm/dl (3.4-5.0) 11/25/23 20:19 Globulin 3.3 gm/dl (2.5-4.0) 11/25/23 20:19 Albumin/Globulin Ratio 1.2 (0.9-2) 11/25/23 20:19 Lipase 21 U/L (11-82) 11/25/23 20:19 Procalcitonin 0.05 ng/ml (0-0.5) 11/25/23 20:19 Urine Color Yellow 11/26/23 02:02 Urine Appearance Clear (Clear) 11/26/23 02:02 Urine pH 6.0 (4.5-7.5) 11/26/23 02:02 Ur Specific [place] 1.020 (1.000-1.030) 11/26/23 02:02 Urine Protein Trace (Negative) H 11/26/23 02:02 Urine Glucose (UA) Negative (Negative) 11/26/23 02:02 Urine Ketones Negative (Negative) 11/26/23 02:02 Urine Blood Negative (Negative) 11/26/23 02:02 Urine Nitrite Negative (Negative) 11/26/23 02:02 Urine Bilirubin Negative (Negative) 11/26/23 02:02 Urine Urobilinogen Negative (Negative) 11/26/23 02:02 Ur Leukocyte Esterase Trace (Negative) H 11/26/23 02:02 Urine WBC (Auto) 0-5 /hpf (0-5) 11/26/23 02:02 Urine RBC (Auto) 0-2 /hpf (0-2) 11/26/23 02:02 U Hyaline Cast (Auto) 0-2 /lpf (0-2) 11/26/23 02:02 U Epithel Cells (Auto) 0-2 /hpf (0-2) 11/26/23 02:02 Urine Bacteria (Auto) None Seen (None Seen) 11/26/23 02:02 Adenovirus (PCR) Not Detected (NotDetected) 11/25/23 20:05 Anaplasma Smear See Comment 11/25/23 20:19 Babesia Smear See Comment 11/25/23 20:19 B. pertussis DNA (PCR) Not Detected (NotDetected) 11/25/23 20:05 B.parapertussis DNA PCR Not Detected (NotDetected) 11/25/23 20:05 Lyme Disease Screen Negative (Negative) 11/25/23 20:19 C. pneumoniae DNA (PCR) Not Detected (NotDetected) 11/25/23 20:05 Coronavirus OC43 (PCR) Not Detected (NotDetected) 11/25/23 20:05 Coronavirus HKU1 (PCR) Not Detected (NotDetected) 11/25/23 20:05 Coronavirus 229E (PCR) Not Detected (NotDetected) 11/25/23 20:05 SARS-CoV-2 (PCR) Not Detected (NotDetected) 11/25/23 20:05 Coronavirus NL63 (PCR) Not Detected (NotDetected) 11/25/23 20:05 Human Metapneumovir PCR Not Detected (NotDetected) 11/25/23 20:05 Influenza Type A (PCR) Not Detected (NotDetected) 11/25/23 20:05 Influenza Type B (PCR) Not Detected (NotDetected) 11/25/23 20:05 M. pneumoniae (PCR) Not Detected (NotDetected) 11/25/23 20:05 Parainfluenza 1 (PCR) Not Detected (NotDetected) 11/25/23 20:05 Parainfluenza 2 (PCR) Not Detected (NotDetected) 11/25/23 20:05 Parainfluenza 3 (PCR) Not Detected (NotDetected) 11/25/23 20:05 Parainfluenza 4 (PCR) Not Detected (NotDetected) 11/25/23 20:05 RSV (PCR) Not Detected (NotDetected) 11/25/23 20:05 Entero/Rhino (PCR) Not Detected (NotDetected) 11/25/23 20:05 ECG Additional Comments: ECG. Atrial fibrillation with rapid ventricular respirated of 117. Nonspecific ST abnormality seen. QTc 449. Code Status & VTE Plan VTE Prophylaxis Plan VTE Prophylaxis will be ordered: Yes
[2023-11-26 07:04] LABS: Calcium 8.5 mg/dl (8.6-10.3); Magnesium 1.8 mg/dl (1.7-2.4); Potassium 4.7 mmol/L (3.5-5.1)
[2023-11-26 07:10] LABS: Creatinine Clr Calc Pharmacy 39.2 ml/min; Est GFR (African American) 52.6 ml/min; Est GFR (Non-African American) 45.4 ml/min
[2023-11-26] MEDS: ALUMINUM/MAGNESIUM SUSP 30 ML UDC PO STA (08:40)
[2023-11-26] MEDS: ISOSORBIDE MONO EXTENDED REL 60 MG TABCR PO SCH (08:40)
[2023-11-26] MEDS: LORATADINE 10 MG TAB PO PRN (08:40)
[2023-11-26] MEDS: hydrALAZINE HCL 25 MG TAB PO SCH (08:41)
[2023-11-26] MEDS: CEROVITE ADV FORMULA TAB PO SCH (08:42)
[2023-11-26] MEDS: POTASSIUM CHLORIDE CRTAB 20 MEQ TABCR PO SCH (08:42)
[2023-11-26] MEDS: FUROSEMIDE 20 MG TAB PO SCH ×2 (08:42→09:41)
[2023-11-26] MEDS: amLODIPine BESYLATE 5 MG TAB PO SCH (08:42)
[2023-11-26] MEDS: METOPROLOL SUCC 25MG EXT REL TAB PO SCH (08:42)
[2023-11-26] MEDS: PANTOprazole 40 MG TAB PO SCH (08:42)
[2023-11-26] MEDS: CHOLECALCIFEROL 25 MCG (1000 UNITS) TAB PO SCH (08:42)
[2023-11-26] MEDS: ATORVASTATIN 20 MG TAB PO SCH (08:42)
[2023-11-26] MEDS: FLUTICASONE PROPIONATE NA SPR 16 GM BTL SCH (08:43)
[2023-11-26] MEDS: FLUTICASONE/VILANTEROL 200/25MCG 14 PUFFS/INHALER INH SCH (08:44)
--- NOTE | 2023-11-26 08:59 | Cardiology Consultation ---
Date of Consultation November 26, 2023 Assessment & Plan (1) Fever: (2) Leukocytosis: (3) Chest pain: (4) Atrial fibrillation with rapid ventricular response: (5) Diastolic heart failure: (6) ASCVD (arteriosclerotic cardiovascular disease): Plan Fever. Leukocytosis. Respiratory bio fire negative. Chest x-ray clear. Urinalysis negative. Cultures pending. On IV Rocephin. Noncontrast chest CT requested. Chest pain. Atypical. Tender to touch, reproducible with palpation of the chest wall. EKG without acute change. High-sensitivity troponin negative. Chest x- ray clear. General measures advised. Diastolic congestive heart failure. Chest x-ray clear. Volume status appears compensated. Atrial fibrillation. Initially with rapid ventricular response, now with heart rates in the 80s and 90s. INR therapeutic. Increase metoprolol succinate dosing to 50 mg/day for additional heart rate and blood pressure control. I spent a total of 55 minutes on the date of service in preparation, delivery, and documentation of the care provided to this patient excluding any time spent in the performance of separately billed services. This visit was a split-shared visit with the substantive portion of the medical decision making performed by the supervising head refrigerating engineer/billing provider. Supervising Physician Co-Signing Physician Notes I have personally performed a history and physical examination on the patient. I have reviewed the advance practitioner's documentation, and I agree with, and take responsibility for the plan of care. 88-year-old female presents with fevers and chest discomfort. Atrial fibrillation with rapid ventricular response noted on admission. Chest ray unremarkable, however, CTA of the chest ordered by Osito Kamara PA-C demonstrates a right lower lobe pneumonia. Pneumonia likely cause of chest discomfort and fevers. Cultures pending. Continue antibiotic therapy. Fair heart rate control on telemetry. Continue warfarin and metoprolol succinate (t itrated to 50mg daily). I spent a total of 35 minutes on the date of service in preparation, delivery, and documentation of the care provided to this patient, excluding any time spent in the performance of separately billed services. Ji Joseph DO, [facility] History of Present Illness Reason for Consultation: Chest pain Requesting Physician: Dr. Morrison Attending Physician: Dr. See History of Present Illness Ms. Jolanta Horn is a 88-year-old female who presented to the [facility] ER on November 25, 2023 with complaints of chest discomfort, fever, s hortness of breath, and weakness. Patient awoke with substernal nonradiating chest discomfort. She notes weakness, nausea without vomiting, shortness of breath, and a fever up to 102 F. Admission laboratory work with leukocytosis. Respiratory bio fire negative. Procalcitonin negative, 0.05. Lactate 1.3. Chest x-ray showed no acute cardiopulmonary findings, stable cardiomegaly. Urinalysis negative. Tick born panel screen negative. Cultures obtained in the ER prior to initiation of Rocephin. 250 mL's of fluid administered in the ER. INR was therapeutic at 2.5. EKG revealed atrial fibrillation with a ventricular rate of 117 bpm, nonspecific ST abnormality; no acute ST segment change. Several doses of IV metoprolol were administered in the ER. High-sensitivity troponin negative at 9.3 then 10.3 pg/mL Patient notes ongoing shortness of breath. SpO2 94% on room air. Patient afebrile throughout admission. Chest wall is tender with discomfort reproducible with palpation of the chest wall. No overt palpitations. No peripheral edema. No abrupt weight change. No syncope. No melena or hematochezia. Patient was evaluated by the undersigned on October 24, 2023, presenting for routine cardiology follow-up with what appeared to be persistent atrial fibrillation since at least March 2023, asymptomatic, and compensated from a (diastolic) congestive heart failure standpoint. Blood pressure was well-controlled. Options of management were discussed with the patient as well as her daughter. Via shared decision making, amiodarone was discontinued, electing to proceed with rate control strategy. Chronic Coumadin anticoagulation maintained. ZIO monitoring in October revealed atrial fibrillation with an average heart rate of 90 bpm for which metoprolol succinate was increased from 25 mg/day to 37.5 mg/day. Problem List: 1. Moderate nonobstructive coronary artery disease via April 08, 2019 coronary angiography ([facility], Dr. Cohen). 2. Symptomatic paroxysmal atrial fibrillation status post 03/04/2019 direct current cardioversion with successful return to sinus. Initiation of amiodarone in January 2019. Recurrent atrial fibrillation, asymptomatic, ultimately leading to discontinuation of amiodarone in September 2023, electing to proceed with rate control strategy [id number] Score 8 points, anticoagulated with Coumadin 3. History of TIA 4. Anti phospholipid syndrome. Patient typically bridged with Lovenox with prior interruptions in Coumadin anticoagulation. 5. Hypertension, hypertensive heart disease 6. Diastolic congestive heart failure 7. Incomplete right bundle branch block 8. Patient hospitalized March 19, 2020 to March 21, 2020, presenting with acute lower GI bleeding following colonoscopy. Patient underwent emergent colonoscopy on March 19, 2020 with bleeding in the ascending colon at the previous polypectomy site, treated successfully. 9. Dyslipidemia. LDL goal less than 70 mg/dL. 10. Chronic kidney disease 11. GERD, esophageal dysmotility 12. Hypothyroidism Family History: Mother with ovarian cancer. Father with black lung. Sister with lung cancer. Brother with CAD Social History: Nonsmoker. . Allergies Allergy/AdvReac Type Severity Reaction Status Date / Time lisinopril Allergy Mild COUGH Verified 03/19/20 00:26 guaifenesin Allergy Unknown Unknown Verified 03/19/20 00:26 phenylpropanolamine Allergy Unknown Unknown Verified 03/19/20 00:26 sulindac Allergy Unknown Unknown Verified 03/19/20 00:26 Home Medications Medication Instructions Recorded Confirmed Type amlodipine 5 mg tablet 5 mg PO QAM 11/25/23 11/25/23 History atorvastatin 20 mg tablet 20 mg PO QAM 11/25/23 11/25/23 History benzonatate 100 mg capsule 100 mg PO TID PRN Cough 11/25/23 11/25/23 History cholecalciferol (vitamin D3) 25 25 mcg PO QAM 11/25/23 11/25/23 History mcg (1,000 unit) tablet cyclosporine 0.05 % eye drops in a 2 drp ophthalmic (eye) AMHS 11/25/23 11/25/23 History dropperette diclofenac sodium 1 % topical gel 1 ea topical BID 11/25/23 11/25/23 History fluticasone furoate 200 1 ea inhalation QA 11/25/23 11/25/23 History mcg-vilanterol 25 mcg/dose inhalation powder (Breo Ellipta) fluticasone propionate 50 2 spray intranasal DAILY 11/25/23 11/25/23 History mcg/actuation nasal spray,suspension furosemide 20 mg tablet 20 mg PO 2XWK 11/25/23 11/25/23 History furosemide 20 mg tablet 20 mg PO QAM 11/25/23 11/25/23 History hydralazine 25 mg tablet 12.5 mg PO TID 11/25/23 11/25/23 History ipratropium 0.5 mg-albuterol 3 mg 3 ml inhalation TID PRN Shortness 11/25/23 11/25/23 History (2.5 mg base)/3 mL nebulization Of Breath soln isosorbide mononitrate 60 mg 60 mg PO QAM 11/25/23 11/25/23 History tablet,extended release 24 hr levothyroxine 50 mcg tablet 50 mcg PO DAILYBB 11/25/23 11/25/23 History (Levoxyl) loratadine 10 mg tablet 10 mg PO DAILY PRN ALLERGIES 11/25/23 11/25/23 History metoprolol succinate 25 mg 25 mg PO QAM 11/25/23 11/25/23 History tablet,extended release 24 hr montelukast 10 mg tablet 10 mg PO HS 11/25/23 11/25/23 History fqutqlev-qxol-qikfq acid 240 1 tab PO DAILY 11/25/23 11/25/23 History mcg-vit K 120 [id number] 293 tablet (Alive Women's 50 Plus (fruit-veg blend)) omeprazole 40 mg capsule,delayed 40 mg PO AMHS 11/25/23 11/25/23 History release potassium chloride 20 mEq 20 meq PO QAM 11/25/23 11/25/23 History tablet,extended release(part/cryst) (Klor-Con M) warfarin 2.5 mg tablet (Jantoven) 2.5 mg PO UD 11/25/23 11/25/23 History Patient History Medical History CAD (coronary artery disease) Moderate nonobstructive coronary artery disease via April 08, 2019 coronary angiography Diastolic congestive heart failure Senile osteoporosis (04/10/11) History of TIA (transient ischemic attack) (04/10/11) Anemia Acute GI bleeding HLD (hyperlipidemia) Parkinsons Incomplete bundle branch block Rhinitis Surgical History History of partial colectomy History of appendectomy History of cholecystectomy History of colonoscopy Family History Brother Heart disease Brother Heart disease Sister Cancer Mother Cancer Social History Smoking Status: Never smoker Do You Dip or Chew Tobacco: No; Hx Alcohol Use: No Hx Substance Use: No Preferred Language: Korean Communication Ability: Effective Rim Fire Priming Tool Setter Required: No Beliefs That Will Affect Care: None Current Living Situation: Family Current Living Situation Comment: Grandson Ciro Feels Safe at Home: Yes Safety Concerns: Feels Safe At This Time Assistive Devices: Cane and Glasses Review of Systems Review of Systems: Complete Review of Systems is as stated above, negative, or noncontributory. Physical Exam Physical Exam: General: A&Ox3. NAD. HENT: Normocephalic. Atraumatic. Eyes: PER. Conjunctiva pink, sclera clear. Neck: No carotid bruits. No JVD. Heart: Irregularly irregular at 90 bpm. No murmur. PMI is nondisplaced. Lungs: Clear. No wheeze. Abdomen: +BS. Soft. Nontender. No masses or organomegaly. Extremities: Thick. Trivial edema. No clubbing. No cyanosis. Limited neurological examination is without focal deficits. Pulses: radial=2/4, posterior tibial=2/4. Results & Data Vital Signs (Past 12 Hours) Vital Signs Temp Pulse Pulse Pulse Resp BP BP 11/26/23 07:56 37.0 C 87 16 142/111 H 11/26/23 05:50 36.9 C 87 119/74 11/26/23 01:52 94 H 11/26/23 01:45 11/26/23 01:45 36.3 C L 92 H 20 151/79 H 11/26/23 00:12 37.0 C 88 16 131/77 11/25/23 23:36 89 11/25/23 23:19 92 H 11/25/23 22:30 106 H 26 H 11/25/23 22:03 113 H 28 H 166/90 H 11/25/23 21:58 109 H 176/152 H Pulse Ox O2 Del Method 11/26/23 07:56 94 Room Air 11/26/23 05:50 11/26/23 01:52 11/26/23 01:45 Room Air 11/26/23 01:45 96 Room Air 11/26/23 00:12 99 Room Air 11/25/23 23:36 11/25/23 23:19 11/25/23 22:30 94 11/25/23 22:03 93 Room Air 11/25/23 21:58 Laboratory Results Cardiac Enzymes 11/25/23 11/26/23 Range/Units 20:19 05:58 AST 14 (13-39) U/L Troponin I High Sens 9.3 10.3 (0-14) pg/ml Coagulation 11/25/23 11/26/23 Range/Units 20:19 05:58 PT 25.1 H 21.4 H (9.0-12.0) Seconds APTT 54 H (21-31) Seconds CBC 11/25/23 11/26/23 Range/Units 20:19 05:58 WBC 13.58 H 14.58 H (4.8-10.8) K/ul RBC 4.53 4.67 (4.20-5.40) M/uL Hgb 13.4 13.7 (12.0-16.0) g/dl Hct 41.0 42.1 (37.0-47.0) % Plt Count 198 191 (130-400) K/uL Neut # (Auto) 10.99 H 11.38 H (1.40-6.50) K/uL Lymph # (Auto) 1.19 L 1.42 (1.20-3.40) K/uL Russell # (Auto) 1.18 H 1.58 H (0.11-0.59) K/uL Eos # (Auto) 0.08 0.09 (0.00-0.50) K/uL Baso # (Auto) 0.05 0.04 (0.00-0.20) K/uL Comprehensive Metabolic Panel 11/25/23 11/26/23 Range/Units 20:19 05:58 Sodium 138 139 (136-145) mmol/L Potassium 4.5 4.7 (3.5-5.1) mmol/L Chloride 109 H 110 H (98-107) mmol/L Carbon Dioxide 21 21 (21-32) mmol/L BUN 27 H 22 (6-23) mg/dl Creatinine 1.44 H 1.10 D (0.6-1.2) mg/dl Glucose 107 H 98 (70-99(Fasting)) mg/dl Calcium 8.7 8.5 L (8.6-10.3) mg/dl AST 14 (13-39) U/L ALT 12 (7-52) U/L Alkaline Phosphatase 103 (34-104) U/L Total Protein 7.1 (6.0-8.3) gm/dl Albumin 3.8 (3.4-5.0) gm/dl Intake and Output 11/25/23 11/26/23 11/26/23 22:59 06:59 14:59 Intake Total 300 / 300 Output Total 100 / 100 Balance 300 / 200 -100 / 200 Intake: IV 300 / 300 Sodium Chloride 0.9% 250 ml @ 250 / 250 999 mls/hr IV .Q16M ONE Rx#: [id number] [id number] SODIUM 2,000 mg In 50 / 50 50 ml @ 100 mls/hr IV NOW STA Rx#:[id number] Output: Urine 100 / 100 Other: Other Intake Source npo Weight 86.9 kg Weight Measurement Method Standing Scale Diagnostic Findings April 08, 2019 Coronary Angiography ([facility], Dr. Cohen): Right dominant coronary anatomy Left main: Normal length and caliber with minimal calcification and no obstruction. It has an upward take up and was engaged using an AL 2 catheter via radial approach Left anterior descending: Type III in distribution giving rise to 2 small diagonals in its proximal third and terminating just beyond the apex. Within the left anterior descending there is mild to moderate irregularities with a thin apical segment. The first diagonal is small in caliber with moderate irregularities. The second diagonal is also small in caliber but is narrowed at its ostium by 80%. Left circumflex: The vessel is nondominant but large in caliber and in distribution. It gives rise to a trivial first marginal branch and then trifurcates into 2 large marginal branches and a trivial AV groove portion. The most inferior third marginal branch has a discrete 80+ percent stenosis at its origin. There is mild luminal irregularities otherwise Right coronary artery: The vessel is large and dominant distribution. Gives rise to a sinoatrial and conus branch shortly after its origin, 2 small right ventricular branches and a large third right ventricular branch.. The vessel then continues along the AV groove to give rise to a long posterior descending artery and 2 small posterior ventricular branch. Within the right coronary artery there is a shelflike narrowing of 60% in its midportion just proximal to the large third right ventricular branch LV angiography not performed Hemodynamics LV pressure was 194/14 with an EDP of 22 November 2023 Zio Monitor: Atrial Fibrillation occurred continuously (100% burden), ranging from 50-151 bpm (avg of 90 bpm). Isolated VEs were rare (<1.0%), VE Couplets were rare (<1.0%), and no VE Triplets were present. Chest x-ray in November 26, 2023 revealed atrial fibrillation with a ventricular rate of [address] abnormality. QTc 447 ms. Telemetry: Atrial fibrillation with heart rates predominantly in the 80s and 90s.
--- OUTSIDE RECORDS SUMMARY | 2023-11-26 09:33 | External Medical Summary | Summary of Care ---
Author Name Unknown Organization [facility] Address [address] [place] [address] Phone [phone] Care Team Providers Care Sustainability Coordinator Name Role Phone Saida EISENBERG MD, David Adame Primary Care Provider [phone] Reason for Visit * Reason Onset Date Comments Test Results 11/21/2023 Encounter Details Date Type Department Care Team (Late st Contact Info) Description 11/21/2023 Telephone Cardiology, [facility] [address] [facility] [place] [address] Osito Kamara PA-C [address] [place] [address] Test Results Allergies Active Allergy Reactions Criticality Noted Date Comments Lisinopril Cough Low 06/04/2011 documented as of this encounter (statuses as of 11/21/2023) Medications Medication Sig Dispensed Refills Start Date End Date Status LORATADINE 10 MG PO TABSIndications:Al lergic rhinitis One pill by mouth once a day as needed for allergies 90 Tab 3 08/21/2011 Active cycloSPORINE 0.05 % Ophthalmic Emulsion Instill 2 Drops into both eyes in the morning and 2 Drops before bedtime. Active Multiple Vitamins-Minerals (ALIVE WOMENS 50+) TABS Take 1 Tab by mouth daily. 12/12/2016 Active Cholecalciferol 25 MCG (1000 UT) Oral Tablet Take 1 Tablet by mouth in the morning. 12/12/2016 Active LORazepam 0.5 MG Oral Tablet (Ativan)Indication s:Anxiety state 1/2-1 TABLET TWICE DAILY as needed for nerves 90 Tab 3 05/21/2020 Active Fluticasone Propionate 50 MCG/ACT Nasal Suspension Administer 2 Sprays into each nostril daily. 47.4 mL 3 03/15/2021 Active amLODIPine Besylate 5 MG Oral Tablet (Norvasc)Indicatio ns:HTN, goal below 140/90 Take 0.5 Tablets by mouth in the morning. 90 Tablet 1 11/30/2022 Active Fluticasone Furoate-Vilanterol 200-25 MCG/ACT Inhalation Aerosol Powder Breath Activated (BREO ellipta)Indication s:Moderate persistent asthma without complication Inhale 1 Puff by mouth in the morning. 60 Each 12/27/2022 Active Furosemide 20 MG Oral Tablet (Lasix)Indications :Localized edema TAKE 1 TABLET DAILY PLUS EXTRA TABLET ON TUESDAYS AND THURSDAYS 115 Tablet 3 02/13/2023 Active Isosorbide Mononitrate ER 60 MG Oral Tablet Extended Release 24 Hour (Imdur)Indications :Incomplete right bundle branch block (RBBB) TAKE 1 TABLET DAILY 90 Tablet 3 02/18/2023 Active Benzonatate 100 MG Oral CapsuleIndications :Moderate persistent asthma with exacerbation Take 1 Capsule by mouth 3 times a day as needed for Cough. 30 Capsule 1 03/01/2023 Active Ipratropium-Albute rol 0.5-2.5 (3) MG/3ML Inhalation Solution (Duoneb) INHALE 3ML VIA NEBULIZER THREE TIMES A DAY FOR 7 DAYS USE THREE TIMES A DAY FOR 2 TO 3 DAYS AND MAY ALSO USE NEEDED FOR SHORTNESS OF FIFI 120 mL 2 03/02/2023 Active Warfarin Sodium 2.5 MG Oral Tablet (Jantoven)Indicati ons:Paroxysmal atrial fibrillation (HCC) TAKE 1 TABLET ON SATURDAY AND SATURDAY AND TAKE 1/2 TABLET ALL OTHER DAYS OR DIRECTED BY COAGULATION CLINIC 70 Tablet 3 03/10/2023 Active Albuterol Sulfate HFA 108 (90 Base) MCG/ACT Inhalation Aerosol Solution Inhale 2 Puffs by mouth every 4 hours as needed for Wheezing. 54 g 03/12/2023 Active Additional Information Patient not taking.Reported on 10/24/2023 Montelukast Sodium 10 MG Oral Tablet (Singulair)Indicat ions:Moderate persistent asthma without complication Take 1 Tablet by mouth at bedtime. 60 Tablet 4 04/08/2023 Active Atorvastatin Calcium 20 MG Oral Tablet (Lipitor)Indicatio ns:Dyslipidemia, goal LDL below 70 Take 1 Tablet by mouth in the morning. 90 Tablet 3 04/19/2023 Active Omeprazole 40 MG Oral Capsule Delayed Release (PriLOSEC)Indicati ons:Esophageal reflux Take 1 Capsule by mouth in the morning and 1 Capsule before bedtime. 180 Capsule 3 05/23/2023 Active Potassium Chloride Aaliyah ER 20 MEQ Oral Tablet Extended ReleaseIndications :Kidney disease, chronic, stage IV (GFR 15-29 ml/min) (HCC) Take 1 Tablet by mouth in the morning. 90 Tablet 5 06/06/2023 Active Diclofenac Sodium 1 % External Gel (Voltaren)Indicati ons:Chronic pain of right knee Apply topically to affected area 2 times a day. Apply to knee and r leg 700 g 11 07/04/2023 Active hydrALAZINE HCl 25 MG Oral Tablet (Apresoline)Indica tions:HTN, goal below 140/90 TAKE 1/2 TABLET IN THE MORNING, 1/2 TABLET AT NOON AND 1/2 TABLET BEFORE BEDTIME 135 Tablet 3 07/10/2023 Active Nystatin 224751 UNIT/ML Mouth/Throat SuspensionIndicati ons:Thrush Swish and swallow 5 mL in the morning and 5 mL at noon and 5 mL in the evening and 5 mL before bedtime. For thrush.. 240 mL 1 07/18/2023 Active Levothyroxine Sodium 50 MCG Oral Tablet (Levoxyl)Indicatio ns:PT NOT TAKING - PHARMACY CANNOT GET MEDICATION TAKE 1 TABLET DAILY AT LEAST 30 MINUTES PRIOR TO BREAKFAST OR OTHER MEDICATIONS 100 Tablet 2 07/19/2023 Active Metoprolol Succinate ER 25 MG Oral Tablet Extended Release 24 Hour (toPROL XL)Indications:Par oxysmal atrial fibrillation (HCC) Take 1 Tablet by mouth in the morning. 90 Tablet 3 07/26/2023 Active Fluticasone Furoate-Vilanterol 200-25 MCG/ACT Inhalation Aerosol Powder Breath Activated (BREO ellipta)Indication s:Moderate persistent asthma without complication Inhale 1 Puff by mouth in the morning. 180 Blister Dosing Unit 1 10/16/2023 Active Hospital, Clinic, or Other Facility Administered Medication Ordered Dose Route Frequency Start Date End Date Status albuterol sulfate (PROVENTIL) (2.5 MG/3ML) 0.083% inhalation solution 2.5 mgIndications:CAMPOS (dyspnea on exertion),Wheezing 2.5 mg NEBULIZER Q4H PRN 04/29/2019 Active documented as of this encounter (statuses as of 11/21/2023) Active Problems Problem Noted Date Diagnosed Date Chronic kidney disease, stage 4 (severe) 022 Overview: Per CKD protocol Benign hypertension with chronic kidney disease, stage IV 01/01/2022 Overview: Per CKD protocol Severe obesity with body mas s index (BMI) of 35.0 to 39.9 with serious comorbidity 09/27/2021 Pulmonary hypertension 09/27/2021 Chronic diastolic heart failure 06/30/2020 Moderate persistent asthma without complication 07/02/2019 Overview: In Check dial performed to assess inhaler technique: 07/02/19 Name of inhalers Albuterol Pass: Yes at 50L/min and Breo Ellipta Pass: Yes at 40L/min. Encouraged to take deep breaths, use aero chamber and rinse after steroid. Test performed by Mimi COTTON CLEANER CPFT Chronic rhinitis 07/02/2019 Paroxysmal atrial fibrillation 07/14/2018 CAROL ANN (generalized anxiety disorder) 04/24/2018 Incomplete right bundle branch block (RBBB) 10/25 Antiphospholipid antibody syndrome 12/05/2011 HTN, goal below 140/90 07/12/2011 [facility] current use of anticoagulant therapy 1 06/17/2010 ADVANCE DIRECTIVE INFORMATION 07/01/2007 Overview: No, Advance Directive brochure given to patient at prior appointment. Planning to do a power of deputy attorney general. Note on 07/04 has an appt soon. Esophageal reflux 06/01/2004 documented as of this encounter (statuses as of 11/21/2023) Resolved Problems Problem Noted Date Diagnosed Date Resolved Date Stage 3a chronic kidney disease 05/30/2023 06/06/2023 Stage 3a chronic kidney disease 05/30/2023 06/06/2023 Stage 3a chronic kidney disease 05/30/2023 06/06/2023 Stage 3a chronic kidney disease 05/30/2023 06/06/2023 Chronic kidney disease, stage 3b 11/08/2020 01/04/2022 Overview: Per CKD protocol Benign hypertension with sta ge 3b chronic kidney disease 10/04/2020 01/04/2022 Overview: Per CKD protocol Benign hypertension with CKD (chronic kidney disease) stage III 01/09/2018 10/06/2020 Overview: Per CKD protocol Parkinson's disease 03/28/2012 05/30/19 24 Palpitations 01/22/2012 07/10/2017 Chest pain 06/04/2011 07/12/2011 Cough 06/04/2011 07/10/2017 Atrial fibrillation 04/20/2011 05/13/20 19 TIA (transient ischemic attack) 04/17/2011 07/10/2017 Anticoagulation management encounter 04/17/2011 05/13/2019 Senile osteoporosis 11/22/2008 01/10/20 18 DIVERTICULITIS OF COLON 09/17/200506/27 Myalgia and myositis 07/27/2004 018 Hemorrhagic disorder due to intrinsic circulating anticoagulants 02/26/2003 12/05/2016 Overview: ICD-10 update of inactive term Menopause 02/26/2003 07/10/2017 documented as of this encounter (statuses as of 11/21/2023) Immunizations Name Administration Dates Next Due COVID-19 mRNA, LNP-s, No Pre serve, 2-Dose Series (Moderna) 09/16/2020,08/19/2020 COVID-19, mRNA, LNP-s, PF, B ooster, 100mcg/0.5mg (Moderna) 04/24/2021 Pneumococcal Conjugate Vacc, 13 Valent (Prevnar) 02/11/2017,11/22/2014 Pneumococcal Polysaccharide PPV23 (Pneumovax) 11/02/2013 Season Influenza, Quad, PF, Adjuvanted, 65+ Yrs, IM (FLUAD) 02/21/2023 Seasonal Influenza, Quadriva lent Hd (Fluzone Hd) 03/07/2021 Seasonal Influenza, Quadriva lent Hd, 65+ Yrs 03/05/2020 Seasonal Influenza, Quadriva lent, No Preserve, IM 02/24/2016 Seasonal Influenza, Split, I IV3, With Preserve, Inj 02/18/2017,01/29/2015,02/17/2014,03/10,02/08/2012,02/24/2010,03/27/2009 ,02/25/2008,03/03/2007 Seasonal Influenza, Trivalen t, Adjuvanted, 65+ yrs 03/06/2019,03/11/2018 Seasonal Influenza, Trivalen t, High Dose, No Preserve, IM 03/11/2022,01/22/2015 TD, Preservative Free 01/29/2007 TDAP (age 10 and older)(Boostrix) 02/22/2015 Varicella Zoster Vaccine (Adult) 03/26/2007 Zoster Vaccine Recombinant (Shingrix) 08/21/2018 ,04/23/2018,08/21/2017 documented as of this encounter Social History Tobacco Use Types Packs/Day Years Used Date Smoking Tobacco: Never Smokeless Tobacco: Never Alcohol Use Standard Drinks/Week Comments No 0 (1 standard drink = 0.6 oz pur e alcohol) denies PHQ-2 Answer Date Recorded PHQ-2 Score 0 04/28/2019 Hunger Vital Sign Answer Date Recorded Worried About Running Out of Food in the Last Ye ar Never true 04/28/2019 Ran Out of Food in the Last Year Never true 04/28/2019 Utilities Answer Date Recorded Do you have trouble paying y our heating, water, or electric bill? (Adult - for ages 18 years and over) Not on file 11/12/2023 Is your family able to pay t he heat, water, or electric bill? (Household - for ages 0-17 years) Not on file 11/12/2023 Does your family have access to good internet? (Household - for ages 0-17 years) Not on file 11/12/2023 Social Connections Answer Date Recorded How often do you feel lonely or isolated from those around you? (Adult - for ages 18 years and over) Not on file 11/12/2023 Sex and Gender Information Value Date Recorded Sex Assigned at Female 04/28/2019 8:47 AM EST Gender Identity Female 04/28/2019 8:47 AM EST Sexual Orientation Straight 04/28/2019 8: 47 AM EST Job Start Date Occupation Industry Not on file Not on file Not on file documented as of this encounter Miscellaneous Notes * Telephone Encounter - Manuel Fay LPN - 11/21/2023 12:14 PM EDT Sent patient a miLibrist message to make aware. FYI to PCP ----- Message from Osito Kamara sent at 11/20/2023 5:23 PM EDT ----- Routine labs from [facility] with an abnormal CBC. Recommend follow-up/evaluation via PCP, RE: ? infection documented in this encounter Plan of Treatment Upcoming Encounters Date Type Department Care Team (Late st Contact Info) Description 11/27/2023 6:10 PM EDT Anticoagulation Pharmacy, [facility] [address] [facility] [place] [address] Pharmacist1, [facility] [address] [place] [address] 12/05/2023 1:40 PM EDT Office Visit Family Practice [facility] [address] [place] [address] Janet Glover MD [address] [place] [address] [address] 01/29/2024 8:00 AM EDT Office Visit Cardiology, [facility] [address] [place] [address] Osito Kamara PA-C [address] [place] [address] 03/31/2024 2:30 PM EST Office Visit Dermatology [facility] [address] [place] [address] Christianne Mendez PA-C [address] [facility] [place] [address] 04/27/2024 10:40 AM EST Office Visit Nephrology, [facility] [address] [place] [address] Sarabjit Starr MD [address] [facility] [place] [address] 06/03/2024 8:40 AM EST Office Visit Otolaryngology [facility] [address] [place] [address] Angel Blankenship PA-C [address] [place] [address] Scheduled Procedures Name Priority Associated Diagnoses Date/Ti me COLONOSCOPY FLEXIBLE PROXIMAL DIAGNOSTIC Recall History of colon polyps Health Maintenance Due Date Last Done Comments Depression Screening 04/28/2020 04/28/2019 COVID-19 Vaccine ( season) 2023 04/24/2021, 09/16/2020, 08/19/2020 PTH 10/06/2023 10/05/2022, 10/06/2021 Phosphate 10/06/2023 10/05/2022, 09/24, 09/05/2020, Additional history exists Albumin/Creatinine Ratio 12/27/2023 023, 01/05/2022, 04/07/2021, Additional history exists Nephrology Referral 03/20/2024 03/20/2023 Hgb 11/18/2024 11/19/2023, 05/29, 12/26/2022, Additional history exists TSH 11/18/2024 11/19/2023, 08/0 06/2022, 07/13/2022, Additional history exists DXA Scan 12/12/2024 12/12/2021, 06/27, 01/10/2015, Additional history exists DTaP,Tdap,and Td Vaccines (2 - Td or Tdap) 02/22/2025 02/22/2015, 01/29/2007 Pneumococcal Vaccine: 65+ Years Completed 02/11/2017, 11/22/2014, 11/02/2013, Additional history exists Zoster Vaccines Completed 08/21/2018, 03/28, 08/21/2017, Additional history exists Colonoscopy Discontinued 03/19/2020, 02/25, 03/15/2020, Additional history exists Influenza Vaccine (FLU shot) Completed 02/21/2023, 03/11/2022, 03/07/2021, Additional history exists GARDASIL-HPV IMMUNIZATION SERIES Aged Out No longer eligible based on patient's age to complete this topic Hepatitis B Aged Out No longer eligi ble based on patient's age to complete this topic MENINGOCOCCAL (MENACTRA/MENVEO) Aged Out No longer eligible based on patient's age to complete this topic documented as of this encounter Medical Devices Implanted Type Area Desizing Machine Operator Head End Device Identifier Shelf Expiration Date Model / Serial / Lot Clip Quick 2.8mm 230cm - [id number] Implanted:Qty: 1 on 03/15/2020 by Janell Raphael MD at ENDOSCOPY [facility] [employer] 05/26/2022 HX-202UR.A / K Clip Quick 2.8mm 230cm - [id number] Implanted:Qty: 1 on 03/15/2020 by Janell Raphael MD at [facility]OSCOPY [facility] [employer] 05/26/2022 HX-202UR.A / / [id number] documented as of this encounter Care Teams Sustainability Coordinator Relationship Specialty Start Date End Date Saida David EISENBERG MD [address] [place] [address] PCP - General 01/09/1996 documented as of this encounter
--- OUTSIDE RECORDS SUMMARY | 2023-11-26 09:33 | External Medical Summary | Summary of Care ---
Author Name Unknown Organization [facility] Address [address] [place] [address] Phone [phone] Care Team Providers Care Leisure Studies Professor Name Role Phone Saida EISENBERG MD, David Adame Primary Care Provider [phone] Reason for Visit * Reason Comments Appointment Encounter Details Date Type Department Care Team (Latest Contact Info) Description 11/20/2023 6:10 PM EDT Anticoagulation Pharmacy, [facility] [address] [facility] [place] [address] Pharmacist1, [facility] [address] [facility] [place] [id number] Anticoagulation management encounter* Allergies Active Allergy Reactions Criticality Noted Date Comments Lisinopril Cough Low 06/04/2011 documented as of this encounter (statuses as of 11/20/2023) Medications Medication Sig Dispensed Refills Start Date [...] BEDTIME 135 Tablet 3 07/10/2023 Active Nystatin 627352 UNIT/ML Mouth/Throat SuspensionIndicati ons:Thrush Swish and swallow [...] as of this encounter (statuses as of 11/20/2023) Active Problems Problem Noted Date Diagnosed Date [...] rinse after steroid. Test performed by Mimi PAIN MANAGEMENT PHYSICIAN CPFT Chronic rhinitis 07/02/2019 Paroxysmal atrial fibrillation 07/14/2018 CAROL ANN (generalized anxiety disorder) 04/24/2018 Incomplete right bundle branch block (RBBB) 10/25 Antiphospholipid antibody syndrome 12/05/2011 HTN, goal below 140/90 07/12/2011 senior living current use of anticoagulant therapy 1 06/17/2010 ADVANCE DIRECTIVE INFORMATION 07/01/2007 Overview: No, Advance Directive brochure given to patient at prior appointment. Planning to do a power of criminal defense attorney. Note on 07/04 has an appt soon. Esophageal reflux 06/01/2004 documented as of this encounter (statuses as of 11/20/2023) Resolved Problems Problem Noted Date Diagnosed Date [...] as of this encounter (statuses as of 11/20/2023) Immunizations Name Administration Dates Next Due COVID-19 [...] on file documented as of this encounter Progress Notes * Maura Peraza, e merchant - 11/20/2023 9:11 AM EDT Patient Phone Numbers Left message on patients answering machine to schedule [facility] appointment for coag management. [facility] message sent --no Clinic will follow up again in 1 week(s). Thank you, Maura Peraza Methods Analyst Data Processing [facility] 11/20/2023,9:11 AM documented in this encounter Plan of Treatment Upcoming Encounters Date Type Department Care Team (Late st Contact Info) Description 11/27/2023 6:10 PM EDT Anticoagulation Pharmacy, [facility] [address] [facility] [place] [address] Pharmacist1, [facility] [address] [place] [address] 12/05/2023 1:40 PM EDT Office Visit Family Practice [facility] [place] [address] [place] [address] Janet Glover MD [address] [place] [address] 01/29/2024 8:00 AM EDT Office Visit Cardiology, [facility] [address] [place] [address] Osito Kamara PALemuel [address] [place] [address] 03/31/2024 2:30 PM EST Office Visit Dermatology [facility] [address] [place] [address] Christianne Mendez PA-C [address] [facility] [place] [address] 04/27/2024 10:40 AM EST Office Visit Nephrology, [facility] [address] [place] [address] [address] Sarabjit Starr MD [address] [place] [address] 06/03/2024 8:40 AM EST Office Visit Otolaryngology [facility] [address] [place] [address] Angel Blankenship PA-Leydi [address] [place] [address] Scheduled Procedures Name Priority Associated Diagnoses Date/Ti me COLONOSCOPY FLEXIBLE PROXIMAL DIAGNOSTIC Recall History of colon polyps Health Maintenance Due Date Last Done Comments Depression Screening 04/28/2020 04/28/2019 COVID-19 Vaccine ( season) 2023 04/24/2021, 09/16/2020, 08/19/2020 PTH 10/06/2023 10/05/2022, 10/06/2021 Phosphate 10/06/2023 10/05/2022, 09/24, 09/05/2020, Additional history exists Albumin/Creatinine Ratio 12/27/2023 023, 01/05/2022, 04/07/2021, Additional history exists TSH 12/27/2023 12/26/2022, 06/27, 12/15/2021, Additional history exists Nephrology Referral 03/20/2024 03/20/2023 Hgb 06/26/2024 06/26/2023, 08/0 06/2022, 07/13/2022, Additional history exists DXA [...] this encounter Medical Devices Implanted Type Area Division Order Technician Device Identifier Shelf Expiration Date Model / Serial / Lot Clip Quick 2.8mm 230cm - [id number] Implanted:Qty: 1 on 03/15/2020 by Janell Raphael MD at [facility]COPY [facility] [employer] 05/26/2022 HX-202UR.A K Clip Quick 2.8mm 230cm - [id number] Implanted:Qty: 1 on 03/15/2020 by Janell Raphael MD at [facility]OSCOPY [facility] [employer] 05/26/2022 HX-202UR.A / / [id number] documented as of this encounter Visit Diagnoses Diagnosis Anticoagulation management encounter- Primary Encounter for therapeutic drug monitoring documented in this encounter Care Teams Leisure Studies Professor Relationship Specialty Start Date End Date David Cintron III, MD [address] [place] [address] PCP - General 01/09/1996 documented as of this encounter
--- OUTSIDE RECORDS SUMMARY | 2023-11-26 09:33 | External Medical Summary | Summary of Care ---
Author Name Unknown Organization [facility] Address [address] [place] [address] Phone [phone] Care Team Providers Care African History Professor Name Role Phone Saida EISENBERG MD, David Adame Primary Care Provider [phone] Reason for Visit * Reason Comments Dosage Adjustment Via Phone (anticoag Cl inic) medication change Encounter Details Date Type Department Care Team (Latest Contact Info) Description 10/24/2023 5:40 PM EDT Anticoagulation Pharmacy, [facility] [address] [address] Pharmacist1, [facility] [address] [facility] [place] [address] Paroxysmal atrial fibrillation (HCC)*; terminal operations supervisor current use of anticoagulant therapy; Antiphospholipid antibody syndrome (HCC) Allergies Active Allergy Reactions Criticality Noted Date Comments Lisinopril Cough Low 06/04/2011 documented as of this encounter (statuses as of 10/24/2023) Medications Medication Sig Dispensed Refills Start Date [...] BEDTIME 135 Tablet 3 07/10/2023 Active Nystatin 650269 UNIT/ML Mouth/Throat SuspensionIndicati ons:Thrush Swish and swallow [...] as of this encounter (statuses as of 10/24/2023) Active Problems Problem Noted Date Diagnosed Date [...] rinse after steroid. Test performed by Mimi [employer]IEF STATION ENGINE[employer] CPFT Chronic rhinitis 07/02/2019 Paroxysmal atrial fibrillation 07/14/2018 CAROL ANN (generalized anxiety disorder) 04/24/2018 Incomplete right bundle branch block (RBBB) 10/25 Antiphospholipid antibody syndrome 12/05/2011 HTN, goal below 140/90 07/12/2011 terminal operations supervisor current use of anticoagulant therapy 1 06/17/2010 ADVANCE DIRECTIVE INFORMATION 07/01/2007 Overview: No, Advance Directive brochure given to patient at prior appointment. Planning to do a power of senior attorney. Note on 07/04 has an appt soon. Esophageal reflux 06/01/2004 documented as of this encounter (statuses as of 10/24/2023) Resolved Problems Problem Noted Date Diagnosed Date [...] as of this encounter (statuses as of 10/24/2023) Immunizations Name Administration Dates Next Due COVID-19 [...] in the Last Year Never true 04/28/2019 Sex and Gender Information Value Date Recorded Sex Assigned at Female 04/28/2019 8:47 AM EST Gender Identity Female 04/28/2019 8:47 AM EST Sexual Orientation Straight 04/28/2019 8: 47 AM EST Job Start Date Occupation Industry Not on file Not on file Not on file documented as of this encounter Progress Notes * Syed Del Rosario [facility] - 10/24/2023 11:01 AM EDT Patient Phone Numbers Left message for patient at 11:08 AM. Patient's amiodarone 200mg daily was stopped today. Patient instructed to increase the dose of Coumadin to 1.25 mg every Sat, Sat, Sat; 2.5 mg all other days. INR in 4 weeks as scheduled. Syed Britt RPh, CACP, CDE Clinical Pharmacist [facility] 10/24/2023, 11:01 AM documented in this encounter Plan of Treatment Upcoming Encounters Date Type Department Care Team (Late st Contact Info) Description 10/31/2023 8:15 AM EDT Cardiac Studies Cardiac Studies, [facility] [address] [facility] [place] [address] 11/29/2023 9:10 AM EDT Anticoagulation Pharmacy, [facility] [address] [place] [address] Pharmacist1, [facility] [address] [place] [address] 12/05/2023 1:40 PM EDT Office Visit Family Practice [facility] [address] [place] [address] [address] Janet Glover MD [address] [place] [address] 01/29/2024 8:00 AM EDT Office Visit Cardiology, [facility] [address] [facility] [place] [address] Osito Kamara PALemuel [address] [facility] [place] [address] 03/31/2024 2:30 PM EST Office Visit Dermatology [facility] [address] [place] [address] [address] Christianne Mendez PA-C [address] [facility] [place] [address] 04/27/2024 10:40 AM EST Office Visit Nephrology, [facility] [address] [place] [address] Sarabjit Starr MD [address] [place] [address] 06/03/2024 8:40 AM EST Office Visit Otolaryngology [facility] [address] [place] [address] Angel Blankenship PA-C [address] [place] [address] Scheduled Procedures Name Priority Associated Diagnoses Date/Ti [...] Nephrology Referral 03/20/2024 03/20/2023 Hgb 06/26/2024 06/26/2023, 08/06/2022, 07/13/2022, Additional history exists DXA Scan 12/12/2024 [...] this encounter Medical Devices Implanted Type Area Rags Laborer Device Identifier Shelf Expiration Date Model / Serial / Lot Clip Quick 2.8mm 230cm - [id number] Implanted:Qty: 1 on 03/15/2020 by Janell Raphael MD at [facility] [employer] 05/26/2022 [id number].A / / [id number] Clip Quick 2.8mm 230cm - [id number] Implanted:Qty: 1 on 03/15/2020 by Janell Raphael MD at [facility] [employer] 05/26/2022 [id number] / / [id number] documented as of this encounter Visit Diagnoses Diagnosis Paroxysmal atrial fibrillation (HCC)- Primary Atrial fibrillation terminal operations supervisor current use of anticoagulant therapy Antiphospholipid antibody syndrome (HCC) Primary hypercoagulable state documented in this encounter Care Teams African History Professor Relationship Specialty Start Date End Date David Cintron III, MD [address] [place] [address] PCP - General 01/09/1996 documented as of this encounter
--- OUTSIDE RECORDS SUMMARY | 2023-11-26 09:33 | External Medical Summary | Summary of Care ---
Author Name Unknown Organization [facility] Address [address] [place] [address] Phone [phone] Care Team Providers Care Tunneller Name Role Phone Saida EISENBERG MD, David Adame Primary Care Provider [phone] Reason for Visit * Reason Comments Follow Up Encounter Details Date Type Department Care Team (Latest Contact Info) Description 10/24/2023 8:00 AM EDT Office Visit Cardiology, [facility] [address] [place] [address] Osito Kamara PA-C [address] [place] [address] HTN, goal below 140/90*; Chronic diastolic heart failure (HCC); Paroxysmal atrial fibrillation (HCC); Nonobstructive atherosclerosis of coronary artery; Dyslipidemia, goal LDL below 70; Encounter for monitoring diuretic therapy Allergies Active Allergy Reactions Criticality Noted Date Comments Lisinopril Cough Low 06/04/2011 documented as of this encounter (statuses as of 10/24/2023) Medications Medication Sig Dispensed Refills Start Date End Date Status LORATADINE 10 MG PO TABSIndications:A llergic rhinitis One pill by mouth once a day as needed for allergies 90 Tab 3 2 Active cycloSPORINE 0.05 % Ophthalmic Emulsion Instill 2 Drops into both eyes in the morning and 2 Drops before bedtime. Active Multiple Vitamins-Minerals (ALIVE WOMENS 50+) TABS Take 1 Tab by mouth daily. 7 Active Cholecalciferol 25 MCG (1000 UT) Oral Tablet Take 1 Tablet by mouth in the morning. 7 Active LORazepam 0.5 MG Oral Tablet (Ativan)Indicatio ns:Anxiety state 1/2-1 TABLET TWICE DAILY as needed for nerves 90 Tab 3 0 Active Fluticasone Propionate 50 MCG/ACT Nasal Suspension Administer 2 Sprays into each nostril daily. 47.4 mL 3 1 Active amLODIPine Besylate 5 MG Oral Tablet (Norvasc)Indicati ons:HTN, goal below 140/90 Take 0.5 Tablets by mouth in the morning. 90 Tablet 1 3 Active Fluticasone Furoate-Vilantero l 200-25 MCG/ACT Inhalation Aerosol Powder Breath Activated (BREO ellipta)Indicatio ns:Moderate persistent asthma without complication Inhale 1 Puff by mouth in the morning. 60 Each 3 Active Furosemide 20 MG Oral Tablet (Lasix)Indication s:Localized edema TAKE 1 TABLET DAILY PLUS EXTRA TABLET ON TUESDAYS AND THURSDAYS 115 Tablet 3 3 Active Isosorbide Mononitrate ER 60 MG Oral Tablet Extended Release 24 Hour (Imdur)Indication s:Incomplete right bundle branch block (RBBB) TAKE 1 TABLET DAILY 90 Tablet 3 3 Active Benzonatate 100 MG Oral CapsuleIndication s:Moderate persistent asthma with exacerbation Take 1 Capsule by mouth 3 times a day as needed for Cough. 30 Capsule 1 3 Active Ipratropium-Albut dwain 0.5-2.5 (3) MG/3ML Inhalation Solution (Duoneb) INHALE 3ML VIA NEBULIZER THREE TIMES A DAY FOR 7 DAYS USE THREE TIMES A DAY FOR 2 TO 3 DAYS AND MAY ALSO USE NEEDED FOR SHORTNESS OF FIFI 120 mL 2 3 Active Warfarin Sodium 2.5 MG Oral Tablet (Jantoven)Indicat ions:Paroxysmal atrial fibrillation (HCC) TAKE 1 TABLET ON SATURDAY AND SATURDAY AND TAKE 1/2 TABLET ALL OTHER DAYS OR DIRECTED BY COAGULATION CLINIC 70 Tablet 3 3 Active Albuterol Sulfate HFA 108 (90 Base) MCG/ACT Inhalation Aerosol Solution Inhale 2 Puffs by mouth every 4 hours as needed for Wheezing. 54 g 3 Active Additional Information Patient not taking.Reported on 10/24/2023 Montelukast Sodium 10 MG Oral Tablet (Singulair)Indica tions:Moderate persistent asthma without complication Take 1 Tablet by mouth at bedtime. 60 Tablet 4 3 Active Atorvastatin Calcium 20 MG Oral Tablet (Lipitor)Indicati ons:Dyslipidemia, goal LDL below 70 Take 1 Tablet by mouth in the morning. 90 Tablet 3 3 Active Omeprazole 40 MG Oral Capsule Delayed Release (PriLOSEC)Indicat ions:Esophageal reflux Take 1 Capsule by mouth in the morning and 1 Capsule before bedtime. 180 Capsule 3 3 Active Potassium Chloride Aaliyah ER 20 MEQ Oral Tablet Extended ReleaseIndication s:Kidney disease, chronic, stage IV (GFR 15-29 ml/min) ([facility]) Take 1 Tablet by mouth in the morning. 90 Tablet 5 4 Active Diclofenac Sodium 1 % External Gel (Voltaren)Indicat ions:Chronic pain of right knee Apply topically to affected area 2 times a day. Apply to knee and r leg 700 g 11 4 Active hydrALAZINE HCl 25 MG Oral Tablet (Apresoline)Indic ations:HTN, goal below 140/90 TAKE 1/2 TABLET IN THE MORNING, 1/2 TABLET AT NOON AND 1/2 TABLET BEFORE BEDTIME 135 Tablet 3 4 Active Nystatin 019684 UNIT/ML Mouth/Throat SuspensionIndicat ions:Thrush Swish and swallow 5 mL in the morning and 5 mL at noon and 5 mL in the evening and 5 mL before bedtime. For thrush.. 240 mL 1 4 Active Levothyroxine Sodium 50 MCG Oral Tablet (Levoxyl)Indicati ons:PT NOT TAKING - PHARMACY CANNOT GET MEDICATION TAKE 1 TABLET DAILY AT LEAST 30 MINUTES PRIOR TO BREAKFAST OR OTHER MEDICATIONS 100 Tablet 2 4 Active Metoprolol Succinate ER 25 MG Oral Tablet Extended Release 24 Hour (toPROL XL)Indications:Pa roxysmal atrial fibrillation (HCC) Take 1 Tablet by mouth in the morning. 90 Tablet 3 4 Active Fluticasone Furoate-Vilantero l 200-25 MCG/ACT Inhalation Aerosol Powder Breath Activated (BREO ellipta)Indicatio ns:Moderate persistent asthma without complication Inhale 1 Puff by mouth in the morning. 180 Blister Dosing Unit 1 4 Active Amiodarone HCl 200 MG Oral Tablet (Cordarone)Indica tions:Paroxysmal atrial fibrillation (HCC) TAKE 1 TABLET DAILY 90 Tablet 3 3 10/24/19 24 Discontinued Hospital, Clinic, or Other Facility Administered Medication [...] rinse after steroid. 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 Planning to do a power of auto parts professional. Note on 07/04 has an appt soon. [...] on file documented as of this encounter Last Filed Vital Signs Vital Sign Reading Time Taken Comments Blood Pressure 126/74 10/24/2023 7:59 AM EDT Pulse 88 10/24/2023 7:59 AM EDT irreg ular Temperature - - Respiratory Rate 18 10/24/2023 7:59 AM EDT Oxygen Saturation - - Inhaled Oxygen Concentration - - Weight 88 kg (194 lb) 10/24/2023 7:59 AM EDT Height - - Body Mass Index 34.37 05/29/2023 8:42 AM EST documented in this encounter Progress Notes * Osito Kamara PA-C - 10/24/2023 8:00 AM EDT History of Present Illness: Jolanta Horn is a 88 year old female who returns today for routine cardiology follow-up evaluation. Patient was last seen in this office by Mrs. Blank on 04/19/2023. EKG at that time revealed atrial fibrillation with a ventricular rate of 86 bpm and a QTc of 471 ms. No concerns. Feeling OK. Notes having good days and bad days. Some days she feels great. Other days shecan hardly get out of bed. Palpitations occur once in a while, a flutter only. No chest pain or discomfort. Shortness of breath is the same, aided by DuoNebs "when it's wet and everything is growing." No orthopnea or PND. Edema has been down most of the time. Occasional dizziness when getting up off of a chair or when first getting out of bed, sometimes with no reason at all. No syncope. No epistaxis, hemoptysis, melena, hematochezia, or hematuria. Lives with her grandson. Cardiac Problem List: Moderate nonobstructive coronary artery disease via April 08, 2019 coronary angiography ([facility], Dr. Cohen). Symptomatic paroxysmal atrial fibrillation status post 03/04/2019 direct current cardioversion with successful return to sinus. Initiation of amiodarone in January 2019. [id number] Score 8 points, anticoagulated with Coumadin History of TIA Anti phospholipid syndrome. Patient typically bridged with Lovenox with prior interruptions in Coumadin anticoagulation. Hypertension, hypertensive heart disease Diastolic congestive heart failure Incomplete right bundle branch block Patient hospitalized March 19, 2020 to March 21, 2020, presenting with acute lower GI bleeding following colonoscopy. Patient underwent emergent colonoscopy on March 19, 2020 with bleeding in the ascending colon at the previous polypectomy site, treated successfully. Dyslipidemia. LDL goal less than 70 mg/dL. 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 HTN, goal below 140/90 Antiphospholipid antibody syndrome (HCC) Incomplete right bundle branch block (RBBB) CAROL ANN (generalized anxiety disorder) Paroxysmal atrial fibrillation (HCC) Moderate persistent asthma without complication Chronic rhinitis Chronic diastolic heart failure (HCC) Severe obesity with body mass index (BMI) of 35.0 to 39.9 with serious comorbidity (HCC) Pulmonary hypertension (HCC) Chronic kidney disease, stage 4 (severe) (HCC) Benign hypertension with chronic kidney disease, stage IV (HCC) Past Medical History: Diagnosis Date Diverticulosis of colon CAROL ANN (generalized anxiety disorder) 04/24/2018 HTN, goal below 140/90 Past Surgical History: Procedure Laterality Date COLONOSCOPY W/ LESION REMOVAL, SNARE 08/27/[address] COLONOSCOPY, DIAGNOSTIC (RECTUM) 02/10/2007 COLONOSCOPY, DIAGNOSTIC (RECTUM) 02/25/2014 COLONOSCOPY FLEXIBLE PROXIMAL DIAGNOSTIC performed by Osito Braswell MD at ENDOSCOPY [facility] COLONOSCOPY, DIAGNOSTIC (RECTUM) 03/15/2020 serrated adenomatous polyp, repeat 3 yrs / COLONOSCOPY FLEXIBLE PROXIMAL DIAGNOSTIC performed by Janell Raphael MD at [facility]OSCOPY [facility] COLONOSCOPY, DIAGNOSTIC (RECTUM) 03/19/2020 bleeding polypectomy site, treated / INPT [facility] CYSTOSCOPY 07/16/2005 MAMMOGRAM - BILATERAL 07/29/2002 Birad code 2, benign MAMMOGRAM DIAGNOSTIC BILATERAL 10/04/2009 birad code 2 MAMMOGRAM SCREENING-BILATERAL 09/27/2006 birad code 2 MAMMOGRAM SCREENING-BILATERAL 09/29/2007 birad 2 MAMMOGRAM SCREENING-BILATERAL 09/29/2008 birad code 2 PARTIAL REMOVAL OF COLON 05/23/2007 Sigmoid partial colectomy at [facility] - Dr. Mcnair REMOVAL OF APPENDIX REMOVE GALLBLADDER VAGINAL DELIVERY ONLY times 2 Family History Problem Relation Name Age of Onset Heart Disorder Brother [place] Heart Disorder Brother [place] Cancer Mother ovarian Gastro-intestinal disorder Mother bowel rupture Lung Disorder Father black lung Cancer Sister lung No Past Hx Daughter No Past Hx Daughter Social History Socioeconomic History Marital status: Tobacco Use Smoking status: Never Smoker Smokeless tobacco: Never Used Substance and Sexual Activity Alcohol use: No Comment: denies Drug use: No Comment: denies Complete Review of Systems is as stated above, negative, or noncontributory. Review of patient's allergies indicates: Allergen Reactions Lisinopril Cough Current Outpatient Medications Medication Sig Dispense Refill LORATADINE 10 MG PO TABS One pill by mouth once a day as needed for allergies 90 Tab 3 cycloSPORINE 0.05 % Ophthalmic Emulsion Instill 2 Drops into both eyes in the morning and 2 Drops before bedtime. Multiple Vitamins-Minerals (ALIVE WOMENS 50+) TABS Take 1 Tab by mouth daily. Cholecalciferol 25 MCG (1000 UT) Oral Tablet Take 1 Tablet by mouth in the morning. LORazepam 0.5 MG Oral Tablet (Ativan) 1/2-1 TABLET TWICE DAILY as needed for nerves 90 Tab 3 Fluticasone Propionate 50 MCG/ACT Nasal Suspension Administer 2 Sprays into each nostril daily. 47.4 mL 3 amLODIPine Besylate 5 MG Oral Tablet (Norvasc) Take 0.5 Tablets by mouth in the morning. 90 Tablet 1 Fluticasone Furoate-Vilanterol 200-25 MCG/ACT Inhalation Aerosol Powder Breath Activated (BREO ellipta) Inhale 1 Puff by mouth in the morning. 60 Each 0 Furosemide 20 MG Oral Tablet (Lasix) TAKE 1 TABLET DAILY PLUS EXTRA TABLET ON TUESDAYS AND THURSDAYS 115 Tablet 3 Isosorbide Mononitrate ER 60 MG Oral Tablet Extended Release 24 Hour (Imdur) TAKE 1 TABLET DAILY 90Tablet 3 Ipratropium-Albuterol 0.5-2.5 (3) MG/3ML Inhalation Solution (Duoneb) INHALE 3ML VIA NEBULIZER THREE TIMES A DAY FOR 7 DAYS USE THREE TIMES A DAY FOR 2 TO 3 DAYS AND MAY ALSO USE NEEDED FOR SHORTNESS OF FIFI 120 mL 2 Montelukast Sodium 10 MG Oral Tablet (Singulair) Take 1 Tablet by mouth at bedtime. 60 Tablet 4 Atorvastatin Calcium 20 MG Oral Tablet (Lipitor) Take 1 Tablet by mouth in the morning. 90 Tablet 3 Diclofenac Sodium 1 % External Gel (Voltaren) Apply topically to affected area 2 times a day. Applyto knee and r leg 700 g 11 Nystatin [id number] UNIT/ML Mouth/Throat Suspension Swish and swallow 5 mL in the morning and 5 mL at noon and 5 mL in the evening and 5 mL before bedtime. For thrush.. 240 mL 1 Levothyroxine Sodium 50 MCG Oral Tablet (Levoxyl) TAKE 1 TABLET DAILY AT LEAST 30 MINUTES PRIOR TO BREAKFAST OR OTHER MEDICATIONS 100 Tablet 2 Metoprolol Succinate ER 25 MG Oral Tablet Extended Release 24 Hour (toPROL XL) Take 1 Tablet by mouth in the morning. 90 Tablet 3 Benzonatate 100 MG Oral Capsule Take 1 Capsule by mouth 3 times a day as needed for Cough. 30 Capsule 1 Warfarin Sodium 2.5 MG Oral Tablet (Jantoven) TAKE 1 TABLET ON SATURDAY AND SATURDAY AND TAKE 1/2 TABLET ALL OTHER DAYS OR DIRECTED BY COAGULATION CLINIC 70 Tablet 3 Albuterol Sulfate HFA 108 (90 Base) MCG/ACT Inhalation Aerosol Solution Inhale 2 Puffs by mouth every 4 hours as needed for Wheezing. (Patient not taking: Reported on 10/24/2023) 54 g 0 Omeprazole 40 MG Oral Capsule Delayed Release (PriLOSEC) Take 1 Capsule by mouth in the morning and1 Capsule before bedtime. 180 Capsule 3 Potassium Chloride Aaliyah ER 20 MEQ Oral Tablet Extended Release Take 1 Tablet by mouth in the morning. 90 Tablet 5 hydrALAZINE HCl 25 MG Oral Tablet (Apresoline) TAKE 1/2 TABLET IN THE MORNING, 1/2 TABLET AT NOON AND 1/2 TABLET BEFORE BEDTIME 135 Tablet 3 Fluticasone Furoate-Vilanterol 200-25 MCG/ACT Inhalation Aerosol Powder Breath Activated (BREO ellipta) Inhale 1 Puff by mouth in the morning. 180 Blister Dosing Unit 1 Current Facility-Administered Medications Medication Dose Route Frequency Provider Last Rate Last Admin albuterol sulfate (PROVENTIL) (2.5 MG/3ML) 0.083% inhalation solution 2.5 mg 2.5 mg Nebulizer Q4H PRN Saida EISENBERG, Davdi Adame MD 2.5 mg at 05/14/19 1117 OBJECTIVE/PHYSICAL EXAMINATION: BP 126/74 | Pulse 88 Comment: irregular | Resp 18 | Wt 88 kg (194 lb) | BMI 34.37 kg/m | BSA 1.98 m General: A&Ox3. NAD. HENT: Normocephalic. Atraumatic. Eyes: PER. Conjunctiva pink, sclera clear. Neck: No carotid bruits. No JVD. No HJR. Heart: Irregularly irregular at 70 bpm. No murmur. PMI is nondisplaced. Lungs: Clear. No wheeze. Abdomen: +BS. Soft. Nontender. No masses or organomegaly. Extremities: Minimal left lower extremity edema. No clubbing. No cyanosis. Limited neurological examination is without focal deficits. Pulses: radial=2/4, posterior tibial=2/4. Data Reviewed: January 08, 2019 TTE Interpretation Summary: The left ventricular cavity size is normal. The LV wallthickness is moderately increased (concentric). The left ventricular wall motion is normal. The qualitative LV ejection fraction is 55- 59% (normal). The left ventricular diastolic function is moderately abnormal (grade II). The left atrium is moderately enlarged. Mild secondary mitral regurgitationis present. Mild tricuspid regurgitation is present. Borderline pulmonary hypertension is present The estimated pulmonary artery systolic pressure is 35-40mm Hg. January 08, 2019 Nuclear Stress Test: Myocardial perfusion imaging is normal. Overall left ventricular systolic function was normal without regional wall motion abnormalities. The left ventricular ejection fraction was >70%. There are no prior studies available for comparison April 08, 2019 Coronary Angiography ([facility], Dr. Cohen): Right dominant coronary anatomy Left main: Normal length and caliber with minimal calcification and no obstruction. It has an upward take up and was engaged using an AL 2 catheter via radial approach Left anterior descending: Type III in distribution giving rise to 2 small diagonals in its proximalthird and terminating just beyond the apex. Within the left anterior descending there is mild to moderate irregularities with a thin apical segment. The first diagonal is small in caliber with moderate irregularities. The second diagonal is also small in caliber but is narrowed at its ostium by 80%. Left circumflex: The vessel is nondominant but large in caliber and in distribution. It gives rise to a trivial first marginal branch and then trifurcates into 2 large marginal branches and a trivialAV groove portion. The most inferior third marginal branch has a discrete 80+ percent stenosis at its origin. There is mild luminal irregularities otherwise Right coronary artery: The vessel is large and dominant distribution. Gives rise to a sinoatrial and conus branch shortly after its origin, 2 small right ventricular branches and a large third right ventricular branch.. The vessel then continues along the AV groove to give rise to a long posterior descending artery and 2 small posterior ventricular branch. Within the right coronary artery there is a shelflike narrowing of 60% in its midportion just proximal to the large third right ventricular branch LV angiography not performed Hemodynamics LV pressure was 194/14 with an EDP of [address] Chest: Findings of significant interstitial lung disease are not appreciated. No acute pulmonary infiltrates. Mild dependent atelectasis. Prominent main pulmonary artery, possibly mild pulmonary arterial hypertension February 02, 2021 TTE Interpretation Summary (as per Dr. Tyler): The LV wall thickness is mildlyincreased (concentric). The left ventricular wall motion is normal. The qualitative LV ejection fraction is 55-59% (normal). The left atrium is moderately enlarged. The left ventricular diastolic function is moderately abnormal (grade II). Mild aortic valve regurgitation is present. Mild pulmonary hypertension is present. The estimated pulmonary artery systolic pressure is 35- 40 mm Hg. April 2021 Zio Monitor (while on Toprol XL 50 mg/day and amiodarone 200 mg/day): Patient had a min HR of 39 bpm, max HR of 112 bpm, and avg HR of 52 bpm. Predominant underlying rhythm was Sinus Rhythm. 2 Supraventricular Tachycardia runs occurred, the run with the fastest interval lasting 5 beats with a max rate of 112 bpm, the longest lasting 5 beats with an avg rate of 100 bpm. Isolated SVEswere rare (<1.0%), SVE Couplets were rare (<1.0%), and SVE Triplets were rare (<1.0%). Isolated VEs were rare (<1.0%), VE Couplets were rare (<1.0%), and no VE Triplets were present. The patient used 3 event markers which correlated with sinus bradycardia. Impression: Sinus and sinusbradycardia with low atrial focus Lipid Panel Results: Results for orders placed or performed in visit on 07/13/22 LIPID PANEL WITH DIRECT LDL IF TG IS HIGH Result Value Ref Range Triglycerides 257 (H) <=174 mg/dL Cholesterol 135 <200 mg/dL HDL Cholesterol 52 >49 mg/dL Non-HDL Cholesterol 83 <=159 mg/dL Lab Results Component Value Date/Time LDL CHOLESTEROL (DIRECT MEASURE) - ROXY Flynn 07/13/2022 12:42 PM EKG on October 24, 2023 reveals coarse atrial fibrillation/flutter, with a ventricular rate of 68 bpm, incomplete right bundle branch block. QTc 465 ms. IMPRESSION: 88-year-old female returning today in routine cardiac follow-up, history of prior symptomatic paroxysmal atrial fibrillation status post initiation of amiodarone in January 2019 followed by direct current cardioversion in February 2019. Patient returns today with what appears to be persistent atrial fibrillation since at least March 2023, asymptomatic, and compensated from a diastolic congestive heart failure standpoint. Blood pressure is well controlled. Options of management discussed with patient and daughter who was present for the entire visit. Via shared decision-making will discontinue amiodarone, proceeding with rate control strategy. Chronic Coumadin anticoagulationto be maintained. Chart copied to the [facility] noting discontinuation of amiodarone today. Metoprolol will be continued as presently prescribed for now. A seven day Zio monitor will be applied in one week to assess for adequate rate control. Cardiology follow-up with the above, routinely in 6 months, or as needed. Osito Kamara PA-C Department of Cardiology I spent a total of 30-39 minutes (exact time 32 mins) on the date of service in preparation, delivery, and documentation of the care provided to Jolanta Horn excluding any time spent in the performance of separately billed services. This visit involved medical care services related to at least one serious condition or complex condition requiring ongoing care. This chart was completed in part utilizing [employer] Speech Voice Recognition Software. Grammatical errors, random word insertions, prounoun errors, and incomplete sentences are an occasional consequence of this system due to software limitations, ambient noise, and hardware issues. Any formal questions or concerns about the content, text, or information contained within the body of this dictation should be directly addressed to the provider for clarification. documented in this encounter Procedure Notes * Ji Joseph DO - 10/24/2023 8:08 AM EDTAssociated Order(s): EKG COMPLETE (TRACING AND INTERP) REASON FOR STUDY: parox a-fib; incomplete RBB; Chronic caden he CONCLUSIONS: Atrial flutter with variable A-V block Incomplete right bundle branch block Abnormal ECG When compared with ECG of 19-Apr-2023 09:19, Atrial flutter has replaced Atrial fibrillation Incomplete right bundle branch block is now Present Ventricular Rate: 68 Atrial Rate: 258 QRS Duration: 108 QT/QTc: 438/465 ms P-R-T [place]: 0 : 81 : 68 degrees documented in this encounter Nursing Notes * Handy Mcgovern RN - 10/24/2023 7:58 AM EDT Examination Room: room 2 Name: Jolanta Horn Date of : (1935). Reason for Visit: denies Interim Hospitalization(s): denies Problems/Concerns: denies Chest Pain/SOB: sob due to allergies; denies chest pain [facility] Discussed: Not applicable [facility] is a way you can talk to your provider online through e-mail. Would you like to sign up? I can activate it for you? ALREADY ACTIVE Patient was instructed to not get up on the exam table until directed and assisted by their provider; patient is to remain seated in the chair/ wheelchair/ exam table for fall prevention and safety reasons. Patient is aware to have assistance to step down off exam table with personnel. Patient voiced full comprehension of instructions. 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; Antiphospholipid antibody syndrome (HCC) 10/31/2023 8:15 AM EDT Cardiac Studies Cardiac Studies, [facility] [address] [address] 11/29/2023 9:10 AM EDT Anticoagulation Pharmacy, [facility] [address] [place] [address] Pharmacist1, [facility] [address] [place] [address] [address] 12/05/2023 1:40 PM EDT Office Visit Family Practice [facility] [address] [place] [address] Janet Gloevr MD [address] [place] [address] 01/29/2024 8:00 AM EDT Office Visit Cardiology, [facility] [address] [place] [address] Osito Kamara PALemuel [address] [place] [address] 03/31/2024 2:30 PM EST Office Visit Dermatology [facility] [address] [place] [address] Christianne Mendez PA-C [address] [facility] [address] 04/27/2024 10:40 AM EST Office Visit Nephrology, [facility] [place] [address] Sarabjit Starr MD 200 [facility] [place] [address] 06/03/2024 8:40 AM EST Office Visit Otolaryngology [facility] [address] [place] [address] Angel Blankenship PA-C [address] [place] [address] Scheduled Orders Name Type Priority Associated Diagnoses Orde r Schedule TSH WITH FREE T4 IF INDICATED Lab Routine Paroxysmal atrial fibrillation (HCC) Ordered: 10/24/2023 COMPREHENSIVE METABOLIC PANEL Lab Routine Paroxysmal atrial fibrillation (HCC) Encounter for monitoring diuretic therapy Ordered: 10/24/2023 MAGNESIUM Lab Routine Paroxysmal atrial fibrillation (HCC) Encounter for monitoring diuretic therapy Ordered: 10/24/2023 CBC Lab Routine Paroxysmal atrial fibrillation (HCC) Ordered: 10/24/2023 EXTERNAL EKG 2 TO 7 DAYS Holter Routine Paroxysmal atrial fibrillation (HCC) Expected: 10/25/2023 (Approximate), Expires: 10/23/2024 Scheduled Procedures Name Priority Associated Diagnoses Date/Ti [...] this encounter Medical Devices Implanted Type Area Manager Utilization Management Device Identifier Shelf Expiration Date Model / Serial / Lot Clip Quick 2.8mm 230cm - [id number] Implanted:Qty: 1 on 03/15/2020 by Janell Raphael MD at ENDOSCOPY [facility] [employer] 05/26/2022 HX-202UR.A / / 01K Clip Quick 2.8mm 230cm - [id number] Implanted:Qty: 1 on 03/15/2020 by Janell Raphael MD at ENDOSCOPY [facility] [employer] 05/26/2022 HX-202UR.A / / [id number] documented as of this encounter Procedures Procedure Name Priority Date/Time Associated Diagnosis Comments WA ECG ROUTINE ECG W/LEAST 12 LDS I&R ONLY Routine 10/24/2023 8:08 AM EDT Paroxysmal atrial fibrillation (HCC) documented in this encounter Results * EKG COMPLETE (TRACING AND INTERP) (10/24/2023 8:08 AM EDT) 10/24/2023 8:08 AM EDT Narrative Procedure Note Ji Joseph DO - 10/24/2023 8:08 AM EDT REASON FOR STUDY: parox a-fib; incomplete RBB; Chronic caden he CONCLUSIONS: Atrial flutter with variable A-V block Incomplete right bundle branch block Abnormal ECG When compared with ECG of 19-Apr-2023 09:19, Atrial flutter has replaced Atrial fibrillation Incomplete right bundle branch block is now Present Ventricular Rate: 68 Atrial Rate: 258 QRS Duration: 108 QT/QTc: 438/465 ms P-R-T [place]: 0 : 81 : 68 degrees Osito Kamara PA-C EKG [facility] documented in this encounter Visit Diagnoses Diagnosis HTN, goal below 140/90- Primary Unspecified essential hypertension Chronic diastolic heart failure (HCC) Chronic diastolic heart failure Paroxysmal atrial fibrillation (HCC) Atrial fibrillation Nonobstructive atherosclerosis of coronary artery Dyslipidemia, goal LDL below 70 Other and unspecified hyperlipidemia Encounter for monitoring diuretic therapy Encounter for therapeutic drug monitoring Paroxysmal atrial fibrillation (HCC)- Primary Atrial fibrillation longterm current use of anticoagulant therapy Antiphospholipid antibody syndrome (HCC) Primary hypercoagulable state documented in this encounter Care Teams Tunneller Relationship Specialty Start Date End Date David Cintron III, MD 200 [place] [address] PCP - General 01/09/1996 documented as of this encounter
--- OUTSIDE RECORDS SUMMARY | 2023-11-26 09:33 | External Medical Summary | Summary of Care ---
Author Name Unknown Organization [facility] Address [address] [place] [facility] [place] [place] [address] Phone [phone] Care Team Providers Care Emergency Department Manager Name Role Phone Saida EISENBERG MD, David Adame Primary Care Provider [phone] Reason for Visit * Reason Onset Date Comments Med Request 07/25/2023 Encounter Details Date Type Department Care Team (Late st Contact Info) Description 07/25/2023 Telephone Cardiology, [facility] [address] [place] [address] Osito Kamara PA-C [address] [place] [address] Med Request Allergies Active Allergy Reactions Criticality Noted Date Comments Lisinopril Cough Low 06/04/2011 documented as of this encounter (statuses as of 10/24/2023) Medications Medication Sig Dispensed Refills Start Date End Date Status LORATADINE 10 MG PO TABSIndications:All ergic rhinitis One pill by mouth once a [...] 12/12/2016 Active LORazepam 0.5 MG Oral Tablet (Ativan)Indications :Anxiety state 1/2-1 TABLET TWICE DAILY as needed for nerves 90 Tab 3 05/21/2020 Active Fluticasone Propionate 50 MCG/ACT Nasal Suspension Administer 2 Sprays into each nostril daily. 47.4 mL 3 03/15/2021 Active amLODIPine Besylate 5 MG Oral Tablet (Norvasc)Indication s:HTN, goal below 140/90 Take 0.5 Tablets by mouth in the morning. 90 Tablet 1 11/30/2022 Active Fluticasone Furoate-Vilanterol 200-25 MCG/ACT Inhalation Aerosol Powder Breath Activated (BREO ellipta)Indications :Moderate persistent asthma without complication Inhale 1 Puff by mouth in the morning. 60 Each 12/27/2022 Active Furosemide 20 MG Oral Tablet (Lasix)Indications: Localized edema TAKE 1 TABLET DAILY PLUS EXTRA TABLET ON TUESDAYS AND THURSDAYS 115 Tablet 3 02/13/2023 Active Isosorbide Mononitrate ER 60 MG Oral Tablet Extended Release 24 Hour (Imdur)Indications: Incomplete right bundle branch block (RBBB) TAKE 1 TABLET DAILY 90 Tablet 3 02/18/2023 Active Benzonatate 100 MG Oral CapsuleIndications: Moderate persistent asthma with exacerbation Take 1 Capsule by mouth 3 times a day as needed for Cough. 30 Capsule 1 03/01/2023 Active Ipratropium-Albuter ol 0.5-2.5 (3) MG/3ML Inhalation Solution (Duoneb) INHALE 3ML VIA NEBULIZER THREE TIMES A DAY FOR 7 DAYS USE THREE TIMES A DAY FOR 2 TO 3 DAYS AND MAY ALSO USE NEEDED FOR SHORTNESS OF FIFI 120 mL 2 03/02/2023 Active Warfarin Sodium 2.5 MG Oral Tablet (Jantoven)Indicatio ns:Paroxysmal atrial fibrillation (HCC) TAKE 1 TABLET ON [...] 10/24/2023 Montelukast Sodium 10 MG Oral Tablet (Singulair)Indicati ons:Moderate persistent asthma without complication Take 1 Tablet by mouth at bedtime. 60 Tablet 4 04/08/2023 Active Atorvastatin Calcium 20 MG Oral Tablet (Lipitor)Indication s:Dyslipidemia, goal LDL below 70 Take 1 Tablet by mouth in the morning. 90 Tablet 3 04/19/2023 Active Omeprazole 40 MG Oral Capsule Delayed Release (PriLOSEC)Indicatio ns:Esophageal reflux Take 1 Capsule by mouth in the morning and 1 Capsule before bedtime. 180 Capsule 3 05/23/2023 Active Potassium Chloride Aaliyah ER 20 MEQ Oral Tablet Extended ReleaseIndications: Kidney disease, chronic, stage IV (GFR 15-29 ml/min) (HCC) Take 1 Tablet by mouth in the morning. 90 Tablet 5 06/06/2023 Active Diclofenac Sodium 1 % External Gel (Voltaren)Indicatio ns:Chronic pain of right knee Apply topically to affected area 2 times a day. Apply to knee and r leg 700 g 11 07/04/2023 Active hydrALAZINE HCl 25 MG Oral Tablet (Apresoline)Indicat ions:HTN, goal below 140/90 TAKE 1/2 TABLET IN THE MORNING, 1/2 TABLET AT NOON AND 1/2 TABLET BEFORE BEDTIME 135 Tablet 3 07/10/2023 Active Nystatin 501872 UNIT/ML Mouth/Throat SuspensionIndicatio ns:Thrush Swish and swallow 5 mL in the morning and 5 mL at noon and 5 mL in the evening and 5 mL before bedtime. For thrush.. 240 mL 1 07/18/2023 Active Levothyroxine Sodium 50 MCG Oral Tablet (Levoxyl)Indication s:PT NOT TAKING - PHARMACY CANNOT GET MEDICATION TAKE 1 TABLET DAILY AT LEAST 30 MINUTES PRIOR TO BREAKFAST OR OTHER MEDICATIONS 100 Tablet 2 07/19/2023 Active Hospital, Clinic, or Other Facility Administered [...] rinse after steroid. Test performed by Mimi 4TH GRADE MATH TEACHER CPFT Chronic rhinitis 07/02/2019 Paroxysmal atrial fibrillation 07/14/2018 CAROL ANN (generalized anxiety disorder) 04/24/2018 Incomplete right bundle branch block (RBBB) 10/25 Antiphospholipid antibody syndrome 12/05/2011 HTN, goal below 140/90 07/12/2011 meterman current use of anticoagulant therapy 1 06/17/2010 ADVANCE DIRECTIVE INFORMATION 07/01/2007 Overview: No, Advance Directive brochure given to patient at prior appointment. Planning to do a power of traffic law attorney. Note on 07/04 has an appt [...] encounter Miscellaneous Notes * Telephone Encounter - Dalia Valdovinos CPhT - 07/25/2023 4:02 PM EST Pt calling in regards to Metoprolol Succinate ER 25 MG Oral Tablet Extended Release 24 Hour (toPROLXL), transferred to [facility] Line. Thank you, Dalia Valdovinos [facility] [employer]pharmacy 07/25/2023, 4:03 PM documented in this encounter Plan of Treatment Upcoming Encounters Date Type Department Care Team (Late st Contact Info) Description 10/31/2023 8:15 AM EDT Cardiac Studies Cardiac Studies, [facility] 132 [facility] [place] [address] 11/29/2023 9:10 AM EDT Antico[facility], [facility] [place] [address] [place] [address] Pharmacist1, [facility] [address] [place] [address] 12/05/2023 1:40 PM EDT Office Visit Family Practice [facility] [address] [place] [address] Janet Glover MD [address] [place] [address] 01/29/2024 8:00 AM EDT Office Visit Cardiology, [facility] [address] [place] [address] Osito Kamara PALemuel [address] [place] [address] 03/31/2024 2:30 PM EST Office Visit Dermatology [facility] [address] [place] [address] Christianne Mendez [place] [address] [facility] [place] [address] 04/27/2024 10:40 AM EST Office Visit Nephrology, [facility] [address] [place] [address] [address] Sarabjit Starr MD [address] [place] [address] 06/03/2024 8:40 AM EST Office Visit Otolaryngology [facility] [address] [place] [address] Angel Blankenship PA-C [address] [place] [address] Scheduled Procedures Name Priority Associated Diagnoses Date/Ti [...] this encounter Medical Devices Implanted Type Area Research Specialist Device Identifier Shelf Expiration Date Model / Serial / Lot Clip Quick 2.8mm 230cm - [id number] Implanted:Qty: 1 on 03/15/2020 by Janell Raphael MD at ENDOSCOPY [facility] [employer] 05/26/2022 HX-202UR.A / / 01K Clip Quick 2.8mm 230cm - [id number] Implanted:Qty: 1 on 03/15/2020 by Janell Raphael MD at ENDOSCOPY [facility] [employer] 05/26/2022 HX-202UR.A / / K documented as of this encounter Care Teams Emergency Department Manager Relationship Specialty Start Date End Date David Cintron III, MD 200 [place] [address] PCP - General 01/09/1996 documented as of this encounter
--- OUTSIDE RECORDS SUMMARY | 2023-11-26 09:33 | External Medical Summary | Summary of Care ---
Author Name Unknown Organization [facility] Address [address] [place] [place] [address] Phone [phone] Care Team Providers Care [employer] Name Role Phone Saida EISENBERG MD, David Adame Primary Care Provider [phone] Reason for Visit * Reason Onset Date Comments Test Results 11/15/2023 Encounter Details Date Type Department Care Team (Late st Contact Info) Description 11/15/2023 Telephone Cardiology, [facility] [address] [facility] [place] [address] Osito Kamara PA-C [address] [place] [address] Test Results Allergies Active Allergy Reactions Criticality Noted Date Comments Lisinopril Cough Low 06/04/2011 documented as of this encounter (statuses as of 11/15/2023) Medications Medication Sig Dispensed Refills Start Date [...] BEDTIME 135 Tablet 3 07/10/2023 Active Nystatin 399279 UNIT/ML Mouth/Throat SuspensionIndicati ons:Thrush Swish and swallow [...] as of this encounter (statuses as of 11/15/2023) Active Problems Problem Noted Date Diagnosed Date [...] rinse after steroid. Test performed by Mimi BENCH CARPENTER CPFT Chronic rhinitis 07/02/2019 Paroxysmal atrial fibrillation 07/14/2018 CAROL ANN (generalized anxiety disorder) 04/24/2018 Incomplete right bundle branch block (RBBB) 10/25 Antiphospholipid antibody syndrome 12/05/2011 HTN, goal below 140/90 07/12/2011 intermediate current use of anticoagulant therapy 1 06/17/2010 ADVANCE DIRECTIVE INFORMATION 07/01/2007 Overview: No, Advance Directive brochure given to patient at prior appointment. Planning to do a power of senior attorney. Note on 07/04 has an appt soon. Esophageal reflux 06/01/2004 documented as of this encounter (statuses as of 11/15/2023) Resolved Problems Problem Noted Date Diagnosed Date [...] as of this encounter (statuses as of 11/15/2023) Immunizations Name Administration Dates Next Due COVID-19 [...] encounter Miscellaneous Notes * Telephone Encounter - Catrachita Rodriguez CMA - 11/15/2023 9:38 AM EDT Spoke with pt and daughter. Aware of results and recommendations. * Telephone Encounter - Catrachita Rodriguez CMA - 11/15/2023 9:37 AM EDT ----- Message from Osito Kamara sent at 11/14/2023 3:50 PM EDT ----- Increase metoprolol succinate to 1.5 tablets daily. documented in this encounter Plan of Treatment Upcoming Encounters Date Type Department Care Team (Late st Contact Info) Description 11/20/2023 6:10 PM EDT Anticoagulation Pharmacy, [facility] [address] [facility] [place] [address] Pharmacist1, [facility] [address] [place] [address] [address] 12/05/2023 1:40 PM EDT Office Visit Family Practice [facility] [address] [place] [address] [address] Janet Glover MD 200 [place] [address] 01/29/2024 8:00 AM EDT Office Visit Cardiology, [facility] [address] [place] [address] Osito Kamara PA-C [address] [place] [address] 03/31/2024 2:30 PM EST Office Visit Dermatology [facility] [address] [place] [address] Christianne Mendez PA-C [address] [place] [address] 04/27/2024 10:40 AM EST Office Visit Nephrology, [place] [address] [place] [address] Sarabjit Starr MD 200 [facility] [place] [address] 06/03/2024 8:40 AM EST Office Visit Otolaryngology [facility] [address] [place] [address] Angel Blankenship PA-C [address] [place] [address] Scheduled Procedures Name Priority Associated Diagnoses Date/Ti [...] this encounter Medical Devices Implanted Type Area Auto Former Machine Operator Device Identifier Shelf Expiration Date Model / Serial / Lot Clip Quick 2.8mm 230cm - [id number] Implanted:Qty: 1 on 03/15/2020 by Janell Raphael MD at [facility]COPY [facility] [employer] 05/26/2022 HX-202UR.A / K Clip Quick 2.8mm 230cm - [id number] Implanted:Qty: 1 on 03/15/2020 by Janell Raphael MD at [facility]COPY [facility] [employer] 05/26/2022 HX-202UR.A / K documented as of this encounter Care Teams [employer] Cafeteria Relationship Specialty Start Date End Date David Cintron III, MD 200 [place] [address] PCP - General 01/09/1996 documented as of this encounter
--- OUTSIDE RECORDS SUMMARY | 2023-11-26 09:34 | External Medical Summary ---
Author Name Unknown Address Unknown Organization K09:[facility] [place] [address] Laboratory Report Ordering Provider Test Date Status RADHA LENZ V 09/11/2023 10:08:09 Final Therapeutic ranges for non-o perative patients:
Prophylaxsis/treatment of DVT: (Range:2.0-3.0)
Treatment of pulmonary embolism:(Range:2.0-3.0)
Prevention of systemic embolism from:
-tissue heart valves
-acute myocardial infarction
-valvular heart disease
-atrial fibrillation
(Range: 2.0-3.0)
Mechanical prosthetic valves: (Range: 2.5-3.5) Observation Date Value Abnormality Reference (Units ) Status INR in Capillary blood by Coagulation assay 09/11/2023 10:08:09 2.0 (INR) Final Performing Location [facility] [place] [address]
--- OUTSIDE RECORDS SUMMARY | 2023-11-26 09:34 | External Medical Summary | Summary of Care ---
Author Name Unknown Organization [facility] Address [address] [facility] [address] Phone [phone] Care Team Providers Care Mirror Silverer Name Role Phone Saida EISENBERG MD, David Adame Primary Care Provider [phone] Reason for Visit * Reason Comments Dosage Adjustment In Person (Anticoag Cl inic) Encounter Details Date Type Department Care Team (Latest Contact Info) Description 10/09/2023 9:40 AM EDT Anticoagulation Pharmacy, [facility] 200 [facility] [place] [address] Pharmacist1, [facility] 200 [facility] [place] [address] Paroxysmal atrial fibrillation (HCC)*; intermediate designer current use of anticoagulant therapy; Antiphospholipid antibody syndrome (HCC); Anticoagulation management encounter Allergies Active Allergy Reactions Criticality Noted Date Comments Lisinopril Cough Low 06/04/2011 documented as of this encounter (statuses as of 10/09/2023) Medications Medication Sig Dispensed Refills Start Date End Date Status LORATADINE 10 MG PO TABSIndications:Al lergic rhinitis One pill by mouth once a day as needed for allergies 90 Tab 3 08/21/2011 Active cycloSPORINE 0.05 % Ophthalmic Emulsion Instill 2 Drops into both eyes in the morning and 2 Drops before bedtime. 0 Active Multiple Vitamins-Minerals (ALIVE WOMENS 50+) TABS Take 1 Tab by mouth daily. 0 12/12/2016 Active Cholecalciferol 25 MCG (1000 UT) Oral Tablet Take 1 Tablet by mouth in the morning. 0 12/12/2016 Active LORazepam 0.5 MG Oral Tablet [...] mouth in the morning. 60 Each 0 12/27/2022 Active Furosemide 20 MG Oral Tablet [...] hours as needed for Wheezing. 54 g 0 03/12/2023 Active Montelukast Sodium 10 MG Oral Tablet (Singulair)Indicat ions:Moderate persistent asthma without complication Take 1 Tablet by mouth at bedtime. 60 Tablet 4 04/08/2023 Active Amiodarone HCl 200 MG Oral Tablet (Cordarone)Indicat ions:Paroxysmal atrial fibrillation (HCC) TAKE 1 TABLET DAILY 90 Tablet 3 04/10/2023 Active Atorvastatin Calcium 20 MG Oral Tablet [...] BEDTIME 135 Tablet 3 07/10/2023 Active Nystatin 668145 UNIT/ML Mouth/Throat SuspensionIndicati ons:Thrush Swish and swallow [...] the morning. 180 Blister Dosing Unit 1 09/07/2023 Active Hospital, Clinic, or Other Facility Administered Medication Ordered Dose Route Frequency Start Date End Date Status albuterol sulfate (PROVENTIL) (2.5 MG/3ML) 0.083% inhalation solution 2.5 mgIndications:CAMPOS (dyspnea on exertion),Wheezing 2.5 mg NEBULIZER Q4H PRN 04/29/2019 Active documented as of this encounter (statuses as of 10/09/2023) Active Problems Problem Noted Date Diagnosed Date [...] rinse after steroid. Test performed by Mimi ELECTRONICS TECHNOLOGY DEPARTMENT CHAIR CPFT Chronic rhinitis 07/02/2019 Paroxysmal atrial fibrillation 07/14/2018 CAROL ANN (generalized anxiety disorder) 04/24/2018 Incomplete right bundle branch block (RBBB) 10/25 Antiphospholipid antibody syndrome 12/05/2011 HTN, goal below 140/90 07/12/2011 intermediate designer current use of anticoagulant therapy 1 06/17/2010 ADVANCE DIRECTIVE INFORMATION 07/01/2007 Overview: No, Advance Directive brochure given to patient at prior appointment. Planning to do a power of erisa attorney. Note on 07/04 has an appt soon. Esophageal reflux 06/01/2004 documented as of this encounter (statuses as of 10/09/2023) Resolved Problems Problem Noted Date Diagnosed Date [...] as of this encounter (statuses as of 10/09/2023) Immunizations Name Administration Dates Next Due COVID-19 [...] this encounter Progress Notes * Syed Del Rosario, [facility] - 10/09/2023 9:37 AM EDT Medication Therapy Disease Management - Anticoagulation Jolanta Horn 1935 Current Warfarin Dose As of 10/09/2023 Warfarin maintenance plan: 2.5 mg (2.5 mg x 1) every Mon, Wed, Fri; 1.25 mg (2.5 mg x 0.5) all other days Patient Findings Negatives: Signs/symptoms of thrombosis, Signs/symptoms of bleeding, Change in health, Change in alcohol use, Change in activity, Upcoming invasive procedure, Missed doses, Extra doses, Change in medications, Change in diet/appetite, Bruising INR Result As of 10/09/2023 INR goal: 2.0-3.0 INR used for dosin.2 (10/09/2023) Warfarin Plan As of 10/09/2023 Full warfarin instructions: 2.5 mg every Mon, Wed, Fri; 1.25 mg all other days No change documented: Syed Del Rosario RPh Next INR check: 11/29/2023 Repeat PT/INR in 7 week(s) Weekly dose: not changed Syed Britt RPh, CACP, CDE Clinical Pharmacist Medication Therapy Management Clinic 10/09/2023 9:41 AM documented in this encounter Plan of Treatment Upcoming Encounters Date Type Department Care Team (Late st Contact Info) Description 10/24/2023 8:00 AM EDT Office Visit Cardiology, [facility] [address] [place] [address] Osito Kamara PA-C [address] [place] [address] 11/29/2023 9:10 AM EDT Anticoagulation Pharmacy, [facility] [place] [address] [place] [address] [address] Pharmacist1, [facility] [address] [place] [address] [address] 11/29/2023 9:20 AM EDT Office [facility] [place] [place] [address] [place] [address] [address] David Cintron III, MD [address] [place] [place] [address] [address] 03/31/2024 2:30 PM EST Office [facility] [place] [address] [place] [address] Chrsitianne Mendez PA-C [address] [facility] [place] [address] 04/27/2024 10:40 AM EST Office Visit Nephrology, [place] 200 [facility] [place] [address] Sarabjit Starr MD 200 [facility] [place] [address] 06/03/2024 8:40 AM EST Office Visit Otolaryngology [facility] [address] [place] [address] Angel Blankenship PA-C [address] [place] [address] Scheduled Procedures Name Priority Associated Diagnoses Date/Ti [...] this encounter Medical Devices Implanted Type Area Winter Intern Device Identifier Shelf Expiration Date Model / Serial / Lot Clip Quick 2.8mm 230cm - [id number] Implanted:Qty: 1 on 03/15/2020 by Janell Raphael MD at ENDOSCOPY [facility] [employer] 05/26/2022 HX-202UR.A / / K Clip Quick 2.8mm 230cm - [id number] Implanted:Qty: 1 on 03/15/2020 by Janell Raphael MD at ENDOSCOPY [facility] [employer] 05/26/2022 HX-202UR.A / / [id number] documented as of this encounter Procedures Procedure Name Priority Date/Time Associated Diagnosis Comments INR FINGERSTICK, POINT OF CARE STAT 10/09/2023 9:40 AM EDT Paroxysmal atrial fibrillation (HCC) Antiphospholipid antibody syndrome (HCC) Anticoagulation management encounter documented in this encounter Results * INR FINGERSTICK, POINT OF CARE (10/09/2023 9:40 AM EDT) Fingerstick INR 2.2 INR 9:41 AM EDT [facility] Blood 10/09/2023 9:40 AM EDT 10/09/2023 9:41 AM EDT Narrative [facility] - 10/09/2023 9:41 AM EDT Therapeutic ranges for non-operative patients: Prophylaxsis/treatment of DVT: (Range:2.0-3.0) Treatment of pulmonary embolism:(Range:2.0-3.0) Prevention of systemic embolism from: -tissue heart valves -acute myocardial infarction -valvular heart disease -atrial fibrillation (Range: 2.0-3.0) Mechanical prosthetic valves: (Range: 2.5-3.5) Syed Lorenza V, RP LAB POINT OF CARE TE ST DOCKED DEVICE UNSOLICITED RESULTS [facility] [address] [place] [address] documented in this encounter Visit Diagnoses Diagnosis Paroxysmal atrial fibrillation (HCC)- Primary Atrial fibrillation snf current use of anticoagulant therapy Antiphospholipid antibody syndrome (HCC) Primary hypercoagulable state Anticoagulation management encounter Encounter for therapeutic drug monitoring documented in this encounter Care Teams Mirror Silverer Relationship Specialty Start Date End Date [facility] III, MD [facility] [address] PCP - General 01/09/1996 documented as of this encounter
--- OUTSIDE RECORDS SUMMARY | 2023-11-26 09:34 | External Medical Summary | Summary of Care ---
Author Name Unknown Organization [facility] Address [address] [place] [address] Phone [phone] Care Team Providers Care Ship Carpenter Name Role Phone Saida EISENBERG MD, Leonela Adame Primary Care Provider [phone] Reason for Visit * Reason Onset Date Comments Medication Refill 10/15/2023 Encounter Details Date Type Department Care Team (Late st Contact Info) Description 10/15/2023 Refill Family Practice [facility] [place] [address] [facility] [place] [address] Leonela Rangel III, MD 200 [place] [address] Moderate persistent asthma without complication Allergies Active Allergy Reactions Criticality Noted Date Comments Lisinopril Cough Low 06/04/2011 documented as of this encounter (statuses as of 10/16/2023) Medications Medication Sig Dispensed Refills Start Date [...] 12/12/2016 Active LORazepam 0.5 MG Oral Tablet (Ativan)Indicatio [...] morning. 90 Tablet 1 11/30/2022 Active Fluticasone Furoate-Vilantero l 200-25 MCG/ACT Inhalation Aerosol Powder Breath Activated (BREO ellipta)Indicatio ns:Moderate persistent asthma without complication Inhale 1 Puff by mouth in the morning. 60 Each 12/27/2022 Active Furosemide 20 MG Oral Tablet (Lasix)Indication s:Localized edema TAKE 1 TABLET DAILY PLUS EXTRA TABLET ON TUESDAYS AND THURSDAYS 115 Tablet 3 02/13/2023 Active Isosorbide Mononitrate ER 60 MG Oral Tablet Extended Release 24 Hour (Imdur)Indication s:Incomplete right bundle branch block (RBBB) TAKE 1 TABLET DAILY 90 Tablet 3 02/18/2023 Active Benzonatate 100 MG Oral CapsuleIndication s:Moderate persistent asthma with exacerbation Take 1 Capsule by mouth 3 times a day as needed for Cough. 30 Capsule 1 03/01/2023 Active Ipratropium-Albut dwain 0.5-2.5 (3) MG/3ML Inhalation [...] needed for Wheezing. 54 g 03/12/2023 Active Montelukast Sodium 10 MG Oral Tablet (Singulair)Indica [...] BEDTIME 135 Tablet 3 07/10/2023 Active Nystatin 751222 UNIT/ML Mouth/Throat SuspensionIndicat ions:Thrush Swish and swallow [...] morning. 90 Tablet 3 07/26/2023 Active Fluticasone Furoate-Vilantero l 200-25 MCG/ACT Inhalation Aerosol Powder Breath Activated (BREO ellipta)Indicatio ns:Moderate persistent asthma without complication Inhale 1 Puff by mouth in the morning. 180 Blister Dosing Unit 1 10/16/2023 Active Fluticasone Furoate-Vilantero l 200-25 MCG/ACT Inhalation Aerosol Powder Breath Activated (BREO ellipta)Indicatio ns:Moderate persistent asthma without complication Inhale 1 Puff by mouth in the morning. 180 Blister Dosing Unit 1 09/07/2023 4 Discontinue d(Refill) Hospital, Clinic, or Other Facility Administered Medication Ordered Dose Route Frequency Start Date End Date Status albuterol sulfate (PROVENTIL) (2.5 MG/3ML) 0.083% inhalation solution 2.5 mgIndications:CAMPOS (dyspnea on exertion),Wheezing 2.5 mg NEBULIZER Q4H PRN 04/29/2019 Active documented as of this encounter (statuses as of 10/16/2023) Active Problems Problem Noted Date Diagnosed Date [...] rinse after steroid. 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 Planning to do a power of trade mark attorney. Note on 2/08 has an appt soon. Esophageal reflux 06/01/2004 documented as of this encounter (statuses as of 10/16/2023) Resolved Problems Problem Noted Date Diagnosed Date [...] as of this encounter (statuses as of 10/16/2023) Immunizations Name Administration Dates Next Due COVID-19 [...] encounter Miscellaneous Notes * Telephone Encounter - Jesus Shen [facility] - 10/16/2023 12:29 PM EDTSigned Prescriptions: Disp Refills Fluticasone Furoate-Vilanterol 200-25 MCG/*180 Bl*1 Sig: Inhale 1 Puff by mouth in the morning. Authorizing Provider: LEONELA RANGEL III Ordering User: JESUS SHEN * Telephone Encounter - Maddison Aguirre CPhT - 10/15/2023 9:29 AM EDT Please [id number]. Confirmed pharmacy did not receive original prescription. Pending Prescriptions: Disp Refills Fluticasone Furoate-Vilanterol 200-25 MCG*180 Bl*1 Sig: Inhale 1 Puff by mouth in the morning. Last Visit: 05/30/2023 (in office), Visit date not found (telemedicine) 11/29/2023 If no future appointments scheduled, and last appointment is greater than a year ago, please schedule patient for a follow-up appointment Last date the medication was ordered: 09/07/2023 Patient Phone Numbers Labs: Lab Results Component Value Date/Time CREAT 1.22 (A) 06/26/2023 12:00 AM CREAT 1.3 (H) 03/25/2020 09:12 AM POTASSIUM 4.5 06/26/2023 12:00 AM POTASSIUM 3.9 03/25/2020 09:12 AM TSH 2.84 12/26/2022 12:00 AM TSH 2.40 05/17/2020 08:27 AM LDLCALC 33 01/09/2018 10:13 AM LDLDIRECT 42 07/13/2022 12:42 PM LDLDIRECT NOT APPLICABLE 01/09/2018 10:13 AM LDLDIRECT 143 (H) 07/27/2003 08:01 AM ALT 13 07/13/2022 12:42 PM ALT 25 03/25/2020 09:12 AM documented in this encounter Plan of Treatment Upcoming Encounters Date Type Department Care Team (Late st Contact Info) Description 10/24/2023 8:00 AM EDT Office Visit Cardiology, [facility] [address] [place] [address] Osito Kamara PA-C [address] [place] [address] 11/29/2023 9:10 AM EDT Anticoagulation Pharmacy, [facility] [place] [address] [address] Pharmacist1, [facility] [address] [place] [address] 11/29/2023 9:20 AM EDT Office Visit Family Practice [facility] [place] [address] [place] [place] [address] [address] Leonela Rangel III, MD [address] [place] [address] [address] 03/31/2024 2:30 PM EST Office Visit Dermatology [facility] [place] [address] [place] [address] [address] Christianne Mendez, PATeteC [address] [facility] [place] [address] 04/27/2024 10:40 AM EST Office Visit Nephrology, [facility] [address] [address] Sarabjit Starr MD [address] [place] [address] 06/03/2024 8:40 AM EST Office Visit [facility] [place] [address] Angel Blankenship PA-C [address] [place] [address] Scheduled Procedures Name Priority Associated Diagnoses Date/Ti [...] Nephrology Referral 03/20/2024 03/20/2023 Hgb 06/26/2024 06/26/2023, 0806/2022, 07/13/2022, Additional history exists DXA Scan 12/12/2024 [...] this encounter Medical Devices Implanted Type Area A And P Technician Device Identifier Shelf Expiration Date Model / Serial / Lot Clip Quick 2.8mm 230cm - [id number] Implanted:Qty: 1 on 03/15/2020 by Janell Raphael MD at ENDOSCOPY [facility] [employer] 05/26/2022 HX-202UR.A Clip Quick 2.8mm 230cm - [id number] Implanted:Qty: 1 on 03/15/2020 by Janell Raphael MD at ENDOSCOPY [facility] [employer] 05/26/2022 [id number]-202UR.A documented as of this encounter Visit Diagnoses Diagnosis Moderate persistent asthma without complication Unspecified asthma documented in this encounter Care Teams Ship Carpenter Relationship Specialty Start Date End Date Leonela Rangel III, MD [address] [facility] [place] [address] PCP - General 01/09/1996 documented as of this encounter
--- OUTSIDE RECORDS SUMMARY | 2023-11-26 09:34 | External Medical Summary ---
Author Name Unknown Address Unknown Organization K09:[facility] [place] [id number] Laboratory Report Ordering Provider Test Date Status RADHA LENZ V 10/09/2023 09:40:18 Final Therapeutic ranges for non-o perative patients:
Prophylaxsis/treatment of DVT: (Range:2.0-3.0)
Treatment of pulmonary embolism:(Range:2.0-3.0)
Prevention of systemic embolism from:
-tissue heart valves
-acute myocardial infarction
-valvular heart disease
-atrial fibrillation
(Range: 2.0-3.0)
Mechanical prosthetic valves: (Range: 2.5-3.5) Observation Date Value Abnormality Reference (Units ) Status INR in Capillary blood by Coagulation assay 10/09/2023 09:40:18 2.2 (INR) Final Performing Location [facility] [place] [id number]
--- OUTSIDE RECORDS SUMMARY | 2023-11-26 09:34 | External Medical Summary | Summary of Care ---
Author Name Unknown Organization [facility] Address [address] [place] [place] [address] Phone [phone] Care Team Providers Care Bookstore Manager Name Role Phone Saida EISENBERG MD, David Adame Primary Care Provider [phone] Reason for Visit * Reason Comments Dosage Adjustment In Person (Anticoag Cl inic) Encounter Details Date Type Department Care Team (Latest Contact Info) Description 09/11/2023 10:10 AM EDT Anticoagulation Pharmacy, [facility] 200 [facility] [place] [address] Pharmacist1, [facility] [address] [facility] [place] [address] Anticoagulation management encounter*; Paroxysmal atrial fibrillation (HCC); Antiphospholipid antibody syndrome (HCC) Allergies Active Allergy Reactions Criticality Noted Date Comments Lisinopril Cough Low 06/04/2011 documented as of this encounter (statuses as of 09/11/2023) Medications Medication Sig Dispensed Refills Start Date [...] BEDTIME 135 Tablet 3 07/10/2023 Active Nystatin 058460 UNIT/ML Mouth/Throat SuspensionIndicati ons:Thrush Swish and swallow [...] as of this encounter (statuses as of 09/11/2023) Active Problems Problem Noted Date Diagnosed Date [...] rinse after steroid. Test performed by Mimi SUPERINTENDENT LAUNDRY CPFT Chronic rhinitis 07/02/2019 Paroxysmal atrial fibrillation 07/14/2018 CAROL ANN (generalized anxiety disorder) 04/24/2018 Incomplete right bundle branch block (RBBB) 10/25 Antiphospholipid antibody syndrome 12/05/2011 HTN, goal below 140/90 07/12/2011 FDC current use of anticoagulant therapy 1 06/17/2010 ADVANCE DIRECTIVE INFORMATION 07/01/2007 Overview: No, Advance Directive brochure given to patient at prior appointment. Planning to do a power of attorney general. Note on 07/04 has an appt soon. Esophageal reflux 06/01/2004 documented as of this encounter (statuses as of 09/11/2023) Resolved Problems Problem Noted Date Diagnosed Date [...] as of this encounter (statuses as of 09/11/2023) Immunizations Name Administration Dates Next Due COVID-19 [...] 8:47 AM EST Sexual Orientation Straight 04/28/2019 8 :47 AM EST Job Start Date Occupation Industry Not on file Not on file Not on file documented as of this encounter Progress Notes * Syed Del Rosario, [facility] - 09/11/2023 10:03 AM EDT Medication Therapy Disease Management - Anticoagulation Jolanta Horn 1935 Description Takes in AM No amiodarone: 2.5mg daily (2.5mg tabs - takes in AM) Prednisone dose: 1.25 mg daily Caution with bridge post-procedure as patient had GI bleed following colonoscopy 02/2020 Patient Findings Negatives: Signs/symptoms of thrombosis, Signs/symptoms of bleeding, Change in health, Change in alcohol use, Change in activity, Upcoming invasive procedure, Missed doses, Extra doses, Change in medications, Change in diet/appetite, Bruising INR Result As of 09/11/2023 INR goal: 2.0-3.0 INR used for dosin.0 (09/11/2023) Warfarin Plan As of 09/11/2023 Full warfarin instructions: 2.5 mg every Mon, Wed, Fri; 1.25 mg all other days No change documented: Syed Del Rosario RPh Next INR check: 10/09/2023 Repeat PT/INR in 4 week(s) Weekly dose: not changed Syed Britt RPh, CACP, CDE Clinical Pharmacist Medication Therapy Management [facility] 09/11/2023 10:10 AM documented in this encounter Plan of Treatment Upcoming Encounters Date Type Department Care Team (Late st Contact Info) Description 10/09/2023 9:40 AM EDT Anticoagulation Pharmacy, [facility] [address] [place] [place] [address] [address] Pharmacist1, [facility] [address] [place] [address] [address] 10/24/2023 8:00 AM EDT Office Visit Cardiology, [facility] [address] [place] [address] Osito Kamara PA-C [address] [place] [address] 11/29/2023 9:20 AM EDT Office Visit Family Practice [facility] [place] [address] [place] [address] David Cintron III, MD [address] [place] [address] [address] 03/31/2024 2:30 PM EST Office Visit [facility] [place] [address] [address] Christianne Mendez PA-C [address] [place] [address] 06/03/2024 8:40 AM EST Office Visit Otolaryngology [facility] [address] [place] [address] Angel Blankenship PA-C [address] [place] [address] Scheduled Orders Name Type Priority Associated Diagnoses Orde r Schedule INR FINGERSTICK, POINT OF CARE Point of Care Testing - Unsolicited Results STAT Paroxysmal atrial fibrillation (HCC) Antiphospholipid antibody syndrome (HCC) Anticoagulation management encounter Every 2 Weeks for 26 Occurrences starting 09/11/2023 until 09/10/2024, 1 completed PT INR Lab Routine Paroxysmal atrial fibrillation (HCC) Antiphospholipid antibody syndrome (HCC) Anticoagulation management encounter Every 6 Weeks for 26 Occurrences starting 09/11/2023 until 09/10/2024 Scheduled Procedures Name Priority Associated Diagnoses Date/Ti [...] Completed 08/21/2018, 03/28, 08/21/2017, Additional history exists COLONOSCOPY-EVERY 3 YRS AGES 18-100 Discontinued 03/19/2020, 03/15/2020, 03/15/2020, Additional history exists Influenza Vaccine (FLU [...] this encounter Medical Devices Implanted Type Area Building Estimator Device Identifier Shelf Expiration Date Model / Serial / Lot Clip Quick 2.8mm 230cm - [id number] Implanted:Qty: 1 on 03/15/2020 by Janell Raphael MD at ENDOSCOPY [facility] [email or web address] 05/26/2022 HX-202UR.A / / 01K Clip Quick 2.8mm 230cm - [id number] Implanted:Qty: 1 on 03/15/2020 by Janell Raphael MD at ENDOSCOPY [facility] [email or web address] 05/26/2022 HX-202UR.A / / 01K documented as of this encounter Procedures Procedure Name Priority Date/Time Associated Diagnosis Comments INR FINGERSTICK, POINT OF CARE STAT 09/11/2023 10:08 AM EDT Paroxysmal atrial fibrillation (HCC) Antiphospholipid antibody syndrome (HCC) Anticoagulation management encounter documented in this encounter Results * INR FINGERSTICK, POINT OF CARE (09/11/2023 10:08 AM EDT) Fingerstick INR 2.0 INR 10:09 AM EDT [facility] 56 Blood 09/11/2023 10:0 8 AM EDT 09/11/2023 10:09 AM EDT Narrative [facility] 56- - 09/11/2023 10:09 AM EDT Therapeutic ranges for non-operative patients: Prophylaxsis/treatment of DVT: (Range:2.0-3.0) Treatment of pulmonary embolism:(Range:2.0-3.0) Prevention of systemic embolism from: -tissue heart valves -acute myocardial infarction -valvular heart disease -atrial fibrillation (Range: 2.0-3.0) Mechanical prosthetic valves: (Range: 2.5-3.5) Syed Lorenza V, [facility] POINT OF CARE TE ST DOCKED DEVICE UNSOLICITED RESULTS [facility] 200 [facility] [place] [address] documented in this encounter Visit Diagnoses Diagnosis Anticoagulation management encounter- Primary Encounter for therapeutic drug monitoring Paroxysmal atrial fibrillation (HCC) Atrial fibrillation Antiphospholipid antibody syndrome (HCC) Primary hypercoagulable state documented in this encounter Care Teams Bookstore Manager Relationship Specialty Start Date End Date David Cintron III, MD 200 [facility] [place] [address] PCP - General 01/09/1996 documented as of this encounter
--- OUTSIDE RECORDS SUMMARY | 2023-11-26 09:34 | External Medical Summary | Summary of Care ---
Author Name Unknown Organization [facility] Address [address] [place] [address] Phone [phone] Care Team Providers Care Licensing Services Clerk Name Role Phone Saida EISENBERG MD, David Adame Primary Care Provider [phone] Reason for Visit * Reason Onset Date Comments Medication Refill 09/03/2023 Encounter Details Date Type Department Care Team (Late st Contact Info) Description 09/03/2023 Refill Pulmonary Medicine, [place] [address], [place] [id number] Rocky Rasmussen MD [address] [place] [address] Moderate persistent asthma without complication Allergies Active Allergy Reactions Criticality Noted Date Comments Lisinopril Cough Low 06/04/2011 documented as of this encounter (statuses as of 09/13/2023) Medications Medication Sig Dispensed Refills Start Date [...] BEDTIME 135 Tablet 3 07/10/2023 Active Nystatin 818826 UNIT/ML Mouth/Throat SuspensionIndicat ions:Thrush Swish and swallow [...] the morning. 180 Blister Dosing Unit 1 12/27/2022 4 Discontinue d(Refill) Hospital, Clinic, or Other Facility Administered Medication Ordered Dose Route Frequency Start Date End Date Status albuterol sulfate (PROVENTIL) (2.5 MG/3ML) 0.083% inhalation solution 2.5 mgIndications:CAMPOS (dyspnea on exertion),Wheezing 2.5 mg NEBULIZER Q4H PRN 04/29/2019 Active documented as of this encounter (statuses as of 09/13/2023) Active Problems Problem Noted Date Diagnosed Date [...] rinse after steroid. Test performed by Mimi DENTURE CONTOUR WIRE SPECIALIST CPFT Chronic rhinitis 07/02/2019 Paroxysmal atrial fibrillation 07/14/2018 CAROL ANN (generalized anxiety disorder) 04/24/2018 Incomplete right bundle branch block (RBBB) 10/25 Antiphospholipid antibody syndrome 12/05/2011 HTN, goal below 140/90 07/12/2011 director long term care current use of anticoagulant therapy 1 06/17/2010 ADVANCE DIRECTIVE INFORMATION 07/01/2007 Overview: No, Advance Directive brochure given to patient at prior appointment. Planning to do a power of finance attorney. Note on 07/04 has an appt soon. Esophageal reflux 06/01/2004 documented as of this encounter (statuses as of 09/13/2023) Resolved Problems Problem Noted Date Diagnosed Date [...] as of this encounter (statuses as of 09/13/2023) Immunizations Name Administration Dates Next Due COVID-19 [...] encounter Miscellaneous Notes * Telephone Encounter - Gladys Morales LPN - 09/04/2023 8:34 AM EDT duplicate * Telephone Encounter - Gladys Morales LPN - 09/04/2023 8:34 AM EDTRefused Prescriptions: Disp Refills Fluticasone Furoate-Vilanterol 200-25 MCG/*180 Bl*1 Sig: Inhale 1 Puff by mouth in the morning. Refused By: GLADYS MORALES Reason for Refusal: Duplicate Request Fluticasone Furoate-Vilanterol 200-25 MCG/*60 Each0 Sig: Inhale 1 Puff by mouth in the morning. Refused By: GLADYS MORALES Reason for Refusal: Duplicate Request * Telephone Encounter - Paola Mirza, [facility] - 09/03/2023 11:38 AM EDT Did you pend patient's preferred pharmacy and medication before forwarding?yes [id number] Pending Prescriptions: Disp Refills Fluticasone Furoate-Vilanterol 200-25 MCG*180 Bl*1 Sig: Inhale 1 Puff by mouth in the morning. Last Visit: Visit date not found (in office), 10/15/2022 (telemedicine) Next Visit: Visit date not found If no future appointments scheduled, and last appointment is greater than a year ago, please schedule patient for a follow-up appointment Last date the medication was ordered: [id number] Is this request for a controlled substance?No Urine Drug Screen:No results found. However, due to the size of the patient record, not all encounters were searched. Please check Results Review for a complete set of results. Patient Phone Numbers Labs: Lab Results Component [...] Description 10/09/2023 9:40 AM EDT Anticoagulation Pharmacy, [facility] [address] [place] [address] Pharmacist1, [facility] [address] [place] [address] [address] 10/24/2023 8:00 AM EDT Office Visit Cardiology, [facility] [place] [address] Osito Kamara PALemuel [address] [place] [address] 11/29/2023 9:20 AM EDT Office Visit Family Practice [facility] [place] [address] [place] [address] David Cintron III, MD [address] [place] [address] 03/31/2024 2:30 PM EST Office Visit Dermatology [facility] [place] [address] [place] [place] [address] [address] Christianne Mendez PA-C [address] [facility] [place] [address] 06/03/2024 8:40 AM EST Office Visit Otolaryngology [facility] [address] [place] [address] Angel Blankenship PA-C [address] [place] [address] Scheduled Procedures Name Priority Associated Diagnoses Date/Ti [...] this encounter Medical Devices Implanted Type Area It Specialist Device Identifier Shelf Expiration Date Model / Serial / Lot Clip Quick 2.8mm 230cm - [id number] Implanted:Qty: 1 on 03/15/2020 by Janell Raphael MD at ENDOSCOPY [facility] [employer] 05/26/2022 HX-202UR.A Clip Quick 2.8mm 230cm - [id number] Implanted:Qty: 1 on 03/15/2020 by Janell Raphael MD at ENDOSCOPY [facility] [employer] 05/26/2022 HX-202UR.A K documented as of this encounter Visit Diagnoses Diagnosis Moderate persistent asthma without complication Unspecified asthma documented in this encounter Care Teams Licensing Services Clerk Relationship Specialty Start Date End Date David Cintron III, MD [address] [facility] [place] [address] PCP - General 01/09/1996 documented as of this encounter
--- OUTSIDE RECORDS SUMMARY | 2023-11-26 09:35 | External Medical Summary | Summary of Care ---
Author Name Unknown Organization [facility] Address [address] [place] [address] Phone [phone] Care Team Providers Care Sheep Farmer Name Role Phone Saida EISENBERG MD, David Adame Primary Care Provider [phone] Reason for Referral * Evaluate & Treat - Unlimited Visits (Within 10 days (routine)) - Pending Review Specialty Diagnoses / Procedures Referred By Andrew trinidad Referred To Contact Physical Therapy / Physical Medicine And Rehab Diagnoses Cervical disc disorder with radiculopathy Ned Tejada MD [address] [place] [address] Referral ID Status Reason Start Date Expiration Date Visits Requested Visits Authorized [id number] Pending Review Specialty Services Required 07/17/[phone] Question Answer Referral Priority Within 10 days (routine) Where should this appointment be scheduled? [facility] Comments Right cervical radiculopathy Bilateral rotator cuff tears with left-sided weakness Rotator cuff program scapular stabilizing exercises, neck school Modalities as needed 2 to 3 times a week for 4-6 weeks * Evaluate & Treat - Unlimited Visits (Within 30 days (routine)) - Pending Review Specialty Diagnoses / Procedures Referred By Andrew trinidad Referred To Contact Pain Management / Pain Medicine Diagnoses Cervical disc disorder with radiculopathy Ned Tejada MD [address] [place] [address] Referral ID Status Reason Start Date Expiration Date Visits Requested Visits Authorized [id number] Pending Review Specialty Services Required 07/17/[phone] Question Answer Referral Priority Within 30 days (routine) Where should this appointment be scheduled? [facility] Reason for referral? Interventional Pain Management - (Injection) What condition is the patient being referred for? Cervical Radiculopathy What is the preferred location to have this test performed? [facility] Comments Patient Name: Jolanta Horn Date of : 1935 Department Phone Number: MRI or CT (if unable to have a MRI) is recommended if any of the following apply: 1. Patient has neck or back pain with radiation to extremities. A previous MRI will be accepted if symptoms unchanged since prior MRI. 2. Spinal surgery since last MRI. If yes, order a MRI with and without contrast. 3. Hx or ongoing cancer treatment. Patient will need spine x-ray (Ap/Lat) for axial neck or back pain if not done previously. Fax No. [facility] [phone] or contact restaurant front manager [phone] Fax No. [facility] [phone] or contact restaurant front manager [phone] Fax No. [facility] [phone] or contact restaurant front manager [phone] Reason for Visit * Reason Comments Joint Pain Right shoulder * Evaluate & Treat - Unlimited Visits (Within 10 days (routine)) - Pending Review Specialty Diagnoses / Procedures Referred By Andrew trinidad Referred To Contact Sports Medicine / Orthopedics Diagnoses Tendinitis of right rotator cuff Numbness and tingling in right hand David Cintron III, MD [address] [facility] [place] [address] Referral ID Status Reason Start Date Expiration Date Visits Requested Visits Authorized [id number] Pending Review Specialty Services Required 05/30/[phone] Encounter Details Date Type Department Care Team (Late st Contact Info) Description 07/17/2023 10:00 AM EST Office Visit Orthopaedics [facility] [place] [address] [place] [address] Ned Tejada MD [address] [place] [address] Cervical disc disorder with radiculopathy*; Traumatic complete tear of left rotator cuff, initial encounter; Nontraumatic complete tear of right rotator cuff Allergies Active Allergy Reactions Criticality Noted Date Comments Lisinopril Cough Low 06/04/2011 documented as of this encounter (statuses as of 07/17/2023) Medications Medication Sig Dispensed Refills Start Date [...] nostril daily. 47.4 mL 3 03/15/2021 Active Metoprolol Succinate ER 25 MG Oral Tablet Extended Release 24 Hour (toPROL XL)Indications:Par oxysmal atrial fibrillation (HCC) Take by mouth 1 Tablet in the morning. 90 Tablet 3 12/15/2021 Active Levothyroxine Sodium 50 MCG Oral Tablet (Levoxyl)Indicatio ns:PT NOT TAKING - PHARMACY CANNOT GET MEDICATION TAKE 1 TABLET DAILY AT LEAST 30 MINUTES PRIOR TO BREAKFAST OR OTHER MEDICATIONS 100 Tablet 5 05/18/2022 Active amLODIPine Besylate 5 MG Oral Tablet (Norvasc)Indicatio ns:HTN, goal below 140/90 Take 0.5 Tablets by mouth in the morning. 90 Tablet 1 11/30/2022 Active Fluticasone Furoate-Vilanterol 200-25 MCG/ACT Inhalation Aerosol Powder Breath Activated (BREO ellipta)Indication s:Moderate persistent asthma without complication Inhale 1 Puff by mouth in the morning. 60 Each 0 12/27/2022 Active Fluticasone Furoate-Vilanterol 200-25 MCG/ACT Inhalation Aerosol Powder Breath Activated (BREO ellipta)Indication s:Moderate persistent asthma without complication Inhale 1 Puff by mouth in the morning. 180 Blister Dosing Unit 1 12/27/2022 Active Furosemide 20 MG Oral Tablet [...] BEFORE BEDTIME 135 Tablet 3 07/10/2023 Active Hospital, Clinic, or Other Facility Administered Medication Ordered Dose Route Frequency Start Date End Date Status albuterol sulfate (PROVENTIL) (2.5 MG/3ML) 0.083% inhalation solution 2.5 mgIndications:CAMPOS (dyspnea on exertion),Wheezing 2.5 mg NEBULIZER Q4H PRN 04/29/2019 Active documented as of this encounter (statuses as of 07/17/2023) Active Problems Problem Noted Date Diagnosed Date [...] rinse after steroid. 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 Planning to do a power of stunt woman. Note on 07/04 has an appt soon. Esophageal reflux 06/01/2004 documented as of this encounter (statuses as of 07/17/2023) Resolved Problems Problem Noted Date Diagnosed Date [...] as of this encounter (statuses as of 07/17/2023) Immunizations Name Administration Dates Next Due COVID-19 [...] as of this encounter Progress Notes * Ned Tejada MD - 07/17/2023 11:00 AM EST CHIEF COMPLAINT: Chief Complaint Patient presents with Joint Pain Right shoulder Impression: M50.10 Cervical disc disorder with radiculopathy (primary encounter diagnosis) S46.012A Traumatic complete tear of left rotator cuff, initial encounter M75.121 Nontraumatic complete tear of right rotator cuff Plan: We discussed the diagnosis and treatment options with the patient today. At this time we feel the patient's right-sided symptoms are most likely secondary to cervical radiculopathy. She does have left-sided weakness more consistent with rotator cuff pathology. We feel the patient would benefit from a course of physical therapy for her cervical spine as well as her shoulders. Because radicular symptoms we feel she would benefit from seeing non operative spine for evaluationand treatment management. Follow Up: Return for Referral to pain management for nonoperative spine. | For: Referral to pain management for nonoperative spine There are no Patient Instructions on file for this visit. HISTORY OF PRESENT ILLNESS: Jolanta Horn is a 87 year old right hand dominant female who presents to orthopedic Sports Medicinefor consultation at the request of David Cintron III, MD to us with a history of right arm weakness,left arm weakness, and right shoulder pain . Patient states he has been having right shoulder pain for 6 months. She localizes symptoms over the right trapezial region down the shoulder and into the arm. States she has difficulty with holding objects and dropping things. Over the last 6 months patient has seen a chiropractor and has undergone manipulations which she states does help somewhat. Sheis also undergone massage therapy. She denies any previous injury. Rachel at night? yes. Physical Therapy? no. Injections? no. Nursing Notes: Saima No, MENTAL HEALTH NURSE PRACTITIONER 07/17/[address] David Cintron III for Rt shoulder has been going on for months seen chiropractor massage therapy has pain between her shoulder blades numbness at times and weakness in her right arm numbness into her 5th finger. 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 Saima Holley MENTAL HEALTH NURSE PRACTITIONER Past Surgical History: Procedure Laterality Date COLONOSCOPY W/ LESION REMOVAL, SNARE 08/27/[address] COLONOSCOPY, DIAGNOSTIC (RECTUM) 02/10/2007 COLONOSCOPY, DIAGNOSTIC (RECTUM) 02/25/2014 COLONOSCOPY FLEXIBLE PROXIMAL DIAGNOSTIC performed by Osito Braswell MD at [facility] COLONOSCOPY, DIAGNOSTIC (RECTUM) 03/15/2020 serrated adenomatous polyp, repeat 3 yrs / COLONOSCOPY FLEXIBLE PROXIMAL DIAGNOSTIC performed by Janell Raphael MD at [facility] COLONOSCOPY, DIAGNOSTIC (RECTUM) 03/19/2020 bleeding polypectomy site, treated / INPT [facility] CYSTOSCOPY 07/16/2005 MAMMOGRAM - BILATERAL 07/29/2002 Birad code 2, benign MAMMOGRAM DIAGNOSTIC BILATERAL 10/04/2009 birad code 2 MAMMOGRAM SCREENING-BILATERAL 09/27/2006 birad code 2 MAMMOGRAM SCREENING-BILATERAL 09/29/2007 birad 2 MAMMOGRAM SCREENING-BILATERAL 09/29/2008 birad code 2 PARTIAL REMOVAL OF COLON 05/23/2007 Sigmoid partial colectomy at [facility] - Dr. Mcnair REMOVAL OF APPENDIX REMOVE GALLBLADDER VAGINAL DELIVERY ONLY times 2 Review of patient's allergies indicates: Allergen Reactions [...] into each nostril daily. 47.4 mL 3 Metoprolol Succinate ER 25 MG Oral Tablet Extended Release 24 Hour (toPROL XL) Take by mouth 1 Tablet in the morning. 90 Tablet 3 Levothyroxine Sodium 50 MCG Oral Tablet (Levoxyl) TAKE 1 TABLET DAILY AT LEAST 30 MINUTES PRIOR TO BREAKFAST OR OTHER MEDICATIONS 100 Tablet 5 amLODIPine Besylate 5 MG Oral Tablet (Norvasc) Take 0.5 Tablets by mouth in the morning. 90 Tablet 1 Fluticasone Furoate-Vilanterol 200-25 MCG/ACT Inhalation Aerosol Powder Breath Activated (BREO ellipta) Inhale 1 Puff by mouth in the morning. 60 Each 0 Fluticasone Furoate-Vilanterol 200-25 MCG/ACT Inhalation Aerosol Powder Breath Activated (BREO ellipta) Inhale 1 Puff by mouth in the morning. 180 Blister Dosing Unit 1 Furosemide 20 MG Oral Tablet (Lasix) TAKE 1 TABLET DAILY PLUS EXTRA TABLET ON TUESDAYS AND THURSDAYS 115 Tablet 3 Isosorbide Mononitrate ER 60 MG Oral Tablet Extended Release 24 Hour (Imdur) TAKE 1 TABLET DAILY 90Tablet 3 Benzonatate 100 MG Oral Capsule Take 1 Capsule by mouth 3 times a day as needed for Cough. 30 Capsule 1 Ipratropium-Albuterol 0.5-2.5 (3) MG/3ML Inhalation Solution (Duoneb) INHALE 3ML VIA NEBULIZER THREE TIMES A DAY FOR 7 DAYS USE THREE TIMES A DAY FOR 2 TO 3 DAYS AND MAY ALSO USE NEEDED FOR SHORTNESS OF FIFI 120 mL 2 Warfarin Sodium 2.5 MG Oral Tablet (Jantoven) TAKE 1 TABLET ON SATURDAY AND SATURDAY AND TAKE 1/2 TABLET ALL OTHER DAYS OR DIRECTED BY COAGULATION CLINIC 70 Tablet 3 Albuterol Sulfate HFA 108 (90 Base) MCG/ACT Inhalation Aerosol Solution Inhale 2 Puffs by mouth every 4 hours as needed for Wheezing. 54 g 0 Montelukast Sodium 10 MG Oral Tablet (Singulair) Take 1 Tablet by mouth at bedtime. 60 Tablet 4 Amiodarone HCl 200 MG Oral Tablet (Cordarone) TAKE 1 TABLET DAILY 90 Tablet 3 Atorvastatin Calcium 20 MG Oral Tablet (Lipitor) Take 1 Tablet by mouth in the morning. 90 Tablet 3 Omeprazole 40 MG Oral Capsule Delayed Release (PriLOSEC) Take 1 Capsule by mouth in the morning and1 Capsule before bedtime. 180 Capsule 3 Potassium Chloride Aaliyah ER 20 MEQ Oral Tablet Extended Release Take 1 Tablet by mouth in the morning. 90 Tablet 5 Diclofenac Sodium 1 % External Gel (Voltaren) Apply topically to affected area 2 times a day. Applyto knee and r leg 700 g 11 hydrALAZINE HCl 25 MG Oral Tablet (Apresoline) TAKE 1/2 TABLET IN THE MORNING, 1/2 TABLET AT NOON AND 1/2 TABLET BEFORE BEDTIME 135 Tablet 3 Current Facility-Administered Medications Medication Dose Route Frequency Provider Last Rate Last Admin albuterol sulfate (PROVENTIL) (2.5 MG/3ML) 0.083% inhalation solution 2.5 mg 2.5 mg Nebulizer Q4H PRN David Cintron III, MD 2.5 mg at 05/14/19 1117 Social History Socioeconomic History Marital status: Tobacco Use Smoking status: Never Smokeless tobacco: Never Vaping Use Vaping Use: Never used Substance and Sexual Activity Alcohol use: No Comment: denies Drug use: No Comment: denies Sexual activity: Not Currently Partners: Male Comment: 2 children Other Topics Concern Service No Blood Transfusions No Caffeine Concern No Occupational Exposure No Hobby Hazards No Sleep Concern No Stress Concern No Weight Concern No Special Diet No Back Care No Exercise No Seat Belt Yes Self-Exams Yes Social Determinants of Health Food Insecurity: No Food Insecurity (04/28/2019) Hunger Vital Sign Worried About Running Out of Food in the Last Year: Never true Ran Out of Food in the Last Year: Never true Family History Problem Relation Age of Onset Heart Disorder Brother HISS [place] Heart Disorder Brother [place]ISS [place] Cancer Mother ovarian Gastro-intestinal disorder Mother bowel rupture Lung Disorder Father black lung Cancer Sister lung No Past Hx Daughter No Past Hx Daughter Past Medical History: Diagnosis Date Diverticulosis of colon CAROL ANN (generalized anxiety disorder) 04/24/2018 HTN, goal below 140/90 ROS: Constitional: No change in weight, No weakness, No fatigue, and No fevers, sweats, or chills Skin: No edema, No rash, and No itching Psychiatric: No depression, No anxiety, and No psychosis Xray: I personally reviewed the xrays. The x-rays of the right shoulder from today do not show any evidence fracture, no dislocation, no evidence of loose bodies. There is evidence of chronic changesto the acromion in the AC joint. There is decreased subacromial spacing which may be consistent with rotator cuff tear. There are chronic changes to the rotator cuff footprint. We reviewed the cervical spine x-rays from 01/02/2021. Those x-rays do show evidence of multilevel degenerative disc disease. No evidence spondylolysis or spondylolisthesis. PHYSICAL EXAM: General: generally well-nourished and in no acute distress HEENT: normocephalic, atraumatic, EOMI, sclera anicteric. Psych: mood and affect normal , cooperative Card: Peripheral pulses: normal in affected extremity (s) Resp: equal chest rise, non-tachypneic, non-labored breathing Skin: no rash, normal Neuro: Coordination: normal; Sensation: normal on affected extremity (s) Skin: normal. C-Spine evaluation: Does patient have neck symptoms and/or numbness/tingling in upper extremities: Yes Inspection: bilateral and symmetrical without apparent abnormality Shoulder ROM: ABD (170') - Right - 50 degrees Left - 50 degrees ER (40') - Right - 0 degrees Left - 0 degrees Passive ER -Right - 40 degrees Left - 40 degrees IR (T10) - right L1 left L1 FF (180') - Right - 60 degrees Left - 60 degrees Scapular elevation with forward flexion:negativeBilateral Tenderness/Location: yes - SS , Traps/Levs Inspection AC Joint Prominence: normal Cross-arm maneuver: positive Impingement sign: positive Sulcus sign: negative Lift-off test: negative Apprehension:negative [place]'s test: negative Load and shift: negative Speed's test: negative Drop-arm test: negative Instability Testing: Shoulder instability testing: not examined negative scapular winging negative scapular dyskinesis Strength: ABD: Right - 4/5 Left - 4/5 ER: Right - 5/5 Left - 4/5 IR: Right - 5/5 Left - 5/5 Biceps: Right - 3/5 Left - 3/5 "Empty can": Right - 3/5 Left - 3/5 Neurovascular assessment: negative for deficit Neck ROM: Extension 0 Flexion 40 Spurlings test: Right positive Left negative Lateral bending and rotation pain: right positive left positive TTP: negative Ligamentous laxity testing: negative Bilateral Ned Tejada MD [facility] [address] [facility] [address] Orthopedic Sports Medicine Surgery 07/17/2023 11:01 AM This chart was completed in part utilizing [employer] Speech Voice Recognition Software. Grammatical errors, random word insertions, pronoun errors, and incomplete sentences are an occasional consequence of this system due to software limitations, ambient noise, and hardware issues. Any formal questions or concerns about the content, text, or information contained within the body of this dictation should be directly addressed to the provider for clarification. documented in this encounter Nursing Notes * Saima No LPN - 07/17/2023 10:02 AM EST Ref by Dr David Cintron III for Rt shoulder has been going on for months seen chiropractor massage therapy has pain between her shoulder blades numbness at times and weakness in her right arm numbness into her 5th finger. 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 Saima Holley LPN documented in this encounter Plan of Treatment Upcoming Encounters Date Type Department Care Team (Late st Contact Info) Description 08/12/2023 8:30 AM EDT Anticoagulation Pharmacy, [facility] [address] [facility] [place] [address] Pharmacist2, [facility] [address] [facility] [place] [address] 08/23/2023 8:00 AM EDT Office Visit Interventional Pain Center, [facility] [address] [place] [address] Nora Morocho PA-C [address] [place] [address] 10/24/2023 8:00 AM EDT Office Visit Cardiology, [facility] [address] [place] [address] Osito Kamara PA-C [address] [place] [address] 11/29/2023 9:20 AM EDT Office Visit Family Practice [facility] [address] [facility] [place] [address] David Cintron III, MD [address] [facility] [place] [address] 03/31/2024 2:30 PM EST Office Visit Dermatology [facility] [address] [facility] [place] [address] Christianne Mendez PA-C [address] [facility] [place] [address] 06/03/2024 8:40 AM EST Office Visit Otolaryngology [facility] [address] [place] [address] Angel Blankenship PA-C [address] [place] [address] Pending Results Name Type Priority Associated Diagnoses Date /Time XR SHOULDER, 2 OR MORE VIEWS Medical Imaging Routine 07/17/2023 10:18 AM EST Scheduled Procedures Name Priority Associated Diagnoses Date/Ti me COLONOSCOPY FLEXIBLE PROXIMAL DIAGNOSTIC Recall History of colon polyps Scheduled Referrals Name Type Priority Associated Diagnoses Orde r Schedule PAIN MEDICINE REFERRAL OP Referral Within 30 days (routine) Cervical disc disorder with radiculopathy Ordered: 07/17/2023 PHYSICAL THERAPY REFERRAL OP Referral Within 10 days (routine) Cervical disc disorder with radiculopathy Ordered: 07/17/2023 Health Maintenance Due Date Last Done Comments [...] this encounter Medical Devices Implanted Type Area Quality Management Coordinator Device Identifier Shelf Expiration Date Model / Serial / Lot Clip Quick 2.8mm 230cm - [id number] Implanted:Qty: 1 on 03/15/2020 by Janell Raphael MD at [facility] [employer] 05/26/2022 HX-UR.A / / [id number] Clip Quick 2.8mm 230cm - [id number] Implanted:Qty: 1 on 03/15/2020 by Janell Raphael MD at [facility] [employer] 05/26/2022 [id number] / / K documented as of this encounter Visit Diagnoses Diagnosis Cervical disc disorder with radiculopathy- Primary Brachial neuritis or radiculitis nos Traumatic complete tear of left rotator cuff, initial encounter Nontraumatic complete tear of right rotator cuff documented in this encounter Care Teams Sheep Farmer Relationship Specialty Start Date End Date David Cintron III, MD [address] [place] [address] PCP - General 01/09/1996 documented as of this encounter
--- OUTSIDE RECORDS SUMMARY | 2023-11-26 09:35 | External Medical Summary | Summary of Care ---
Author Name Unknown Organization [facility] Address [address] [place] [place] [address] Phone [phone] Care Team Providers Care Motion Picture Projectionist Apprentice Name Role Phone Saida EISENBERG MD, David Adame Primary Care Provider [phone] Reason for Visit * Reason Onset Date Comments Medication Refill 07/25/2023 Encounter Details Date Type Department Care Team (Late st Contact Info) Description 07/25/2023 Refill Cardiology, [facility] [place] [address] [facility] [place] [address] Osito Kamara PA-C [address] [place] [address] Paroxysmal atrial fibrillation (HCC) Allergies Active Allergy Reactions Criticality Noted Date Comments Lisinopril Cough Low 06/04/2011 documented as of this encounter (statuses as of 07/26/2023) Medications Medication Sig Dispensed Refills Start Date [...] the morning. 90 Tablet 3 12/15/2021 Active amLODIPine Besylate 5 MG Oral Tablet [...] BEDTIME 135 Tablet 3 07/10/2023 Active Nystatin 903081 UNIT/ML Mouth/Throat SuspensionIndicati ons:Thrush Swish and swallow [...] as of this encounter (statuses as of 07/26/2023) Active Problems Problem Noted Date Diagnosed Date [...] rinse after steroid. 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 Planning to do a power of deputy prosecuting attorney. Note on 07/04 has an appt soon. Esophageal reflux 06/01/2004 documented as of this encounter (statuses as of 07/26/2023) Resolved Problems Problem Noted Date Diagnosed Date [...] as of this encounter (statuses as of 07/26/2023) Immunizations Name Administration Dates Next Due COVID-19 mRNA, LNP-s, No Pre serve, 2-Dose Series (Moderna) 09/16/2020,08/19/2020 COVID-19, mRNA, LNP-s, PF, B ooster, 100mcg/0.5mg (Moderna) 04/24/2021 Pneumococcal Conjugate Vacc, 13 Valent (Prevnar) 02/11/2017,11/22/2014 Pneumococcal Polysaccharide PPV23 (Pneumovax) 11/02/2013,03/27/2002 Season Influenza, Quad, PF, Adjuvanted, 65+ Yrs, IM (FLUAD) 02/21/2023 Seasonal Influenza, Quadriva lent Hd (Fluzone Hd) 03/07/2021 Seasonal Influenza, Quadriva lent Hd, 65+ Yrs 03/05/2020 Seasonal Influenza, Quadriva lent, No Preserve, IM 02/24/2016 Seasonal Influenza, Split, I IV3, No Preserve, Inj 05/09/2000 05/10/2001 Seasonal Influenza, Split, I IV3, With Preserve, Inj 02/18/2017,01/29/2015,02/17/2014,02/24,02/08/2012,02/24/2010,03/27/20 09,02/25/2008,03/03/2007,03/27/2002,1 07/03/2000 Seasonal Influenza, Trivalen t, Adjuvanted, 65+ yrs [...] encounter Miscellaneous Notes * Telephone Encounter - Alaina Escobar RN - 07/26/2023 1:23 PM ESTPending Prescriptions: Disp Refills Metoprolol Succinate ER 25 MG Oral Tablet *90 Tab*3 Sig: Take 1Tablet by mouth in the morning. * Addendum Note - Laina Landa CPhT - 07/25/2023 4:10 PM ESTAddended by: LAINA LANDA on: 07/25/2023 04:10 PM Modules accepted: Orders * Telephone Encounter - Laina Landa CPhT - 07/25/2023 4:07 PM EST Patient is up to date for office visits. Pending Prescriptions: Disp Refills Metoprolol Succinate ER 25 MG Oral Tablet*90 Tab*3 Sig: Take 1 Tablet by mouth in the morning. Last Visit: 04/19/2023 (in office), 04/29/2020 (telemedicine) Next Visit: 10/24/2023 If no future appointments scheduled, and last appointment is greater than a year ago, please schedule patient for a follow-up appointment Last date the medication was ordered: 12/15/2021 Pharmacy[id number] Is this request for a controlled substance?No it is not controlled. Urine Drug Screen:No results found. However, due [...] 12:42 PM ALT 25 03/25/2020 09:12 AM * Telephone Encounter - Danica De León PHARM Tech - 07/25/2023 3:44 PM EST Pt calling in for refill on med from cardio. Transferred to specialty for assistance. Thank You, Danica De León CPhT Metal Filer II [facility] Services ([facility]PS) (Formerly Telepharmacy) 07/25/2023, 3:45 PM documented in this encounter Plan of Treatment Upcoming Encounters Date Type Department Care Team (Late st Contact Info) Description 08/12/2023 8:30 AM EDT Anticoagulation Pharmacy, [facility] [address] [facility] [place] [address] Pharmacist2, [facility] [address] [place] [address] 08/23/2023 8:00 AM EDT Office Visit Interventional Pain Center, [facility] [place] [address] [place] [address] Nora Morocho PA-C [address] [place] [address] 10/24/2023 8:00 AM EDT Office Visit Cardiology, [facility] [place] [address] [place] [address] Osito Kamara PA-C [address] [place] [address] 11/29/2023 9:20 AM EDT Office Visit Family Practice [facility] [address] [facility] [place] [address] David Cintron III, MD [address] [facility] [place] [address] 03/31/2024 2:30 PM EST Office Visit Dermatology [facility] [address] [place] [address] Christianne Mendez PA-C [address] [facility] [place] [address] 06/03/2024 8:40 AM EST Office Visit Otolaryngology [facility] [place] [address] [place] [address] Angel Blankenship PA-C [address] [place] [address] Scheduled Procedures Name Priority Associated Diagnoses Date/Ti [...] this encounter Medical Devices Implanted Type Area Diesel Engine Fitter Device Identifier Shelf Expiration Date Model / Serial / Lot Clip Quick 2.8mm 230cm - [id number] Implanted:Qty: 1 on 03/15/2020 by Janell Raphael MD at ENDOSCOPY [facility] [employer] 05/26/2022 HX-202UR.A / / K Clip Quick 2.8mm 230cm - [id number] Implanted:Qty: 1 on 03/15/2020 by Janell Raphael MD at ENDOSCOPY [facility] [employer] 05/26/2022 HX-202UR.A / / [id number] documented as of this encounter Visit Diagnoses Diagnosis Paroxysmal atrial fibrillation (HCC) Atrial fibrillation documented in this encounter Care Teams Motion Picture Projectionist Apprentice Relationship Specialty Start Date End Date David Cintron III, MD [address] [place] [address] PCP - General 01/09/1996 documented as of this encounter
--- OUTSIDE RECORDS SUMMARY | 2023-11-26 09:35 | External Medical Summary | Summary of Care ---
Author Name Unknown Organization [facility] Address [address] [facility] [place] [address] Phone [phone] Care Team Providers Care Manager Spring Name Role Phone Saida EISENBERG MD, David Adame Primary Care Provider [phone] Reason for Visit * Reason Onset Date Comments Medication Refill 07/25/2023 Encounter Details Date Type Department Care Team (Late st Contact Info) Description 07/25/2023 Refill Cardiology, [facility] [address] [facility] [place] [address] Osito Kamara PA-C [address] [place] [address] Paroxysmal atrial fibrillation (HCC) Allergies Active Allergy Reactions Criticality Noted Date Comments Lisinopril Cough Low 06/04/2011 documented as of this encounter (statuses as of 07/25/2023) Medications Medication Sig Dispensed Refills Start Date [...] BEDTIME 135 Tablet 3 07/10/2023 Active Nystatin 860531 UNIT/ML Mouth/Throat SuspensionIndicati ons:Thrush Swish and swallow [...] as of this encounter (statuses as of 07/25/2023) Active Problems Problem Noted Date Diagnosed Date [...] rinse after steroid. 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 Planning to do a power of personnel placement specialist. Note on 07/04 has an appt soon. Esophageal reflux 06/01/2004 documented as of this encounter (statuses as of 07/25/2023) Resolved Problems Problem Noted Date Diagnosed Date [...] as of this encounter (statuses as of 07/25/2023) Immunizations Name Administration Dates Next Due COVID-19 [...] as of this encounter Miscellaneous Notes * Addendum Note - Laina Landa CPhT [...] date the medication was ordered: 12/15/2021 [id number] Is this request for a controlled substance?No [...] specialty for assistance. Thank You, Danica De León, production quality manager Branch Billing Payroll Clerk II [facility] Services ([facility]PS) (Formerly Telepharmacy) 07/25/2023, 3:45 PM documented in this encounter Plan of Treatment Upcoming Encounters Date Type Department Care Team (Late st Contact Info) Description 08/12/2023 8:30 AM EDT Anticoagulation Pharmacy, [facility] [place] [address] [facility] [place] [address] Pharmacist2, [facility] [address] [place] [address] 08/23/2023 8:00 AM EDT Office Visit Interventional Pain Center, [facility] [address] [place] [address] Nora Morocho PA-C [address] [place] [address] 10/24/2023 8:00 AM EDT Office Visit Cardiology, [facility] [address] [place] [address] Osito Kamara PA-C [address] [place] [address] 11/29/2023 9:20 AM EDT Office Visit Family Practice [facility] [place] [address] [place] [address] David Cintron III, MD [address] [place] [address] 03/31/2024 2:30 PM EST Office Visit Dermatology [facility] [place] [address] [place] [address] [address] Christianne Mendez PATeteC [address] [facility] [place] [address] 06/03/2024 8:40 AM EST Office Visit Otolaryngology [facility] [address] [place] [address] Angel Blankenship PA-C [address] [place] [address] Scheduled Procedures Name Priority Associated Diagnoses Date/Ti [...] this encounter Medical Devices Implanted Type Area Nuclear Physics Professor Device Identifier Shelf Expiration Date Model / Serial / Lot Clip Quick 2.8mm 230cm - [id number] Implanted:Qty: 1 on 03/15/2020 by Janell Raphael MD at [facility] [employer] 05/26/2022 HX-202UR.A / / K Clip Quick 2.8mm 230cm - [id number] Implanted:Qty: 1 on 03/15/2020 by Janell Raphael MD at [facility] [employer] 05/26/2022 HX-202UR.A / / [id number] documented as of this encounter Visit Diagnoses Diagnosis Paroxysmal atrial fibrillation (HCC) Atrial fibrillation documented in this encounter Care Teams Manager Spring Relationship Specialty Start Date End Date David Cintron III, MD [address] [place] [address] PCP - General 01/09/1996 documented as of this encounter
--- OUTSIDE RECORDS SUMMARY | 2023-11-26 09:35 | External Medical Summary ---
Author Name Unknown Address Unknown Organization K09:[facility] [place] [address] Laboratory Report Ordering Provider Test Date Status DELFINRADHA V 08/12/2023 08:36:48 Final Therapeutic ranges for non-o perative patients:
Prophylaxsis/treatment of DVT: (Range:2.0-3.0)
Treatment of pulmonary embolism:(Range:2.0-3.0)
Prevention of systemic embolism from:
-tissue heart valves
-acute myocardial infarction
-valvular heart disease
-atrial fibrillation
(Range: 2.0-3.0)
Mechanical prosthetic valves: (Range: 2.5-3.5) Observation Date Value Abnormality Reference (Units ) Status INR in Capillary blood by Coagulation assay 08/12/2023 08:36:48 2.8 (INR) Final Performing Location [facility] [place] [address]
--- OUTSIDE RECORDS SUMMARY | 2023-11-26 09:35 | External Medical Summary | Summary of Care ---
Author Name Unknown Organization [facility] Address [address] [place] [address] Phone [phone] Care Team Providers Care Strategic Marketing Manager Name Role Phone Saida EISENBERG MD, David Adame Primary Care Provider [phone] Reason for Visit * Reason Onset Date Comments Med Request 09/06/2023 Encounter Details Date Type Department Care Team (Late st Contact Info) Description 09/06/2023 Telephone Family Practice [facility] [place] [address] [facility] [place] [address] David Cintron III, MD [address] [facility] [address] Med Request Allergies Active Allergy Reactions Criticality Noted Date Comments Lisinopril Cough Low 06/04/2011 documented as of this encounter (statuses as of 09/09/2023) Medications Medication Sig Dispensed Refills Start Date [...] BEDTIME 135 Tablet 3 07/10/2023 Active Nystatin 046581 UNIT/ML Mouth/Throat SuspensionIndicat ions:Thrush Swish and swallow [...] 180 Blister Dosing Unit 1 09/07/2023 Active Fluticasone Furoate-Vilantero l 200-25 MCG/ACT Inhalation [...] as of this encounter (statuses as of 09/09/2023) Active Problems Problem Noted Date Diagnosed Date [...] rinse after steroid. Test performed by Mimi FREIGHT SALES BROKER CPFT Chronic rhinitis 07/02/2019 Paroxysmal atrial fibrillation 07/14/2018 CAROL ANN (generalized anxiety disorder) 04/24/2018 Incomplete right bundle branch block (RBBB) 10/25 Antiphospholipid antibody syndrome 12/05/2011 HTN, goal below 140/90 07/12/2011 senior care current use of anticoagulant therapy 1 06/17/2010 ADVANCE DIRECTIVE INFORMATION 07/01/2007 Overview: No, Advance Directive brochure given to patient at prior appointment. Planning to do a power of director business development. Note on 2/08 has an appt soon. Esophageal reflux 06/01/2004 documented as of this encounter (statuses as of 09/09/2023) Resolved Problems Problem Noted Date Diagnosed Date [...] as of this encounter (statuses as of 09/09/2023) Immunizations Name Administration Dates Next Due COVID-19 [...] encounter Miscellaneous Notes * Telephone Encounter - Cheko Davis DO - 09/09/2023 5:04 PM EDT Script already signed * Telephone Encounter - Maddison Aguirre CPhT - 09/07/2023 9:14 AM EDT Med request check, pending Thank you, Maddison Aguirre CPhT Experimental Welder [facility] Services ([facility]PS)(formerly telepharmacy) 09/07/2023,9:15 AM * Telephone Encounter - China Galvan LPN - 09/06/2023 2:54 PM EDT Did you pend patient's preferred pharmacy and medication before forwarding?yes [id number] Pending Prescriptions: Disp Refills Fluticasone Furoate-Vilanterol 200-25 MCG*180 Bl*1 Sig: Inhale 1 Puff by mouth in the morning. Last Visit: 05/30/2023 (in office), Visit date not found (telemedicine) Next Visit: 11/29/2023 If no future appointments scheduled, and last appointment is greater than a year ago, please schedule patient for a follow-up appointment Last date the medication was ordered: 12/27/22 Is this request for a controlled substance?No [...] 03/25/2020 09:12 AM * Telephone Encounter - Queenie Mayen PHARM Tech - 09/06/2023 1:19 PM EDT Patient calling to request a refill on breo ellipta. Medication was last prescribed by Rocky Rasmussen but patient is asking if PCP can take over the medication. Please advise if this is appropriate and [id number] if agreeable. Thanks, Queenie Mayen Electrician Deck [facility] ([facility]) 09/06/2023,1:19 PM documented in this encounter Plan of Treatment Upcoming Encounters Date Type Department Care Team (Late st Contact Info) Description 09/16/2023 6:10 PM EDT Anticoagulation Pharmacy, [facility] [address] [place] [address] Pharmacist1, [facility] [address] [place] [address] [address] 10/24/2023 8:00 AM EDT Office Visit Cardiology, [facility] [address] [place] [address] Osito Kamara PA-C [address] [place] [address] 11/29/2023 9:20 AM EDT Office Visit [facility] [place] [address] [place] [address] [place] III, David Adame MD [address] [place] [address] 03/31/2024 2:30 PM EST Office Visit Dermatology [facility] [address] [place] [address] Christianne Mendez PA-C [address] [facility] [place] [address] 06/03/2024 8:40 AM EST Office Visit Otolaryngology [facility] [address] [place] [address] Angel Blankenship PA-C [address] [place] [address] Scheduled Procedures Name Priority Associated Diagnoses Date/Ti me COLONOSCOPY FLEXIBLE PROXIMAL DIAGNOSTIC Recall History of colon polyps Health Maintenance Due Date Last Done Comments Hgb 08/16/1953 Depression Screening 04/28/2020 04/28/2019 COVID-19 Vaccine ( season) 2023 04/24/2021, 09/16/2020, 08/19/2020 PTH 10/06/2023 10/05/2022, 10/06/2021 Phosphate 10/06/2023 10/05/2022, 09/24, 09/05/2020, Additional history exists Albumin/Creatinine Ratio 12/27/2023 023, 01/05/2022, 04/07/2021, Additional history exists TSH 12/27/2023 12/26/2022, 06/27, 12/15/2021, Additional history exists Nephrology Referral 03/20/2024 03/20/2023 DXA Scan 12/12/2024 12/12/2021, 06/27, 01/10/2015, Additional [...] this encounter Medical Devices Implanted Type Area Broadcast Supervisor Device Identifier Shelf Expiration Date Model / Serial / Lot Clip Quick 2.8mm 230cm - [id number] Implanted:Qty: 1 on 03/15/2020 by Janell Raphael MD at [facility] [employer] 05/26/2022 HX-202UR.A / K Clip Quick 2.8mm 230cm - [id number] Implanted:Qty: 1 on 03/15/2020 by Janell Raphael MD at [facility] [employer] 05/26/2022 HX-202UR.A / K documented as of this encounter Visit Diagnoses Diagnosis Moderate persistent asthma without complication Unspecified asthma documented in this encounter Care Teams Strategic Marketing Manager Relationship Specialty Start Date End Date David Cintron III, MD [address] [place] [address] PCP - General 01/09/1996 documented as of this encounter
--- OUTSIDE RECORDS SUMMARY | 2023-11-26 09:35 | External Medical Summary | Summary of Care ---
Author Name Unknown Organization [facility] Address [address] [place] [facility] [place] [address] Phone [phone] Care Team Providers Care Blast Furnace Supervisor Name Role Phone Saida EISENBERG MD, David Adame Primary Care Provider [phone] Reason for Visit * Reason Comments Dosage Adjustment In Person (Anticoag Cl inic) Encounter Details Date Type Department Care Team (Latest Contact Info) Description 08/12/2023 8:30 AM EDT Anticoagulation Pharmacy, [facility] [address] [facility] [place] [address] Pharmacist2, [facility] [address] [facility] [place] [address] Paroxysmal atrial fibrillation (HCC)*; exterminator helper current use of anticoagulant therapy; Antiphospholipid antibody syndrome (HCC); Anticoagulation management encounter Allergies Active Allergy Reactions Criticality Noted Date Comments Lisinopril Cough Low 06/04/2011 documented as of this encounter (statuses as of 08/12/2023) Medications Medication Sig Dispensed Refills Start Date [...] BEDTIME 135 Tablet 3 07/10/2023 Active Nystatin 777864 UNIT/ML Mouth/Throat SuspensionIndicati ons:Thrush Swish and swallow [...] the morning. 90 Tablet 3 07/26/2023 Active Hospital, Clinic, or Other Facility Administered Medication Ordered Dose Route Frequency Start Date End Date Status albuterol sulfate (PROVENTIL) (2.5 MG/3ML) 0.083% inhalation solution 2.5 mgIndications:CAMPOS (dyspnea on exertion),Wheezing 2.5 mg NEBULIZER Q4H PRN 04/29/2019 Active documented as of this encounter (statuses as of 08/12/2023) Active Problems Problem Noted Date Diagnosed Date [...] rinse after steroid. Test performed by Mimi PROFESSOR OF GERMAN CPFT Chronic rhinitis 07/02/2019 Paroxysmal atrial fibrillation 07/14/2018 CAROL ANN (generalized anxiety disorder) 04/24/2018 Incomplete right bundle branch block (RBBB) 10/25 Antiphospholipid antibody syndrome 12/05/2011 HTN, goal below 140/90 07/12/2011 USP current use of anticoagulant therapy 1 06/17/2010 ADVANCE DIRECTIVE INFORMATION 07/01/2007 Overview: No, Advance Directive brochure given to patient at prior appointment. Planning to do a power of long goods drier. Note on 07/04 has an appt soon. Esophageal reflux 06/01/2004 documented as of this encounter (statuses as of 08/12/2023) Resolved Problems Problem Noted Date Diagnosed Date [...] as of this encounter (statuses as of 08/12/2023) Immunizations Name Administration Dates Next Due COVID-19 [...] as of this encounter Progress Notes * Rhaul Frausto, [facility] - 08/12/2023 8:34 AM EDT Medication Therapy Disease Management - Anticoagulation Patient: Jolanta Horn | : 1935 Subjective Patient-Reported Symptoms: Patient Findings Negatives: Signs/symptoms of thrombosis, Signs/symptoms of bleeding, Change in health, Change in alcohol use, Change in activity, Upcoming invasive procedure, Missed doses, Extra doses, Change in medications, Change in diet/appetite, Bruising Objective Current Warfarin Dose As of 08/12/2023 Warfarin maintenance plan: 2.5 mg (2.5 mg x 1) every Mon, Wed, Fri; 1.25 mg (2.5 mg x 0.5) all other days INR Result As of 08/12/2023 INR goal: 2.0-3.0 INR used for dosin.8 (08/12/2023) Assessment & Plan Warfarin Plan As of 08/12/2023 Full warfarin instructions: 2.5 mg every Mon, Wed, Fri; 1.25 mg all other days No change documented: Rahul Frausto RPh Next INR check: 09/09/2023 Repeat PT/INR in 4 week(s) Weekly dose: not changed Additional Dosing Information: Description Takes in AM No amiodarone: 2.5mg daily (2.5mg tabs - takes in AM) Prednisone dose: 1.25 mg daily Caution with bridge post-procedure as patient had GI bleed following colonoscopy 02/2020 Rahul Frausto [facility] Clinical Pharmacist 08/12/2023, 8:40 AM documented in this encounter Plan of Treatment Upcoming Encounters Date Type Department Care Team (Late st Contact Info) Description 08/23/2023 8:00 AM EDT Office Visit Interventional Pain Center, [facility] [address] [place] [address] Nora Morocho PA-C [address] [place] [address] 09/09/2023 8:40 AM EDT Anticoagulation Pharmacy, [facility] [address] [place] [address] Pharmacist1, [facility] [address] [place] [address] 10/24/2023 8:00 AM EDT Office Visit Cardiology, [facility] [address] [place] [address] Osito Kamara PALemule [address] [place] [address] 11/29/2023 9:20 AM EDT Office Visit Family Practice [facility] [address] [facility] [place] [address] David Cintron III, MD [address] [facility] [place] [address] 03/31/2024 2:30 PM EST Office Visit Dermatology [facility] [address] [facility] [place] [address] Christianne Mendez PA-C [address] [facility] [place] [address] 06/03/2024 8:40 AM EST Office Visit Otolaryngology [facility] [address] [place] [address] Angel Blankenship PA-C [address] [place] [address] Scheduled Procedures Name Priority Associated Diagnoses Date/Ti [...] this encounter Medical Devices Implanted Type Area Seismic Prospecting Observer Helper Device Identifier Shelf Expiration Date Model / Serial / Lot Clip Quick 2.8mm 230cm - [id number] Implanted:Qty: 1 on 03/15/2020 by Janell Raphael MD at ENDOSCOPY [facility] [employer] 05/26/2022 HX-202UR.A / / K Clip Quick 2.8mm 230cm - [id number] Implanted:Qty: 1 on 03/15/2020 by Janell Raphael MD at ENDOSCOPY [facility] [employer] 05/26/2022 HX-202UR.A / / [id number] documented as of this encounter Procedures Procedure Name Priority Date/Time Associated Diagnosis Comments INR FINGERSTICK, POINT OF CARE STAT 08/12/2023 8:36 AM EDT Paroxysmal atrial fibrillation (HCC) Antiphospholipid antibody syndrome (HCC) Anticoagulation management encounter exterminator helper current use of anticoagulant therapy documented in this encounter Results * INR FINGERSTICK, POINT OF CARE (08/12/2023 8:36 AM EDT) Fingerstick INR 2.8 INR 8:40 AM EDT [facility] 56 Blood 08/12/2023 8:36 AM EDT 08/12/2023 8:40 AM EDT Narrative [facility] 56- - 08/12/2023 8:40 AM EDT Therapeutic ranges for non-operative patients: Prophylaxsis/treatment of DVT: (Range:2.0-3.0) Treatment of pulmonary embolism:(Range:2.0-3.0) Prevention of systemic embolism from: -tissue heart valves -acute myocardial infarction -valvular heart disease -atrial fibrillation (Range: 2.0-3.0) Mechanical prosthetic valves: (Range: 2.5-3.5) Syed Lorenza V, [facility] LAB POINT OF CARE TE ST DOCKED DEVICE UNSOLICITED RESULTS [facility] 56 [address] [place] [address] documented in this encounter Visit Diagnoses Diagnosis Paroxysmal atrial fibrillation (HCC)- Primary Atrial fibrillation USP current use of anticoagulant therapy Antiphospholipid antibody syndrome (HCC) Primary hypercoagulable state Anticoagulation management encounter Encounter for therapeutic drug monitoring documented in this encounter Care Teams Blast Furnace Supervisor Relationship Specialty Start Date End Date David Cintron III, MD [address] [place] [address] PCP - General 01/09/1996 documented as of this encounter"
--- OUTSIDE RECORDS SUMMARY | 2023-11-26 09:35 | External Medical Summary | Summary of Care ---
Author Name Unknown Organization [facility] Address [address] [facility] [place] [address] Phone [phone] Care Team Providers Care Deputy Sheriff Custody Name Role Phone Saida EISENBERG MD, David Adame Primary Care Provider [phone] Reason for Visit * Reason Onset Date Comments Medication Refill 07/25/2023 Encounter Details Date Type Department Care Team (Late st Contact Info) Description 07/25/2023 Refill Cardiology, [facility] [address] [facility] [place] [address] Osito Kamara PA-C [address] [place] [address] Paroxysmal atrial fibrillation (HCC) Allergies Active Allergy [...] BEDTIME 135 Tablet 3 07/10/2023 Active Nystatin 708228 UNIT/ML Mouth/Throat SuspensionIndicati ons:Thrush Swish and swallow [...] rinse after steroid. Test performed by Mimi CARDIOPULMONARY SUPERVISOR CPFT Chronic rhinitis 07/02/2019 Paroxysmal atrial fibrillation 07/14/2018 CAROL ANN (generalized anxiety disorder) 04/24/2018 Incomplete right bundle branch block (RBBB) 10/25 Antiphospholipid antibody syndrome 12/05/2011 HTN, goal below 140/90 07/12/2011 emt intermediate current use of anticoagulant therapy 1 06/17/2010 ADVANCE DIRECTIVE INFORMATION 07/01/2007 Overview: No, Advance Directive brochure given to patient at prior appointment. Planning to do a power of trademark attorney. Note on 07/04 has an appt [...] encounter Miscellaneous Notes * Addendum Note - Lania Landa CPhT - 07/25/2023 4:10 PM ESTAddended [...] the medication was ordered: 12/15/2021 [facility] Is this request for a controlled substance?No [...] for assistance. Thank You, Danica De León, glass finisher Account Liaison [facility] II Centralized Clinical Pharmacy Services (CCPS) (Formerly Telepharmacy) 07/25/2023, 3:45 PM documented in this encounter Plan of Treatment Upcoming Encounters Date Type Department Care Team (Late st Contact Info) Description 08/12/2023 8:30 AM EDT Anticoagulation Pharmacy, [facility] [address] [facility] [place] [address] Pharmacist2, [facility] [address] [place] [address] 08/23/2023 8:00 AM EDT Office Visit Interventional Pain Center, [facility] [address] [place] [address] Nora Morocho PA-C [address] [place] [address] 10/24/2023 8:00 AM EDT Office Visit Cardiology, [facility] [address] [place] [address] Osito Kamara PA-C [address] [place] [address] 11/29/2023 9:20 AM EDT Office Visit Family Practice [facility] [address] [place] [address] [address] David Cintron III, MD [address] [place] [address] 03/31/2024 2:30 PM EST Office Visit Dermatology [facility] [address] [place] [address] [address] Christianne Mendez PATeteC [address] [facility] [place] [address] 06/03/2024 8:40 AM EST Office Visit Otolaryngology [facility] [address] [place] [address] Angel Blankenship PA-C [address] [place] [address] Scheduled Procedures Name Priority Associated Diagnoses Date/Ti [...] this encounter Medical Devices Implanted Type Area Emc Storage Architect Device Identifier Shelf Expiration Date Model / Serial / Lot Clip Quick 2.8mm 230cm - [id number] Implanted:Qty: 1 on 03/15/2020 by Janell Raphael MD at ENDOSCOPY [employer] 05/26/2022 HX-202UR.A / / K Clip Quick 2.8mm 230cm - [id number] Implanted:Qty: 1 on 03/15/2020 by Janell Raphael MD at ENDOSCOPY [employer] 05/26/2022 HX-202UR.A / / [id number] documented as of this encounter Visit Diagnoses Diagnosis Paroxysmal atrial fibrillation (HCC) Atrial fibrillation documented in this encounter Care Teams Deputy Sheriff Custody Relationship Specialty Start Date End Date David Cintron III, MD [address] [place] [address] PCP - General 01/09/1996 documented as of this encounter
--- OUTSIDE RECORDS SUMMARY | 2023-11-26 09:35 | External Medical Summary | Summary of Care ---
Author Name Unknown Organization [facility] Address [address] [place] [address] Phone [phone] Care Team Providers Care Yoker Machine Operator Name Role Phone Saida EISENBERG MD, Leonela Adame Primary Care Provider [phone] Reason for Visit * Reason Onset Date Comments Medication Refill 07/19/2023 Encounter Details Date Type Department Care Team (Late st Contact Info) Description 07/19/2023 Refill Family Practice [facility] [address] [facility] [place] [address] Leonela Rangel III, MD [address] [place] [address] Acquired hypothyroidism Allergies Active Allergy Reactions Criticality Noted Date Comments Lisinopril Cough Low 06/04/2011 documented as of this encounter (statuses as of 07/19/2023) Medications Medication Sig Dispensed Refills Start Date [...] (toPROL XL)Indications:Pa roxysmal atrial fibrillation (HCC) Take by mouth 1 [...] morning. 60 Each 0 12/27/2022 Active Fluticasone Furoate-Vilantero l 200-25 MCG/ACT Inhalation [...] BEDTIME 135 Tablet 3 07/10/2023 Active Nystatin 964614 UNIT/ML Mouth/Throat SuspensionIndicat ions:Thrush Swish and swallow [...] OTHER MEDICATIONS 100 Tablet 2 07/19/2023 Active Levothyroxine Sodium 50 MCG Oral Tablet (Levoxyl)Indicati ons:PT NOT TAKING - PHARMACY CANNOT GET MEDICATION TAKE 1 TABLET DAILY AT LEAST 30 MINUTES PRIOR TO BREAKFAST OR OTHER MEDICATIONS 100 Tablet 5 05/18/2022 4 Discontinue d(Refill) Hospital, Clinic, or Other Facility Administered Medication Ordered Dose Route Frequency Start Date End Date Status albuterol sulfate (PROVENTIL) (2.5 MG/3ML) 0.083% inhalation solution 2.5 mgIndications:CAMPOS (dyspnea on exertion),Wheezing 2.5 mg NEBULIZER Q4H PRN 04/29/2019 Active documented as of this encounter (statuses as of 07/19/2023) Active Problems Problem Noted Date Diagnosed Date [...] rinse after steroid. 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 Planning to do a power of assistant professor of sociology. Note on 07/04 has an appt soon. Esophageal reflux 06/01/2004 documented as of this encounter (statuses as of 07/19/2023) Resolved Problems Problem Noted Date Diagnosed Date [...] as of this encounter (statuses as of 07/19/2023) Immunizations Name Administration Dates Next Due COVID-19 [...] encounter Miscellaneous Notes * Telephone Encounter - Lenny Mata, [facility] - 07/19/2023 5:57 PM EST Signed Prescriptions: Disp Refills Levothyroxine Sodium 50 MCG Oral Tablet (L*100 Ta*2 Sig: TAKE 1 TABLET DAILY AT LEAST 30 MINUTES PRIOR TO BREAKFAST OR OTHER MEDICATIONS Authorizing Provider: LEONELA RANGEL III Ordering User: LENNY MATA * Telephone Encounter - Susana Looney instructional manager - 07/19/2023 2:05 PM EST Did you pend patient's preferred pharmacy and medication before forwarding?yes Pharmacy[id number] Pending Prescriptions: Disp Refills Levothyroxine Sodium 50 MCG Oral Tablet (*100 Ta*5 Sig: TAKE 1 TABLET DAILY AT LEAST 30 MINUTES PRIOR TO BREAKFAST OR OTHER MEDICATIONS Last Visit: 05/30/2023 (in office), Visit date not found (telemedicine) Next Visit: 11/29/2023 If no future appointments scheduled, and last appointment is greater than a year ago, please schedule patient for a follow-up appointment Last date the medication was ordered: 05/18/2022 Is this request for a controlled substance?No [...] Description 08/12/2023 8:30 AM EDT Anticoagulation Pharmacy, [facility] [address] [place] [address] [address] Pharmacist2, [facility] [address] [place] [address] 08/23/2023 8:00 AM EDT Office Visit Interventional Pain Center, [facility] [address] [place] [address] Nora Morocho PA-C [address] [place] [address] 10/24/2023 8:00 AM EDT Office Visit Cardiology, [facility] [address] [place] [place] [address] Osito Kamara [place] [address] [place] [address] 11/29/2023 9:20 AM EDT Office Visit Family Practice [facility] [address] [place] [address] [address] Leonela Rangel III, MD [address] [place] [address] [address] 03/31/2024 2:30 PM EST Office Visit Dermatology [facility] [address] [place] [address] [address] Christianne Mendez, PA-C [address] [facility] [place] [address] 06/03/2024 8:40 AM EST Office Visit Otolaryngology [facility] [address] [place] [address] Lenny Blankenship PA-C [address] [place] [address] Scheduled Procedures Name Priority Associated Diagnoses Date/Ti [...] this encounter Medical Devices Implanted Type Area Unisaw Operator Device Identifier Shelf Expiration Date Model / Serial / Lot Clip Quick 2.8mm 230cm - [id number] Implanted:Qty: 1 on 03/15/2020 by Janell Raphael MD at ENDOSCOPY [employer] 05/26/2022 HX-202UR.A / K Clip Quick 2.8mm 230cm - [id number] Implanted:Qty: 1 on 03/15/2020 by Janell Raphael MD at ENDOSCOPY [employer] 05/26/2022 HX-202UR.A / / [id number] documented as of this encounter Visit Diagnoses Diagnosis Acquired hypothyroidism Unspecified hypothyroidism documented in this encounter Care Teams Yoker Machine Operator Relationship Specialty Start Date End Date Leonela Rangel III, MD [address] [place] [address] PCP - General 01/09/1996 documented as of this encounter
--- OUTSIDE RECORDS SUMMARY | 2023-11-26 09:35 | External Medical Summary | Summary of Care ---
Author Name Unknown Organization [facility] Address [address] [place] [address] Phone [phone] Care Team Providers Care Horticultural Specialty Grower Field Name Role Phone Saida EISENBERG MD, David Adame Primary Care Provider [phone] Reason for Visit * Reason Onset Date Comments Med Request 07/18/2023 Encounter Details Date Type Department Care Team (Late st Contact Info) Description 07/18/2023 Telephone Family Practice [facility] [place] [address] [facility] [place] [address] David Cintron III, MD [address] [facility] [place] [address] Med Request Allergies Active Allergy Reactions Criticality Noted Date Comments Lisinopril Cough Low 06/04/2011 documented as of this encounter (statuses as of 07/18/2023) Medications Medication Sig Dispensed Refills Start Date [...] disease, chronic, stage IV (GFR 15-29 ml/min) ([facility]) Take 1 Tablet by mouth in the [...] BEDTIME 135 Tablet 3 07/10/2023 Active Nystatin 614177 UNIT/ML Mouth/Throat SuspensionIndicati ons:Thrush Swish and swallow 5 mL in the morning and 5 mL at noon and 5 mL in the evening and 5 mL before bedtime. For thrush.. 240 mL 1 07/18/2023 Active Hospital, Clinic, or Other Facility Administered Medication Ordered Dose Route Frequency Start Date End Date Status albuterol sulfate (PROVENTIL) (2.5 MG/3ML) 0.083% inhalation solution 2.5 mgIndications:CAMPOS (dyspnea on exertion),Wheezing 2.5 mg NEBULIZER Q4H PRN 04/29/2019 Active documented as of this encounter (statuses as of 07/18/2023) Active Problems Problem Noted Date Diagnosed Date [...] rinse after steroid. 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 Planning to do a power of trust and estates attorney. Note on 07/04 has an appt soon. Esophageal reflux 06/01/2004 documented as of this encounter (statuses as of 07/18/2023) Resolved Problems Problem Noted Date Diagnosed Date [...] as of this encounter (statuses as of 07/18/2023) Immunizations Name Administration Dates Next Due COVID-19 [...] Telephone Encounter - Cheko Davis DO - 07/18/2023 4:00 PM EST Script signed * Telephone Encounter - Felicia Shepherd, distribution lineman - 07/18/2023 12:33 PM EST Patient requesting refills for Nystatin 473991 UNIT/ML Mouth/Throat Suspension . Upon chart review,medication is listed as discontinued, with discontinuation reason as "10-20-22". Please advise if you wish to continue this therapy for the patient. Thank you, Felicia Shepherd CPhT Cleaning Technician II Centralized Clin[facility] Pharmacy Services (CCPS) (formerly Telepharmacy) 07/18/2023,12:33 PM documented in this encounter Plan of Treatment Upcoming Encounters Date Type Department Care Team (Late st Contact Info) Description 08/12/2023 8:30 AM EDT Anticoagulation Pharmacy, [facility] [address] [facility] [place] [address] Pharmacist2, [facility] [address] [place] [address] [address] 08/23/2023 8:00 AM EDT Office Visit Interventional Pain Center, [facility] [address] [place] [address] Nora Morocho PA-C [address] [place] [address] 10/24/2023 8:00 AM EDT Office Visit Cardiology, [facility] [address] [place] [address] Osito Kamara [place] [address] [place] [address] 11/29/2023 9:20 AM EDT Office Visit Family Practice [facility] [place] [address] [place] [address] David Cintron III, MD [address] [facility] [place] [address] 03/31/2024 2:30 PM EST Office Visit Dermatology [facility] [place] [address] [place] [address] Christianne Mendez PA-C [address] [place] [address] 06/03/2024 8:40 AM EST Office Visit Otolaryngology [facility] [address] [place] [address] Angel Blankenship PA-C [address] [place] [address] Scheduled Procedures Name Priority Associated Diagnoses Date/Ti [...] this encounter Medical Devices Implanted Type Area Waterworks Employee Device Identifier Shelf Expiration Date Model / Serial / Lot Clip Quick 2.8mm 230cm - [id number] Implanted:Qty: 1 on 03/15/2020 by Janell Raphael MD at ENDOSCOPY [employer] [employer] 05/26/2022 HX-202UR.A / / K Clip Quick 2.8mm 230cm - [id number] Implanted:Qty: 1 on 03/15/2020 by Janell Raphael MD at ENDOSCOPY [employer] 05/26/2022 HX-202UR.A / / [id number] documented as of this encounter Visit Diagnoses Diagnosis Thrush Candidiasis of mouth documented in this encounter Care Teams Horticultural Specialty Grower Field Relationship Specialty Start Date End Date David Cintron III, MD 200 [place] [address] PCP - General 01/09/1996 documented as of this encounter
--- OUTSIDE RECORDS SUMMARY | 2023-11-26 09:35 | External Medical Summary | Summary of Care ---
Author Name Unknown Organization [facility] Address [address] [facility] [facility] [address] Phone [phone] Care Team Providers Care Wallpaper Inspector And Shipper Name Role Phone Saida EISENBERG MD, David Adame Primary Care Provider [phone] Reason for Visit * Reason Comments Dosage Adjustment In Person (Anticoag Cl inic) Encounter Details Date Type Department Care Team (Latest Contact Info) Description 07/15/2023 8:40 AM [facility] Anticoagulation Pharmacy, [facility] 200 [facility] [place] [address] Pharmacist1, [facility] [address] [facility] [place] [address] Paroxysmal atrial fibrillation (HCC)*; jail current use of anticoagulant therapy; Antiphospholipid antibody syndrome (HCC); Anticoagulation management encounter Allergies Active Allergy Reactions Criticality Noted Date Comments Lisinopril Cough Low 06/04/2011 documented as of this encounter (statuses as of 07/15/2023) Medications Medication Sig Dispensed Refills Start Date [...] as of this encounter (statuses as of 07/15/2023) Active Problems Problem Noted Date Diagnosed Date [...] rinse after steroid. 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 Planning to do a power of unix administrator. Note on 07/04 has an appt soon. Esophageal reflux 06/01/2004 documented as of this encounter (statuses as of 07/15/2023) Resolved Problems Problem Noted Date Diagnosed Date [...] as of this encounter (statuses as of 07/15/2023) Immunizations Name Administration Dates Next Due COVID-19 [...] Notes * Syed Del Rosario, [facility] - 07/15/2023 8:39 AM EST Images from the original note were not included. Medication Therapy Disease Management - Anticoagulation Jolanta [...] in diet/appetite, Bruising INR Result As of 07/15/2023 INR goal: 2.0-3.0 INR used for dosin.4 (07/15/2023) Warfarin Plan As of 07/15/2023 Full warfarin instructions: 07/15: 1.25 mg; Otherwise 2.5 mg every Mon, Wed, Fri; 1.25 mg all other days Next INR check: 08/12/2023 Repeat PT/INR in 4 week(s) Weekly dose: lobito Britt RPh, CACP, CDE Clinical Pharmacist Medication Therapy Management [facility] 07/15/2023 8:45 AM documented in this encounter Plan of Treatment Upcoming Encounters Date Type Department Care Team (Late st Contact Info) Description 07/17/2023 10:00 AM EST Office Visit Orthopaedics [facility] [address] [address] Ned Tejada MD [address] [phone] 08/12/2023 8:30 AM EDT Anticoagulation Pharmacy, [facility] [address] [address] Pharmacist2, [facility] [address] [address] 10/24/2023 8:00 AM EDT Office Visit Cardiology, [facility] [address] [address] Osito Kamara PA-C [address] [address] 11/29/2023 9:20 AM EDT Office Visit Family Practice [facility] [address] [facility] [place] [address] David Cintron III, MD [address] [facility] [place] [address] 03/31/2024 2:30 PM EST Office Visit Dermatology [facility] [address] [place] [address] Christianne Mendez PA-C [address] [facility] [place] [address] 06/03/2024 8:40 AM EST Office Visit Otolaryngology [facility] [address] [place] [address] Angel Blankenship PA-C [address] [place] [address] Scheduled Procedures Name Priority Associated Diagnoses Date/Ti [...] this encounter Medical Devices Implanted Type Area Body And Fender Mechanic Apprentice Device Identifier Shelf Expiration Date Model / Serial / Lot Clip Quick 2.8mm 230cm - [id number] Implanted:Qty: 1 on 03/15/2020 by Janell Raphael MD at ENDOSCOPY [facility] [employer] 05/26/2022 HX-202UR.A / / K Clip Quick 2.8mm 230cm - [id number] Implanted:Qty: 1 on 03/15/2020 by Janell Raphael MD at ENDOSCOPY [facility] [employer] 05/26/2022 HX-202UR.A / / [id number] documented as of this encounter Procedures Procedure Name Priority Date/Time Associated Diagnosis Comments INR FINGERSTICK, POINT OF CARE STAT 07/15/2023 8:42 AM EST Paroxysmal atrial fibrillation (HCC) Antiphospholipid antibody syndrome (HCC) Anticoagulation management encounter extermination inspector current use of anticoagulant therapy documented in this encounter Results * INR FINGERSTICK, POINT OF CARE (07/15/2023 8:42 AM EST) Fingerstick INR 3.4 INR 8:49 AM EST [facility] 56-02 Blood 07/15/2023 8:42 AM EST 07/15/2023 8:49 AM EST [facility] - 07/15/2023 8:49 AM EST Therapeutic ranges for non-operative patients: Prophylaxsis/treatment of DVT: (Range:2.0-3.0) Treatment of pulmonary embolism:(Range:2.0-3.0) Prevention of systemic embolism from: -tissue heart valves -acute myocardial infarction -valvular heart disease -atrial fibrillation (Range: 2.0-3.0) Mechanical prosthetic valves: (Range: 2.5-3.5) Syed Britt V, [facility] POINT OF CARE TE ST DOCKED DEVICE [facility]OLICITED [facility] [place] [address] [facility] [address] documented in this encounter Visit Diagnoses Diagnosis Paroxysmal atrial fibrillation (HCC)- Primary Atrial fibrillation jail current use of anticoagulant therapy Antiphospholipid antibody syndrome (HCC) Primary hypercoagulable state Anticoagulation management encounter Encounter for therapeutic drug monitoring documented in this encounter Care Teams Wallpaper Inspector And Shipper Relationship Specialty Start Date End Date David [facility]intron III, MD [facility] [address] PCP - General 01/09/1996 documented as of this encounter
--- OUTSIDE RECORDS SUMMARY | 2023-11-26 09:36 | External Medical Summary | Summary of Care ---
Author Name Unknown Organization [facility] Address [address] [place] [address] Phone [phone] Care Team Providers Care Certified Composites Technician Name Role Phone Saida EISENBERG MD, David Adame Primary Care Provider [phone] Encounter Details Date Type Department Care Team (Late st Contact Info) Description 07/12/2023 Patient Reported Data Patient Survey Ortho [facility] Allergies Active Allergy Reactions Criticality Noted Date Comments Lisinopril Cough Low 06/04/2011 documented as of this encounter (statuses as of 07/12/2023) Medications Medication Sig Dispensed Refills Start Date [...] as of this encounter (statuses as of 07/12/2023) Active Problems Problem Noted Date Diagnosed Date [...] rinse after steroid. Test performed by Mimi APPLICATION DEVELOPER CPFT Chronic rhinitis 07/02/2019 Paroxysmal atrial fibrillation 07/14/2018 CAROL ANN (generalized anxiety disorder) 04/24/2018 Incomplete right bundle branch block (RBBB) 10/25 Antiphospholipid antibody syndrome 12/05/2011 HTN, goal below 140/90 07/12/2011 retirement current use of anticoagulant therapy 1 06/17/2010 ADVANCE DIRECTIVE INFORMATION 07/01/2007 Overview: No, Advance Directive brochure given to patient at prior appointment. Planning to do a power of securities attorney. Note on 07/04 has an appt soon. Esophageal reflux 06/01/2004 documented as of this encounter (statuses as of 07/12/2023) Resolved Problems Problem Noted Date Diagnosed Date [...] as of this encounter (statuses as of 07/12/2023) Immunizations Name Administration Dates Next Due COVID-19 [...] on file documented as of this encounter Plan of Treatment Upcoming Encounters Date Type Department Care Team (Late st Contact Info) Description 07/15/2023 8:40 AM EST Anticoagulation Pharmacy, [facility] 200 [facility] [place] [address] Pharmacist1, [facility] [address] [place] [address] 07/17/2023 10:00 AM EST Office Visit Orthopaedics [facility] [address] [address] Ned Tejada MD [address] [place] [phone] 10/24/2023 8:00 AM EDT Office Visit Cardiology, [facility] [address] [address] Osito Kamara PA-C [address] [place] [address] 11/29/2023 9:20 AM EDT Office Visit Family Practice [facility] 200 [facility] [place] [address] David Cintron III, MD 200 [facility] [place] [address] 03/31/2024 2:30 PM EST Office Visit Dermatology [facility] 200 [facility] [place] [address] Christianne Mendez PA-C [address] [facility] [place] [address] 06/03/2024 8:40 AM EST Office Visit Otolaryngology [facility] [address] [place] [address] Angel Blankenship PA-C [address] [place] [address] Scheduled Procedures Name Priority Associated Diagnoses Date/Ti [...] this encounter Medical Devices Implanted Type Area Business Economist Device Identifier Shelf Expiration Date Model / Serial / Lot Clip Quick 2.8mm 230cm - [id number] Implanted:Qty: 1 on 03/15/2020 by Janell Raphael MD at [facility]COPY [facility] [employer] 05/26/2022 HX-202UR.A / / K Clip Quick 2.8mm 230cm - [id number] Implanted:Qty: 1 on 03/15/2020 by Janell Raphael MD at [facility] [employer] 05/26/2022 HX-202UR.A / / [id number] documented as of this encounter Care Teams Certified Composites Technician Relationship Specialty Start Date End Date David Cintron III, MD 200 [place] [address] PCP - General 01/09/1996 documented as of this encounter
--- OUTSIDE RECORDS SUMMARY | 2023-11-26 09:36 | External Medical Summary | Summary of Care ---
Author Name Unknown Organization [facility] Address [address] [place] [address] Phone [phone] Care Team Providers Care Application Developer Name Role Phone Saida EISENBERG MD, David Adame Primary Care Provider [phone] Encounter Details Date Type Department Care Team [...] rinse after steroid. Test performed by Mimi SIGNAL SYSTEM TESTING MAINTAINER CPFT Chronic rhinitis 07/02/2019 Paroxysmal atrial fibrillation 07/14/2018 CAROL ANN (generalized anxiety disorder) 04/24/2018 Incomplete right bundle branch block (RBBB) 10/25 Antiphospholipid antibody syndrome 12/05/2011 HTN, goal below 140/90 07/12/2011 longterm current use of anticoagulant therapy 1 06/17/2010 ADVANCE DIRECTIVE INFORMATION 07/01/2007 Overview: No, Advance Directive brochure given to patient at prior appointment. Planning to do a power of trade mark attorney. Note on 07/04 has an appt [...] Description 07/15/2023 8:40 AM EST Anticoagulation Pharmacy, [facility] 200 [facility] [place] [address] Pharmacist1, [facility] [address] [place] [address] 07/17/2023 10:00 AM EST Office Visit Orthopaedics [facility] [address] [address] Ned Tejada MD [address] [place] [phone] 10/24/2023 8:00 AM EDT Office Visit Cardiology, [facility] [address] [address] Osito Kamara PA-C [address] [place] [address] 11/29/2023 9:20 AM EDT Office Visit Family Practice [facility] 200 [facility] [place] [address] David Cintron III, MD 200 [facility] [place] [address] 03/31/2024 2:30 PM EST Office Visit Dermatology [facility] 200 [facility] [place] [address] Christianne Mendez PA-C [address] [facility] [place] [address] 06/03/2024 8:40 AM EST Office Visit Otolaryngology [facility] [address] [place] [address] Angel Blankenship PA-C [address] [place] [address] Scheduled Procedures Name Priority Associated Diagnoses Date/Ti [...] this encounter Medical Devices Implanted Type Area Roustabout Crew Device Identifier Shelf Expiration Date Model / Serial / Lot Clip Quick 2.8mm 230cm - [id number] Implanted:Qty: 1 on 03/15/2020 by Janell Raphael MD at [facility] [employer] 05/26/2022 HX-202UR.A / / K Clip Quick 2.8mm 230cm - [id number] Implanted:Qty: 1 on 03/15/2020 by Janell Raphael MD at [facility]COPY [facility] [employer] 05/26/2022 HX-202UR.A / / [id number] documented as of this encounter Care Teams Application Developer Relationship Specialty Start Date End Date David Cintron III, MD 200 [place] [address] PCP - General 01/09/1996 documented as of this encounter
--- OUTSIDE RECORDS SUMMARY | 2023-11-26 09:36 | External Medical Summary | Summary of Care ---
Author Name Unknown Organization [facility] Address [address] [place] [address] Phone [phone] Care Team Providers Care Track Layer Name Role Phone Saida EISENBERG MD, David Adame Primary Care Provider [phone] Encounter Details Date Type Department Care Team [...] (PROVENTIL) (2.5 MG/3ML) 0.083% inhalation solution 2.5 mgIndications:CAMOPS (dyspnea on exertion),Wheezing 2.5 mg NEBULIZER Q4H [...] rinse after steroid. Test performed by Mimi DIRECTOR MONEY CPFT Chronic rhinitis 07/02/2019 Paroxysmal atrial fibrillation 07/14/2018 CAROL ANN (generalized anxiety disorder) 04/24/2018 Incomplete right bundle branch block (RBBB) 10/25 Antiphospholipid antibody syndrome 12/05/2011 HTN, goal below 140/90 07/12/2011 nursing home current use of anticoagulant therapy 1 06/17/2010 ADVANCE DIRECTIVE INFORMATION 07/01/2007 Overview: No, Advance Directive brochure given to patient at prior appointment. Planning to do a power of research attorney. Note on 07/04 has an appt [...] Description 07/15/2023 8:40 AM EST Anticoagulation Pharmacy, [facility] 200 [facility] [place] [address] Pharmacist1, [facility] [address] [place] [address] 07/17/2023 10:00 AM EST Office Visit Orthopaedics [facility] [address] [address] Ned Tejada MD [address] [place] [phone] 10/24/2023 8:00 AM EDT Office Visit Cardiology, [facility] [address] [address] Osito Kamara PA-C [address] [place] [address] 11/29/2023 9:20 AM EDT Office Visit Family Practice [facility] 200 [facility] [place] [address] David Cintron III, MD 200 [facility] [place] [address] 03/31/2024 2:30 PM EST Office Visit Dermatology [facility] 200 [facility] [place] [address] Christianne Mendez PA-C 0[address] [facility] [place] [address] 06/03/2024 8:40 AM EST Office Visit Otolaryngology [facility] [address] [place] [address] Angel Blankenship PA-C [address] [place] [address] Scheduled Procedures Name Priority Associated Diagnoses Date/Ti [...] this encounter Medical Devices Implanted Type Area Mill Laborer Device Identifier Shelf Expiration Date Model / Serial / Lot Clip Quick 2.8mm 230cm - [id number] Implanted:Qty: 1 on 03/15/2020 by Janell Raphael MD at [facility] [employer] 05/26/2022 HX-202UR.A / / K Clip Quick 2.8mm 230cm - [id number] Implanted:Qty: 1 on 03/15/2020 by Janell Raphael MD at [facility]COPY [facility] [employer] 05/26/2022 HX-202UR.A / / [id number] documented as of this encounter Care Teams Track Layer Relationship Specialty Start Date End Date David Cintron III, MD 200 [place] [address] PCP - General 01/09/1996 documented as of this encounter
--- OUTSIDE RECORDS SUMMARY | 2023-11-26 09:36 | External Medical Summary ---
Author Name Unknown Address Unknown Organization K09:[facility] [address] Laboratory Report Ordering Provider Test Date Status DELFINRADHA V 07/15/2023 08:42:37 Final Therapeutic ranges for non-o perative patients:
Prophylaxsis/treatment of DVT: (Range:2.0-3.0)
Treatment of pulmonary embolism:(Range:2.0-3.0)
Prevention of systemic embolism from:
-tissue heart valves
-acute myocardial infarction
-valvular heart disease
-atrial fibrillation
(Range: 2.0-3.0)
Mechanical prosthetic valves: (Range: 2.5-3.5) Observation Date Value Abnormality Reference (Units ) Status INR in Capillary blood by Coagulation assay 07/15/2023 08:42:37 3.4 (INR) Final Performing Location [facility] [id number]
--- OUTSIDE RECORDS SUMMARY | 2023-11-26 09:36 | External Medical Summary | Summary of Care ---
Author Name Unknown Organization [facility] Address [address] [place] [address] Phone [phone] Care Team Providers Care Manager Supplier Name Role Phone Saida EISENBERG MD, David Adame Primary Care Provider [phone] Encounter Details Date Type Department Care Team [...] and rinse after steroid. Test performed by Miim KNOT CUTTER CPFT Chronic rhinitis 07/02/2019 Paroxysmal atrial fibrillation 07/14/2018 CAROL ANN (generalized anxiety disorder) 04/24/2018 Incomplete right bundle branch block (RBBB) 10/25 Antiphospholipid antibody syndrome 12/05/2011 HTN, goal below 140/90 07/12/2011 [facility] current use of anticoagulant therapy 1 06/17/2010 ADVANCE DIRECTIVE INFORMATION 07/01/2007 Overview: No, Advance Directive brochure given to patient at prior appointment. Planning to do a power of admitted attorneys. Note on 07/04 has an appt soon. [...] Description 07/15/2023 8:40 AM EST Anticoagulation Pharmacy, [facility] 200 [facility] [place] [address] Pharmacist1, [facility] [address] [place] [address] 07/17/2023 10:00 AM EST Office Visit Orthopaedics [facility] [address] [address] Ned Tejada MD [address] [place] [phone] 10/24/2023 8:00 AM EDT Office Visit Cardiology, [facility] [address] [address] Osito Kamara PA-C [address] [place] [address] 11/29/2023 9:20 AM EDT Office Visit Family Practice [facility] 200 [facility] [place] [address] David Cintron III, MD 200 [facility] [place] [address] 03/31/2024 2:30 PM EST Office Visit Dermatology [facility] 200 [facility] [place] [address] Christianne Mendez PA-C 64[address] [facility] [place] [address] 06/03/2024 8:40 AM EST Office Visit Otolaryngology [facility] [address] [place] [address] Angel Blankenship PA-C [address] [place] [address] Scheduled Procedures Name Priority Associated Diagnoses Date/Ti [...] this encounter Medical Devices Implanted Type Area Handy Man Device Identifier Shelf Expiration Date Model / Serial / Lot Clip Quick 2.8mm 230cm - [id number] Implanted:Qty: 1 on 03/15/2020 by Janell Raphael MD at [facility] [employer] 05/26/2022 HX-202UR.A / / K Clip Quick 2.8mm 230cm - [id number] Implanted:Qty: 1 on 03/15/2020 by Janell Raphael MD at [facility]COPY [facility] [employer] 05/26/2022 HX-202UR.A / / [id number] documented as of this encounter Care Teams Manager Supplier Relationship Specialty Start Date End Date David Cintron III, MD 200 [place] [address] PCP - General 01/09/1996 documented as of this encounter
--- OUTSIDE RECORDS SUMMARY | 2023-11-26 09:36 | External Medical Summary | Summary of Care ---
Author Name Unknown Organization [facility] Address [address] [place] [address] Phone [phone] Care Team Providers Care Pest Control Worker Helper Name Role Phone Saida EISENBERG MD, David Adame Primary Care Provider [phone] Encounter Details Date Type Department Care Team [...] rinse after steroid. Test performed by Mimi MILD DISABILITIES TEACHER CPFT Chronic rhinitis 07/02/2019 Paroxysmal atrial fibrillation 07/14/2018 CAROL ANN (generalized anxiety disorder) 04/24/2018 Incomplete right bundle branch block (RBBB) 10/25 Antiphospholipid antibody syndrome 12/05/2011 HTN, goal below 140/90 07/12/2011 half-way current use of anticoagulant therapy 1 06/17/2010 ADVANCE DIRECTIVE INFORMATION 07/01/2007 Overview: No, Advance Directive brochure given to patient at prior appointment. Planning to do a power of metal machinist. Note on 07/04 has an appt soon. [...] Description 07/15/2023 8:40 AM EST Anticoagulation Pharmacy, [facility] 200 [facility] [place] [address] Pharmacist1, [facility] [address] [place] [address] 07/17/2023 10:00 AM EST Office Visit Orthopaedics [facility] [address] [address] Ned Tejada MD [address] [place] [phone] 10/24/2023 8:00 AM EDT Office Visit Cardiology, [facility] [address] [address] Osito Kamara PA-C [address] [place] [address] 11/29/2023 9:20 AM EDT Office Visit Family Practice [facility] 200 [facility] [place] [address] David Cintron III, MD 200 [facility] [place] [address] 03/31/2024 2:30 PM EST Office Visit Dermatology [facility] 200 [facility] [place] [address] Christianne Mendez PA-C 30[address] [facility] [place] [address] 06/03/2024 8:40 AM EST Office Visit Otolaryngology [facility] [address] [place] [address] Angel Blankenship PA-C [address] [place] [address] Scheduled Procedures Name Priority Associated Diagnoses Date/Ti [...] this encounter Medical Devices Implanted Type Area Screw Machine Hand Device Identifier Shelf Expiration Date Model / Serial / Lot Clip Quick 2.8mm 230cm - [id number] Implanted:Qty: 1 on 03/15/2020 by Janell Raphael MD at [facility]COPY [facility] [employer] 05/26/2022 HX-202UR.A / / K Clip Quick 2.8mm 230cm - [id number] Implanted:Qty: 1 on 03/15/2020 by Janell Raphael MD at [facility]COPY [facility] [employer] 05/26/2022 HX-202UR.A / / [id number] documented as of this encounter Care Teams Pest Control Worker Helper Relationship Specialty Start Date End Date David Cintron III, MD 200 [place] [address] PCP - General 01/09/1996 documented as of this encounter
--- OUTSIDE RECORDS SUMMARY | 2023-11-26 09:37 | External Medical Summary | Summary of Care ---
Author Name Unknown Organization [facility] Address [address] [facility] [address] Phone [phone] Care Team Providers Care Research Subject Name Role Phone Saida EISENBERG MD, David Adame Primary Care Provider [phone] Reason for Visit * Reason Comments Dosage Adjustment In Person (Anticoag Cl inic) Encounter Details Date Type Department Care Team (Latest Contact Info) Description 06/17/2023 8:50 AM [facility] [[email or web address] Anticoagulation Pharmacy, [facility] 200 [facility] [place] [address] Pharmacist1, [facility] [address] Paroxysmal atrial fibrillation (HCC)*; ferry terminal agent current use of anticoagulant therapy; Antiphospholipid antibody syndrome (HCC); Anticoagulation management encounter Allergies Active Allergy Reactions Criticality Noted Date Comments Lisinopril Cough Low 06/04/2011 documented as of this encounter (statuses as of 06/17/2023) Medications Medication Sig Dispensed Refills Start Date [...] the morning. 90 Tablet 3 12/15/2021 Active Diclofenac Sodium 1 % External Gel (Voltaren)Indicati ons:Chronic pain of right knee Apply topically to affected area 2 times a day. Apply to knee and r leg 700 g 11 05/18/2022 Active Levothyroxine Sodium 50 MCG Oral Tablet (Levoxyl)Indicatio ns:PT NOT TAKING - PHARMACY CANNOT GET MEDICATION TAKE 1 TABLET DAILY AT LEAST 30 MINUTES PRIOR TO BREAKFAST OR OTHER MEDICATIONS 100 Tablet 5 05/18/2022 Active hydrALAZINE HCl 25 MG Oral Tablet (Apresoline)Indica tions:HTN, goal below 140/90 TAKE 1/2 TABLET IN THE MORNING AND 1/2 TABLET AT NOON AND 1/2 TABLET BEFORE BEDTIME 135 Tablet 3 07/24/2022 Active amLODIPine Besylate 5 MG Oral Tablet [...] disease, chronic, stage IV (GFR 15-29 ml/min) ([facility]) Take 1 Tablet by mouth in the morning. 90 Tablet 5 06/06/2023 Active Hospital, Clinic, or Other Facility Administered Medication Ordered Dose Route Frequency Start Date End Date Status albuterol sulfate (PROVENTIL) (2.5 MG/3ML) 0.083% inhalation solution 2.5 mgIndications:CAMPOS (dyspnea on exertion),Wheezing 2.5 mg NEBULIZER Q4H PRN 04/29/2019 Active documented as of this encounter (statuses as of 06/17/2023) Active Problems Problem Noted Date Diagnosed Date [...] rinse after steroid. Test performed by Mimi SUPERVISOR MOTOR VEHICLE ASSEMBLY CPFT Chronic rhinitis 07/02/2019 Paroxysmal atrial fibrillation 07/14/2018 CAROL ANN (generalized anxiety disorder) 04/24/2018 Incomplete right bundle branch block (RBBB) 10/25 Antiphospholipid antibody syndrome 12/05/2011 HTN, goal below 140/90 07/12/2011 ferry terminal agent current use of anticoagulant therapy 1 06/17/2010 ADVANCE DIRECTIVE INFORMATION 07/01/2007 Overview: No, Advance Directive brochure given to patient at prior appointment. Planning to do a power of arranger assembler. Note on 07/04 has an appt soon. Esophageal reflux 06/01/2004 documented as of this encounter (statuses as of 06/17/2023) Resolved Problems Problem Noted Date Diagnosed Date [...] as of this encounter (statuses as of 06/17/2023) Immunizations Name Administration Dates Next Due COVID-19 [...] Syed Del Rosario, [facility] - 06/17/2023 8:24 AM EST Images from the original note [...] in diet/appetite, Bruising INR Result As of 06/17/2023 INR goal: 2.0-3.0 INR used for dosin.5 (06/17/2023) Warfarin Plan As of 06/17/2023 Full warfarin instructions: 06/17: 1.25 mg; Otherwise 1.25 mg every Sun, Tue, Nayeli; 2.5 mg all other days Next INR check: 07/15/2023 Repeat PT/INR in 4 week(s) Weekly dose: not changed Syed Britt RPh, CACP, CDE Clinical Pharmacist Medication Therapy [facility] 06/17/2023 8:30 AM documented in this encounter Plan of Treatment Upcoming Encounters Date Type Department Care Team (Late st Contact Info) Description 07/15/2023 8:40 AM EST Anticoagulation Pharmacy, [facility] 200 [facility] [place] [address] Pharmacist1, [facility] [address] [place] [address] 10/24/2023 8:00 AM EDT Office Visit [facility]iology, [facility] [place] [address] Osito Kamara PALemuel [address] [place] [address] 11/29/2023 9:20 AM EDT Office Visit Family Practice [facility] [place] [address] [place] [address] [address] David Cintron III, MD [address] [place] [address] 03/31/2024 2:30 PM EST Office Visit Dermatology [facility] [place] [address] [place] [address] [address] Christianne Mendez PATeteC [address] [place] [address] 06/03/2024 8:40 AM EST Office Visit Otolaryngology [facility] [address] [place] [address] Angel Blankenship PA-C [address] [place] [address] Scheduled Procedures Name Priority Associated Diagnoses Date/Ti me COLONOSCOPY FLEXIBLE PROXIMAL DIAGNOSTIC Recall History of colon polyps Health Maintenance Due Date Last Done Comments Depression Screening 04/28/2020 04/28/2019 COVID-19 Vaccine ( season) 2023 04/24/2021, 09/16/2020, 08/19/2020 PTH 10/06/2023 10/05/2022, 10/06/2021 Phosphate 10/06/2023 10/05/2022, 09/24, 09/05/2020, Additional history exists Albumin/Creatinine Ratio 12/27/2023 023, 01/05/2022, 04/07/2021, Additional history exists Hgb 12/27/2023 12/26/2022, 06/27, 12/15/2021, Additional history exists TSH 12/27/2023 12/26/2022, 06/27, [...] this encounter Medical Devices Implanted Type Area Sonar Technician Device Identifier Shelf Expiration Date Model / Serial / Lot Clip Quick 2.8mm 230cm - [id number] Implanted:Qty: 1 on 03/15/2020 by Janell Raphael MD at [facility]COPY [facility] [employer] [facility] 05/26/2022 [id number]-202UR.[id number] / [id number] documented as of this encounter Procedures Procedure Name Priority Date/Time Associated Diagnosis Comments INR FINGERSTICK, POINT OF CARE STAT 06/17/2023 8:27 AM EST Paroxysmal atrial fibrillation (HCC) Antiphospholipid antibody syndrome (HCC) Anticoagulation management encounter ferry terminal agent current use of anticoagulant therapy documented in this encounter Results * INR FINGERSTICK, POINT OF CARE (06/17/2023 8:27 AM EST) Fingerstick INR 3.5 INR 8:31 AM EST [facility] 56- Blood 06/17/2023 8:27 AM EST 06/17/2023 8:30 AM EST Narrative [facility] 56- - 06/17/2023 8:31 AM EST Therapeutic ranges for non-operative patients: Prophylaxsis/treatment of DVT: (Range:2.0-3.0) Treatment of pulmonary embolism:(Range:2.0-3.0) Prevention of systemic embolism from: -tissue heart valves -acute myocardial infarction -valvular heart disease -atrial fibrillation (Range: 2.0-3.0) Mechanical prosthetic valves: (Range: 2.5-3.5) Syed Britt V RPh LAB POINT OF CARE TE ST DOCKED DEVICE UNSOLICITED RESULTS [facility] 56- [address] [place] [address] documented in this encounter Visit Diagnoses Diagnosis Paroxysmal atrial fibrillation (HCC)- Primary Atrial fibrillation detention current use of anticoagulant therapy Antiphospholipid antibody syndrome (HCC) Primary hypercoagulable state Anticoagulation management encounter Encounter for therapeutic drug monitoring documented in this encounter Care Teams Research Subject Relationship Specialty Start Date End Date David Cintron III, MD [address] [place] [address] PCP - General 01/09/1996 documented as of this encounter
--- OUTSIDE RECORDS SUMMARY | 2023-11-26 09:37 | External Medical Summary | Summary of Care ---
Author Name Unknown Organization [facility] Address [address] [place] [address] Phone [phone] Care Team Providers Care Shipping Assistant Name Role Phone Saida EISENBERG MD, David Adame Primary Care Provider [phone] Encounter Details Date Type Department Care Team (Late st Contact Info) Description 05/30/2023 Patient Reported Data Patient Survey Ortho [facility]D Allergies Active Allergy Reactions Criticality Noted Date Comments Lisinopril Cough Low 06/04/2011 documented as of this encounter (statuses as of 05/30/2023) Medications Medication Sig Dispensed Refills Start Date [...] disease, chronic, stage IV (GFR 15-29 ml/min) ([facility]) Take 1 Tablet by mouth in the morning. Take 60meq (3 tabs) on 10/10 only. Then take 20meq daily.. 90 Tablet 5 05/30/2023 Active Hospital, Clinic, or Other Facility Administered Medication Ordered Dose Route Frequency Start Date End Date Status albuterol sulfate (PROVENTIL) (2.5 MG/3ML) 0.083% inhalation solution 2.5 mgIndications:CAMPOS (dyspnea on exertion),Wheezing 2.5 mg NEBULIZER Q4H PRN 04/29/2019 Active documented as of this encounter (statuses as of 05/30/2023) Active Problems Problem Noted Date Diagnosed Date Stage 3a chronic kidney disease 05/30/2023 Stage 3a chronic kidney disease 05/30/2023 Stage 3a chronic kidney disease 05/30/2023 Stage 3a chronic kidney disease 05/30/2023 Chronic kidney disease, stage 4 (severe) 022 [...] after steroid. Test performed by Mimi DIRECTOR OF REVENUE CYCLE MANAGEMENT CPFT Chronic rhinitis 07/02/2019 Paroxysmal atrial fibrillation 07/14/2018 CAROL ANN (generalized anxiety disorder) 04/24/2018 Incomplete right bundle branch block (RBBB) 10/25 Antiphospholipid antibody syndrome 12/05/2011 HTN, goal below 140/90 07/12/2011 [facility] current use of anticoagulant therapy 1 06/17/2010 ADVANCE DIRECTIVE INFORMATION 07/01/2007 Overview: No, Advance Directive brochure given to patient at prior appointment. Planning to do a power of collections attorney. Note on 07/04 has an appt soon. Esophageal reflux 06/01/2004 documented as of this encounter (statuses as of 05/30/2023) Resolved Problems Problem Noted Date Diagnosed Date Resolved Date Chronic kidney disease, stage 3b 11/08/2020 01/04/2022 [...] as of this encounter (statuses as of 05/30/2023) Immunizations Name Administration Dates Next Due COVID-19 [...] Care Team (Late st Contact Info) Description 05/31/2023 9:30 AM EST Office Visit Orthopaedics [facility] [address] [place] [address] Ned Tejada MD [address] [place] [phone] 06/17/2023 8:50 AM EST Anticoagulation Pharmacy, [facility] [address] [place] [address] Pharmacist1, [facility] [address] [place] [address] 10/24/2023 8:00 AM EDT Office Visit Cardiology, [facility] [address] [place] [address] Osito Kamara PA-C [address] [address] 11/29/2023 9:20 AM EDT Office Visit Family Practice [facility] 200 [facility] [place] [address] David Cintron III, MD [address] [facility] [place] [address] 03/31/2024 2:30 PM EST Office Visit Dermatology [facility] [address] [facility] [place] [address] Christianne Mendez PA-C [address] [facility] [place] [address] 06/03/2024 8:40 AM EST Office Visit Otolaryngology [facility] [address] [place] [address] Angel Blankenship PA-C [address] [place] [address] Scheduled Procedures Name Priority Associated Diagnoses Date/Ti me COLONOSCOPY FLEXIBLE PROXIMAL DIAGNOSTIC Recall History of colon polyps Health Maintenance Due Date Last Done Comments Depression Screening 04/28/2020 04/28/2019 COVID-19 Vaccine ( season) 2023 04/24/2021, 09/16/2020, 08/19/2020 Albumin/Creatinine Ratio 12/27/2023 023, 01/05/2022, 04/07/2021, Additional history exists TSH 12/27/2023 12/26/2022, 06/27, 12/15/2021, Additional history exists DXA Scan 12/12/2024 12/12/2021, [...] Completed 02/21/2023, 03/11/2022, 03/07/2021, Additional history exists Nephrology Referral Discontinued 03/20/2023 GARDASIL-HPV IMMUNIZATION SERIES Aged Out No longer eligible based on patient's age to complete this topic Hepatitis B Aged Out No longer eligi ble based on patient's age to complete this topic MENINGOCOCCAL (MENACTRA/MENVEO) Aged Out No longer eligible based on patient's age to complete this topic documented as of this encounter Medical Devices Implanted Type Area Fitter Armament Device Identifier Shelf Expiration Date Model / Serial / Lot Clip Quick 2.8mm 230cm - [id number] Implanted:Qty: 1 on 03/15/2020 by Janell Raphael MD at [facility]COPY [facility] [employer] [facility] 05/26/2022 [id number]-202UR.[id number] / [id number] documented as of this encounter Care Teams Shipping Assistant Relationship Specialty Start Date End Date David Cintron III, MD 200 [facility] [place] [address] PCP - General 01/09/1996 documented as of this encounter
--- OUTSIDE RECORDS SUMMARY | 2023-11-26 09:37 | External Medical Summary | Summary of Care ---
Author Name Unknown Organization [facility] Address [address] [place] [facility] [place] [address] Phone [phone] Care Team Providers Care Health Care Marketing Specialist Name Role Phone Saida EISENBERG MD, David Adame Primary Care Provider [phone] Reason for Visit * Reason Onset Date Comments Medication Question 06/06/2023 Status Check 06/06/2023 Encounter Details Date Type Department Care Team (Late st Contact Info) Description 06/06/2023 Telephone Family Practice [facility] 200 [facility] [place] [address] David Cintron III, MD [address] [facility] [address] Medication Question (/); Status Check Allergies Active Allergy Reactions Criticality Noted Date Comments Lisinopril Cough Low 06/04/2011 documented as of this encounter (statuses as of 06/06/2023) Medications Medication Sig Dispensed Refills Start Date [...] the morning. 90 Tablet 5 06/06/2023 Active Potassium Chloride Aaliyah ER 20 MEQ Oral Tablet Extended ReleaseIndication s:Kidney disease, chronic, stage IV (GFR 15-29 ml/min) (HCC) Take 1 Tablet by mouth in the morning. Take 60meq (3 tabs) on 10/10 only. Then take 20meq daily.. 90 Tablet 5 05/30/2023 Discontinue d(Refill) Hospital, Clinic, or Other Facility Administered Medication Ordered Dose Route Frequency Start Date End Date Status albuterol sulfate (PROVENTIL) (2.5 MG/3ML) 0.083% inhalation solution 2.5 mgIndications:CAMPOS (dyspnea on exertion),Wheezing 2.5 mg NEBULIZER Q4H PRN 04/29/2019 Active documented as of this encounter (statuses as of 06/06/2023) Active Problems Problem Noted Date Diagnosed Date [...] rinse after steroid. Test performed by Mimi PANTS MAKER CPFT Chronic rhinitis 07/02/2019 Paroxysmal atrial fibrillation 07/14/2018 CAROL ANN (generalized anxiety disorder) 04/24/2018 Incomplete right bundle branch block (RBBB) 10/25 Antiphospholipid antibody syndrome 12/05/2011 HTN, goal below 140/90 07/12/2011 [facility] current use of anticoagulant therapy 1 06/17/2010 ADVANCE DIRECTIVE INFORMATION 07/01/2007 Overview: No, Advance Directive brochure given to patient at prior appointment. Planning to do a power of coagulating operator. Note on 07/04 has an appt soon. Esophageal reflux 06/01/2004 documented as of this encounter (statuses as of 06/06/2023) Resolved Problems Problem Noted Date Diagnosed Date [...] as of this encounter (statuses as of 06/06/2023) Immunizations Name Administration Dates Next Due COVID-19 [...] encounter Miscellaneous Notes * Telephone Encounter - Rajwinder Corado, [facility] - 06/06/2023 1:49 PM EST Pt calling to check on status of Potassium Chloride Aaliyah ER 20 MEQ Oral Tablet Extended Release . Caller can be reached at [phone]. Thank you, Licha Corado Courtesy Booth Cashier [facility] ([facility]) 06/06/2023,1:49 PM * Telephone Encounter - Noa Kearns LPN - 06/06/2023 11:53 AM EST Chata calling from [facility] regarding: Potassium Chloride Aaliyah ER 20 MEQ Oral Tablet Extended Release Stating that the instructions are unclear. They need clarification on the sig. Call back Phone number:[phone] Reference number: [id number] Prescription is due today, if this is not taken care of by today they will put the prescription on hold. documented in this encounter Plan of Treatment Upcoming Encounters Date Type Department Care Team (Late st Contact Info) Description 06/17/2023 8:50 AM EST Anticoagulation Pharmacy, [facility] [address] [place] [address] [address] Pharmacist1, [facility] [address] [place] [address] 10/24/2023 8:00 AM EDT Office Visit [facility]iology, [facility] [place] [address] Osito Kamara PA-C [address] [place] [address] 11/29/2023 9:20 AM EDT Office Visit Family Practice [facility] [address] [place] [address] David Cintron III, MD [address] [place] [address] 03/31/2024 2:30 PM EST Office Visit Dermatology [facility] [address] [place] [address] Christianne Mendez PA-C [address] [place] [address] 06/03/2024 8:40 AM EST Office Visit Otolaryngology [facility] [address] [place] [address] Angel Blankenship PA-C [address] [place] [address] Scheduled Procedures Name Priority Associated Diagnoses Date/Ti [...] this encounter Medical Devices Implanted Type Area Security Team Lead Device Identifier Shelf Expiration Date Model / Serial / Lot Clip Quick 2.8mm 230cm - [id number] Implanted:Qty: 1 on 03/15/2020 by Janell Raphael MD at [facility]COPY [facility] [employer] 05/26/2022 [id number]-[id number] / / [id number] documented as of this encounter Visit Diagnoses Diagnosis Kidney disease, chronic, stage IV (GFR 15-29 ml/min) (HCC) Chronic kidney disease, Stage IV (severe) documented in this encounter Care Teams Health Care Marketing Specialist Relationship Specialty Start Date End Date David Cintron III, MD 200 [place] [address] PCP - General 01/09/1996 documented as of this encounter
--- OUTSIDE RECORDS SUMMARY | 2023-11-26 09:37 | External Medical Summary | Summary of Care ---
Author Name Unknown Organization [facility] Address [address] [place] [address] Phone [phone] Care Team Providers Care Last Trimmer Name Role Phone Saida EISENBERG MD, David Adame Primary Care Provider [phone] Reason for Referral * Evaluate & Treat - Unlimited Visits (Within 10 days (routine)) - Pending Review Specialty Diagnoses / Procedures Referred By Andrew trinidad Referred To Contact Sports Medicine / Orthopedics Diagnoses Tendinitis of right rotator cuff Numbness and tingling in right hand David Cintron III, MD [address] [place] [address] Referral ID Status Reason Start Date Expiration Date Visits Requested Visits Authorized [id number] Pending Review Specialty Services Required 05/30/[phone] Question Answer Referral Priority Within 10 days (routine) Where should this appointment be scheduled? [facility] What body part is the patient being seen for? Shoulder What condition is the patient being seen for? Weakness/Numbness/Tingling Reason for Visit * Reason Comments Re-Check Encounter Details Date Type Department Care Team (Late st Contact Info) Description 05/30/2023 9:40 AM EST Office Visit [facility] [address] [place] [address] David Cintron III, MD [address] [place] [address] Tendinitis of right rotator cuff*; Chronic diastolic heart failure (HCC); Paroxysmal atrial fibrillation (HCC); Severe obesity with body mass index (BMI) of 35.0 to 39.9 with serious comorbidity (HCC); Antiphospholipid antibody syndrome (HCC); Stage 3a chronic kidney disease (HCC); Numbness and tingling in right hand; Kidney disease, chronic, stage IV (GFR 15-29 ml/min) ([facility]) Allergies Active Allergy Reactions Criticality Noted Date Comments Lisinopril Cough Low 06/04/2011 documented as of this encounter (statuses as of 06/03/2023) Medications Medication Sig Dispensed Refills Start Date [...] disease, chronic, stage IV (GFR 15-29 ml/min) ([facility]) Take 1 Tablet by mouth in the morning. Take 60meq (3 tabs) on 10/10 only. Then take 20meq daily.. 90 Tablet 5 05/30/2023 Active Potassium Chloride Aaliyah ER 20 MEQ Oral Tablet Extended ReleaseIndication s:Kidney disease, chronic, stage IV (GFR 15-29 ml/min) ([facility]) Take 1 Tablet by mouth in the morning. Take 60meq (3 tabs) on 10/10 only. Then take 20meq daily.. 33 Tablet 5 10/10/2022 4 Discontinue d(Refill) Hospital, Clinic, or Other Facility Administered Medication Ordered Dose Route Frequency Start Date End Date Status albuterol sulfate (PROVENTIL) (2.5 MG/3ML) 0.083% inhalation solution 2.5 mgIndications:CAMPOS (dyspnea on exertion),Wheezing 2.5 mg NEBULIZER Q4H PRN 04/29/2019 Active documented as of this encounter (statuses as of 06/03/2023) Active Problems Problem Noted Date Diagnosed Date [...] rinse after steroid. 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 Planning to do a power of attorney general. Note on 07/04 has an appt soon. Esophageal reflux 06/01/2004 documented as of this encounter (statuses as of 06/03/2023) Resolved Problems Problem Noted Date Diagnosed Date [...] as of this encounter (statuses as of 06/03/2023) Immunizations Name Administration Dates Next Due COVID-19 [...] Date Smoking Tobacco: Never Smokeless Tobacco: Never Tobacco Cessation:Counseling Given: Not Answered Alcohol Use Standard Drinks/Week Comments No 0 [...] Sign Reading Time Taken Comments Blood Pressure 139/71 05/30/2023 9:31 AM EST Pulse 88 05/30/2023 9:31 AM EST Temperature 36.2 C (97.1 F) 05/30/2023 9:31 AM ES T Respiratory Rate 16 05/30/2023 9:31 AM EST Oxygen Saturation - - Inhaled Oxygen Concentration - - Weight 85.7 kg (189 lb) 05/30/2023 9:31 AM EST Height - - Body Mass Index 33.48 05/29/2023 8:42 AM EST documented in this encounter Progress Notes * David Cintron III, MD - 05/30/2023 9:59 AM EST Subjective: Jolanta Horn is a 87 year old female. Chief Complaint Patient presents with Re-Check HPI: Follow up hypertension chronic stage III chronic diastolic heart failure antiphospholipid antibody obesity for the most part been feeling well except from her shoulder has been going on for months seen chiropractor massage therapy has pain between her shoulder blades numbness at times and weakness in her right arm numbness into her 5th finger labs reviewed from December as well as nephrology notes next nephrology appointment is in months denies chest pain shortness of breath no bleeding urine or bowels refuses further colonoscopy PMH: Patient Active Problem List Diagnosis Code Esophageal reflux K21.9 ADVANCE DIRECTIVE INFORMATION terminal makeup operator current use of anticoagulant therapy Z79.01 HTN, goal below 140/90 I10 Antiphospholipid antibody syndrome (HCC) D68.61 Incomplete right bundle branch block (RBBB) I45.10 CAROL ANN (generalized anxiety disorder) F41.1 Paroxysmal atrial fibrillation (HCC) I48.0 Moderate persistent asthma without complication J45.40 Chronic rhinitis J31.0 Chronic diastolic heart failure (HCC) I50.32 Severe obesity with body mass index (BMI) of 35.0 to 39.9 with serious comorbidity ([facility]) E66.01 Pulmonary hypertension (HCC) I27.20 Chronic kidney disease, stage 4 (severe) (HCC) N18.4 Benign hypertension with chronic kidney disease, stage IV (HCC) I12.9, N18.4 Stage 3a chronic kidney disease (HCC) N18.31 Stage 3a chronic kidney disease (HCC) N18.31 Stage 3a chronic kidney disease (HCC) N18.31 Stage 3a chronic kidney disease (HCC) N18.31 Current Outpatient Medications Medication Sig Dispense Refill Potassium Chloride Aaliyah ER 20 MEQ Oral Tablet Extended Release Take 1 Tablet by mouth in the morning. Take 60meq (3 tabs) on 10/10 only. Then take 20meq daily.. 90 Tablet 5 LORATADINE 10 MG PO TABS One pill [...] Tablet in the morning. 90 Tablet 3 Diclofenac Sodium 1 % External Gel (Voltaren) Apply topically to affected area 2 times a day. Applyto knee and r leg 700 g 11 Levothyroxine Sodium 50 MCG Oral Tablet (Levoxyl) TAKE 1 TABLET DAILY AT LEAST 30 MINUTES PRIOR TO BREAKFAST OR OTHER MEDICATIONS 100 Tablet 5 hydrALAZINE HCl 25 MG Oral Tablet (Apresoline) TAKE 1/2 TABLET IN THE MORNING AND 1/2 TABLET AT NOON AND 1/2 TABLET BEFORE BEDTIME 135 Tablet 3 amLODIPine Besylate 5 MG Oral Tablet [...] and1 Capsule before bedtime. 180 Capsule 3 Current Facility-Administered Medications Medication Dose Route Frequency Provider Last Rate Last Admin albuterol sulfate (PROVENTIL) (2.5 MG/3ML) 0.083% inhalation solution 2.5 mg 2.5 mg Nebulizer Q4H PRN David Cintron III, MD 2.5 mg at 05/14/19 1117 Review of patient's allergies indicates: Allergen Reactions Lisinopril Cough Past Medical History: Diagnosis Date Diverticulosis of colon CAROL ANN (generalized anxiety disorder) 04/24/2018 HTN, goal below 140/90 Past Surgical History: Procedure Laterality Date COLONOSCOPY W/ LESION REMOVAL, SNARE 08/27/[address] COLONOSCOPY, DIAGNOSTIC (RECTUM) 02/10/2007 COLONOSCOPY, DIAGNOSTIC (RECTUM) 02/25/2014 COLONOSCOPY FLEXIBLE PROXIMAL DIAGNOSTIC performed by Osito Braswell MD at [facility] COLONOSCOPY, DIAGNOSTIC (RECTUM) 03/15/2020 serrated adenomatous polyp, repeat 3 yrs / COLONOSCOPY FLEXIBLE PROXIMAL DIAGNOSTIC performed by Janell Raphael MD at [facility] COLONOSCOPY, DIAGNOSTIC (RECTUM) 03/19/2020 bleeding polypectomy site, treated / INPT [facility] CYSTOSCOPY 07/16/2005 MAMMOGRAM - BILATERAL 07/29/2002 Birad code 2, benign MAMMOGRAM DIAGNOSTIC BILATERAL 10/04/2009 birad code 2 MAMMOGRAM SCREENING-BILATERAL 09/27/2006 birad code 2 MAMMOGRAM SCREENING-BILATERAL 09/29/2007 birad 2 MAMMOGRAM SCREENING-BILATERAL 09/29/2008 birad code 2 PARTIAL REMOVAL OF COLON 05/23/2007 Sigmoid partial colectomy at [facility] - Dr. Mcnair REMOVAL OF APPENDIX REMOVE GALLBLADDER VAGINAL DELIVERY ONLY times 2 Objective: The patient is a 87 year old female BP 139/71 | Pulse 88 | Temp 36.2 C (97.1 F) | Resp 16 | Wt 85.7 kg (189 lb) | BMI 33.48 kg/m | BSA 1.95 m General: alert Eye Exam: PERRLA, extraocular movements intact, conjunctiva are pink and non- injected, sclera clear Oropharynx: no exudate, no erythema, lips, buccal mucosa, and tongue normal, and mucous membranes are moist Heart: regular rate & rhythm, no murmur, and no gallops Lungs: lungs clear to auscultation Extremities: no edema, no clubbing, no cyanosis Tenderness bicipital supraspinatus inferior teres area some decreased active and passive range of motion right shoulder tenderness posterior cervical right paraspinal thoracic cervical right biceps reflexes +2 bilaterally ASSESSMENT: M75.81 Tendinitis of right rotator cuff (primary encounter diagnosis) I50.32 Chronic diastolic heart failure (HCC) I48.0 Paroxysmal atrial fibrillation (HCC) E66.01 Severe obesity with body mass index (BMI) of 35.0 to 39.9 with serious comorbidity (HCC) D68.61 Antiphospholipid antibody syndrome (HCC) N18.31 Stage 3a chronic kidney disease (HCC) R20.0,R20.2 Numbness and tingling in right hand N18.4 Kidney disease, chronic, stage IV (GFR 15-29 ml/min) ([facility]) PLAN: Refill potassium check lab work including inflammatory markers sports medicine referral RSV vaccinediscussed encouraged Follow up in 6 month(s). David Cintron III, MD * Chastity Betancourt RN - 05/30/2023 9:31 AM EST Right shoulder pain. documented in this encounter Plan of Treatment Upcoming Encounters Date Type Department Care Team (Late st Contact Info) Description 06/17/2023 8:50 AM EST Anticoagulation Pharmacy, [facility] [address] [place] [address] Pharmacist1, [facility] [address] [place] [address] 10/24/2023 8:00 AM EDT Office Visit Cardiology, [facility] [address] [address] Osito Kamara PA-C [address] [address] 11/29/2023 9:20 AM EDT Office Visit Family Practice [facility] [address] [place] [address] David Cintron III, MD [address] [place] [address] 03/31/2024 2:30 PM EST Office Visit Dermatology [facility] [address] [facility] [place] [address] Christianne Mendez PA-C [address] [facility] [address] [address] 06/03/2024 8:40 AM EST Office Visit Otolaryngology [facility] [address] [address] Angel Blankenship PA-C [address] [facility] [place] [address] Scheduled Orders Name Type Priority Associated Diagnoses Orde r Schedule CBC Lab Routine Tendinitis of right rotator cuff Expected: 05/30/2023 (Approximate), Expires: 05/29/2024 ERYTHROCYTE SEDIMENTATION RATE (ESR) Lab Routine Tendinitis of right rotator cuff Expected: 05/30/2023 (Approximate), Expires: 05/29/2024 CRP (INFLAMMATORY MARKER) Lab Routine Tendinitis of right rotator cuff Expected: 05/30/2023 (Approximate), Expires: 05/29/2024 BASIC METABOLIC PANEL Lab Routine Stage 3a chronic kidney disease (HCC) Expected: 05/30/2023 (Approximate), Expires: 05/29/2024 Scheduled Procedures Name Priority Associated Diagnoses Date/Ti me COLONOSCOPY FLEXIBLE PROXIMAL DIAGNOSTIC Recall History of colon polyps Scheduled Referrals Name Type Priority Associated Diagnoses Orde r Schedule SPORTS MEDICINE REFERRAL OP Referral Within 10 days (routine) Tendinitis of right rotator cuff Numbness and tingling in right hand Ordered: 05/30/2023 Health Maintenance Due Date Last Done Comments [...] this encounter Medical Devices Implanted Type Area Hand I Thermal Cutter Device Identifier Shelf Expiration Date Model / Serial / Lot Clip Quick 2.8mm 230cm - [id number] Implanted:Qty: 1 on 03/15/2020 by Janell Raphael MD at [facility] [employer] [facility] 05/26/2022 [id number]-202UR.A / / [id number] documented as of this encounter Visit Diagnoses Diagnosis Tendinitis of right rotator cuff- Primary Disorders of bursae and tendons in shoulder region, unspecified Chronic diastolic heart failure (HCC) Chronic diastolic heart failure Paroxysmal atrial fibrillation (HCC) Atrial fibrillation Severe obesity with body mass index (BMI) of 35.0 to 39.9 with serious comorbidity (HCC) Antiphospholipid antibody syndrome (HCC) Primary hypercoagulable state Stage 3a chronic kidney disease (HCC) Numbness and tingling in right hand Disturbance of skin sensation Kidney disease, chronic, stage IV (GFR 15-29 ml/min) (HCC) Chronic kidney disease, Stage IV (severe) documented in this encounter Care Teams Last Trimmer Relationship Specialty Start Date End Date David Cintron III, MD [address] [facility] [place] [address] PCP - General 01/09/1996 documented as of this encounter"
--- OUTSIDE RECORDS SUMMARY | 2023-11-26 09:37 | External Medical Summary | Summary of Care ---
Author Name Unknown Organization [facility] Address [address] [place] [address] Phone [phone] Care Team Providers Care Finished Cloth Checker Name Role Phone Saida EISENBERG MD, David Adame Primary Care Provider [phone] Encounter Details Date Type Department Care Team [...] rinse after steroid. Test performed by Mimi VERTICAL PUNCH OPERATOR CPFT Chronic rhinitis 07/02/2019 Paroxysmal atrial fibrillation 07/14/2018 CAROL ANN (generalized anxiety disorder) 04/24/2018 Incomplete right bundle branch block (RBBB) 10/25 Antiphospholipid antibody syndrome 12/05/2011 HTN, goal below 140/90 07/12/2011 correction current use of anticoagulant therapy 1 06/17/2010 ADVANCE DIRECTIVE INFORMATION 07/01/2007 Overview: No, Advance Directive brochure given to patient at prior appointment. Planning to do a power of family law attorney. Note on 07/04 has an [...] Description 07/15/2023 8:40 AM EST Anticoagulation Pharmacy, [facility] [address] [facility] [place] [address] Pharmacist1, [facility] [address] [address] 07/17/2023 10:00 AM EST Office Visit Orthopaedics [facility] [address] [address] Ned Tejada MD [address] [phone] 10/24/2023 8:00 AM EDT Office Visit Cardiology, [facility] [address] [address] Osito Kamara PA-C [address] [address] 11/29/2023 9:20 AM EDT Office Visit Family Practice [facility] [address] [facility] [place] [address] David Cintron III, MD [address] [facility] [place] [address] 03/31/2024 2:30 PM EST Office Visit Dermatology [facility] [address] [facility] [place] [address] Christianne Mendez PA-C [address] [facility] [place] [address] 06/03/2024 8:40 AM EST Office Visit Otolaryngology [facility] [address] [address] Angel Blankenship PA-C [address] [address] Scheduled Procedures Name Priority Associated Diagnoses Date/Ti [...] this encounter Medical Devices Implanted Type Area English Drawer Device Identifier Shelf Expiration Date Model / Serial / Lot Clip Quick 2.8mm 230cm - [id number] Implanted:Qty: 1 on 03/15/2020 by Janell Raphael MD at [facility]OS[facility] [employer] 05/26/2022 [id number]-202UR.A / / [id number] Clip Quick 2.8mm 230cm - [id number] Implanted:Qty: 1 on 03/15/2020 by Janell Raphael MD at [facility]OS[facility] [email or web address] 05/26/2022 [id number]-202UR.A / / [id number] documented as of this encounter Care Teams Finished Cloth Checker Relationship Specialty Start Date End Date David Cintron III, MD [address] [place] [address] PCP - General 01/09/1996 documented as of this encounter
--- OUTSIDE RECORDS SUMMARY | 2023-11-26 09:37 | External Medical Summary | Summary of Care ---
Author Name Unknown Organization [facility] Address [address] [place] [address] Phone [phone] Care Team Providers Care Hog Counter Name Role Phone Saida EISENBERG MD, John E Primary Care Provider [phone] Encounter Details Date Type Department Care Team (Late st Contact Info) Description 07/01/2023 Orders Only Family Practice [facility] [address] [facility] [place] [address] David Cintron III, MD [address] [facility] [address] Allergies Active Allergy Reactions Criticality Noted Date Comments Lisinopril Cough Low 06/04/2011 documented as of this encounter (statuses as of 07/01/2023) Medications Medication Sig Dispensed Refills Start Date [...] disease, chronic, stage IV (GFR 15-29 ml/min) ([facility]) Take 1 Tablet by mouth in the morning. 90 Tablet 5 06/06/2023 Active Hospital, Clinic, or Other Facility Administered Medication Ordered Dose Route Frequency Start Date End Date Status albuterol sulfate (PROVENTIL) (2.5 MG/3ML) 0.083% inhalation solution 2.5 mgIndications:CAMPOS (dyspnea on exertion),Wheezing 2.5 mg NEBULIZER Q4H PRN 04/29/2019 Active documented as of this encounter (statuses as of 07/01/2023) Active Problems Problem Noted Date Diagnosed Date [...] rinse after steroid. Test performed by Mimi BRICK PAVING CHECKER CPFT Chronic rhinitis 07/02/2019 Paroxysmal atrial fibrillation 07/14/2018 CAROL ANN (generalized anxiety disorder) 04/24/2018 Incomplete right bundle branch block (RBBB) 10/25 Antiphospholipid antibody syndrome 12/05/2011 HTN, goal below 140/90 07/12/2011 prison current use of anticoagulant therapy 1 06/17/2010 ADVANCE DIRECTIVE INFORMATION 07/01/2007 Overview: No, Advance Directive brochure given to patient at prior appointment. Planning to do a power of aquatics director. Note on 07/04 has an appt soon. Esophageal reflux 06/01/2004 documented as of this encounter (statuses as of 07/01/2023) Resolved Problems Problem Noted Date Diagnosed Date [...] as of this encounter (statuses as of 07/01/2023) Immunizations Name Administration Dates Next Due COVID-19 [...] Description 07/15/2023 8:40 AM EST Anticoagulation Pharmacy, [facility] [address] [place] [address] Pharmacist1, [facility] [address] [place] [address] 07/17/2023 10:00 AM EST Office Visit Orthopaedics [facility] [address] [address] Ned Tejada MD [address] [phone] 10/24/2023 8:00 AM EDT Office Visit Cardiology, [facility] [address] [address] Osito Kamara PALemuel [address] [address] 11/29/2023 9:20 AM EDT Office Visit Family Practice [facility] [address] [facility] [place] [address] David Cintron III, MD [address] [facility] [address] [place] [address] 03/31/2024 2:30 PM EST Office Visit Dermatology [facility] [address] [facility] [place] [address] Christianne Mendez PA-C [address] [facility] [place] [address] 06/03/2024 8:40 AM EST Office Visit Otolaryngology [facility] [address] [place] [address] Angel Blankenship PA-C [address] [address] Scheduled Procedures Name Priority Associated Diagnoses Date/Ti me COLONOSCOPY FLEXIBLE PROXIMAL DIAGNOSTIC Recall History of colon polyps Health Maintenance Due Date Last Done Comments Depression Screening 04/28/2020 04/28/2019 COVID-19 Vaccine ( season) 2023 04/24/2021, 09/16/2020, 08/19/2020 PTH 10/06/2023 10/05/2022, 10/06/2021 Phosphate 10/06/2023 10/05/2022, 09/24, 09/05/2020, Additional history exists Albumin/Creatinine Ratio 12/27/2023 023, 01/05/2022, 04/07/2021, Additional history exists Hgb 12/27/2023 06/26/2023, 06/2022, 07/13/2022, Additional history exists TSH 12/27/2023 12/26/2022, 06/27, [...] this encounter Medical Devices Implanted Type Area Airline Stewardess Device Identifier Shelf Expiration Date Model / Serial / Lot Clip Quick 2.8mm 230cm - [id number] Implanted:Qty: 1 on 03/15/2020 by Janell Raphael MD at [facility] [employer] [facility] 05/26/2022 HX-202UR.A / / [id number] documented as of this encounter Procedures Procedure Name Priority Date/Time Associated Diagnosis Comments CHEMISTRY-OUTSIDE Routine 06/26/2023 documented in this encounter Results * (ABNORMAL) CHEMISTRY-OUTSIDE (06/26/2023) Not all results display below - see scan for full detail OUTSIDE LAB (SEE SCANNED REPORT) Comment:SCAN INCLUDES: BMP, SED RATE, CBCD, CRP CREATININE-OUTSID E LAB 1.22(A) 0.60 - 0.95 MG/DL OUTSIDE LAB (SEE SCANNED REPORT) EGFR-OUTSIDE LAB 43(A) >=60 ML/MIN/1.7 3M2 OUTSIDE LAB (SEE SCANNED REPORT) POTASSIUM-OUTSIDE LAB 4.5 3.5 - 5.3 MMOL/L OUTSIDE LAB (SEE SCANNED REPORT) GLUCOSE-OUTSIDE LAB 97 65 - 99 MG/DL OUTSIDE LAB (SEE SCANNED REPORT) HOURS FASTING OUTSID E LAB (SEE SCANNED REPORT) TRIGLYCERIDES-OUT SIDE LAB OUTSIDE LAB (SEE SCANNED REPORT) CHOLESTEROL-OUTSI DE LAB OUTSIDE LAB (SEE SCANNED REPORT) HDL-OUTSIDE LAB OUTS VARGHESE LAB (SEE SCANNED REPORT) CHOL/HDL RATIO-OUTSIDE LAB OUTSIDE LA B (SEE SCANNED REPORT) LDL (CALCULATED)-OUTS VARGHESE LAB OUTSIDE LAB (SEE SCANNED REPORT) LDL (DIRECT MEASURE)-OUTSIDE LAB OUTSIDE LAB (SEE SCANNED REPORT) HEMOGLOBIN, [id number]-[id number] LAB OUTSIDE LAB (SEE SCANNED REPORT) PHOSPHORUS-OUTSID E LAB OUTSIDE LAB (SEE SCANNED REPORT) PTH-OUTSIDE LAB OUTS VARGHESE LAB (SEE SCANNED REPORT) MICROALBUMIN RATIO-OUTSIDE LAB OUTSIDE LA B (SEE SCANNED REPORT) PROTEIN, UA-OUTSIDE LAB OUTSIDE LAB (SEE SCANNED REPORT) HEMOGLOBIN-OUTSID E LAB 13.5 11.7 - 15.5 G/DL OUTSIDE LAB (SEE SCANNED REPORT) 06/26/2023 David Cintron III, MD LABORATORY OUTSIDE LAB (SEE SCANNED REPORT) documented in this encounter Care Teams Hog Counter Relationship Specialty Start Date End Date David Cintron III, MD [address] [place] [address] PCP - General 01/09/1996 documented as of this encounter
--- OUTSIDE RECORDS SUMMARY | 2023-11-26 09:37 | External Medical Summary ---
Author Name Unknown Address Unknown Organization K09:[facility] [address] Laboratory Report Ordering Provider Test Date Status DELFINRADHA V 06/17/2023 08:27:24 Final Therapeutic ranges for non-o perative patients:
Prophylaxsis/treatment of DVT: (Range:2.0-3.0)
Treatment of pulmonary embolism:(Range:2.0-3.0)
Prevention of systemic embolism from:
-tissue heart valves
-acute myocardial infarction
-valvular heart disease
-atrial fibrillation
(Range: 2.0-3.0)
Mechanical prosthetic valves: (Range: 2.5-3.5) Observation Date Value Abnormality Reference (Units ) Status INR in Capillary blood by Coagulation assay 06/17/2023 08:27:24 3.5 (INR) Final Performing Location [facility] [place] [address]
--- OUTSIDE RECORDS SUMMARY | 2023-11-26 09:37 | External Medical Summary | Summary of Care ---
Author Name Unknown Organization [facility] Address [address] [facility] [address] Phone [phone] Care Team Providers Care Insurance Application Investigator Name Role Phone Saida EISENBERG MD, David Adame Primary Care Provider [phone] Reason for Visit * Reason Comments eRx-Medication Refill Encounter Details Date Type Department Care Team (Late st Contact Info) Description 07/10/2023 Refill Cardiology, [facility] [address] [place] [address] Osito Kamara PA-C [address] [place] [address] HTN, goal below 140/90 Allergies Active Allergy Reactions Criticality Noted Date Comments Lisinopril Cough Low 06/04/2011 documented as of this encounter (statuses as of 07/10/2023) Medications Medication Sig Dispensed Refills Start Date [...] Take 1 Tab by mouth daily. 0 7 Active Cholecalciferol 25 MCG (1000 UT) Oral Tablet Take 1 Tablet by mouth in the morning. 0 7 Active LORazepam 0.5 MG Oral Tablet (Ativan)Indicatio ns:Anxiety state 1/2-1 TABLET TWICE DAILY as needed for nerves 90 Tab 3 0 Active Fluticasone Propionate 50 MCG/ACT Nasal Suspension Administer 2 Sprays into each nostril daily. 47.4 mL 3 1 Active Metoprolol Succinate ER 25 MG Oral Tablet Extended Release 24 Hour (toPROL XL)Indications:Pa roxysmal atrial fibrillation (HCC) Take by mouth 1 Tablet in the morning. 90 Tablet 3 2 Active Levothyroxine Sodium 50 MCG Oral Tablet (Levoxyl)Indicati ons:PT NOT TAKING - PHARMACY CANNOT GET MEDICATION TAKE 1 TABLET DAILY AT LEAST 30 MINUTES PRIOR TO BREAKFAST OR OTHER MEDICATIONS 100 Tablet 5 2 Active amLODIPine Besylate 5 MG Oral Tablet (Norvasc)Indicati ons:HTN, goal below 140/90 Take 0.5 Tablets by mouth in the morning. 90 Tablet 1 3 Active Fluticasone Furoate-Vilantero l 200-25 MCG/ACT Inhalation Aerosol Powder Breath Activated (BREO ellipta)Indicatio ns:Moderate persistent asthma without complication Inhale 1 Puff by mouth in the morning. 60 Each 0 3 Active Fluticasone Furoate-Vilantero l 200-25 MCG/ACT Inhalation Aerosol Powder Breath Activated (BREO ellipta)Indicatio ns:Moderate persistent asthma without complication Inhale 1 Puff by mouth in the morning. 180 Blister Dosing Unit 1 3 Active Furosemide 20 MG Oral Tablet [...] as needed for Wheezing. 54 g 0 3 Active Montelukast Sodium 10 MG Oral Tablet (Singulair)Indica tions:Moderate persistent asthma without complication Take 1 Tablet by mouth at bedtime. 60 Tablet 4 3 Active Amiodarone HCl 200 MG Oral Tablet (Cordarone)Indica tions:Paroxysmal atrial fibrillation (HCC) TAKE 1 TABLET DAILY 90 Tablet 3 3 Active Atorvastatin Calcium 20 MG Oral [...] BEFORE BEDTIME 135 Tablet 3 4 Active hydrALAZINE HCl 25 MG Oral Tablet (Apresoline)Indic ations:HTN, goal below 140/90 TAKE 1/2 TABLET IN THE MORNING AND 1/2 TABLET AT NOON AND 1/2 TABLET BEFORE BEDTIME 135 Tablet 3 3 07/10/19 24 Discontinued Hospital, Clinic, or Other Facility Administered Medication Ordered Dose Route Frequency Start Date End Date Status albuterol sulfate (PROVENTIL) (2.5 MG/3ML) 0.083% inhalation solution 2.5 mgIndications:CAMPOS (dyspnea on exertion),Wheezing 2.5 mg NEBULIZER Q4H PRN 04/29/2019 Active documented as of this encounter (statuses as of 07/10/2023) Active Problems Problem Noted Date Diagnosed Date [...] rinse after steroid. 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 Planning to do a power of county attorney. Note on 07/04 has an appt soon. Esophageal reflux 06/01/2004 documented as of this encounter (statuses as of 07/10/2023) Resolved Problems Problem Noted Date Diagnosed Date [...] as of this encounter (statuses as of 07/10/2023) Immunizations Name Administration Dates Next Due COVID-19 [...] encounter Miscellaneous Notes * Telephone Encounter - Sangita Quintero CRNP - 07/10/2023 3:01 PM EST Signed Prescriptions: Disp Refills hydrALAZINE HCl 25 MG Oral Tablet (Apresol*135 Ta*3 Sig: TAKE 1/2 TABLET IN THE MORNING, 1/2 TABLET AT NOON AND 1/2 TABLET BEFORE BEDTIME Authorizing Provider: SANGITA QUINTERO * Telephone Encounter - Kenisha Mcallister COT - 07/10/2023 8:23 AM ESTPending Prescriptions: Disp Refills hydrALAZINE HCl 25 MG Oral Tablet [Pharmac*135 Ta*3 Sig: TAKE 1/2 TABLET IN THE MORNING, 1/2 TABLET AT NOON AND 1/2 TABLET BEFORE BEDTIME * Telephone Encounter - Kenisha Mcallister COT - 07/10/2023 8:23 AM EST Did you pend patient's preferred pharmacy and medication before forwarding?yes [id number] Pending Prescriptions: Disp Refills hydrALAZINE HCl 25 MG Oral Tablet (Apreso*135 Ta*3 Sig: TAKE 1/2 TABLET IN THE MORNING, 1/2 TABLET AT NOON AND 1/2 TABLET BEFORE BEDTIME Last Visit: 04/19/2023 (in office), 04/29/2020 (telemedicine) Next Visit: 10/24/2023 If no future appointments scheduled, and last appointment is greater than a year ago, please schedule patient for a follow-up appointment Last date the medication was ordered: 07-24-2022 Is this request for a controlled substance?No [...] Description 07/15/2023 8:40 AM EST Anticoagulation Pharmacy, [facility] [address] [facility] [place] [address] Pharmacist1, [facility] [address] [facility] [place] [address] 07/17/2023 10:00 AM EST Office Visit Orthopaedics [facility] [address] [address] Ned Tejada MD [address] [place] [phone] 10/24/2023 8:00 AM EDT Office Visit Cardiology, [facility] [address] [place] [address] Osito Kamara PA-C [address] [place] [address] 11/29/2023 9:20 AM EDT Office Visit Family Practice [facility] [address] [facility] [place] [address] David Cintron III, MD [address] [facility] [place] [address] 03/31/2024 2:30 PM EST Office Visit Dermatology [facility] [address] [facility] [place] [address] Christianne Mendez PA-C [address] [facility] [place] [address] 06/03/2024 8:40 AM EST Office Visit Otolaryngology [facility] [address] [facility] [place] [address] Angel Blankenship PA-C [address] [place] [address] Scheduled Procedures Name Priority Associated Diagnoses Date/Ti [...] Additional history exists Zoster Vaccines Completed 08/21/2018, /12/2017, 08/21/2017, Additional history exists COLONOSCOPY-EVERY 3 YRS [...] this encounter Medical Devices Implanted Type Area Dough Mixer Operator Device Identifier Shelf Expiration Date Model / Serial / Lot Clip Quick 2.8mm 230cm - [id number] Implanted:Qty: 1 on 03/15/2020 by Janell Raphael MD at ENDOSCOPY [facility] [employer] 05/26/2022 HX-202UR.A / K documented as of this encounter Visit Diagnoses Diagnosis HTN, goal below 140/90 Unspecified essential hypertension documented in this encounter Care Teams Insurance Application Investigator Relationship Specialty Start Date End Date David Cintron III, MD [address] [place] [address] PCP - General 01/09/1996 documented as of this encounter
--- OUTSIDE RECORDS SUMMARY | 2023-11-26 09:37 | External Medical Summary | Summary of Care ---
Author Name Unknown Organization [facility] Address [address] [place] [address] Phone [phone] Care Team Providers Care Supervisor Type Photography Name Role Phone Saida EISENBERG MD, David Adame Primary Care Provider [phone] Encounter Details Date Type Department Care Team [...] rinse after steroid. Test performed by Mimi LOAD PLANNER CPFT Chronic rhinitis 07/02/2019 Paroxysmal atrial fibrillation [...] Description 07/15/2023 8:40 AM EST Anticoagulation Pharmacy, [facility] [address] [facility] [place] [address] Pharmacist1, [facility] [address] [place] [address] 07/17/2023 10:00 AM EST Office Visit Orthopaedics [facility] [address] [address] Ned Tejada MD [address] [place] [phone] 10/24/2023 8:00 AM EDT Office Visit Cardiology, [facility] [address] [place] [address] Osito Kamara PA-C [address] [place] [address] 11/29/2023 9:20 AM EDT Office Visit Family Practice [facility] [address] [facility] [place] [address] David Cintron III, MD [address] [facility] [place] [address] 03/31/2024 2:30 PM EST Office Visit Dermatology [facility] [address] [facility] [place] [address] Christianne Mendez PA-C [address] [facility] [place] [address] 06/03/2024 8:40 AM EST Office Visit Otolaryngology [facility] [address] [place] [address] Angel Blankenship PA-C [address] [place] [address] Scheduled Procedures Name Priority Associated Diagnoses Date/Ti [...] this encounter Medical Devices Implanted Type Area Glass Forming Crew Member Device Identifier Shelf Expiration Date Model / Serial / Lot Clip Quick 2.8mm 230cm - [id number] Implanted:Qty: 1 on 03/15/2020 by Janell Raphael MD at ENDOSCOPY [facility] [employer] 05/26/2022 HX-202UR.A / / K Clip Quick 2.8mm 230cm - [id number] Implanted:Qty: 1 on 03/15/2020 by Janell Raphael MD at ENDOSCOPY [facility] [employer] 05/26/2022 HX-202UR.A / / [id number] documented as of this encounter Care Teams Supervisor Type Photography Relationship Specialty Start Date End Date David Cintron III, MD [address] [place] [address] PCP - General 01/09/1996 documented as of this encounter
--- OUTSIDE RECORDS SUMMARY | 2023-11-26 09:37 | External Medical Summary | Summary of Care ---
Author Name Unknown Organization [facility] Address [address] [place] [place] [place] [address] Phone [phone] Care Team Providers Care Iron Pourer Name Role Phone Saida EISENBERG MD, David Adame Primary Care Provider [phone] Reason for Visit * Reason Onset Date Comments Medication Refill 07/04/2023 Encounter Details Date Type Department Care Team (Late st Contact Info) Description 07/04/2023 Refill Family Practice [facility] [place] [address] [facility] [place] [address] David Cintron III, MD 200 [facility] [place] [address] Chronic pain of right knee Allergies Active Allergy Reactions Criticality Noted Date Comments Lisinopril Cough Low 06/04/2011 documented as of this encounter (statuses as of 07/04/2023) Medications Medication Sig Dispensed Refills Start Date [...] disease, chronic, stage IV (GFR 15-29 ml/min) ([facility]) Take 1 Tablet by mouth in the morning. 90 Tablet 5 06/06/2023 Active Diclofenac Sodium 1 % External Gel (Voltaren)Indicat ions:Chronic pain of right knee Apply topically to affected area 2 times a day. Apply to knee and r leg 700 g 11 07/04/2023 Active Diclofenac Sodium 1 % External Gel (Voltaren)Indicat ions:Chronic pain of right knee Apply topically to affected area 2 times a day. Apply to knee and r leg 700 g 11 05/18/2022 4 Discontinue d(Refill) Hospital, Clinic, or Other Facility Administered Medication Ordered Dose Route Frequency Start Date End Date Status albuterol sulfate (PROVENTIL) (2.5 MG/3ML) 0.083% inhalation solution 2.5 mgIndications:CAMPOS (dyspnea on exertion),Wheezing 2.5 mg NEBULIZER Q4H PRN 04/29/2019 Active documented as of this encounter (statuses as of 07/04/2023) Active Problems Problem Noted Date Diagnosed Date [...] rinse after steroid. 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 Planning to do a power of admitted attorneys. Note on 07/04 has an appt soon. Esophageal reflux 06/01/2004 documented as of this encounter (statuses as of 07/04/2023) Resolved Problems Problem Noted Date Diagnosed Date [...] as of this encounter (statuses as of 07/04/2023) Immunizations Name Administration Dates Next Due COVID-19 [...] encounter Miscellaneous Notes * Telephone Encounter - Jenn Davis DO - 07/04/2023 3:20 PM ESTSigned Prescriptions: Disp Refills Diclofenac Sodium 1 % External Gel (Voltar*700 g 11 Sig: Apply topically to affected area 2 times a day. Apply to knee and r leg Authorizing Provider: JENN DAVIS * Telephone Encounter - Rosey Peralta, snow plow tractor operator - 07/04/2023 12:48 PM EST Did you pend patient's preferred pharmacy and medication before forwarding?yes Pharmacy: [id number] [place] Pending Prescriptions: Disp Refills Diclofenac Sodium 1 % External Gel (Deseret*700 g 11 Sig: Apply topically to affected area 2 times a day. Apply to knee and r leg Last Visit: 05/30/2023 (in office), Visit date not found (telemedicine) Next Visit: 11/29/2023 If no future appointments scheduled, and last appointment is greater than a year ago, please schedule patient for a follow-up appointment Last date the medication was ordered: Is this request for a controlled substance?No Urine Drug Screen:No results found. However, due to the size of the patient record, not all encounters were searched. Please check Results Review for a complete set of results. Patient Phone Numbers Secure-24 Labs: Lab Results Component Value Date/Time CREAT [...] Description 07/15/2023 8:40 AM EST Anticoagulation Pharmacy, [facility] [place] [address] [facility] [place] [address] Pharmacist1, [facility] 200 [facility] [place] [address] 07/17/2023 10:00 AM EST Office Visit Orthopaedics [facility] [address] [place] [address] Ned Tejada MD [address] [place] [phone] 10/24/2023 8:00 AM EDT Office Visit Cardiology, [facility] [address] [place] [address] Osito Kamara PALemuel [address] [place] [address] 11/29/2023 9:20 AM EDT Office Visit Family Practice [facility] [address] [facility] [place] [address] David Cintron III, MD [address] [facility] [place] [address] 03/31/2024 2:30 PM EST Office Visit Dermatology [facility] [place] [address] [facility] [place] [address] Christianne Mendez PA-C [address] [place] [address] 06/03/2024 8:40 AM EST Office Visit Otolaryngology [facility] [address] [place] [address] Angel Blankenship PA-C [address] [place] [address] Scheduled Procedures Name Priority Associated Diagnoses Date/Ti [...] this encounter Medical Devices Implanted Type Area Industrial Designer Device Identifier Shelf Expiration Date Model / Serial / Lot Clip Quick 2.8mm 230cm - [id number] Implanted:Qty: 1 on 03/15/2020 by Janell Raphael MD at ENDOSCOPY [facility] [employer] 05/26/2022 HX-202UR.A / / [id number] documented as of this encounter Visit Diagnoses Diagnosis Chronic pain of right knee documented in this encounter Care Teams Iron Pourer Relationship Specialty Start Date End Date David Cintron III, MD [address] [facility] [place] [address] PCP - General 01/09/1996 documented as of this encounter
--- OUTSIDE RECORDS SUMMARY | 2023-11-26 09:37 | External Medical Summary | Summary of Care ---
Author Name Unknown Organization [facility] Address [address] [place] [address] Phone [phone] Care Team Providers Care Program Technician Name Role Phone Saida EISENBEGR MD, David Adame Primary Care Provider [phone] Encounter Details Date Type Department Care Team [...] disease, chronic, stage IV (GFR 15-29 ml/min) ([facility]) Take 1 Tablet by mouth [...] rinse after steroid. Test performed by Mimi EDGE DRUMMER CPFT Chronic rhinitis 07/02/2019 Paroxysmal atrial fibrillation 07/14/2018 CAROL ANN (generalized anxiety disorder) 04/24/2018 Incomplete right bundle branch block (RBBB) 10/25 Antiphospholipid antibody syndrome 12/05/2011 HTN, goal below 140/90 07/12/2011 [facility] current use of anticoagulant therapy 1 06/17/2010 ADVANCE DIRECTIVE INFORMATION 07/01/2007 Overview: No, Advance Directive brochure given to patient at prior appointment. Planning to do a power of assistant district attorney. Note on 07/04 has an appt [...] 05/31/2023 9:30 AM EST Office Visit Orthopaedics [facility] [address] [address] Ned Tejada MD [address] [place] [phone] 06/17/2023 8:50 AM EST Anticoagulation Pharmacy, [facility] [address] [place] [address] Pharmacist1, [facility] [address] [place] [address] 10/24/2023 8:00 AM EDT Office Visit Cardiology, [facility] [address] [address] Osito Kamara PA-C [address] [address] 11/29/2023 9:20 AM EDT Office Visit Family Practice [facility] [address] [facility] [place] [address] David Cintron III, MD [address] [facility] [place] [address] 03/31/2024 2:30 PM EST Office Visit Dermatology [facility] [address] [facility] [place] [address] Christianne Mendez PA-C [address] [facility] [place] [address] 06/03/2024 8:40 AM EST Office Visit Otolaryngology [facility] [address] [place] [address] Angel Blankenship PA-C [address] [facility] [place] [address] Scheduled Procedures Name Priority Associated Diagnoses Date/Ti [...] this encounter Medical Devices Implanted Type Area Knitting Tester Device Identifier Shelf Expiration Date Model / Serial / Lot Clip Quick 2.8mm 230cm - [id number] Implanted:Qty: 1 on 03/15/2020 by Janell Raphael MD at [facility]COPY [facility] [employer] [facility] 05/26/2022 HX-202UR.A / / [id number] documented as of this encounter Care Teams Program Technician Relationship Specialty Start Date End Date David Cintron III, MD [address] [facility] [place] [address] PCP - General 01/09/1996 documented as of this encounter
--- OUTSIDE RECORDS SUMMARY | 2023-11-26 09:37 | External Medical Summary | Summary of Care ---
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 Test performed by Mimi AVIONICS SYSTEMS INTEGRATION SPECIALIST CPFT Chronic rhinitis 07/02/2019 Paroxysmal atrial fibrillation 07/14/2018 CAROL ANN (generalized anxiety disorder) 04/24/2018 Incomplete right bundle branch block (RBBB) 10/25 Antiphospholipid antibody syndrome 12/05/2011 HTN, goal below 140/90 07/12/2011 nursing home current use of anticoagulant therapy 1 06/17/2010 ADVANCE DIRECTIVE INFORMATION 07/01/2007 Overview: No, Advance Directive brochure given to patient at prior appointment. Planning to do a power of litigation attorney associate. Note on 07/04 has an appt soon. [...] 05/31/2023 9:30 AM EST Office Visit Orthopaedics [facility] [address] [address] Ned Tejada MD [address] [phone] 06/17/2023 8:50 AM EST Anticoagulation Pharmacy, [facility] [address] [place] [address] Pharmacist1, [facility] [address] [place] [address] 10/24/2023 8:00 AM EDT Office Visit Cardiology, [facility] [address] [place] [address] Osito Kamara PA-C [address] [address] 11/29/2023 9:20 AM EDT Office Visit Family Practice [facility] 200 [facility] [place] [address] David Cintron III, MD [address] [facility] [place] [address] 03/31/2024 2:30 PM EST Office Visit Dermatology [facility] [address] [facility] [place] [address] Christianne Mendez PA-C [address] [facility] [place] [address] 06/03/2024 8:40 AM EST Office Visit Otolaryngology [facility] [address] [place] [address] Angel Blankenship PA-C [address] [facility] [place] [address] Scheduled Procedures Name Priority Associated Diagnoses Date/Ti [...] this encounter Medical Devices Implanted Type Area Screedman Device Identifier Shelf Expiration Date Model / Serial / Lot Clip Quick 2.8mm 230cm - [id number] Implanted:Qty: 1 on 03/15/2020 by Janell Raphael MD at [facility]COPY [facility] [employer] [facility] 05/26/2022 HX-202UR.A / / [id number] documented as of this encounter Care Teams Smt Technician Relationship Specialty Start Date End Date David Cintron III, MD [address] [facility] [place] [address] PCP - General 01/09/1996 documented as of this encounter
--- OUTSIDE RECORDS SUMMARY | 2023-11-26 09:38 | External Medical Summary | Summary of Care ---
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 Test performed by Mimi TELLER COORDINATOR CPFT Chronic rhinitis 07/02/2019 Paroxysmal atrial fibrillation 07/14/2018 CAROL ANN (generalized anxiety disorder) 04/24/2018 Incomplete right bundle branch block (RBBB) 10/25 Antiphospholipid antibody syndrome 12/05/2011 HTN, goal below 140/90 07/12/2011 senior care current use of anticoagulant therapy 1 06/17/2010 ADVANCE DIRECTIVE INFORMATION 07/01/2007 Overview: No, Advance Directive brochure given to patient at prior appointment. Planning to do a power of attorney at law. Note on 07/04 has an appt soon. [...] 05/31/2023 9:30 AM EST Office Visit Orthopaedics [facility] [address] [address] Ned Tejada MD [address] [phone] 06/17/2023 8:50 AM EST Anticoagulation Pharmacy, [facility] [address] [place] [address] Pharmacist1, [facility] [address] [place] [address] 10/24/2023 8:00 AM EDT Office Visit Cardiology, [facility] [address] [address] Osito Kamara PA-C [address] [address] 11/29/2023 9:20 AM EDT Office Visit Family Practice [facility] [address] [facility] [place] [address] David Cintron III, MD [address] [facility] [place] [address] 03/31/2024 2:30 PM EST Office Visit Dermatology [facility] [address] [facility] [place] [address] Christianne Mendez PA-C [address] [facility] [place] [address] 06/03/2024 8:40 AM EST Office Visit Otolaryngology [facility] [address] [place] [address] Angel Blankenship PA-C [address] [place] [address] Scheduled Procedures Name Priority Associated Diagnoses Date/Ti [...] this encounter Medical Devices Implanted Type Area Eeg Technologist Device Identifier Shelf Expiration Date Model / Serial / Lot Clip Quick 2.8mm 230cm - [id number] Implanted:Qty: 1 on 03/15/2020 by Janell Raphael MD at [facility] [employer] [facility] 05/26/2022 HX-202UR.A / / [id number] documented as of this encounter Care Teams Sulfide Head Operator Relationship Specialty Start Date End Date David Cintron III, MD [address] [facility] [place] [address] PCP - General 01/09/1996 documented as of this encounter
--- OUTSIDE RECORDS SUMMARY | 2023-11-26 09:38 | External Medical Summary | Summary of Care ---
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 Test performed by Mimi CLIENT SERVICES ASSOCIATE CPFT Chronic rhinitis 07/02/2019 Paroxysmal atrial fibrillation 07/14/2018 CAROL ANN (generalized anxiety disorder) 04/24/2018 Incomplete right bundle branch block (RBBB) 10/25 Antiphospholipid antibody syndrome 12/05/2011 HTN, goal below 140/90 07/12/2011 [facility] current use of anticoagulant therapy 1 06/17/2010 ADVANCE DIRECTIVE INFORMATION 07/01/2007 Overview: No, Advance Directive brochure given to patient at prior appointment. Planning to do a power of attorney lawyer. Note on 07/04 has an appt soon. [...] 05/31/2023 9:30 AM EST Office Visit Orthopaedics [facility] [address] [address] Ned Tejada MD [address] [phone] 06/17/2023 8:50 AM EST Anticoagulation Pharmacy, [facility] [address] [place] [address] Pharmacist1, [facility] [address] [place] [address] 10/24/2023 8:00 AM EDT Office Visit Cardiology, [facility] [address] [address] Osito Kamara PA-C [address] [address] 11/29/2023 9:20 AM EDT Office Visit Family Practice [facility] [address] [facility] [place] [address] David Cintron III, MD [address] [facility] [place] [address] 03/31/2024 2:30 PM EST Office Visit Dermatology [facility] [address] [facility] [place] [address] Christianne Mendez PA-C [address] [facility] [place] [address] 06/03/2024 8:40 AM EST Office Visit Otolaryngology [facility] [address] [place] [address] Angel Blankenship PA-C [address] [place] [address] Scheduled Procedures Name Priority Associated Diagnoses Date/Ti [...] this encounter Medical Devices Implanted Type Area Strategy Manager Device Identifier Shelf Expiration Date Model / Serial / Lot Clip Quick 2.8mm 230cm - [id number] Implanted:Qty: 1 on 03/15/2020 by Janell Raphael MD at [facility] [employer] [facility] 05/26/2022 HX-202UR.A / / [id number] documented as of this encounter Care Teams Stenographer Print Shop Relationship Specialty Start Date End Date David Cintron III, MD [address] [facility] [address] PCP - General 01/09/1996 documented as of this encounter
--- OUTSIDE RECORDS SUMMARY | 2023-11-26 09:38 | External Medical Summary | Summary of Care ---
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 Test performed by Mimi PROFESSIONAL SECURITY OFFICER CPFT Chronic rhinitis 07/02/2019 Paroxysmal atrial fibrillation 07/14/2018 CAROL ANN (generalized anxiety disorder) 04/24/2018 Incomplete right bundle branch block (RBBB) 10/25 Antiphospholipid antibody syndrome 12/05/2011 HTN, goal below 140/90 07/12/2011 [facility] current use of anticoagulant therapy 1 06/17/2010 ADVANCE DIRECTIVE INFORMATION 07/01/2007 Overview: No, Advance Directive brochure given to patient at prior appointment. Planning to do a power of claims attorney. Note on 07/04 has an appt [...] 05/31/2023 9:30 AM EST Office Visit Orthopaedics [facility] [address] [address] Ned Tejada MD [address] [phone] 06/17/2023 8:50 AM EST Anticoagulation Pharmacy, [facility] [address] [place] [address] Pharmacist1, [facility] [address] [place] [address] 10/24/2023 8:00 AM EDT Office Visit Cardiology, [facility] [address] [address] Osito Kamara PA-C [address] [address] 11/29/2023 9:20 AM EDT Office Visit Family Practice [facility] [address] [facility] [place] [address] David Cintron III, MD [address] [facility] [place] [address] 03/31/2024 2:30 PM EST Office Visit Dermatology [facility] [address] [facility] [place] [address] Christinane Mendez PA-C [address] [facility] [place] [address] 06/03/2024 8:40 AM EST Office Visit Otolaryngology [facility] [address] [place] [address] Angel Blankenship PA-C [address] [facility] [place] [address] Scheduled Procedures Name Priority Associated Diagnoses Date/Ti [...] this encounter Medical Devices Implanted Type Area Hospice Consultant Device Identifier Shelf Expiration Date Model / Serial / Lot Clip Quick 2.8mm 230cm - [id number] Implanted:Qty: 1 on 03/15/2020 by Janell Raphael MD at [facility] [employer] [facility] 05/26/2022 HX-202UR.A / / [id number] documented as of this encounter Care Teams Mineral Surveyor Relationship Specialty Start Date End Date David Cintron III, MD [address] [facility] [place] [address] PCP - General 01/09/1996 documented as of this encounter
--- OUTSIDE RECORDS SUMMARY | 2023-11-26 09:38 | External Medical Summary | Summary of Care ---
Author Name Unknown Organization [facility] Address [address] [place] [address] Phone [phone] Care Team Providers Care Banking Attorney Name Role Phone Saida EISENBERG MD, David Adame Primary Care Provider [phone] Encounter Details Date Type Department Care Team [...] rinse after steroid. Test performed by Mimi QA SOFTWARE TEST ENGINEER CPFT Chronic rhinitis 07/02/2019 Paroxysmal atrial fibrillation 07/14/2018 CAROL ANN (generalized anxiety disorder) 04/24/2018 Incomplete right bundle branch block (RBBB) 10/25 Antiphospholipid antibody syndrome 12/05/2011 HTN, goal below 140/90 07/12/2011 halfway current use of anticoagulant therapy 1 06/17/2010 ADVANCE DIRECTIVE INFORMATION 07/01/2007 Overview: No, Advance Directive brochure given to patient at prior appointment. Planning to do a power of employment attorney. Note on 07/04 has an appt [...] 05/31/2023 9:30 AM EST Office Visit Orthopaedics [facility] [address] [address] Ned Tejada MD [address] [phone] 06/17/2023 8:50 AM EST Anticoagulation Pharmacy, [facility] [address] [place] [address] Pharmacist1, [facility] [address] [place] [address] 10/24/2023 8:00 AM EDT Office Visit Cardiology, [facility] [address] [address] Osito Kamara PA-C [address] [address] 11/29/2023 9:20 AM EDT Office Visit Family Practice [facility] [address] [facility] [place] [address] David Cintron III, MD [address] [facility] [place] [address] 03/31/2024 2:30 PM EST Office Visit Dermatology [facility] [address] [facility] [place] [address] Christianne Mendez PA-C [address] [facility] [place] [address] 06/03/2024 8:40 AM EST Office Visit Otolaryngology [facility] [address] [place] [address] Angel Blankenship PA-C [address] [facility] [place] [address] Scheduled Procedures Name Priority Associated Diagnoses Date/Ti [...] this encounter Medical Devices Implanted Type Area Waiter/Waitress Third Class Device Identifier Shelf Expiration Date Model / Serial / Lot Clip Quick 2.8mm 230cm - [id number] Implanted:Qty: 1 on 03/15/2020 by Janell Raphael MD at [facility] [employer] [facility] 05/26/2022 HX-202UR.A / / [id number] documented as of this encounter Care Teams Banking Attorney Relationship Specialty Start Date End Date David Cintron III, MD [address] [facility] [place] [address] PCP - General 01/09/1996 documented as of this encounter
--- OUTSIDE RECORDS SUMMARY | 2023-11-26 09:38 | External Medical Summary | Summary of Care ---
Author Name Unknown Organization [facility] Address [address] [place] [address] Phone [phone] Care Team Providers Care Trade Economist Name Role Phone Saida EISENBERG MD, David Adame Primary Care Provider [phone] Encounter Details Date Type Department Care Team [...] stage IV (GFR 15-29 ml/min) ([facility]) Take 1 Tablet by mouth [...] rinse after steroid. Test performed by Mimi LOGISTICS PROGRAM MANAGER CPFT Chronic rhinitis 07/02/2019 Paroxysmal atrial fibrillation 07/14/2018 CAROL ANN (generalized anxiety disorder) 04/24/2018 Incomplete right bundle branch block (RBBB) 10/25 Antiphospholipid antibody syndrome 12/05/2011 HTN, goal below 140/90 07/12/2011 [facility] current use of anticoagulant therapy 1 06/17/2010 [...] Orthopaedics [facility] [address] [address] Ned Tejada MD [address] [phone] 06/17/2023 8:50 AM EST Anticoagulation Pharmacy, [facility] [address] [place] [address] Pharmacist1, [facility] [address] [place] [address] 10/24/2023 8:00 AM EDT Office Visit Cardiology, [facility] [address] [address] Osito Kamara PA-C [address] [address] 11/29/2023 9:20 AM EDT Office Visit Family Practice [facility] [address] [facility] [place] [address] David Cintron III, MD [address] [facility] [place] [address] 03/31/2024 2:30 PM EST Office Visit Dermatology [facility] [address] [facility] [place] [address] Christianne Mendez PA-C [address] [facility] [place] [address] 06/03/2024 8:40 AM EST Office Visit Otolaryngology [facility] [address] [place] [address] Angel Blankenship PA-C [address] [facility] [place] [address] Scheduled Procedures Name Priority Associated Diagnoses Date/Ti [...] this encounter Medical Devices Implanted Type Area Alteration Workroom Supervisor Device Identifier Shelf Expiration Date Model / Serial / Lot Clip Quick 2.8mm 230cm - [id number] Implanted:Qty: 1 on 03/15/2020 by Janell Raphael MD at [facility] [employer] [facility] 05/26/2022 HX-202UR.A / / [id number] documented as of this encounter Care Teams Trade Economist Relationship Specialty Start Date End Date David Cintron III, MD [address] [facility] [place] [address] PCP - General 01/09/1996 documented as of this encounter
--- NOTE | 2023-11-26 11:57 | CT Scan Report ---
CT OF THE CHEST WITHOUT IV CONTRAST CLINICAL HISTORY: Shortness of breath. Fever. COMPARISON STUDY: Chest radiograph November 25, [address] November 30, 2022. CT DOSE: 649.7 mGy.cm TECHNIQUE: Axial images of the chest were obtained without IV contrast. Images were reviewed in the axial, sagittal, and coronal planes. IV contrast was not administered for this examination. Automat ed exposure control was utilized for the study. A dose lowering technique was utilized adhering to t he principles of ALARA. FINDINGS: The heart is moderately enlarged. There is no pericardial effusion. Moderate coronary jez ry calcification is present. Prominent mediastinal lymph nodes are similar to CT of November 30, 2022. The re is no pneumothorax. Trace right pleural effusion is present. There is a 6.3 x 2 cm subpleural airs pace opacity within the medial basal segment of the right lower lobe. There is adjacent groundglass o pacity. No cavitation is present. Central airways are patent. There is mild interlobular septal thick ening. No additional foci of consolidation are present. Moderate T11 compression fracture is noted. V ertebral body height loss has increased since prior CT. No significant abnormalities identified withi n visualized portions of the upper abdomen. The gallbladder is surgically absent. IMPRESSION: 1. 6.3 x 2 cm subpleural airspace opacity within the medial basal segment of the right lower lobe. Th is favors pneumonia. A follow-up chest CT in 3 months is recommended to exclude the less likely possi bility of an underlying pulmonary lesion. 2. Small associated right pleural effusion and adjacent groundglass opacity. ACT 112: Negative or not required by law. Electronically signed by: Heron Winchester M.D. 11/26/2023 11:56 AM
--- NOTE | 2023-11-26 15:14 | Communication Note ---
Date of Service: November 26, 2023 Patient seen and examined at the bedside Resting, comfortable, not in distress Sleeping, easily awakened States she still has cough, some substernal chest pain No shortness of breath No nausea vomiting Normal heart rate, regular rhythm Mild rhonchi on the right lower base, clear on the left No wheezing Abdomen soft, nontender No lower extremity edema Pneumonia, right lower lobe CT chest: Confirming right lower lobe pneumonia Follow-up CAT scan to ensure resolution recommended BioFire: Negative Urine Legionella antigen: Ordered, pending Continue IV ceftriaxone Mucinex, hypertonic saline nebs Stuart See MD
[2023-11-26] MEDS: WARFARIN SOD 1.25 MG TAB PO SCH (16:36)
[2023-11-26] MEDS: SODIUM CHLOR 7% 4 ML NEB NEB SCH (20:09)
[2023-11-26] MEDS: MONTELUKAST SODIUM 10 MG TABLET PO SCH (20:35)
[2023-11-26] MEDS: DOXYCYCLINE HYCLATE 100 MG CAP PO SCH (20:36)
[2023-11-26] MEDS: ACETAMINOPHEN 325 MG TAB PO PRN (22:09)
[2023-11-26] MEDS: cefTRIAXone SODIUM 2,000 MG/50 ML BAG IV SCH (22:09)
--- NOTE | 2023-11-27 06:26 | Electrocardiogram Report ---
Test Reason : Blood Pressure : / mmHG Vent. Rate : 117 BPM Atrial Rate : 000 BPM P-R Int : 000 ms QRS Dur : 098 ms QT Int : 322 ms P-R-T Axes : 000 -15 069 degrees QTc Int : 449 ms Atrial fibrillation with rapid ventricular response Abnormal ECG When compared with ECG of 30-NOV-2022 21:14, Atrial fibrillation has replaced Sinus rhythm Vent. rate has increased BY 57 BPM Confirmed by Ranulfo Alexander ([id number]) on 11/27/2023 6:26:13 AM Referred By: Confirmed By:Ranulfo Alexander
--- NOTE | 2023-11-27 06:47 | Electrocardiogram Report ---
Test Reason : Blood Pressure : / mmHG Vent. Rate : 094 BPM Atrial Rate : 138 BPM P-R Int : 000 ms QRS Dur : 092 ms QT Int : 358 ms P-R-T Axes : 000 079 069 degrees QTc Int : 447 ms Atrial fibrillation Nonspecific ST abnormality Abnormal ECG When compared with ECG of 25-NOV-2023 19:16, Questionable change in QRS axis Confirmed by Ranulfo Alexander ([id number]) on 11/27/2023 6:46:44 AM Referred By: REFERRED SELF Confirmed By:Ranulfo Alexander
[2023-11-27 08:28] LABS: BUN Creatinine Ratio 17.1 (10-20); Calcium 8.6 mg/dl (8.6-10.3); Creatinine Clr Calc Pharmacy 36.5 ml/min; Est GFR (African American) 48.9 ml/min; Est GFR (Non-African American) 42.2 ml/min; Potassium 4.2 mmol/L (3.5-5.1)
[2023-11-27] MEDS: METOPROLOL SUCC 50MG EXT REL TAB PO SCH (08:28)
[2023-11-27 08:35] LABS: INR 1.6 (0.9-1.1); Prothrombin Time 16.4 Seconds (9.0-12.0)
[2023-11-27 09:44] LABS: Hematocrit (blood only) 42.6 % (37.0-47.0); Hemoglobin 13.6 g/dl (12.0-16.0); Mean Corpuscular Hemoglobin 28.5 pg (25.0-34.0); Mean Corpuscular Hgb Conc 31.9 g/dL (32.0-36.0); Mean Corpuscular Volume 89.1 fL (80.0-100.0); Platelet Count 206 K/uL (130-400); RDW Coefficient of Variation 15.1 % (11.5-14.5); RDW Standard Deviation 49.4 fL (36.4-46.3); Red Blood Count 4.78 M/uL (4.20-5.40); White Blood Count 15.33 K/ul (4.8-10.8)
--- NOTE | 2023-11-27 10:10 | Hospitalist Progress Note ---
Date of Service November 27, 2023 Assessment & Plan (1) Chest pain: Plan: 88-year-old female with past medical history significant for moderate persistent asthma, chronic rhinitis, pulmonary hypertension, CKD stage IV, hypertension, incomplete right bundle guero block, paroxysmal atrial fibrillation, chronic diastolic CHF, obesity, GERD, generalized anxiety disorder, anti phospholipid antibody syndrome comes because of chest pains and fever of 102 at home Pneumonia CXR did not show acute abnormalities However, CT chest noted 6.3x 2cm subpleural airspace opacity within RLL. Follow up CT in 3months to monitor Chest pain likely pleuritic due to pneumonia Initial chest pain workup was unremarkable Leukocytosis due to pneumonia Resp PCR negative Continue ceftriaxone and doxycycline Legionella pending Blood cultures negative so far Rapid A-fib Received IV Lopressor x 2 in the ER Continue home metoprolol succinate and warfarin INR is subtherapeutic at 1.6 today According to Anticoagulation office note, her warfarin dose was changed to 1.25mg on SuTuTHu an 2.5mg on other days Dose adjusted Monitor INR CKD stage IV Presented with creatinine 1.41. 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 Antiphospholipid antibody syndrome On warfarin Hypertension On amlodipine, lasix, hydralazine, Imdur, metoprolol succinate Monitor DVT prophylaxis- Warfarin Full code. I spent a total of 45 minutes coordinating, documenting and providing care for this patient excluding time spent in performance of separately billed services Admission and Anticipated Discharge Date Admission Date: November 26, 2023 Subjective Patient seen and examined Reports generalized weakness, cough productive of yellowish sputum Reports chest pain is significantly improved Reports nausea, anorexia Denied SOB Had fever of 38.6 last night Denied diarrhea, abd pain, dysuria, freq Reports chronic back pain Physical Exam Constitutional: no acute distress Eyes: PERRL, conjunctivae normal, anicteric sclerae ENMT: external ear and nose normal, oropharynx normal Respiratory: normal respiratory effort, lungs clear to auscultation Cardiovascular: Rate/Rhythm: + irregularly irregular S1 S2 Gastrointestinal (Abdomen): normal bowel sounds, soft, nontender, no hepatosplenomegaly Musculoskeletal: No pedal edema Neurologic: PERRL, EOMI, accommodation nl, no face palsy, no dysarthria Psychiatric: A+Ox3, euthymic affect Results & Data Results & Data Vital Signs (Past 12 Hours) Vital Signs Temp Pulse Pulse Pulse Resp BP Pulse Ox 11/27/23 08:15 11/27/23 07:57 36.9 C 107 H 15 127/72 94 11/27/23 07:56 112 H 11/27/23 07:38 109 H 18 96 11/27/23 06:28 37.6 C H 11/27/23 03:02 36.4 C L 93 H 18 148/78 H 95 11/26/23 22:44 37.3 C 98 H 18 147/73 H 95 11/26/23 22:23 104 H O2 Del Method 11/27/23 08:15 Room Air 11/27/23 07:57 Room Air 11/27/23 07:56 11/27/23 07:38 Room Air 11/27/23 06:28 11/27/23 03:02 Room Air 11/26/23 22:44 Room Air 11/26/23 22:23 Laboratory Results Abnormal lab results 11/27/23 11/27/23 Range/Units 07:53 07:54 WBC 15.33 H (4.8-10.8) K/ul MCHC 31.9 L (32.0-36.0) g/dL RDW Std Deviation 49.4 H (36.4-46.3) fL RDW Coeff of Jay 15.1 H (11.5-14.5) % PT 16.4 H (9.0-12.0) Seconds INR 1.6 H (0.9-1.1) Carbon Dioxide 20 L (21-32) mmol/L Anion Gap 13 H (3-11) Glucose 109 H (70-99(Fasting)) mg/dl
--- NOTE | 2023-11-27 10:38 | Cardiology Progress Note ---
Date of Service November 27, 2023 Assessment & Plan (1) Fever: (2) Leukocytosis: (3) Chest pain: (4) Atrial fibrillation with rapid ventricular response: (5) Diastolic heart failure: (6) ASCVD (arteriosclerotic cardiovascular disease): (7) Right lower lobe pneumonia: Plan Right lower lobe pneumonia. Antibiotic regimen as per Hospitalist. Chest pain. Atypical. Tender to touch, reproducible with palpation of the chest wall. EKG without acute change. High-sensitivity troponin negative (9.3 -> 10.3 -> 11.9 -> 12.6). LVEF normal, without WMA's. Diastolic congestive heart failure. Compensated. Atrial fibrillation. Chronic. Rates elevated, likely being driven by the infection/fever. Additional metoprolol dosing ordered. I spent a total of 27 minutes on the date of service in preparation, delivery, and documentation of the care provided to this patient excluding any time spent in the performance of separately billed services. This visit was a split-shared visit with the substantive portion of the medical decision making performed by the supervising ice handler/billing provider. Admission and Anticipated Discharge Date Admission Date: November 26, 2023 Supervising Physician Co-Signing Physician Notes I have personally performed a history and physical examination on the patient. I have reviewed the advance practitioner's documentation, and I agree with, and take responsibility for the plan of care. 88-year-old female presents with fevers and chest discomfort. Right lower lobe pneumonia per CT. Borderline elevated heart rates on telemetry secondary to pneumonia/fever. Additional metoprolol given today. Continue telemetry monitoring. Antibiotics, supportive care as per internal medicine. I spent a total of 20 minutes on the date of service in preparation, delivery, and documentation of the care provided to this patient, excluding any time spent in the performance of separately billed services. Ji Joseph DO, [facility] Subjective Patient seen and examined. Chart, medications, telemetry reviewed. Notes "still feeling rough, I'm not out of the drummond yet," with intermittent fevers and chills. SpO2 94% on room air. Blood cultures with no growth after 24 hours. Chest tenderness has improved some. Ongoing cough and dyspnea. No orthopnea or PND. No peripheral edema. No tachypalpitations. I/O's recorded as +1370 mL overall Telemetry: Atrial fibrillation with heart rates ranging from 80 to 140 bpm, currently 100 to 110 bpm. Review of Systems Review of Systems: Complete Review of Systems is as stated above, negative, or noncontributory. Physical Exam Physical Exam: General: A&Ox3. NAD. HENT: Normocephalic. Atraumatic. Eyes: PER. Conjunctiva pink, sclera clear. Neck: No carotid bruits. No JVD. Heart: Irregularly irregular at 110 bpm. No murmur. PMI is nondisplaced. Lungs: Clear. No wheeze. Abdomen: +BS. Soft. Nontender. No masses or organomegaly. Extremities: No edema. No clubbing. No cyanosis. Limited neurological examination is without focal deficits. Pulses: radial=2/4, posterior tibial=2/4. Results & Data Vital Signs (Past 12 Hours) Vital Signs Temp Pulse Pulse Pulse Resp BP Pulse Ox 11/27/23 08:15 11/27/23 07:57 36.9 C 107 H 15 127/72 94 11/27/23 07:56 112 H 11/27/23 07:38 109 H 18 96 11/27/23 06:28 37.6 C H 11/27/23 03:02 36.4 C L 93 H 18 148/78 H 95 11/26/23 22:44 37.3 C 98 H 18 147/73 H 95 O2 Del Method 11/27/23 08:15 Room Air 11/27/23 07:57 Room Air 11/27/23 07:56 11/27/23 07:38 Room Air 11/27/23 06:28 11/27/23 03:02 Room Air 11/26/23 22:44 Room Air Laboratory Results Cardiac Enzymes 11/26/23 11/26/23 Range/Units 11:20 17:02 Troponin I High Sens 11.9 12.6 (0-14) pg/ml Coagulation 11/27/23 Range/Units 07:53 PT 16.4 H (9.0-12.0) Seconds CBC 11/27/23 Range/Units 07:54 WBC 15.33 H (4.8-10.8) K/ul RBC 4.78 (4.20-5.40) M/uL Hgb 13.6 (12.0-16.0) g/dl Hct 42.6 (37.0-47.0) % Plt Count 206 (130-400) K/uL Comprehensive Metabolic Panel 11/27/23 Range/Units 07:53 Sodium 139 (136-145) mmol/L Potassium 4.2 (3.5-5.1) mmol/L Chloride 106 (98-107) mmol/L Carbon Dioxide 20 L (21-32) mmol/L BUN 20 (6-23) mg/dl Creatinine 1.17 (0.6-1.2) mg/dl Glucose 109 H (70-99(Fasting)) mg/dl Calcium 8.6 (8.6-10.3) mg/dl Intake and Output 11/26/23 11/27/23 11/27/23 22:59 06:59 14:59 Intake Total 1050 / 1170 120 / 1170 Balance 1050 / 1170 120 / 1170 Intake: IV 1050 / 1050 Sodium Chloride 0.9% 1,000 ml @ 1000 / 1000 75 mls/hr IV .[id number] [facility] Rx#: [id number] cefTRIAXone SODIUM 2,000 mg In 50 / 50 50 ml @ 100 mls/hr IV Q24H [facility] Rx#:[id number] Oral 120 / 120 Other: Other Intake Source sips # Unmeasured Voids 1 Weight 85.3 kg Weight Measurement Method Built in [facility]
[2023-11-27] MEDS: METOPROLOL SUCC 25MG EXT REL TAB PO ONE (11:35)
[2023-11-27] MEDS: METOPROLOL SUCC 25MG EXT REL TAB PO STA (13:21)
[2023-11-27] MEDS: WARFARIN SOD 2.5 MG TAB PO SCH (16:43)
[2023-11-27] MEDS: BENZONATATE 100 MG CAPSULE PO PRN (16:43)
--- NOTE | 2023-11-28 00:33 | Electrocardiogram Report ---
Test Reason : Blood Pressure : / mmHG Vent. Rate : 100 BPM Atrial Rate : 131 BPM P-R Int : 000 ms QRS Dur : 092 ms QT Int : 348 ms P-R-T Axes : 000 068 064 degrees QTc Int : 448 ms Atrial fibrillation Nonspecific ST abnormality Abnormal ECG When compared with ECG of 26-NOV-2023 05:42, No significant change Confirmed by Ranulfo Alexander ([id number]) on 11/28/2023 12:33:07 AM Referred By: REFERRED SELF Confirmed By:Ranulfo Alexander
[2023-11-28 08:06] LABS: Hematocrit (blood only) 37.2 % (37.0-47.0); Hemoglobin 12.4 g/dl (12.0-16.0); Mean Corpuscular Hemoglobin 28.9 pg (25.0-34.0); Mean Corpuscular Hgb Conc 33.3 g/dL (32.0-36.0); Mean Corpuscular Volume 86.7 fL (80.0-100.0); Mean Platelet Volume 9.6 fL (9.4-12.4); Platelet Count 189 K/uL (130-400); RDW Coefficient of Variation 14.9 % (11.5-14.5); RDW Standard Deviation 47.3 fL (36.4-46.3); Red Blood Count 4.29 M/uL (4.20-5.40); White Blood Count 9.87 K/ul (4.8-10.8)
[2023-11-28 08:19] LABS: BUN Creatinine Ratio 20.8 (10-20); Creatinine Clr Calc Pharmacy 40.3 ml/min; Est GFR (African American) 55.1 ml/min; Est GFR (Non-African American) 47.5 ml/min; Potassium 3.8 mmol/L (3.5-5.1)
[2023-11-28 08:26] LABS: INR 1.6 (0.9-1.1); Prothrombin Time 16.4 Seconds (9.0-12.0)
--- NOTE | 2023-11-28 09:27 | Cardiology Progress Note ---
Date of Service November 28, 2023 Assessment & Plan (1) Right lower lobe pneumonia: (2) Atypical chest pain: (3) Atrial fibrillation with rapid ventricular response: (4) Diastolic heart failure: (5) ASCVD (arteriosclerotic cardiovascular disease): Plan Right lower lobe pneumonia. As per Hospitalist. Chest pain. Atypical, tender to touch, reproducible with palpation of the chest wall. EKG without acute change. High-sensitivity troponin negative (9.3 -> 10.3 -> 11.9 -> 12.6). LVEF normal, without WMA's. Diastolic congestive heart failure. Compensated. Atrial fibrillation. Chronic. Rates controlled over the past 18 hours, likely previously driven by the infection/fever. Cardiology will sign off. Please contact with any questions or concerns. I spent a total of 19 minutes on the date of service in preparation, delivery, and documentation of the care provided to this patient excluding any time spent in the performance of separately billed services. This visit was a split-shared visit with the substantive portion of the medical decision making performed by the supervising order manager/billing provider. Admission and Anticipated Discharge Date Admission Date: November 26, 2023 Supervising Physician Co-Signing Physician Notes I have personally performed a history and physical examination on the patient. I have reviewed the advance practitioner's documentation, and I agree with, and take responsibility for the plan of care. 88-year-old female presents with fevers and chest discomfort. Right lower lobe pneumonia per CT. no recurrent fevers overnight. Heart rate controlled on telemetry. Continue current medications. Antibiotics, supportive care as per internal medicine. No further inpatient testing or intervention recommended from a cardiovascular perspective. Cardiology will sign off. Please call with additional concerns/questions. I spent a total of 20 minutes on the date of service in preparation, delivery, and documentation of the care provided to this patient, excluding any time spent in the performance of separately billed services. Ji Joseph DO, [facility] Subjective Patient seen and examined. Chart, medications, telemetry reviewed. Feeling better today. Appetite improved. Afebrile over the last 24 hours. + Cough. No chest pain. No shortness of breath. No palpitations. I/O's recorded as +2,000 mL overall Review of Systems Review of Systems: Complete Review of Systems is as stated above, negative, or noncontributory. Physical Exam Physical Exam: General: A&Ox3. NAD. HENT: Normocephalic. Atraumatic. Eyes: PER. Conjunctiva pink, sclera clear. Neck: No JVD. Heart: Irregularly irregular at 800 bpm. No murmur. PMI is nondisplaced. Lungs: Right sided rales/rhonchi. Faint left basilar rales. No wheeze. Abdomen: +BS. Soft. Nontender. No masses or organomegaly. Extremities: No edema. No clubbing. No cyanosis. Limited neurological examination is without focal deficits. Pulses: radial=2/4, posterior tibial=2/4. Results & Data Vital Signs (Past 12 Hours) Vital Signs Temp Pulse Resp BP Pulse Ox O2 Del Method 11/28/23 07:34 84 16 94 Room Air 11/28/23 07:29 36.3 C L 84 15 131/72 94 Room Air 11/28/23 02:30 36.7 C 79 16 136/68 94 Room Air 11/27/23 22:20 36.6 C 98 H 16 117/70 94 Room Air Laboratory Results Coagulation 11/28/23 Range/Units 07:20 PT 16.4 H (9.0-12.0) Seconds CBC 11/27/23 11/28/23 Range/Units 07:54 07:20 WBC 15.33 H 9.87 (4.8-10.8) K/ul RBC 4.78 4.29 (4.20-5.40) M/uL Hgb 13.6 12.4 (12.0-16.0) g/dl Hct 42.6 37.2 (37.0-47.0) % Plt Count 206 189 (130-400) K/uL Comprehensive Metabolic Panel 11/28/23 Range/Units 07:20 Sodium 137 (136-145) mmol/L Potassium 3.8 (3.5-5.1) mmol/L Chloride 108 H (98-107) mmol/L Carbon Dioxide 19 L (21-32) mmol/L BUN 22 (6-23) mg/dl Creatinine 1.06 (0.6-1.2) mg/dl Glucose 104 H (70-99(Fasting)) mg/dl Calcium 8.0 L (8.6-10.3) mg/dl Intake and Output 11/27/23 11/28/23 11/28/23 22:59 06:59 14:59 Intake Total 290 / 630 100 / 630 Balance 290 / 630 100 / 630 Intake: IV 50 / 50 cefTRIAXone SODIUM 2,000 mg In 50 / 50 50 ml @ 100 mls/hr IV Q24H [facility] Rx#:[id number] Oral 240 / 580 100 / 580 Other: # Unmeasured Voids 1 Weight 85.502 kg Weight Measurement Method Built in [facility] Diagnostic Findings Telemetry: Rate controlled (chronic) atrial fibrillation over the past 18 hours.
--- NOTE | 2023-11-28 10:47 | Hospitalist Progress Note ---
Date of Service November 28, 2023 Assessment & Plan (1) Chest pain: Plan: 88-year-old female with past medical history significant for moderate persistent asthma, chronic rhinitis, pulmonary hypertension, CKD stage IV, hypertension, incomplete right bundle guero block, paroxysmal atrial fibrillation, chronic diastolic CHF, obesity, GERD, generalized anxiety disorder, anti phospholipid antibody syndrome comes because of chest pains and fever of 102 at home Pneumonia CXR did not show acute abnormalities However, CT chest noted 6.3x 2cm subpleural airspace opacity within RLL. Follow up CT in 3months to monitor Chest pain likely pleuritic due to pneumonia Initial chest pain workup was unremarkable Leukocytosis due to pneumonia Resp PCR negative Continue ceftriaxone and doxycycline Legionella pending Blood cultures negative so far [employer] CHECK[employer] margy noted. Planned for video study tomorrow. NPO PMN Rapid A-fib Received IV Lopressor x 2 in the ER Continue home metoprolol succinate and warfarin INR is subtherapeutic at 1.6 today According to Anticoagulation office note, her warfarin dose was changed to 1.25mg on SuTuTHu an 2.5mg on other days Monitor INR CKD stage IV Presented with creatinine 1.41. 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 Antiphospholipid antibody syndrome On warfarin Hypertension On amlodipine, lasix, hydralazine, Imdur, metoprolol succinate Monitor DVT prophylaxis- Warfarin Full code. I spent a total of 40 minutes coordinating, documenting and providing care for this patient excluding time spent in performance of separately billed services Admission and Anticipated Discharge Date Admission Date: November 26, 2023 Subjective Patient seen and examined Reports feeling better today Generalized weakness is improved Still coughing Reports chest pain is mostly resolved Nausea has resolved Physical Exam Constitutional: no acute distress Eyes: PERRL, conjunctivae normal, anicteric sclerae ENMT: external ear and nose normal, oropharynx normal Respiratory: normal respiratory effort, lungs clear to auscultation Cardiovascular: Rate/Rhythm: + irregularly irregular Gastrointestinal (Abdomen): normal bowel sounds, soft, nontender, no hepatosplenomegaly Musculoskeletal: No pedal edema Neurologic: PERRL, EOMI, accommodation nl, no face palsy, no dysarthria Psychiatric: A+Ox3, euthymic affect Results & Data Results & Data Vital Signs (Past 12 Hours) Vital Signs Temp Pulse Pulse Resp BP Pulse Ox O2 Del Method 11/28/23 10:38 90 11/28/23 10:09 Room Air 11/28/23 07:34 84 16 94 Room Air 11/28/23 07:29 36.3 C L 84 15 131/72 94 Room Air 11/28/23 02:30 36.7 C 79 16 136/68 94 Room Air Laboratory Results Abnormal lab results 11/28/23 Range/Units 07:20 RDW Std Deviation 47.3 H (36.4-46.3) fL RDW Coeff of Jay 14.9 H (11.5-14.5) % PT 16.4 H (9.0-12.0) Seconds INR 1.6 H (0.9-1.1) Chloride 108 H (98-107) mmol/L Carbon Dioxide 19 L (21-32) mmol/L BUN/Creatinine Ratio 20.8 H (10-20) Glucose 104 H (70-99(Fasting)) mg/dl Calcium 8.0 L (8.6-10.3) mg/dl
--- NOTE | 2023-11-28 12:20 | Electrocardiogram Report ---
Test Reason : Blood Pressure : / mmHG Vent. Rate : 081 BPM Atrial Rate : 250 BPM P-R Int : 000 ms QRS Dur : 106 ms QT Int : 398 ms P-R-T Axes : 000 063 079 degrees QTc Int : 462 ms Atrial fibrillation Abnormal ECG When compared with ECG of 27-NOV-2023 06:42, No significant change was found Confirmed by Nestor Castrejon ([id number]) on 11/28/2023 12:20:01 PM Referred By: REFERRED SELF Confirmed By:Nestor Castrejon
[2023-11-28] MEDS: WARFARIN SOD 1.25 MG TAB PO SCH (16:44)
[2023-11-29 06:01] LABS: Hematocrit (blood only) 36.1 % (37.0-47.0); Hemoglobin 11.8 g/dl (12.0-16.0); Mean Corpuscular Hemoglobin 28.6 pg (25.0-34.0); Mean Corpuscular Hgb Conc 32.7 g/dL (32.0-36.0); Mean Corpuscular Volume 87.4 fL (80.0-100.0); Mean Platelet Volume 9.5 fL (9.4-12.4); Platelet Count 202 K/uL (130-400); RDW Coefficient of Variation 14.9 % (11.5-14.5); Red Blood Count 4.13 M/uL (4.20-5.40); White Blood Count 8.75 K/ul (4.8-10.8)
[2023-11-29 06:10] LABS: BUN Creatinine Ratio 22.2 (10-20); Calcium 8.7 mg/dl (8.6-10.3); Creatinine Clr Calc Pharmacy 36.5 ml/min; Est GFR (African American) 48.9 ml/min; Est GFR (Non-African American) 42.2 ml/min; Magnesium 1.9 mg/dl (1.7-2.4); Potassium 3.9 mmol/L (3.5-5.1)
[2023-11-29 06:25] LABS: INR 1.7 (0.9-1.1); Prothrombin Time 17.5 Seconds (9.0-12.0)
[2023-11-29 07:07] VITALS: RESP 16
[2023-11-29 07:22] LABS: Babesia microti DNA Not Detected (Not Detected)
[2023-11-29 12:04] VITALS: BP 123/71; PULSE 83; TEMP 98.2; O2SAT 97
--- NOTE | 2023-11-29 12:31 | Fluoroscopy Report ---
FL barium swallow CLINICAL HISTORY: assess for esophageal dysfunction TECHNIQUE: The patient was observed drinking thick and thin barium under fluoroscopic observation in both the upright and recumbent positions. Total fluoroscopy time: 31 seconds Ka,r: 37 mGy COMPARISON: None available at the time of this dictation. FINDINGS: The patient had no problem initiating the swallowing mechanism. There was no evidence of aspiration. Dysmotility was seen during swallowing. There was no evidence of strictures, filling defects, or outpouchings. Contrast flowed readily from t he esophagus into the stomach. No hiatal hernia is seen. There was no evidence of gastroesophageal re flux. A 13 mm pill was ingested by the patient. This passed through the esophagus and into the stomach with out any evidence of holdup. IMPRESSION: Dysmotility is seen without other acute abnormalities. ACT 112: Negative or not required by law. Electronically signed by: Steve Bailon M.D. 11/29/2023 12:29 PM
--- NOTE | 2023-11-29 12:32 | Discharge Summary ---
Date of Service November 29, 2023 Admission HPI Per Admitting Provider 88-year-old female with past medical history significant for moderate persistent asthma, chronic rhinitis, pulmonary hypertension, CKD stage IV, hypertension, incomplete right bundle guero block, paroxysmal atrial fibri llation, chronic diastolic CHF, obesity, GERD, generalized anxiety disorder, anti phospholipid antibody syndrome comes because of chest pains. Patient states yesterday morning she had some chest pain but that seemed improved but today morning again developed severe chest pains in the middle of the chest which prompted her to come to the ER. There is no radiation. Has some shortness of breath. No cough. Had an and episode of fever 102 F at home. No nausea. No headache. Normal bowel and bladder movements. Ambulates with a cane. Lives with her grandson. Hemodynamics are okay. past medical history. As mentioned above Past surgical history. Colonoscopy. Cystoscopy. Partial removal of colon. Appendectomy. Cholecystectomy. Social history. No smoking. No alcohol use. No drug use. Family history. Mother had ovarian cancer. Bowel ruptured. Father had black lung. Sister had lung cancer. Admission Exam Per Admitting Provider General- Not in distress Head- atraumatic Eyes- PERRL. ENT- oropharynx clear Neck- supple, no JVD. Lungs- clear to auscultation no wheezing or crackles Heart- regular rhythm; no murmur, no gallop. Abdomen- normal bowel sounds, soft, nontender, no distension Extremities- no erythema seen Neuro- alert, oriented PERRL no facial palsy; no dysarthria; moves extremities. Principal Diagnosis Chest pain Pneumonia Discharge Exam Constitutional no acute distress Eyes PERRL, conjunctivae normal, anicteric sclerae ENMT external ear and nose normal, oropharynx normal Respiratory normal respiratory effort, lungs clear to auscultation Cardiovascular Rate/Rhythm: + irregularly irregular S1 S2 Gastrointestinal (Abdomen) normal bowel sounds, soft, nontender, no hepatosplenomegaly Neurologic PERRL, EOMI, accommodation nl, no face palsy, no dysarthria Psychiatric A+Ox3, euthymic affect Discharge Data Allergies Allergy/AdvReac Type Severity Reaction Status Date / Time lisinopril Allergy Mild COUGH Verified 03/19/20 00:26 guaifenesin Allergy Unknown Unknown Verified 03/19/20 00:26 phenylpropanolamine Allergy Unknown Unknown Verified 03/19/20 00:26 sulindac Allergy Unknown Unknown Verified 03/19/20 00:26 Consultations 11/25/23 21:57 ED Decision to Admit Stat 11/26/23 08:00 Consult Cardiology Routine Ordered Studies 11/26/23 09:51 CT chest without contrast [CT chest diagnostic wo con] Routine 11/29/23 09:00 FL barium swallow Routine Hospital Course (1) Chest pain: 88-year-old female with past medical history significant for moderate persistent asthma, chronic rhinitis, pulmonary hypertension, CKD stage IV, hypertension, incomplete right bundle guero block, paroxysmal atrial fibrillation, chronic diastolic CHF, obesity, GERD, generalized anxiety disorder, anti phospholipid antibody syndrome comes because of chest pains and fever of 102 at home Pneumonia CXR did not show acute abnormalities However, CT chest noted 6.3x 2cm subpleural airspace opacity within RLL. PCP to follow up CT in 3months to monitor Chest pain likely pleuritic due to pneumonia Initial chest pain workup was unremarkable Leukocytosis due to pneumonia, now resolved Resp PCR negative Was treated with ceftriaxone and doxycycline, transitioned to Augmentin and doxycycline on discharge to complete treatmetn Blood cultures negative so far Barium swallow showed esophageal dysmotility. No aspiration Rapid A-fib Received IV Lopressor x 2 in the ER Continue home metoprolol succinate and warfarin INR is subtherapeutic at 1.7 today According to Anticoagulation office note, her warfarin dose was changed to 1.25mg on SuTuTHu an 2.5mg on other days Monitor INR CKD stage IV Presented with creatinine 1.41. 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 Antiphospholipid antibody syndrome On warfarin Hypertension On amlodipine, lasix, hydralazine, Imdur, metoprolol succinate Monitor Total Time Total Time Spent Total Time Spent (In Minutes): 35 Total Time Includes: Examination of the Patient, Discharge Planning and Medication Reconciliation Discharge Plan Discharge Items Patient Disposition: Home - Self-Care Reason For Visit: CHEST PAIN, FEVER Discharge Diagnosis: Chest pain Pneumonia Activity: Resume your previous activity Non-emergency contact: Primary Care Provider Call non-emergency contact if: you have any medication questions Follow-up/Referrals: David Cintron MD [Primary Care Provider] - (Date & Time 12/05/2023 1:40 PM Provider Janet Glover MD Department Family [facility] ) Diet: Heart Healthy Addtl Attending Provider Instructions: Mrs Kory Neff came to the hospital complaining of chest pain and cough. You were extensively evaluated and found to have pneumonia. You were started on antibiotics with improvement of your symptoms. Please ensure follow up with your Primary Doctor who will also repeat a CT scan of your chest in 3 months to monitor findings. Please complete remaining days of antibiotics at home It was a pleasure taking care of you. Pending Studies at Discharge: No Stand-Alone Forms: [facility], Smoking Cessation Medications and DC Order Prescriptions: New doxycycline hyclate 100 mg Capsule 100 mg PO BID 2 Days Qty: 4 0RF amoxicillin-pot clavulanate 875-125 mg Tablet 1 tab PO BIDM 2 Days Qty: 4 0RF Continued atorvastatin 20 mg tablet 20 mg PO QAM omeprazole 40 mg capsule,delayed release(DR/EC) 40 mg PO AMHS levothyroxine [Levoxyl] 50 mcg tablet 50 mcg PO DAILYBB montelukast 10 mg tablet 10 mg PO HS metoprolol succinate 25 mg tablet extended release 24 hr 25 mg PO QAM fluticasone furoate-vilanterol [Breo Ellipta] 200-25 mcg/dose blister with device 1 ea INHALATION QAM hydralazine 25 mg tablet 12.5 mg PO TID Rx Instructions: 1/2 TABLET MORNING,NOON AND BEFORE BED isosorbide mononitrate 60 mg tablet extended release 24 hr 60 mg PO QAM potassium chloride [Klor-Con M20] 20 mEq tablet,ER particles/crystals 20 meq PO QAM diclofenac sodium 1 % gel 1 ea TOPICAL BID Rx Instructions: APPLY TO RIGHT LEG AND RIGHT KNEE ipratropium-albuterol 0.5 mg-3 mg(2.5 mg base)/3 mL solution for nebulization 3 ml INHALATION TID PRN (Reason: Shortness Of Breath) warfarin [Jantoven] 2.5 mg tablet 2.5 mg PO UD Rx Instructions: TAKE 1 TABLET ON SATURDAY AND SATURDAY AND TAKE 1/2 TABLET ALL OTHER DAYS OR DIRECTED BY COAGULATION CLINIC amlodipine 5 mg tablet 5 mg PO QAM benzonatate 100 mg capsule 100 mg PO TID PRN (Reason: Cough) furosemide 20 mg tablet 20 mg PO QAM loratadine 10 mg Tablet 10 mg PO DAILY PRN (Reason: ALLERGIES) cholecalciferol (vitamin D3) 25 mcg (1,000 unit) Tablet 25 mcg PO QAM furosemide 20 mg tablet 20 mg PO 2XWK Rx Instructions: TAKE 20 MG AN ADDITIONAL DOSE TO THE ROUTINE ORDER ON SATURDAY AND THURSDAYS MORNINGING Alive Women's 50 Plus (blend) 240-120-300 mcg Tablet 1 tab PO DAILY fluticasone propionate 50 mcg/actuation Wiggins,Suspension 2 spray INTRANASAL DAILY Rx Instructions: administer into each nostril cyclosporine 0.05 % Dropperette 2 drp OPHTHALMIC (EYE) [facility] Discharge Orders: Discharge Order (Routine); Ordered 11/29/23 Ordered By: Concepción Armijo Admission Data Admit Date/Time: 11/26/23 00:19 Attending Provider: Concepción Armijo I. Admit Provider: Pipo Morrison Primary Care Provider: David Cintron Other Providers: Pipo Morrison; Ji Joseph Robin A. Other Interventions: Discharge Summary Assessment (RN) Last Done: 11/29/23 13:03
[2023-11-29] MEDS: AMOXICILLIN/CLAVULANATE 875 MG TAB PO SCH (12:57)
[2023-11-29] MEDS ORDERED: WARFARIN SOD 2.5 MG TAB PO SCH (16:00)
[2024-01-03] MEDS ORDERED: cefTRIAXone SODIUM 2,000 MG/50 ML BAG IV SCH (21:00)
== END 2023-11-29 14:00 | disposition home or self-care (01) | DRG 194 ==
LOC: ED 19:06 → 2N 11-26 00:19 → SUATTDRO 11-26 00:19 → 2N 11-26 02:21

== ENCOUNTER 2024-07-04 10:09 | Inpatient (IN) ==
--- OUTSIDE RECORDS SUMMARY | 2024-07-04 10:15 | External Medical Summary | Summary of Care ---
Author Name Unknown Organization [facility] Address [address] [place] [address] Phone [phone] Care Team Providers Care Clock Repair Technician Name Role Phone Saida EISENBERG MD, David Adame Primary Care Provider [phone] Reason for Visit * Reason Comments Re-Check Encounter Details Date Type Department Care Team (Late st Contact Info) Description 06/12/2024 10:40 AM EST [facility] [address] [facility] [place] [address] Janet Glover MD [address] [facility] [place] [address] COVID-19 virus infection*; Symptoms of pneumonia; Moderate persistent asthma with acute exacerbation; Permanent atrial fibrillation (HCC); HTN, goal below 140/90; Chronic heart failure with preserved ejection fraction (HCC); Fall, subsequent encounter Allergies Active Allergy Reactions Criticality Noted Date Comments Lisinopril Cough Low 06/04/2011 documented as of this encounter (statuses as of 06/30/2024) Medications LORATADINE 10 MG PO TABSIndications:A llergic rhinitis One pill by mouth once a day as needed for allergies 90 Tab 3 012 Active cycloSPORINE 0.05 % Ophthalmic Emulsion Instill 2 Drops into both eyes in the morning and 2 Drops before bedtime. Active Multiple Vitamins-Minerals (ALIVE WOMENS 50+) TABS Take 1 Tab by mouth daily. 017 Active Cholecalciferol 25 MCG (1000 UT) Oral Tablet Take 1 Tablet by mouth in the morning. 017 Active LORazepam 0.5 MG Oral Tablet (Ativan)Indicatio ns:Anxiety state 1/2-1 TABLET TWICE DAILY as needed for nerves 90 Tab 3 020 Active Fluticasone Propionate 50 MCG/ACT Nasal Suspension Administer 2 Sprays into each nostril daily. 47.4 mL 3 021 Active Fluticasone Furoate-Vilantero l 200-25 MCG/ACT Inhalation Aerosol Powder Breath Activated (BREO ellipta)Indicatio ns:Moderate persistent asthma without complication Inhale 1 Puff by mouth in the morning. 60 Each 023 Active Albuterol Sulfate HFA 108 (90 Base) MCG/ACT Inhalation Aerosol Solution Inhale 2 Puffs by mouth every 4 hours as needed for Wheezing. 54 g 023 Active Diclofenac Sodium 1 % External Gel (Voltaren)Indicat ions:Chronic pain of right knee Apply topically to affected area 2 times a day. Apply to knee and r leg 700 g 11 024 Active Nystatin [id number] UNIT/ML Mouth/Throat SuspensionIndicat ions:Thrush Swish and swallow 5 mL in the morning and 5 mL at noon and 5 mL in the evening and 5 mL before bedtime. For thrush.. 240 mL 1 024 Active Metoprolol Succinate ER 50 MG Oral Tablet Extended Release 24 Hour (toPROL XL)Indications:Pa roxysmal atrial fibrillation (HCC) Take 1 Tablet by mouth in the morning. 90 Tablet 3 024 Active Isosorbide Mononitrate ER 60 MG Oral Tablet Extended Release 24 Hour (Imdur)Indication s:Incomplete right bundle branch block (RBBB) TAKE 1 TABLET DAILY 90 Tablet 3 024 Active Additional Information Patient taking differently: 60 mg Daily(AM), Reported on 06/16/2024 Montelukast Sodium 10 MG Oral Tablet (Singulair)Indica tions:Moderate persistent asthma without complication TAKE 1 TABLET AT BEDTIME 60 Tablet 4 024 Active Warfarin Sodium 2.5 MG Oral Tablet (Jantoven)Indicat ions:Paroxysmal atrial fibrillation (HCC) TAKE 1 TABLET ON SATURDAY AND SATURDAY AND TAKE 1/2 TABLET ALL OTHER DAYS OR DIRECTED BY COAGULATION CLINIC 70 Tablet 3 024 Active Ipratropium-Albut dwain 0.5-2.5 (3) MG/3ML Inhalation Solution (Duoneb) INHALE 3ML VIA NEBULIZER THREE TIMES A DAY FOR 7 DAYS (USE THREE TIMES A DAY FOR 2 TO 3 DAYS AND MAY ALSO USE NEEDED FOR SHORTNESS OF BREATH OR WHEEZING) 90 mL 2 024 Active Levothyroxine Sodium 50 MCG Oral Tablet (Levoxyl)Indicati ons:Acquired hypothyroidism TAKE 1 TABLET DAILY, AT LEAST 30 MINUTES PRIOR TO BREAKFAST OR OTHER MEDICATIONS 90 Tablet 2 024 Active Breo Ellipta 200-25 MCG/ACT Inhalation Aerosol Powder Breath Activated (fluticasone furoate-vilantero l)Indications:Mod erate persistent asthma without complication USE 1 INHALATION ORALLY IN THE MORNING 180 Each 2 024 Active Omeprazole 40 MG Oral Capsule Delayed Release (PriLOSEC)Indicat ions:Esophageal reflux TAKE 1 CAPSULE EVERY MORNING AND TAKE 1 CAPSULE BEFORE BEDTIME 180 Capsule 3 024 Active Atorvastatin Calcium 20 MG Oral Tablet (Lipitor)Indicati ons:Dyslipidemia, goal LDL below 70 TAKE 1 TABLET IN THE MORNING 90 Tablet 024 Active Spironolactone 25 MG Oral Tablet (Aldactone)Indica tions:Heart failure, diastolic, with acute decompensation (HCC) Take 1 Tablet by mouth in the morning. 90 Tablet 3 024 Active Benzonatate 100 MG Oral CapsuleIndication s:COVID-19 virus infection Take 1 Capsule by mouth 3 times a day as needed for Cough. 30 Capsule 1 025 Active Benzonatate 100 MG Oral Capsule Take 1 Capsule by mouth 3 times a day as needed for Cough. 30 Capsule 1 024 2024 Discontinued(R efill) predniSONE 20 MG Oral Tablet (Deltasone)Indica tions:Mild intermittent asthma with exacerbation Take 2 Tablets by mouth in the morning for 5 days. 10 Tablet 025 2024 Discontinued(R efill) Nirmatrelvir&Franck navir 300/100 20 x 150 MG & 10 x 100MG Oral Tablet Therapy Pack (Paxlovid)Indicat ions:COVID-19 virus infection Take 2 pink tablets of Nirmatrelvir and 1 white tablet of Ritonavir two times a day by mouth. 30 Tablet 025 2024 Discontinued predniSONE 20 MG Oral Tablet (Deltasone) Take 2 Tablets by mouth in the morning. 10 Tablet 025 2024 Discontinued Amoxicillin-Pot Clavulanate 875-125 MG Oral Tablet (Augmentin)Indica tions:Symptoms of pneumonia Take 1 Tablet by mouth in the morning and 1 Tablet before bedtime. Do all this for 5 days. 10 Tablet 025 2024 Azithromycin 250 MG Oral Tablet (Zithromax)Indica tions:Symptoms of pneumonia Take 2 tabs by mouth on the first day, then 1 tab daily on days two through five 6 Tablet 025 2024 Hospital, Clinic, or Other Facility Administered Medication Ordered Dose Route Frequency Start Date End Date Status albuterol sulfate (PROVENTIL) (2.5 MG/3ML) 0.083% inhalation solution 2.5 mgIndications:CAMPOS (dyspnea on exertion),Wheezing 2.5 mg NEBULIZER Q4H PRN 04/29/2019 Active documented as of this encounter (statuses as of 06/30/2024) Active Problems Problem Noted Date Diagnosed Date Permanent atrial fibrillation 06/02/2024 Stage 3a chronic kidney disease 06/02/2024 Acquired hypothyroidism 12/05/2023 Chronic kidney disease, stage 4 (severe) 022 Overview: Per CKD protocol Severe obesity with body mas s index (BMI) of 35.0 to 39.9 with serious comorbidity 09/27/2021 Pulmonary hypertension 09/27/2021 Chronic heart failure with preserved ejection fr action 06/30/2020 Moderate persistent asthma without complication 07/02/2019 Overview (07/02/2019): In Check dial performed to assess inhaler technique: 07/02/19 Name of inhalers Albuterol Pass: Yes at 50L/min and Breo Ellipta Pass: Yes at 40L/min. Encouraged to take deep breaths, use aero chamber and rinse after steroid. Test performed by Mimi LOG SNAKER [facility] Chronic rhinitis 07/02/2019 CAROL ANN (generalized anxiety disorder) 04/24/2018 Incomplete right bundle branch block (RBBB) 10/25 Antiphospholipid antibody syndrome 12/05/2011 HTN, goal below 140/90 07/12/2011 [facility] current use of anticoagulant therapy 1 06/17/2010 Esophageal reflux 06/01/2004 documented as of this encounter (statuses as of 06/30/2024) Resolved Problems Problem Noted Date Diagnosed Date Resolved Date Stage 3a chronic kidney disease 05/30/2023 06/06/2023 Stage 3a chronic kidney disease 05/30/2023 06/06/2023 Stage 3a chronic kidney disease 05/30/2023 06/06/2023 Stage 3a chronic kidney disease 05/30/2023 06/06/2023 Kidney disease, chronic, sta ge IV (GFR 15-29 ml/min) 01/01/2022 01/09/2024 Overview: Per CKD protocol Chronic kidney disease, stage 3b 11/08/2020 01/04/2022 Overview: Per CKD protocol Benign hypertension with sta ge 3b chronic kidney disease 10/04/2020 01/04/2022 Overview: Per CKD protocol Paroxysmal atrial fibrillation 07/14/2018 06/12/2024 Benign hypertension with CKD (chronic kidney disease) stage III 01/09/2018 10/06/2020 Overview: Per CKD protocol Parkinson's disease 03/28/2012 05/30/19 24 Palpitations 01/22/2012 07/10/2017 Chest pain 06/04/2011 07/12/2011 Cough 06/04/2011 07/10/2017 Atrial fibrillation 04/20/2011 05/13/20 19 TIA (transient ischemic attack) 04/17/2011 07/10/2017 Anticoagulation management encounter 04/17/2011 05/13/2019 Senile osteoporosis 11/22/2008 01/10/20 18 ADVANCE DIRECTIVE INFORMATION 07/01/2007 03/30/2024 Overview (07/01/2007): No, Advance Directive brochure given to patient at prior appointment. Planning to do a power of erisa attorney. Note on 07/04 has an appt soon. DIVERTICULITIS OF COLON 09/17/200506/27 Myalgia and myositis 07/27/2004 018 Hemorrhagic disorder due to intrinsic circulating anticoagulants 02/26/2003 12/05/2016 Overview (09/06/2015): ICD-10 update of inactive term Menopause 02/26/2003 07/10/2017 documented as of this encounter (statuses as of 06/30/2024) Immunizations Name Administration Dates Next Due COVID-19 mRNA, LNP-s, No Pre serve, 2-Dose Series (Moderna) 09/16/2020,08/19/2020 COVID-19, mRNA, LNP-s, PF, B ooster, 100mcg/0.5mg (Moderna) 04/24/2021 Pneumococcal Conjugate Vacc, 13 Valent (Prevnar) 02/11/2017,11/22/2014 Pneumococcal Polysaccharide PPV23 (Pneumovax) 11/02/2013 Season Influenza, Quad, PF, Adjuvanted, 65+ Yrs, IM (FLUAD) 02/21/2023 Seasonal Influenza Vac., MDV , IM, 0.5 mL (Fluzone) 02/18/2017,01/29/2015,02/17/2014,03/10,02/08/2012,02/24/2010,03/27/2009 ,02/25/2008,03/03/2007 Seasonal Influenza, High Dos e, Trivalent, PF, IM (Fluzone HD) 01/29/2024,03/11/2022,01/22/2015 Seasonal Influenza, Quadriva lent Hd (Fluzone Hd) 03/07/2021 Seasonal Influenza, Quadriva lent Hd, 65+ Yrs 03/05/2020 Seasonal Influenza, Quadriva lent, No Preserve, IM 02/24/2016 Seasonal Influenza, Trivalen t, Adjuvanted, 65+ YRS, PF, (Fluad) 03/06/2019,03/11/2018 TD, Preservative Free 01/29/2007 TDAP (age 10 [...] in the Last Year Never true 04/28/2019 Comments No Sex and Gender Information Value Date Recorded Sex Assigned at Female 04/28/2019 8:47 AM EST Legal Sex Female 7:11 AM EST Gender Identity Female 04/28/2019 8:47 AM EST Sexual Orientation Straight 04/28/2019 8: 47 AM EST documented as of this encounter Last Filed Vital Signs Vital Sign Reading Time Taken Comments Blood Pressure 128/72 06/12/2024 10:36 AM EST Pulse 92 06/12/2024 10:36 AM EST Temperature 37.2 C (98.9 F) 06/12/2024 10:[address] Respiratory Rate 20 06/12/2024 10:36 AM EST Oxygen Saturation 94% 06/12/2024 10:36 AM EST Inhaled Oxygen Concentration - - Weight 85.3 kg (188 lb 1.3 oz) 06/12/2024 10:36 AM EST Height - - Body Mass Index 33.33 06/02/2024 9:00 AM EST documented in this encounter Progress Notes * Janet Glover MD - 06/12/2024 10:49 AM EST Subjective Chief Complaint Patient presents with Re-Check HPI: Jolanta Horn is a 88 year old female. Patient is accompanied by her daughter. The following issues were addressed today: Fell last week and went to ER. Had CT of head and neck that were normal, x-rays of ribs and right elbow normal. Bruising around her eyes and hematoma on right forehead. She is on Coumadin for atrial fibrillation. She was diagnosed with COVID on 06/02/24. Finished course of Paxlovid. Not feeling much better, very tired and feeling short of breath. Cough has not improved. Feels like she has had fever and chills on and off. Using her Breo and albuterol inhalers. Review of Systems: See HPI Objective BP 128/72 | Pulse 92 | Temp 98.9 F (37.2 C) (Tympanic) | Resp 20 | Wt 188 lb 1.3 oz (85.3 kg) |SpO2 94% | BMI 33.33 kg/m | BSA 1.95 m Wt Readings from Last 3 Encounters: 06/16/24 188 lb 0.6 oz (85.3 kg) 06/12/24 188 lb 1.3 oz (85.3 kg) 06/02/24 191 lb 6.4 oz (86.8 kg) BP Readings from Last 3 Encounters: 06/16/24 140/70 06/12/24 128/72 06/02/24 112/62 General: Mildly ill-appearing, no acute distress Head: Right-sided forehead swelling and ecchymosis, periorbital ecchymosis Cardiovascular: Irregularly irregular rhythm, normal rate Respiratory: Good respiratory effort, diffuse rhonchi Neurological: Alert and oriented Psychiatric: Appropriate mood and affect Assessment & Plan 1. COVID-19 virus infection - Benzonatate 100 MG Oral Capsule; Take 1 Capsule by mouth 3 times a day as needed for Cough. Dispense: 30 Capsule; Refill: 1 2. Symptoms of pneumonia - Amoxicillin-Pot Clavulanate 875-125 MG Oral Tablet (Augmentin); Take 1 Tablet by mouth in the morning and 1 Tablet before bedtime. Do all this for 5 days. Dispense: 10 Tablet; Refill: 0 - Azithromycin 250 MG Oral Tablet (Zithromax); Take 2 tabs by mouth on the first day, then 1 tab daily on days two through five Dispense: 6 Tablet; Refill: 0 3. Moderate persistent asthma with acute exacerbation - Prednisone 20 MG Oral Tablet (Deltasone); Take 2 Tablets by mouth in the morning., Dispense: 10 Tablet; Refill: 0 4. Permanent atrial fibrillation (HCC) 5. HTN, goal below 140/90 6. Chronic heart failure with preserved ejection fraction (HCC) 7. Fall, subsequent encounter Patient with persistent cough, chills, shortness of breath after COVID diagnosis, s/p Paxlovid. Will cover for pneumonia with azithromycin + Augmenitn. Course of prednisone for asthma flair. Continuecurrent inhalers. Atrial fibrillation is rate-controlled. Continue metoprolol, Coumadin. Patient is euvoluemic on exam today. Blood pressure well-controlled. Continue same medications. ER notes from fall reviewed. Continue Tylenol PRN for pain. Return in about 4 days (around 06/16/2024) for follow-up. This note was electronically signed by Janet Glover MD documented in this encounter Nursing Notes * China Galvan LPN - 06/12/2024 10:31 AM EST Jolanta Horn presents for 6 month recheck. Medications & HM reviewed. Had a fall a week ago was seen in the ER after fall. Diagnosed with covid on 06/02 had paxlovid. Is not feeling any better very SOB concerned about it being in her chest documented in this encounter Plan of Treatment Upcoming Encounters Date Type Department Care Team (Late st Contact Info) Description 07/07/2024 9:50 AM EST Anticoagulation Pharmacy, [facility] [address] [facility] [place] [address] Pharmacist1, [facility] [address] [place] [address] [address] 08/19/2024 10:30 AM EDT Office Visit Cardiology, [facility] [address] [place] [address] Osito Kamara PA-C [address] [place] [address] 04/16/2025 2:00 PM EST Office Visit Nephrology, [facility] [address] [facility] [place] [address] Sarabjit Starr MD [address] [facility] [place] [address] Scheduled Procedures Name Priority Associated Diagnoses Date/Ti me COLONOSCOPY FLEXIBLE PROXIMAL DIAGNOSTIC Recall History of colon polyps Health Maintenance Due Date Last Done Comments Adult Wellness Visit 04/07/2019 04/07/2018 Depression Screening 04/28/2020 04/28/2019 Albumin/Creatinine Ratio 12/27/2023 023, 01/05/2022, 04/07/2021, Additional history exists COVID-19 Vaccine ( season) 2024 04/24/2021, 09/16/2020, 08/19/2020 TSH 11/18/2024 11/19/2023, 0806/2022, 07/13/2022, Additional history exists DXA Scan 12/12/2024 12/12/2021, 06/27, 01/10/2015, Additional history exists DTap/Tdap Vaccines (2 - Td or Tdap) 02/22/2025 02/22/2015, 01/29/2007 Pneumococcal Vaccine: 50+ Years Completed 02/11/2017, 11/22/2014, 11/02/2013, Additional history exists Zoster Vaccines Completed 08/21/2018, 03/28, 08/21/2017, Additional history exists Colonoscopy Discontinued 03/19/2020, 02/25, 03/15/2020, Additional history exists Influenza Vaccine (FLU shot) Completed 01/29/2024, 02/21/2023, 03/11/2022, Additional history exists Nephrology Referral Discontinued 04/21/2024 HPV (Gardasil) Vaccine Aged Out No lo nger eligible based on patient's age to complete this topic Hepatitis B Vaccine Aged Out No longe r eligible based on patient's age to complete this topic MENINGOCOCCAL (MENACTRA/MENVEO) Aged Out No longer eligible based on patient's age to complete this topic documented as of this encounter Medical Devices Implanted Type Area Emts Device Identifier Shelf Expiration Date Model / Serial / Lot Clip Quick 2.8mm 230cm - [id number] Implanted:Qty: 1 on 03/15/2020 by Janell Raphael MD at [facility] [employer] [facility] 05/26/2022 [id number]-[id number] / / K Clip Quick 2.8mm 230cm - [id number] Implanted:Qty: 1 on 03/15/2020 by Janell Raphael MD at [facility] [employer] 05/26/2022 [id number]-[id number] documented as of this encounter Visit Diagnoses Diagnosis COVID-19 virus infection- Primary Symptoms of pneumonia Other symptoms involving respiratory system and chest Moderate persistent asthma with acute exacerbation Permanent atrial fibrillation (HCC) Atrial fibrillation HTN, goal below 140/90 Unspecified essential hypertension Chronic heart failure with preserved ejection fraction (HCC) Fall, subsequent encounter documented in this encounter Additional Health Concerns Infection Onset Date Last Indicated Resolved Time SARS-CoV-2 (COVID-19) 06/02/2024 06/02/20242024 12:19 AM EST documented as of this encounter Care Teams Clock Repair Technician Relationship Specialty Start Date End Date David Cintron III, MD [address] [place] [place] [address] PCP - General 01/09/1996 documented as of this encounter"
--- OUTSIDE RECORDS SUMMARY | 2024-07-04 10:15 | External Medical Summary | Summary of Care ---
Author Name Unknown Organization [facility] Address [address] [facility] [place] [address] Phone [phone] Prov[address] Care [address] Shaft And Steering Post Repairer Name Role Phone Saida EISENBERG MD, David Adame Primary Care Provider [phone] Reason for Visit * Reason Comments eRx-Medication Refill Encounter Details Date Type Department Care Team (Late st Contact Info) Description 06/27/2024 Refill Cardiology, [facility] [address] [place] [address] Osito Kamara PA-C [address] [place] [address] Paroxysmal atrial fibrillation (HCC) Allergies Active Allergy Reactions Criticality Noted Date Comments Lisinopril Cough Low 06/04/2011 documented as of this encounter (statuses as of 06/29/2024) Medications LORATADINE 10 MG PO TABSIndications:Al lergic rhinitis One pill by mouth once a day as needed for allergies 90 Tab 3 08/21/19 12 Active cycloSPORINE 0.05 % Ophthalmic Emulsion Instill 2 Drops into both eyes in the morning and 2 Drops before bedtime. Active Multiple Vitamins-Minerals (ALIVE WOMENS 50+) TABS Take 1 Tab by mouth daily. 12/13/19 17 Active Cholecalciferol 25 MCG (1000 UT) Oral Tablet Take 1 Tablet by mouth in the morning. 12/13/19 17 Active LORazepam 0.5 MG Oral Tablet (Ativan)Indication s:Anxiety state 1/2-1 TABLET TWICE DAILY as needed for nerves 90 Tab 3 05/21/20 20 Active Fluticasone Propionate 50 MCG/ACT Nasal Suspension Administer 2 Sprays into each nostril daily. 47.4 mL 3 03/15/20 21 Active Fluticasone Furoate-Vilanterol 200-25 MCG/ACT Inhalation Aerosol Powder Breath Activated (BREO ellipta)Indication s:Moderate persistent asthma without complication Inhale 1 Puff by mouth in the morning. 60 Each 12/28/19 23 Active Albuterol Sulfate HFA 108 (90 Base) MCG/ACT Inhalation Aerosol Solution Inhale 2 Puffs by mouth every 4 hours as needed for Wheezing. 54 g 03/12/20 23 Active Diclofenac Sodium 1 % External Gel (Voltaren)Indicati ons:Chronic pain of right knee Apply topically to affected area 2 times a day. Apply to knee and r leg 700 g 11 07/04/19 24 Active Nystatin 341609 UNIT/ML Mouth/Throat SuspensionIndicati ons:Thrush Swish and swallow 5 mL in the morning and 5 mL at noon and 5 mL in the evening and 5 mL before bedtime. For thrush.. 240 mL 1 07/18/19 24 Active Metoprolol Succinate ER 50 MG Oral Tablet Extended Release 24 Hour (toPROL XL)Indications:Par oxysmal atrial fibrillation (HCC) Take 1 Tablet by mouth in the morning. 90 Tablet 3 01/29/20 24 Active Isosorbide Mononitrate ER 60 MG Oral Tablet Extended Release 24 Hour (Imdur)Indications :Incomplete right bundle branch block (RBBB) TAKE 1 TABLET DAILY 90 Tablet 3 02/03/20 24 Active Additional Information Patient taking differently: 60 mg Daily(AM), Reported on 06/16/2024 Montelukast Sodium 10 MG Oral Tablet (Singulair)Indicat ions:Moderate persistent asthma without complication TAKE 1 TABLET AT BEDTIME 60 Tablet 4 02/15/20 24 Active Warfarin Sodium 2.5 MG Oral Tablet (Jantoven)Indicati ons:Paroxysmal atrial fibrillation (HCC) TAKE 1 TABLET ON SATURDAY AND SATURDAY AND TAKE 1/2 TABLET ALL OTHER DAYS OR DIRECTED BY COAGULATION CLINIC 70 Tablet 3 02/15/20 24 Active Ipratropium-Albute rol 0.5-2.5 (3) MG/3ML Inhalation Solution (Duoneb) INHALE 3ML VIA NEBULIZER THREE TIMES A DAY FOR 7 DAYS (USE THREE TIMES A DAY FOR 2 TO 3 DAYS AND MAY ALSO USE NEEDED FOR SHORTNESS OF BREATH OR WHEEZING) 90 mL 2 03/09/20 24 Active Levothyroxine Sodium 50 MCG Oral Tablet (Levoxyl)Indicatio ns:Acquired hypothyroidism TAKE 1 TABLET DAILY, AT LEAST 30 MINUTES PRIOR TO BREAKFAST OR OTHER MEDICATIONS 90 Tablet 2 03/17/20 24 Active Breo Ellipta 200-25 MCG/ACT Inhalation Aerosol Powder Breath Activated (fluticasone furoate-vilanterol )Indications:Moder ate persistent asthma without complication USE 1 INHALATION ORALLY IN THE MORNING 180 Each 2 03/17/20 24 Active Omeprazole 40 MG Oral Capsule Delayed Release (PriLOSEC)Indicati ons:Esophageal reflux TAKE 1 CAPSULE EVERY MORNING AND TAKE 1 CAPSULE BEFORE BEDTIME 180 Capsule 3 04/30/20 24 Active Atorvastatin Calcium 20 MG Oral Tablet (Lipitor)Indicatio ns:Dyslipidemia, goal LDL below 70 TAKE 1 TABLET IN THE MORNING 90 Tablet 04/30/20 24 Active Spironolactone 25 MG Oral Tablet (Aldactone)Indicat ions:Heart failure, diastolic, with acute decompensation (HCC) Take 1 Tablet by mouth in the morning. 90 Tablet 3 05/01/20 24 Active Benzonatate 100 MG Oral CapsuleIndications :COVID-19 virus infection Take 1 Capsule by mouth 3 times a day as needed for Cough. 30 Capsule 1 06/12/19 25 Active Hospital, Clinic, or Other Facility Administered Medication Ordered Dose Route Frequency Start Date End Date Status albuterol sulfate (PROVENTIL) (2.5 MG/3ML) 0.083% inhalation solution 2.5 mgIndications:CAMPOS (dyspnea on exertion),Wheezing 2.5 mg NEBULIZER Q4H PRN 04/29/2019 Active documented as of this encounter (statuses as of 06/29/2024) Active Problems Problem Noted Date Diagnosed Date [...] rinse after steroid. Test performed by Mimi FINISHER FIBERGLASS [employer]AT PARTS CPFT Chronic rhinitis 07/02/2019 CAROL ANN (generalized anxiety disorder) 04/24/2018 Incomplete right bundle branch block (RBBB) 10/25 Antiphospholipid antibody syndrome 12/05/2011 HTN, goal below 140/90 07/12/2011 terminal manager current use of anticoagulant therapy 1 06/17/2010 Esophageal reflux 06/01/2004 documented as of this encounter (statuses as of 06/29/2024) Resolved Problems Problem Noted Date Diagnosed Date [...] appointment. Planning to do a power of insurance defense attorney. Note on 07/04 has an appt soon. DIVERTICULITIS OF COLON 09/17/200506/27 Myalgia and myositis 07/27/2004 018 Hemorrhagic disorder due to intrinsic circulating anticoagulants 02/26/2003 12/05/2016 Overview (09/06/2015): ICD-10 update of inactive term Menopause 02/26/2003 07/10/2017 documented as of this encounter (statuses as of 06/29/2024) Immunizations Name Administration Dates Next Due COVID-19 [...] AM EST documented as of this encounter Miscellaneous Notes * [facility] 9:40 AM ESTRefused Prescriptions: Disp Refills Metoprolol Succinate ER 25 MG Oral Tablet *90 Tab*3 Sig: TAKE 1TABLET IN THE MORNINGRefused By: YESSI STONE skye for Refusal: Refill Not AppropriateReason for Refusal Comment: takes 50mg tablets - 1 year supply sent 01/2024 documented in this encounter Plan of Treatment Upcoming Encounters Date Type Department Care Team (Late st Contact Info) Description 07/07/2024 9:50 AM EST [facility] [place] [address] [place] [address] Pharmacist1, [facility] [address] [place] [address] 08/19/2024 10:30 AM EDT Office Visit Cardiology, [facility] [address] [place] [address] Osito Kamara PA-C [address] [place] [address] 04/16/2025 2:00 PM EST Office Visit Nephrology, [facility] [address] [place] [address] Sarabjit Starr MD 200 [facility] [place] [address] Scheduled Procedures Name Priority Associated Diagnoses Date/Ti me COLONOSCOPY FLEXIBLE PROXIMAL DIAGNOSTIC Recall History of colon polyps Health Maintenance Due Date Last Done Comments Adult Wellness Visit 04/07/2019 04/07/2018 Depression Screening 04/28/2020 04/28/2019 Albumin/Creatinine Ratio 12/27/2023 023, 01/05/2022, 04/07/2021, Additional history exists COVID-19 Vaccine ( season) 2024 04/24/2021, 09/16/2020, 08/19/2020 TSH 11/18/2024 11/19/2023, 06/2022, 07/13/2022, Additional history exists DXA Scan [...] this encounter Medical Devices Implanted Type Area Plaster Block Layer Device Identifier Shelf Expiration Date Model / Serial / Lot Clip Quick 2.8mm 230cm - [id number] Implanted:Qty: 1 on 03/15/2020 by Janell Raphael MD at [facility]COPY [facility] [employer] 05/26/2022 HX-202UR.A / Clip Quick 2.8mm 230cm - [id number] Implanted:Qty: 1 on 03/15/2020 by Janell Raphael MD at [facility]OSCOPY [facility] [employer] 05/26/2022 HX-202UR.A / K documented as of this encounter Visit Diagnoses Diagnosis Paroxysmal atrial fibrillation (HCC) Atrial fibrillation documented in this encounter Care Teams Drive Shaft And Steering Post Repairer Relationship Specialty Start Date End Date David Cintron III, MD [address] [facility] [place] [address] PCP - General 01/09/1996 documented as of this encounter
--- OUTSIDE RECORDS SUMMARY | 2024-07-04 10:15 | External Medical Summary | Summary of Care ---
Author Name Unknown Organization [facility] Address [address] [place] [address] Phone [phone] Care Team Providers Care Drafter Detail Name Role Phone Saida EISENBERG MD, David Adame Primary Care Provider [phone] Reason for Visit * Reason Comments Follow Up Encounter Details Date Type Department Care Team (Late st Contact Info) Description 06/16/2024 3:20 PM EST Office Visit Family Practice Daniel Pereyra [place] 200 [facility] [place] [address] Janet Glover MD 200 [facility] [place] [address] Symptoms of pneumonia*; Moderate persistent asthma with acute exacerbation; Permanent atrial fibrillation (HCC) Allergies Active Allergy Reactions [...] leg 700 g 11 024 Active Nystatin 946597 UNIT/ML Mouth/Throat SuspensionIndicat ions:Thrush Swish and swallow [...] BREAKFAST OR OTHER MEDICATIONS 90 Tablet 2 Active Breo Ellipta 200-25 MCG/ACT Inhalation Aerosol Powder Breath Activated (fluticasone furoate-vilantero l)Indications:Mod erate persistent asthma without complication USE 1 INHALATION ORALLY IN THE MORNING 180 Each 2 Active Omeprazole 40 MG Oral Capsule Delayed Release (PriLOSEC)Indicat ions:Esophageal reflux TAKE 1 CAPSULE EVERY MORNING AND TAKE 1 CAPSULE BEFORE BEDTIME 180 Capsule 3 Active Atorvastatin Calcium 20 MG Oral Tablet (Lipitor)Indicati ons:Dyslipidemia, goal LDL below 70 TAKE 1 TABLET IN THE MORNING 90 Tablet Active Spironolactone 25 MG Oral Tablet (Aldactone)Indica tions:Heart failure, diastolic, with acute decompensation (HCC) Take 1 Tablet by mouth in the morning. 90 Tablet 3 024 Active Benzonatate 100 MG Oral CapsuleIndication s:COVID-19 virus infection Take 1 Capsule by mouth 3 times a day as needed for Cough. 30 Capsule 1 Active predniSONE 20 MG Oral Tablet (Deltasone) Take 2 Tablets by mouth in the morning. 10 Tablet 2024 Discontinued Amoxicillin-Pot Clavulanate 875-125 MG Oral Tablet (Augmentin)Indica tions:Symptoms of pneumonia Take 1 Tablet by mouth in the morning and 1 Tablet before bedtime. Do all this for 5 days. 10 Tablet 2024 Azithromycin 250 MG Oral Tablet (Zithromax)Indica tions:Symptoms of pneumonia Take 2 tabs by mouth on the first day, then 1 tab daily on days two through five 6 Tablet 025 2024 predniSONE 20 MG Oral Tablet (Deltasone)Indica tions:Moderate persistent asthma with acute exacerbation Take 2 Tablets by mouth daily for 4 days, THEN 1 Tablet daily for 4 days, THEN 0.5 Tablets daily for 4 days. 14 Tablet 025 2024 Hospital, Clinic, or Other [...] after steroid. Test performed by Mimi RESEARCH LABORATORY MANAGER CPFT Chronic rhinitis 07/02/2019 CAROL ANN (generalized anxiety disorder) 04/24/2018 Incomplete right bundle branch block (RBBB) 10/25 Antiphospholipid antibody syndrome 12/05/2011 HTN, goal below 140/90 07/12/2011 residential current use of anticoagulant therapy 1 06/17/2010 [...] Sign Reading Time Taken Comments Blood Pressure 140/70 06/16/2024 3:22 PM EST Pulse 106 06/16/2024 3:22 PM EST Temperature 36.9 C (98.5 F) 06/16/2024 3:22 PM ES T Respiratory Rate 18 06/16/2024 3:22 PM EST Oxygen Saturation 92% 06/16/2024 3:22 PM EST Inhaled Oxygen Concentration - - Weight 85.3 kg (188 lb 0.6 oz) 06/16/2024 3:22 P M EST Height - - Body Mass Index 33.32 06/02/2024 9:00 AM EST documented in this encounter Progress Notes * Janet Glover MD - 06/16/2024 3:25 PM EST Subjective Chief Complaint Patient presents with Follow Up HPI: Jolanta Horn is a 88 year old female. Patient is accompanied by her daughter. The following issues were addressed today: Patient was seen on 06/12/24 for recent COVID infection s/p Paxlovid and symptoms of PNA. She presents for follow-up. Was started on Augmentin and azithromycin at last visit as well as prednisone. Feeling a little better and cough has improved. Still tired and overall feeling weak. Shortness of breath is still present but not as severe. Feels like she is wheezing. Review of Systems: See HPI Objective BP 140/70 | Pulse 106 | Temp 98.5 F (36.9 C) (Tympanic) | Resp 18 | Wt 188 lb 0.6 oz (85.3 kg) | SpO2 92% | BMI 33.32 kg/m | BSA 1.95 m Wt Readings from Last 3 Encounters: 06/16/24 188 lb 0.6 oz (85.3 kg) 06/12/24 188 lb 1.3 oz (85.3 kg) 06/02/24 191 lb 6.4 oz (86.8 kg) BP Readings from Last 3 Encounters: 06/16/24 140/70 06/12/24 128/72 06/02/24 112/62 General: Well-appearing, no acute distress Head: Right-sided forehead swelling and ecchymosis, periorbital ecchymosis Cardiovascular: Irregularly irregular rhythm, normal rate Respiratory: Good respiratory effort, expiratory wheezing Neurological: Alert and oriented Psychiatric: Appropriate mood and affect Assessment & Plan 1. Symptoms of pneumonia Improved. Patient is finishing 5-day course of Augmentin + azithromycin. Patient advised to monitor symptoms and seek medical attention if experiencing high fever, difficulty breathing, or chest pain. 2. Moderate persistent asthma with acute exacerbation Continues to use Breo daily, albuterol every 4-6 hours throughout the day. Feels like she would benefit from longer course of steroids. Prednisone taper sent to pharmacy. - predniSONE 20 MG Oral Tablet (Deltasone); Take 2 Tablets by mouth daily for 4 days, THEN 1 Tabletdaily for 4 days, THEN 0.5 Tablets daily for 4 days. Dispense: 14 Tablet; Refill: 0 3. Permanent atrial fibrillation (HCC) Stable. Atrial fibrillation is rate-controlled. Continue metoprolol, Coumadin. Return if symptoms worsen or fail to improve. This note was electronically signed by Janet Glover MD documented in this encounter Nursing Notes * China Galvan LPN - 06/16/2024 3:19 PM EST Jolanta Horn presents for 4 day recheck. Medications & HM reviewed. A little improvement not much documented in this encounter Plan of Treatment Upcoming Encounters Date Type Department Care Team (Late st Contact Info) Description 07/07/2024 9:50 AM EST Anticoagulation Pharmacy, [facility] [address] [place] [address] Pharmac[address], [facility] [address] [place] [address] [address] 08/19/2024 10:30 AM EDT Office Visit Cardiology, [facility] [address] [facility] [place] [address] Osito Kamara PA-C [address] [place] [address] 04/16/2025 2:00 PM EST Office Visit Nephrology, Daniel Pereyra 200 [facility] [place] [address] Sarabjit Starr MD 200 [facility] [place] [address] Scheduled Procedures Name Priority Associated Diagnoses Date/Ti [...] encounter Medical Devices Implanted Type Area Mill Helper Device Identifier Shelf Expiration Date Model / Serial / Lot Clip Quick 2.8mm 230cm - [id number] Implanted:Qty: 1 on 03/15/2020 by Janell Raphael MD at [facility] [employer] 05/26/2022 HX-202UR.A K Clip Quick 2.8mm 230cm - [id number] Implanted:Qty: 1 on 03/15/2020 by Janell Raphael MD at [facility]COPY [facility] [employer] 05/26/2022 HX-202UR.A K documented as of this encounter Visit Diagnoses Diagnosis Symptoms of pneumonia- Primary Other symptoms involving respiratory system and chest Moderate persistent asthma with acute exacerbation Permanent atrial fibrillation (HCC) Atrial fibrillation documented in this encounter Additional Health Concerns Infection Onset Date Last Indicated Resolved Time SARS-CoV-2 (COVID-19) 06/02/2024 06/02/20242024 12:19 AM EST documented as of this encounter Care Teams Drafter Detail Relationship Specialty Start Date End Date David Cintron III, MD 200 [facility] [address] PCP - General 01/09/1996 documented as of this encounter"
--- OUTSIDE RECORDS SUMMARY | 2024-07-04 10:15 | External Medical Summary | Summary of Care ---
Author Name Unknown Organization [facility] Address [address] [facility] [place] [address] Phone [phone] Care Team Providers Care Corporate Webmaster Name Role Phone Saida EISENBERG MD, David Adame Primary Care Provider [phone] Reason for Visit * Reason Comments eRx-Medication Refill Encounter Details Date Type Department Care Team (Late st Contact Info) Description 06/27/2024 Refill Cardiology, [facility] [address] [place] [address] Sangita Blank CRNP [address] [place] [address] HTN, goal below 140/90 Allergies Active Allergy [...] 700 g 11 07/04/19 24 Active Nystatin 483591 UNIT/ML Mouth/Throat SuspensionIndicati ons:Thrush Swish and swallow [...] rinse after steroid. Test performed by Mimi PRODUCTION DISPATCHER CPFT Chronic rhinitis 07/02/2019 CAROL ANN (generalized [...] appointment. Planning to do a power of commercial attorney. Note on 07/04 has an appt [...] encounter Miscellaneous Notes * Telephone Encounter - Cheryle Mcdaniel [facility] - 06/29/2024 9:06 AM ESTRefused Prescriptions: Disp Refills hydrALAZINE HCl 25 MG Oral Tablet (Apresol*135 Ta*3 Sig: TAKE 1/2 TABLET IN THE MORNING, 1/2 TABLET AT NOON AND 1/2 TABLET BEFORE BEDTIMERefused By: Charmaine MCDANIEL for Refusal: Course of treatment complete * Telephone Encounter - Cheryle Mcdaniel RPh - 06/29/2024 8:47 AM EST Medication was discontinued by nephrology on 04/21/24 due to low BP. ThanksCheryle PharmD Clinical Pharmacist [facility] 06/29/2024, 9:02 AM documented in this encounter Plan of Treatment Upcoming Encounters Date Type Department Care Team (Late st Contact Info) Description 07/07/2024 9:50 AM EST Anticoagulation Pharmacy, [facility] 200 [facility] [place] [address] Pharmacist1, [facility] [address] [place] [address] [address] 08/19/2024 10:30 AM EDT Office Visit Cardiology, [facility] [address] [facility] [place] [address] Osito Kamara PA-C [address] [place] [address] 04/16/2025 2:00 PM EST Office Visit Nephrology, [facility] [address] [place] [address] Sarabjit Starr MD 200 [facility] [place] [address] Scheduled Procedures Name Priority Associated Diagnoses Date/Ti me COLONOSCOPY FLEXIBLE PROXIMAL DIAGNOSTIC Recall History of colon polyps Health Maintenance Due Date Last Done Comments Adult Wellness Visit 04/07/2019 04/07/2018 Depression Screening 04/28/2020 04/28/2019 Albumin/Creatinine Ratio 12/27/2023 023, 01/05/2022, 04/07/2021, Additional history exists COVID-19 Vaccine ( season) 2024 04/24/2021, 09/16/2020, 08/19/2020 TSH 11/18/2024 11/19/2023, 08/06/2022, 07/13/2022, Additional history exists DXA Scan [...] this encounter Medical Devices Implanted Type Area Armature Bander Device Identifier Shelf Expiration Date Model / Serial / Lot Clip Quick 2.8mm 230cm - [id number] Implanted:Qty: 1 on 03/15/2020 by Janell Raphael MD at ENDOSCOPY [facility] [employer] 05/26/2022 HX-202UR.A / K Clip Quick 2.8mm 230cm - [id number] Implanted:Qty: 1 on 03/15/2020 by Janell Raphael MD at ENDOSCOPY [facility] [employer] 05/26/2022 HX-202UR.A / / K documented as of this encounter Visit Diagnoses Diagnosis HTN, goal below 140/90 Unspecified essential hypertension documented in this encounter Care Teams Corporate Webmaster Relationship Specialty Start Date End Date David Cintron III, MD [address] [facility] [place] [address] PCP - General 01/09/1996 documented as of this encounter
[2024-07-04] MEDS: ALBUTEROL 0.5% NEB SOLN 2.5 MG/0.5 ML VIAL NEB STA (11:00)
[2024-07-04 11:10] LABS: Base Excess VBG -5.4 mEq/L; HCO3 VBG 20 mmol/L; Oxygen Saturation VBG < 60.0 %; PCO2 VBG 38 mmHg (38-50); PO2 VBG 31 mmHg; pH VBG 7.33 (7.36-7.41)
[2024-07-04 11:22] LABS: Basophils # (auto) 0.03 K/uL (0.00-0.20); Basophils % (auto) 0.4 %; Eosinophils # (auto) 0.04 K/uL (0.00-0.50); Eosinophils % (auto) 0.5 %; Hematocrit (blood only) 41.1 % (37.0-47.0); Hemoglobin 13.3 g/dl (12.0-16.0); Immature Granulocytes # (auto) 0.04 K/uL (0.01-0.20); Immature Granulocytes % (auto) 0.5 %; Lymphocytes # (auto) 0.66 K/uL (1.20-3.40); Lymphocytes % (auto) 7.8 %; Mean Corpuscular Hemoglobin 29.4 pg (25.0-34.0); Mean Corpuscular Hgb Conc 32.4 g/dL (32.0-36.0); Mean Corpuscular Volume 90.9 fL (80.0-100.0); Mean Platelet Volume 9.3 fL (9.4-12.4); Monocytes # (auto) 0.53 K/uL (0.11-0.59); Monocytes % (auto) 6.3 %; Neutrophils # (auto) 7.16 K/uL (1.40-6.50); Neutrophils % (auto) 84.5 %; Platelet Count 163 K/uL (130-400); RDW Coefficient of Variation 15.5 % (11.5-14.5); RDW Standard Deviation 51.4 fL (36.4-46.3); Red Blood Count 4.52 M/uL (4.20-5.40); White Blood Count 8.46 K/ul (4.8-10.8)
--- NOTE | 2024-07-04 11:23 | XRay Report ---
XR chest 1V portable HISTORY: 88 years-old Female Dyspnea acute shortness of breath COMPARISON: Radiographs June 04, 2024 TECHNIQUE: AP view of the chest FINDINGS: Cardiac silhouette is enlarged. Pulmonary vascular congestion with ill-defined right infrahilar opaci ties. No pneumothorax or large pleural effusion. Bones appear grossly intact. IMPRESSION: 1. Cardiomegaly with pulmonary vascular congestion. 2. Mild ill-defined right infrahilar opacities may represent airspace disease/pneumonia. Findings cou ld be correlated with PA and lateral views of the chest. ACT 112: Negative or not required by law. The above report was generated using voice recognition software. It may contain grammatical, syntax o r spelling errors. Electronically signed by: López Pineda M.D. 07/04/2024 11:22 AM
[2024-07-04 11:34] LABS: Albumin Globulin Ratio 1.1 (0.9-2); Albumin Level 3.4 gm/dl (3.4-5.0); BUN Creatinine Ratio 17.6 (10-20); Bilirubin,Total 0.4 mg/dl (0.2-1.0); Calcium 8.8 mg/dl (8.6-10.3); Creatinine Clr Calc Pharmacy 36.4 ml/min; Potassium 3.6 mmol/L (3.5-5.1); Total Protein 6.4 gm/dl (6.0-8.3)
[2024-07-04 11:41] LABS: Troponin I High Sensitivity 18.4 pg/ml (0-14)
[2024-07-04 11:53] LABS: Adenovirus PCR Not Detected (NotDetected); Bordetella parapertussis PCR Not Detected (NotDetected); Bordetella pertussis PCR Not Detected (NotDetected); Chlamydia pneumoniae PCR Not Detected (NotDetected); Coronavirus 229E PCR Not Detected (NotDetected); Coronavirus CoV-2 (COVID19)PCR Not Detected (NotDetected); Coronavirus HKU1 PCR Not Detected (NotDetected); Coronavirus NL63 PCR Not Detected (NotDetected); Coronavirus OC43PCR Not Detected (NotDetected); Human Metapneumovirus PCR DETECTED (NotDetected); Influenza A PCR Not Detected (NotDetected); Influenza B PCR Not Detected (NotDetected); Mycoplasma pneumoniae PCR Not Detected (NotDetected); Parainfluenza Virus 1 PCR Not Detected (NotDetected); Parainfluenza Virus 2 PCR Not Detected (NotDetected); Parainfluenza Virus 3 PCR Not Detected (NotDetected); Parainfluenza Virus 4 PCR Not Detected (NotDetected); Respiratory Syncytial VirusPCR Not Detected (NotDetected); Rhinovirus/Enterovirus PCR Not Detected (NotDetected)
--- NOTE | 2024-07-04 12:31 | Emergency Department Note ---
Impression & Plan Infection due to human metapneumovirus (hMPV), Atrial fibrillation with rapid ventricular response, Acute hypoxic respiratory failure ED Provider Note NAME: SAMIR ALEJANDRO AGE: 88 SEX: F : 1935 ARRIVES VIA: Walk-In INFORMANT: Patient, ED PROVIDER(S): Selena Weiss MD CHIEF COMPLAINT: Shortness of breath, cough, wheezing HPI: This is a an 88-year-old female with history of asthma presenting for shortness of breath, cough and wheezing. Patient had COVID-19 about 3 weeks ago, treated with Paxlovid, Z-Sin, 2 steroid tapers. Patient has continued to have symptoms of weakness, fatigue, shortness of breath and cough. This is acutely worsened. Otherwise patient still doing daily activities. She is not disoriented as per daughter. Just very fatigued. Takes Coumadin. ROS: See above HPI for pertinent positives & negatives. A total of 10 systems reviewed and were otherwise negative. PAST MEDICAL HISTORY: See Below PAST SURGICAL HISTORY: See Below FAMILY HISTORY: See Below SOCIAL HISTORY: See Below HOME MEDICATIONS: See Below ALLERGIES: See Below VITALS: See Below PHYSICAL EXAMINATION: General: resting comfortably in no acute distress Head: Normocephalic and atraumatic Eyes: Normal inspection, extraocular muscles intact Ear, nose, throat: Normal external exam Neck: Normal range of motion Respiratory: Wheezing/rhonchi in lung degroot Cardiovascular: Regular rate/rhythm, no murmur GI: soft, nontender, no guarding or rebound Extremities: nontender, moves all extremities Neuro: The patient awake and alert, appropriately conversive, no focal deficits, symmetric faces Skin: Warm, dry, and intact MEDICAL DECISION MAKING: This is an 88-year-old female presenting for shortness of breath, cough and wheezing. Patient does have abnormal lung signs, give albuterol here. Patient had DuoNeb at home. Will do chest x-ray, basic blood work, pressure panel.patient is currently hypoxic requiring 2 L which is new for her, she is not on oxygen at home -Bloodwork is reviewed showing no significant leukocytosis, anemia, electrolyte or creatinine abnormality. Slightly low CO2. -Troponin is elevated 18.4, BNP 434 -Patient is positive for human metapneumovirus -Chest x-ray Independently interpreted by me reveals cardiomegaly with pulm vascular congestion without pleural effusion. -Radiology read confirms this but also shows an ill-defined right infrahilar opacity concerning for airspace disease//pneumonia -Patient will require admission at this time for further workup/treatment. Care transition to Dr. Gaston. Differential diagnosis: Pneumonia, URI, acute hypoxic respiratory failure, PE Independent History obtained from: Daughter Diagnostics interpreted by me: ECG: ECG independently interpreted by me with A-fib with RVR at a rate of 124, incomplete right bundle branch block, normal QTc, no ST segment elevations consistent with STEMI criteria Cardiac Monitoring: An order was placed for continuous cardiac monitoring. The monitor shows a rate of 100 with atrial fibrillation rhythm. Past Med/Surg History Problem List (Updated 07/04/24 @ 20:06 by Selena Weiss MD) Acute hypoxic respiratory failure (Acute) Infection due to human metapneumovirus (hMPV) (Acute) Atypical chest pain Right lower lobe pneumonia Leukocytosis Fever ASCVD (arteriosclerotic cardiovascular disease) Chest pain Atrial fibrillation with rapid ventricular response (Acute) Chest pressure (Acute) Breathlessness (Acute) Parainfluenza virus bronchitis Diastolic heart failure Hypokalemia Chronic cough Elevated brain natriuretic peptide (BNP) level Shortness of breath Anxiety GERD (gastroesophageal reflux disease) Hypothyroid Asthma exacerbation (Acute) CKD (chronic kidney disease) stage 4, GFR 15-29 ml/min Antiphospholipid antibody syndrome Paroxysmal A-fib HTN (hypertension) Asthma (Acute) Medical History CAD (coronary artery disease) Moderate nonobstructive coronary artery disease via April 08, 2019 coronary angiography Diastolic congestive heart failure Senile osteoporosis (04/10/11) History of TIA (transient ischemic attack) (04/10/11) Anemia Acute GI bleeding HLD (hyperlipidemia) Parkinsons Incomplete bundle branch block Rhinitis Surgical History History of partial colectomy History of appendectomy History of cholecystectomy History of colonoscopy Family History Brother Heart disease Brother Heart disease Sister Cancer Mother Cancer Social History Smoking Status: Never smoker Do You Dip or Chew Tobacco: No; Hx Alcohol Use: No Hx Substance Use: No Preferred Language: Danish Communication Ability: Effective Retail Pharmacy Technician Required: No Beliefs That Will Affect Care: None Current Living Situation: Family Current Living Situation Comment: lives with grandson Other Information That Helps Us Care for You: No Feels Safe at Home: Yes Safety Concerns: Feels Safe At This Time Assistive Devices: Cane Allergies Allergies Allergy/AdvReac Type Severity Reaction Status Date / Time lisinopril Allergy Mild COUGH Verified 07/04/24 11:28 guaifenesin Allergy Unknown Unknown Verified 07/04/24 11:28 phenylpropanolamine Allergy Unknown Unknown Verified 07/04/24 11:28 sulindac Allergy Unknown Unknown Verified 07/04/24 11:28 Home Meds Home Medications Medication Instructions Recorded Confirmed amlodipine 5 mg tablet 5 mg PO [facility] 11/25/23 07/04/24 atorvastatin 20 mg tablet 20 mg PO [facility] 11/25/23 07/04/24 cyclosporine 0.05 % eye drops in a 2 drp ophthalmic (eye) [facility] 11/25/23 07/04/24 dropperette diclofenac sodium 1 % topical gel 1 ea topical BID 11/25/23 07/04/24 fluticasone furoate 200 1 ea inhalation [facility] 11/25/23 07/04/24 mcg-vilanterol 25 mcg/dose inhalation powder (Breo Ellipta) hydralazine 25 mg tablet 12.5 mg PO TID 11/25/23 07/04/24 ipratropium 0.5 mg-albuterol 3 mg 3 ml inhalation TID PRN Shortness 11/25/23 07/04/24 (2.5 mg base)/3 mL nebulization Of Breath soln isosorbide mononitrate 60 mg 60 mg PO QA 11/25/23 07/04/24 tablet,extended release 24 hr levothyroxine 50 mcg tablet 50 mcg PO DAILYBB 11/25/23 07/04/24 (Levoxyl) montelukast 10 mg tablet 10 mg PO HS 11/25/23 07/04/24 omeprazole 40 mg capsule,delayed 40 mg PO [facility] 11/25/23 07/04/24 release warfarin 2.5 mg tablet (Jantoven) 2.5 mg PO UD 11/25/23 07/04/24 albuterol sulfate 90 mcg/actuation 1 puff inhalation Q4H PRN 07/04/24 07/04/24 aerosol inhaler SOB/WHEEZING metoprolol succinate 25 mg 0 mg PO QAM 07/04/24 07/04/24 tablet,extended release 24 hr spironolactone 25 mg tablet 25 mg PO QAM 07/04/24 07/04/24 Results & Data (ED) Vital Signs Vital Signs - 24 hr 07/04/24 10:13 07/04/24 10:28 07/04/24 10:30 Temperature 36.5 C Temperature Source Oral Pulse Rate 124 H 121 H 105 H Respiratory Rate 24 23 Respiratory Effort / Characteristics Non-Labored Spontaneous Respiratory Depth Normal Blood Pressure 113/45 L 150/77 H Blood Pressure Mean 67 101 Pulse Oximetry 96 95 Oxygen Delivery Method Room Air Nasal Cannula Oxygen Flow Rate 2 Sepsis Recent Fever Within 48 Hours Yes Sepsis New/Unexplained Change in Mental Status N/A Sepsis Action Taken by Nursing No Action Required Oxygen Flow Rate - Titration Pulse Oximetry Post Tiitration 07/04/24 10:41 07/04/24 11:03 07/04/24 11:33 Temperature Temperature Source Pulse Rate 107 H 108 H Respiratory Rate 20 24 Respiratory Effort / Characteristics Respiratory Depth Blood Pressure 125/84 116/80 Blood Pressure Mean 97 92 Pulse Oximetry 94 98 98 Oxygen Delivery Method Nasal Cannula Nasal Cannula Nasal Cannula Oxygen Flow Rate 2 2 Sepsis Recent Fever Within 48 Hours Sepsis New/Unexplained Change in Mental Status Sepsis Action Taken by Nursing Oxygen Flow Rate - Titration 2 Pulse Oximetry Post Tiitration 97 07/04/24 12:03 Temperature Temperature Source Pulse Rate 103 H Respiratory Rate 24 Respiratory Effort / Characteristics Respiratory Depth Blood Pressure 152/83 H Blood Pressure Mean 106 Pulse Oximetry 98 Oxygen Delivery Method Nasal Cannula Oxygen Flow Rate 2 Sepsis Recent Fever Within 48 Hours Sepsis New/Unexplained Change in Mental Status Sepsis Action Taken by Nursing Oxygen Flow Rate - Titration Pulse Oximetry Post Tiitration Laboratory Data 07/04/24 10:53 07/04/24 10:53 Lab Results 07/04/24 07/04/24 07/04/24 Range/Units 10:24 10:53 10:57 WBC 8.46 (4.8-10.8) K/ul RBC 4.52 (4.20-5.40) M/uL Hgb 13.3 (12.0-16.0) g/dl Hct 41.1 (37.0-47.0) % MCV 90.9 (80.0-100.0) fL MCH 29.4 (25.0-34.0) pg MCHC 32.4 (32.0-36.0) g/dL RDW Std Deviation 51.4 H (36.4-46.3) fL RDW Coeff of Jay 15.5 H (11.5-14.5) % Plt Count 163 (130-400) K/uL MPV 9.3 L (9.4-12.4) fL Immature Gran % (Auto) 0.5 % Neut % (Auto) 84.5 % Lymph % (Auto) 7.8 % [place] % (Auto) 6.3 % Eos % (Auto) 0.5 % Baso % (Auto) 0.4 % Neut # (Auto) 7.16 H (1.40-6.50) K/uL Lymph # (Auto) 0.66 L (1.20-3.40) K/uL [place] # (Auto) 0.53 (0.11-0.59) K/uL Eos # (Auto) 0.04 (0.00-0.50) K/uL Baso # (Auto) 0.03 (0.00-0.20) K/uL Immature Gran # (Auto) 0.04 (0.01-0.20) K/uL VBG pH 7.33 L (7.36-7.41) VBG pCO2 38 (38-50) mmHg VBG pO2 31 mmHg VBG HCO3 20 mmol/L VBG O2 Saturation < 60.0 % VBG Base Excess -5.4 mEq/L Sodium 141 (136-145) mmol/L Potassium 3.6 (3.5-5.1) mmol/L Chloride 114 H (98-107) mmol/L Carbon Dioxide 19 L (21-32) mmol/L Anion Gap 8 (3-11) BUN 21 (6-23) mg/dl Creatinine 1.19 (0.6-1.2) mg/dl Est Cr Clr Drug Dosing 36.4 ml/min eGFR 44.53 BUN/Creatinine Ratio 17.6 (10-20) Glucose 159 H (70-99(Fasting)) mg/dl Calcium 8.8 (8.6-10.3) mg/dl Total Bilirubin 0.4 (0.2-1.0) mg/dl AST 16 (13-39) U/L ALT 13 (7-52) U/L Alkaline Phosphatase 83 (34-104) U/L Troponin I High Sens 18.4 H (0-14) pg/ml B-Natriuretic Peptide 434 H (0-100) pg/ml Total Protein 6.4 (6.0-8.3) gm/dl Albumin 3.4 (3.4-5.0) gm/dl Globulin 3.0 (2.5-4.0) gm/dl Albumin/Globulin Ratio 1.1 (0.9-2) Adenovirus (PCR) Not Detected (NotDetected) B. pertussis DNA (PCR) Not Detected (NotDetected) B.parapertussis DNA PCR Not Detected (NotDetected) C. pneumoniae DNA (PCR) Not Detected (NotDetected) Coronavirus OC43 (PCR) Not Detected (NotDetected) Coronavirus HKU1 (PCR) Not Detected (NotDetected) Coronavirus 229E (PCR) Not Detected (NotDetected) SARS-CoV-2 (PCR) Not Detected (NotDetected) Coronavirus NL63 (PCR) Not Detected (NotDetected) Human Metapneumovir PCR DETECTED A (NotDetected) Influenza Type A (PCR) Not Detected (NotDetected) Influenza Type B (PCR) Not Detected (NotDetected) M. pneumoniae (PCR) Not Detected (NotDetected) Parainfluenza 1 (PCR) Not Detected (NotDetected) Parainfluenza 2 (PCR) Not Detected (NotDetected) Parainfluenza 3 (PCR) Not Detected (NotDetected) Parainfluenza 4 (PCR) Not Detected (NotDetected) RSV (PCR) Not Detected (NotDetected) Entero/Rhino (PCR) Not Detected (NotDetected) Administered Medications Acetaminophen (Acetaminophen 325 Mg Tab) 650 mg PO Q4H PRN PRN Reason: Pain or Fever Stop: 08/03/24 12:57 Last Admin: 07/04/24 17:15 Dose: 650 mg Documented By: MJN Albuterol (Albut/Ipratrop 3mg/0.5mg Neb 3 Ml Vial) 3 ml NEB Q6R ALICIA; Protocol Stop: 08/03/24 12:59 Last Admin: 07/04/24 13:41 Dose: 3 ml Documented By: ASAD Benzonatate (Benzonatate 100 Mg Capsule) 100 mg PO TID ALICIA Stop: 08/03/24 13:59 Last Admin: 07/04/24 15:22 Dose: 100 mg Documented By: LULÚ Budesonide (Budesonide 0.5 Mg/2 Ml Vial (Pulmicort)) 0.5 mg NEB BIDR ALICIA Stop: 08/03/24 12:59 Last Admin: 07/04/24 13:41 Dose: 0.5 mg Documented By: ASAD Formoterol Fumarate (Formoterol 20 Mcg/2 Ml Vial) 20 mcg NEB BIDR ALIICA Stop: 08/03/24 12:59 Last Admin: 07/04/24 13:41 Dose: Not Given Documented By: ASAD Hydralazine HCl (Hydralazine Hcl 25 Mg Tab) 12.5 mg PO TID [facility] Stop: 08/03/24 14:59 Last Admin: 07/04/24 15:18 Dose: 12.5 mg Documented By: LULÚ Methylprednisolone 40 mg/ (Syringe) 0.64 mls @ 1.5 mls/min IV Q8H [facility] Stop: 08/03/24 15:29 Last Admin: 07/04/24 15:17 Dose: 1.5 mls/min Documented By: LULÚ Discontinued Medications Acetylcysteine (Acetylcysteine 20% Inhal Soln 4ml Dispensed By Resp.) 5 ml INH Q12H [facility] Stop: 08/03/24 12:59 Last Admin: 07/04/24 13:41 Dose: 5 ml Documented By: ASAD Albuterol (Albuterol 0.5% Neb Soln 2.5 Mg/0.5 Ml Vial) 2.5 mg NEB NOW STA; Protocol Stop: 07/04/24 10:57 Last Admin: 07/04/24 11:00 Dose: 2.5 mg Documented By: ROGER Imaging Data Radiologist's Impression: Chest X-Ray 07/04/24 10:27 XR chest 1V portable HISTORY: 88 years-old Female Dyspnea acute shortness of breath COMPARISON: Radiographs June 04, 2024 TECHNIQUE: AP view of the chest FINDINGS: Cardiac silhouette is enlarged. Pulmonary vascular congestion with ill-defined right infrahilar opacities. No pneumothorax or large pleural effusion. Bones appear grossly intact. IMPRESSION: 1. Cardiomegaly with pulmonary vascular congestion. 2. Mild ill-defined right infrahilar opacities may represent airspace disease/pneumonia. Findings could be correlated with PA and lateral views of the chest. ACT 112: Negative or not required by law. The above report was generated using voice recognition software. It may contain grammatical, syntax or spelling errors. Electronically signed by: López Pineda M.D. 07/04/2024 11:22 AM Chest X-Ray 07/04/24 12:35 XR chest 2V PA/lateral HISTORY: 88 years-old Female ro pneumonia acute shortness of breath COMPARISON: Chest Since same day at 10:46 AM TECHNIQUE: PA and lateral views of the chest FINDINGS: Cardiac silhouette is enlarged. Pulmonary vascular congestion. Mild subsegmental bibasilar densities. No pneumothorax or large pleural effusion. Degenerative changes of the shoulders and spine. Cholecystectomy. IMPRESSION: 1. Cardiomegaly with pulmonary vascular congestion. 2. Mild bibasilar opacities are confirmed suggestive of atelectasis versus a mild pneumonitis. ACT 112: Negative or not required by law. The above report was generated using voice recognition software. It may contain grammatical, syntax or spelling errors. Electronically signed by: López Pineda M.D. 07/04/2024 1:26 PM Discharge Plan Visit Data Chief Complaint: Shortness of Breath/Dyspnea Stated Complaint: SOB, PRODUCTIVE COUGH, WEAK, DIAFERETIC ED Provider: Selena Weiss Discharge Problem: Infection due to human metapneumovirus (hMPV), Atrial fibrillation with rapid ventricular response, Acute hypoxic respiratory failure Patient Disposition: Admitted As Inpatient Discharge Instructions Interventions: ED Discharge Assessment Last Done: 07/04/24 14:29
[2024-07-04] MEDS ORDERED: methylPREDNISolone 125 MG/2 ML VIAL IV SCH (12:45)
--- NOTE | 2024-07-04 12:56 | History & Physical Report ---
Date of Service July 04, 2024 Assessment & Plan (1) Infection due to human metapneumovirus (hMPV): Plan Metapneumovirus URTI Acute exacerbation of asthma secondary to above Hypoxia Patient recently had COVID about 3 to 4 weeks [employer], status post Paxlovid then steroids/Augmentin/Z-Sin then steroid taper. See HPI. Patient comes this time with worsening dry cough and shortness of breath for about 1 week. Of note, patient reports not feeling better completely since she got COVID. But she reported improvement in her productive cough more than a week ago, currently has dry cough. Admitting labs fairly WNL, VBG fairly WNL. Respiratory BioFire positive for metapneumovirus. Asthma exacerbation & hypoxia likely in the setting of metapneumovirus URTI Scheduled DuoNebs, Xopenex as needed, schedule Mucomyst/Perforomist/budesonide, Tessalon Perles, flutter valve. Schedule Solu-Medrol, taper with clinical improvement. Wean down oxygen as tolerated. Monitor off antibiotic given fever for 3 to 4 days only (likely viral), nl WBC and non productive cough. Chest x-ray not much indicating of pneumonia. Will get PA and lateral views. If fever continues or patient starts having junky productive cough, consider repeating chest imaging/initiating antibiotic. Low threshold of initiating antibiotic. A-fib with RVR: likely iso viral illness. Pt has ho permanent afib. Admitting EKG w/ HR 124, afib rvr. Continue home dose of metoprolol, IV metoprolol for persistent HR>= 130 bpm. Continue telemetry monitoring. Heart failure with preserved ejection fraction, history of: 11/26/2023 echo with E F of 55 to 60%. appears euvolemic on exam though BNP slightly elevated and CXR with minimal vascular congestion. Continue home cardiac medications. Continue to monitor closely for volume status. Wean down oxygen as tolerated. Other chronic medical conditions: Antiphospholipid syndrome, asthma, GERD, CAD, HTN, HLD ---- continue with/resume home meds as when able. DNI/DNI DVT Px: Patient on warfarin History of Present Illness Chief Complaint: Increased shortness of breath and cough since last week. Primary Care Provider: David Cintron MD 88-year-old lady with PMH of acute hypothyroidism, moderate persistent asthma, chronic rhinitis, chronic heart failure with preserved ejection fraction, pulmonary hypertension, permanent A-fib, obesity, esophageal reflux, CKD stage IV, antiphospholipid antibody syndrome on Coumadin, CAROL ANN presented to the ED with complaint of shortness of breath. Patient states that she had COVID about 3 to 4 weeks ago, took Paxlovid course with no improvement and then was started on steroid/Augmentin/Z-Sin for 5 days. Still no improvement, then she was put on steroid taper which she completed about 1 week ago [employer]. Patient states that her cough was productive earlier which improved but since about 1 week she has been having dry cough and shortness of breath which has been slowly worsening. She is tired and appetite has been down. Patient denies nausea or vomiting. Patient reports low-grade fever since about 3 to 4 days [employer] which comes and goes on its own per patient. Patient reports being exhausted due to coughing lately. The cough is mostly dry. Patient denies any pain or burning while passing urine, reports moving bowels okay. Patient denies smoking/alcohol/recreational drug use Medications reviewed with the patient and her daughter at bedside. DNR/DNI Plan of care discussed with the patient and daughter in detail, they voiced understanding and were agreeable to plan of care. Allergies Allergy/AdvReac Type Severity Reaction Status Date / Time lisinopril Allergy Mild COUGH Verified 07/04/24 11:28 guaifenesin Allergy Unknown Unknown Verified 07/04/24 11:28 phenylpropanolamine Allergy Unknown Unknown Verified 07/04/24 11:28 sulindac Allergy Unknown Unknown Verified 07/04/24 11:28 Home Medications Medication Instructions Recorded Confirmed Type amlodipine 5 mg tablet 5 mg PO QAM 11/25/23 07/04/24 History atorvastatin 20 mg tablet 20 mg PO QAM 11/25/23 07/04/24 History cyclosporine 0.05 % eye drops in a 2 drp ophthalmic (eye) [facility] 11/25/23 07/04/24 History dropperette diclofenac sodium 1 % topical gel 1 ea topical BID 11/25/23 07/04/24 History fluticasone furoate 200 1 ea inhalation QAM 11/25/23 07/04/24 History mcg-vilanterol 25 mcg/dose inhalation powder (Breo Ellipta) hydralazine 25 mg tablet 12.5 mg PO TID 11/25/23 07/04/24 History ipratropium 0.5 mg-albuterol 3 mg 3 ml inhalation TID PRN Shortness 11/25/23 07/04/24 History (2.5 mg base)/3 mL nebulization Of Breath soln isosorbide mononitrate 60 mg 60 mg PO QAM 11/25/23 07/04/24 History tablet,extended release 24 hr levothyroxine 50 mcg tablet 50 mcg PO DAILYBB 11/25/23 07/04/24 History (Levoxyl) montelukast 10 mg tablet 10 mg PO HS 11/25/23 07/04/24 History omeprazole 40 mg capsule,delayed 40 mg PO [facility] 11/25/23 07/04/24 History release warfarin 2.5 mg tablet (Jantoven) 2.5 mg PO UD 11/25/23 07/04/24 History albuterol sulfate 90 mcg/actuation 1 puff inhalation Q4H PRN 07/04/24 07/04/24 History aerosol inhaler SOB/WHEEZING metoprolol succinate 25 mg 0 mg PO QAM 07/04/24 07/04/24 History tablet,extended release 24 hr spironolactone 25 mg tablet 25 mg PO QAM 07/04/24 07/04/24 History Past Med/Surg History Problem List (Updated 07/04/24 @ 13:05 by Jerry Gaston MD) Infection due to human metapneumovirus (hMPV) Atypical chest pain Right lower lobe pneumonia Leukocytosis Fever ASCVD (arteriosclerotic cardiovascular disease) Chest pain Atrial fibrillation with rapid ventricular response (Acute) Chest pressure (Acute) Breathlessness (Acute) Parainfluenza virus bronchitis Diastolic heart failure Hypokalemia Chronic cough Elevated brain natriuretic peptide (BNP) level Shortness of breath Anxiety GERD (gastroesophageal reflux disease) Hypothyroid Asthma exacerbation (Acute) CKD (chronic kidney disease) stage 4, GFR 15-29 ml/min Antiphospholipid antibody syndrome Paroxysmal A-fib HTN (hypertension) Asthma (Acute) Medical History CAD (coronary artery disease) Moderate nonobstructive coronary artery disease via April 08, 2019 coronary angiography Diastolic congestive heart failure Senile osteoporosis (04/10/11) History of TIA (transient ischemic attack) (04/10/11) Anemia Acute GI bleeding HLD (hyperlipidemia) Parkinsons Incomplete bundle branch block Rhinitis Surgical History History of partial colectomy History of appendectomy History of cholecystectomy History of colonoscopy Family History Brother Heart disease Brother Heart disease Sister Cancer Mother Cancer Social History Smoking Status: Never smoker Do You Dip or Chew Tobacco: No; Hx Alcohol Use: No Hx Substance Use: No Preferred Language: Pashto Communication Ability: Effective Call Worker Person Required: No Beliefs That Will Affect Care: None Current Living Situation: Family Current Living Situation Comment: Grandson Ciro Feels Safe at Home: Yes Assistive Devices: Cane Review of Systems Review of Systems: Negative otherwise mentioned in HPI. Physical Exam Physical Exam: GENERAL: Alert and oriented x3. NAD, on 2L NC O2 HEENT: No pallor, no icterus. Pupils equal, round and reactive to light. Oral mucosa dry. NECK: No JVD, no neck masses. HEART: S1 and S2 heard. irregular rate and rhythm. HR in 100s. No murmur, no gallop. RESPIRATORY SYSTEM: Normal AP diameter. No accessory muscle use. b/l wheeze. Prolonged expiration. ABDOMEN: Soft, bowel sounds present, nontender, no distention. CENTRAL NERVOUS SYSTEM: No facial droop. Speech is clear. Obeys simple commands. Moves extremities. EXTREMITIES: No edema, no erythema seen. Results & Data Results & Data Vital Signs (Past 12 Hours) Vital Signs Temp Pulse Resp BP Pulse Ox O2 Del Method O2 Flow Rate 07/04/24 12:03 103 H 24 152/83 H 98 Nasal Cannula 2 07/04/24 11:33 108 H 24 116/80 98 Nasal Cannula 2 07/04/24 11:03 107 H 20 125/84 98 Nasal Cannula 2 07/04/24 10:41 94 Nasal Cannula 07/04/24 10:30 105 H 23 150/77 H 95 Nasal Cannula 2 07/04/24 10:28 121 H 07/04/24 10:13 36.5 C 124 H 24 113/45 L 96 Room Air
[2024-07-04] MEDS ORDERED: POLYETHYLENE (MIRALAX) 17 GM PACK PO PRN (12:58)
[2024-07-04] MEDS ORDERED: ONDANSETRON INJ 2 MG/ML 2 ML VIAL IV PRN (12:58)
[2024-07-04] MEDS ORDERED: ALUMINUM/MAGNESIUM SUSP 30 ML UDC PO PRN (12:58)
[2024-07-04] MEDS ORDERED: MAGNESIUM HYDROXIDE SUSP 30 ML UDC PO PRN (12:58)
--- NOTE | 2024-07-04 13:28 | XRay Report ---
XR chest 2V PA/lateral HISTORY: 88 years-old Female ro pneumonia acute shortness of breath COMPARISON: Chest Since same day at 10:46 AM TECHNIQUE: PA and lateral views of the chest FINDINGS: Cardiac silhouette is enlarged. Pulmonary vascular congestion. Mild subsegmental bibasilar densities. No pneumothorax or large pleural effusion. Degenerative changes of the shoulders and spine. Cholecys tectomy. IMPRESSION: 1. Cardiomegaly with pulmonary vascular congestion. 2. Mild bibasilar opacities are confirmed suggestive of atelectasis versus a mild pneumonitis. ACT 112: Negative or not required by law. The above report was generated using voice recognition software. It may contain grammatical, syntax o r spelling errors. Electronically signed by: López Pineda M.D. 07/04/2024 1:26 PM
[2024-07-04] MEDS: ACETYLCYSTEINE 20% INHAL SOLN 4ML ***DISPENSED BY RESP. INH SCH (13:41)
[2024-07-04] MEDS: FORMOTEROL 20 MCG/2 ML VIAL NEB SCH (13:41)
[2024-07-04] MEDS: ALBUT/IPRATROP 3MG/0.5MG NEB 3 ML VIAL NEB SCH (13:41)
[2024-07-04] MEDS: BUDESONIDE 0.5 MG/2 ML VIAL (PULMICORT) NEB SCH (13:41)
[2024-07-04] MEDS: methylPREDNISolone 40 MG in SYRINGE 0 ML IV SCH (15:17)
[2024-07-04] MEDS: hydrALAZINE HCL 25 MG TAB PO SCH (15:18)
[2024-07-04] MEDS: BENZONATATE 100 MG CAPSULE PO SCH (15:22)
[2024-07-04] MEDS: ACETAMINOPHEN 325 MG TAB PO PRN (17:15)
[2024-07-04] MEDS: PANTOprazole 40 MG TAB PO SCH (21:19)
[2024-07-04] MEDS: ARTIFICIAL TEARS OP SCH (21:21)
[2024-07-04] MEDS: MONTELUKAST SODIUM 10 MG TABLET PO SCH (21:21)
[2024-07-05 03:34] LABS: Appearance Urine Turbid (Clear); Bacteria Urine Automated 4+ (None Seen); Bilirubin Urine Negative (Negative); Blood Urine Trace (Negative); Color Urine Yellow; Glucose Urine UA Negative (Negative); Ketones Urine Trace (Negative); Leukocyte Esterase Urine 2+ (Negative); Nitrite Urine Negative (Negative); Protein Urine 1+ (Negative); Specific Gravity Urine 1.023 (1.000-1.030); Urobilinogen Urine Negative (Negative); WBC Urine Automated >50 /hpf (0-5)
[2024-07-05] MEDS: POTASSIUM CHLORIDE CRTAB 20 MEQ TABCR PO STA (04:19)
[2024-07-05] MEDS: MAGNESIUM SULFATE / D5W 1 GM/100 ML BAG IV ONE (04:19)
[2024-07-05] MEDS: METOPROLOL SUCC 25MG EXT REL TAB PO STA (04:27)
[2024-07-05] MEDS: LEVOTHYROXINE SODIUM 50 MCG TABLET PO SCH (06:11)
[2024-07-05 06:41] LABS: Hematocrit (blood only) 39.1 % (37.0-47.0); Hemoglobin 13.1 g/dl (12.0-16.0); Mean Corpuscular Hemoglobin 29.6 pg (25.0-34.0); Mean Corpuscular Hgb Conc 33.5 g/dL (32.0-36.0); Mean Corpuscular Volume 88.3 fL (80.0-100.0); Platelet Count 157 K/uL (130-400); RDW Coefficient of Variation 15.3 % (11.5-14.5); Red Blood Count 4.43 M/uL (4.20-5.40)
[2024-07-05 07:00] LABS: BUN Creatinine Ratio 23.2 (10-20); Calcium 8.9 mg/dl (8.6-10.3); Magnesium 2.2 mg/dl (1.7-2.4); Phosphorus 2.5 mg/dl (2.5-4.9); Potassium 4.1 mmol/L (3.5-5.1)
[2024-07-05] MEDS: LEVALBUTEROL 1.25 MG/3 ML NEB NEB SCH (07:11)
[2024-07-05] MEDS: IPRATROPIUM BROMIDE NEB SOLN 0.02% 0.5MG/2.5ML VIAL INH SCH (07:11)
--- NOTE | 2024-07-05 07:48 | Hospitalist Progress Note ---
Date of Service July 05, 2024 Assessment & Plan (1) Infection due to human metapneumovirus (hMPV): Plan Pt is an 88yoF with PMHx significant for acute hypothyroidism, moderate persistent asthma, chronic rhinitis, chronic heart failure with preserved ejection fraction, pulmonary hypertension, permanent A-fib, obesity, esophageal reflux, CKD stage IV, antiphospholipid antibody syndrome on Coumadin, CAROL ANN who presented to the ED with concern for shortness of breath. 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 IV Solu-Medrol Wean down oxygen as tolerated. Empiric rocephin and doxycycline with probiotic Pulmonary consult if no noted improvement Continue to monitor Possible UTI UA suggestive of infection Urine Cx pending Continue rocephin as above A-fib with RVR Hx of permanent a fib RVR likely in setting of viral illness Admitting EKG w/ HR 124, afib rvr Continue home dose of metoprolol IV metoprolol for persistent HR>= 120 bpm Continue telemetry monitoring Heart failure with preserved ejection fraction, history of 11/26/2023 echo with EF of 55 to 60% appears euvolemic on exam though BNP slightly elevated CXR with minimal vascular congestion Continue home cardiac medications Continue to monitor closely for volume status Wean down oxygen as tolerated Elevated Trop Trop flat at18.4 to 18.6 EKG as above noting a fib Echo from 2023 with EF 55-60%, mild LVH, severely dilated LA, mild AR, MR, TR Likely demand in setting of above Continue to monitor Other chronic medical conditions Antiphospholipid syndrome asthma GERD CAD HTN HLD CAROL ANN Diet: DNR/DNI DVT Ppx: Patient on warfarin Dispo: PT/OT for further recs Admission and Anticipated Discharge Date Admission Date: July 04, 2024 Subjective Patient was seen multiple times during the day Initially in the a.m. stating that she believes her symptoms are related to asthma States she is short of breath when she is up and ambulating also notes that she has had a cough for some time and feels very fatigued There is discussion about why CT of the chest needed Patient also notes she has some anxiety Review of Systems Review of Systems: All systems reviewed & are unremarkable except as noted in Subjective Physical Exam Physical Exam: General: Alert, oriented Psych: Appropriate mood and affect HEENT: NC/AT CV: Irregular Resp: Breath sounds coarse bilaterally, no increased effort of breathing Abdomen: Soft, nontender Extremities: No edema in lower extremities bilaterally. Results & Data Results & Data Vital Signs (Past 12 Hours) Vital Signs Temp Pulse Pulse Resp BP Pulse Ox O2 Del Method 07/05/24 07:20 36.7 C 99 H 19 137/76 98 Room Air 07/05/24 07:12 91 H 18 97 Room Air 07/05/24 03:42 36.6 C 97 H 20 137/87 97 Room Air 07/05/24 01:36 85 17 96 Room Air 07/04/24 23:28 99 H 07/04/24 23:26 36.3 C L 90 14 132/78 96 Room Air 07/04/24 23:17 Room Air 07/04/24 20:46 92 H 16 96 Room Air 07/04/24 19:52 36.6 C 100 H 20 128/83 96 Room Air
[2024-07-05] MEDS: METOPROLOL SUCC 25MG EXT REL TAB PO SCH (08:12)
[2024-07-05] MEDS: ISOSORBIDE MONO EXTENDED REL 60 MG TABCR PO SCH (08:13)
[2024-07-05] MEDS: amLODIPine BESYLATE 5 MG TAB PO SCH (08:13)
[2024-07-05] MEDS: ATORVASTATIN 20 MG TAB PO SCH (08:14)
[2024-07-05] MEDS: SPIRONOLACTONE 25 MG TAB PO SCH (08:14)
[2024-07-05 08:25] LABS: INR 2.7 (0.9-1.1); Prothrombin Time 27.1 Seconds (9.0-12.0)
[2024-07-05] MEDS: DOXYCYCLINE HYCLATE 100 MG CAP PO SCH (08:40)
[2024-07-05] MEDS: cefTRIAXone SODIUM 2,000 MG/50 ML BAG IV SCH (08:40)
[2024-07-05] MEDS: SACCHAROMYCES BOULARDII 250 MG CAP PO SCH (08:40)
[2024-07-05] MEDS ORDERED: METOPROLOL SUCC 25MG EXT REL TAB PO SCH (09:00)
[2024-07-05] MEDS: OPTIRAY 320 125ml IV ONE (10:43)
--- NOTE | 2024-07-05 11:07 | CT Scan Report ---
CT angio chest PE protocol CT DOSE: 716.38 mGy.cm HISTORY: 88 years-old Female with PE. Acute cough with shortness of breath TECHNIQUE: Multiple CTA images of the chest were obtained after the intravenous administration of 66 ml Optiray. Coronal and sagittal MIPS were obtained from the axial data set and were submitted for r Pigeonlyiew. All measurements were obtained according to NASCET criteria. A dose lowering technique was ut ilized adhering to the principles of ALARA. COMPARISON: Chest CT November 26, 2023 FINDINGS: CTA: Mild cardiomegaly. Moderate coronary artery calcifications. No pericardial effusion. Atherosclerosis of the thoracic aorta without aneurysm or dissection. No pulmonary emboli. CT CHEST: No thyroid nodule. Mediastinal and hilar lymphadenopathy appears stable from prior. No new or progres sive lymphadenopathy. No pneumothorax, pleural effusion, airspace consolidation or pulmonary edema. M ild subtle tree-in-bud nodules of the left upper lobe and lingula with patchy groundglass nodular foc i of the left upper and lower lobes measuring up to approximately 10 mm. Right lung is generally helio r. Central airways are clear. Resolution of the previously described right basilar consolidation. Cholecystectomy. No acute upper abdominal abnormality. No acute fracture. Chronic lower thoracic comp ression deformity. Subpleural lesions involving the lower thoracic spine on image 80 series 4 measuri ng up to 1.7 cm are suggestive of nerve sheath tumors, unchanged. IMPRESSION: 1. No pulmonary emboli. 2. Unchanged mediastinal and hilar lymphadenopathy. 3. Mild infectious or inflammatory pneumonitis/bronchiolitis of the left lung. Three-month follow-up chest CT recommended. ACT 112: Negative or not required by law. The above report was generated using voice recognition software. It may contain grammatical, syntax o r spelling errors. Electronically signed by: López Pineda M.D. 07/05/2024 11:05 AM
[2024-07-05] MEDS: WARFARIN SOD 5 MG TAB PO SCH (18:34)
[2024-07-05] MEDS: METOPROLOL TARTRATE 1 MG/ML VIAL IV PRN (21:51)
[2024-07-06] MEDS: METOPROLOL SUCC 25MG EXT REL TAB PO STA (03:43)
[2024-07-06] MEDS: SODIUM CHLORIDE 0.65% NA SOLN 45 ML (OCEAN) PRN (08:02)
[2024-07-06] MEDS: GLYCERIN ADULT 12 SUPP/BOX SUPP PR ONE (10:13)
--- NOTE | 2024-07-06 10:19 | Pulmonary Consultation ---
Date of Consultation July 06, 2024 Assessment & Plan (1) Infection due to human metapneumovirus (hMPV): Plan Impression: 88-year-old female with reported prior history of asthma without PFTs available admitted with human metapneumovirus. She has been treated in the outpatient setting with multiple courses of antibiotics and steroids. As predicted, these are not typically effective for a viral infection. Recommendations: 1. Human metapneumovirus infection: Continue supportive care. No indication for steroids and these may actually worsen outcome. Nebulized steroids in the form of budesonide are appropriate. Will continue Perforomist as well as as needed albuterol and Atrovent. Will place her on a trial of Incruse. 2. Patient's chest x-ray is unrevealing. She has no fever. Her white count is normal. No indication for antibiotics from a pulmonary perspective and Rocephin and doxycycline will be discontinued. She is completed multiple courses of antibiotics in the outpatient setting and its unlikely this represents a persistent bacterial infection. Will defer to the primary service as to whether or not additional antibiotics are required for her abnormal urinalysis but in the absence of clinical symptoms, observation may be recommended. 3. Patient's hypoxemia is resolved. Recommend assessment for supplemental oxygen with formal two-step prior to discharge. 4. Patient's respiratory issues may be compromised by tachycardia and atrial fibrillation with rapid ventricular response. Echocardiogram from earlier this year showed an EF of 55 to 60% with concentric LVH and severe dilatation of the left atrium with mild aortic insufficiency, mild MR, and mild TR. No significant findings for pulmonary hypertension were identified. E to E prime ratio of 12.3 consistent with diastolic dysfunction. Recommend heart rate control by the patient's primary admitting service. Patient appears to be approaching her pulmonary baseline. She is asking about potentially going home. She has a nebulizer at home. If she does well and can ambulate, home therapies may be reasonable with outpatient follow-up with [facility] pulmonary. Thanks for the opportunity participating the care of this patient. Feel free to contact us with questions or concerns History of Present Illness Attending Physician: Cait Zayas MD History of Present Illness Asked by hospitalist to assist in evaluation management of this patient with human metapneumovirus. History is obtained from discussion with the patient as well as review the electronic medical record. The patient is an 88-year-old female with a history of bronchitis uses some nebulizers in the outpatient setting. She is established and follows with [facility] pulmonary as an outpatient. PFTs are not available. She was admitted to the facility 2 days ago with complaints of shortness of breath. She was diagnosed with COVID about a month ago and completed a course of Paxil bid. She was then treated with Augmentin and a Z-Sin as well as steroids without improvement. She continued a steroid taper in the outpatient setting but failed to improve was brought to the hospital. Her PCR was positive for human metapneumovirus. Patient is seen this morning. She is awake alert and sitting up in a chair. She is on room air. She states her respiratory status is better. She does get relief from nebulizers. She is not bringing up phlegm. She is tachycardic at baseline for reasons that are not entirely clear. She is DNR/DNI. Allergies Allergy/AdvReac Type Severity Reaction Status Date / Time lisinopril Allergy Mild COUGH Verified 07/04/24 11:28 guaifenesin Allergy Unknown Unknown Verified 07/04/24 11:28 phenylpropanolamine Allergy Unknown Unknown Verified 07/04/24 11:28 sulindac Allergy Unknown Unknown Verified 07/04/24 11:28 Home Medications Medication Instructions Recorded Confirmed Type amlodipine 5 mg tablet 5 mg PO QAM 11/25/23 07/04/24 History atorvastatin 20 mg tablet 20 mg PO QAM 11/25/23 07/04/24 History cyclosporine 0.05 % eye drops in a 2 drp ophthalmic (eye) [facility] 11/25/23 07/04/24 History dropperette diclofenac sodium 1 % topical gel 1 ea topical BID 11/25/23 07/04/24 History fluticasone furoate 200 1 ea inhalation QAM 11/25/23 07/04/24 History mcg-vilanterol 25 mcg/dose inhalation powder (Breo Ellipta) hydralazine 25 mg tablet 12.5 mg PO TID 11/25/23 07/04/24 History ipratropium 0.5 mg-albuterol 3 mg 3 ml inhalation TID PRN Shortness 11/25/23 07/04/24 History (2.5 mg base)/3 mL nebulization Of Breath soln isosorbide mononitrate 60 mg 60 mg PO QAM 11/25/23 07/04/24 History tablet,extended release 24 hr levothyroxine 50 mcg tablet 50 mcg PO DAILYBB 11/25/23 07/04/24 History (Levoxyl) montelukast 10 mg tablet 10 mg PO HS 11/25/23 07/04/24 History omeprazole 40 mg capsule,delayed 40 mg PO AMHS 11/25/23 07/04/24 History release warfarin 2.5 mg tablet (Jantoven) 2.5 mg PO UD 11/25/23 07/04/24 History albuterol sulfate 90 mcg/actuation 1 puff inhalation Q4H PRN 07/04/24 07/04/24 History aerosol inhaler SOB/WHEEZING metoprolol succinate 25 mg 0 mg PO QAM 07/04/24 07/04/24 History tablet,extended release 24 hr spironolactone 25 mg tablet 25 mg PO QAM 07/04/24 07/04/24 History Patient History Medical History CAD (coronary artery disease) Moderate nonobstructive coronary artery disease via April 08, 2019 coronary angiography Diastolic congestive heart failure Senile osteoporosis (04/10/11) History of TIA (transient ischemic attack) (04/10/11) Anemia Acute GI bleeding HLD (hyperlipidemia) Parkinsons Incomplete bundle branch block Rhinitis Surgical History History of partial colectomy History of appendectomy History of cholecystectomy History of colonoscopy Family History Brother Heart disease Brother Heart disease Sister Cancer Mother Cancer Social History Smoking Status: Never smoker Do You Dip or Chew Tobacco: No; Hx Alcohol Use: No Hx Substance Use: No Preferred Language: Yoruba Communication Ability: Effective Food Service Steward Required: No Beliefs That Will Affect Care: None Current Living Situation: Family Current Living Situation Comment: lives with grandson Other Information That Helps Us Care for You: No Feels Safe at Home: Yes Safety Concerns: Feels Safe At This Time Assistive Devices: Cane Review of Systems 2 Review of Systems: All systems reviewed & are unremarkable except as noted in Subjective Physical Exam 2 Constitutional: no acute distress Eyes: PERRL, conjunctivae normal, anicteric sclerae ENMT: external ear and nose normal, oropharynx normal Respiratory: no respiratory distress, no labored breathing, no cough and not tachypneic Auscultation: + rhonchi and + wheezes; no crackles Cardiovascular: Rate/Rhythm: + irregularly irregular Gastrointestinal (Abdomen): normal bowel sounds, soft, nontender, no hepatosplenomegaly Musculoskeletal: No pedal edema Neurologic: PERRL, EOMI, accommodation nl, no face palsy, no dysarthria Psychiatric: A+Ox3, euthymic affect Results & Data Results & Data Vital Signs (Past 12 Hours) Vital Signs Temp Pulse Pulse Resp BP Pulse Ox O2 Del Method 07/06/24 07:44 Room Air 07/06/24 07:30 36.4 C L 114 H 20 128/98 94 Room Air 07/06/24 07:30 110 H 20 96 Room Air 07/06/24 07:19 103 H 07/06/24 03:16 36.7 C 103 H 20 161/98 H 97 Room Air 07/05/24 22:30 36.5 C 111 H 20 151/95 H 95 Room Air Laboratory Results 07/05/24 06:26 07/05/24 06:26 Diagnostic Findings Imaging studies were independently reviewed. CT angiogram showed no evidence of PE and no parenchymal lung disease. Chest x- ray was unrevealing. PG Care Time/CCT Total # of Minutes Spent Total Time Spent with Patient: Total time spent is greater than 50% in coordination of care (as documented) at patient's floor/unit and/or counseling patient: Coding Level of Care Code 56722 INT INP/OBS CARE 3/75MIN Diagnoses Infection due to human metapneumovirus (hMPV) B34.8
--- NOTE | 2024-07-06 11:22 | Hospitalist Progress Note ---
Date of Service July 06, 2024 Assessment & Plan (1) Infection due to human metapneumovirus (hMPV): Plan Pt is an 88yoF with PMHx significant for acute hypothyroidism, moderate persistent asthma, chronic rhinitis, chronic heart failure with preserved ejection fraction, pulmonary hypertension, permanent A-fib, obesity, esophageal reflux, CKD stage IV, antiphospholipid antibody syndrome on Coumadin, CAROL ANN who presented to the ED with concern for shortness of breath. 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 IV Solu-Medrol Wean down oxygen as tolerated. Empiric rocephin and doxycycline with probiotic, pulm recommending discontinuing abx Pulmonary consult if no noted improvement Continue to monitor A-fib with RVR Hx of permanent a fib RVR likely in setting of viral illness Admitting EKG w/ HR 124, afib rvr Home dose of metoprolol increased to 50mg BID IV metoprolol for persistent HR>= 120 bpm On warfarin for anticoagulation, currently hlding as INR supratherapeutic Continue telemetry monitoring Possible UTI UA suggestive of infection Urine Cx growing E coli Treated with IV rocephin as above Continue with po cefdinir- follow sensitivities Antiphospholipid syndrome On warfarin for anticoagulation, currently hlding as INR supratherapeutic Follow INR Heart failure with preserved ejection fraction, history of 11/26/2023 echo with EF of 55 to 60% appears euvolemic on exam though BNP slightly elevated CXR with minimal vascular congestion Continue home cardiac medications Continue to monitor closely for volume status Wean down oxygen as tolerated Elevated Trop Trop flat at18.4 to 18.6 EKG as above noting a fib Echo from 2023 with EF 55-60%, mild LVH, severely dilated LA, mild AR, MR, TR Likely demand in setting of above Continue to monitor Other chronic medical conditions asthma GERD CAD HTN HLD CAROL ANN Diet: HH DNR/DNI DVT Ppx: Patient on warfarin Dispo: PT/OT for further recs Admission and Anticipated Discharge Date Admission Date: July 04, 2024 Subjective patient was seen in the a.m. sitting up in her chair beside the bed States that she was feeling a little better Adamant she will not be going to acute rehab as recommended by PT Attempts made to contact her daughter to provide update were unsuccessful Physical Exam Physical Exam: General: Alert, oriented Psych: Appropriate mood and affect HEENT: NC/AT CV: Irregular Resp: Breath sounds coarse bilaterally, no increased effort of breathing Abdomen: Soft, nontender Extremities: No edema in lower extremities bilaterally. Results & Data Results & Data Vital Signs (Past 12 Hours) Vital Signs Temp Pulse Pulse Resp BP Pulse Ox O2 Del Method 07/06/24 10:53 106 H 18 96 Room Air 07/06/24 07:44 Room Air 07/06/24 07:30 36.4 C L 114 H 20 128/98 94 Room Air 07/06/24 07:30 110 H 20 96 Room Air 07/06/24 07:19 103 H 07/06/24 03:16 36.7 C 103 H 20 161/98 H 97 Room Air
[2024-07-06 11:50] LABS: Hematocrit (blood only) 41.8 % (37.0-47.0); Hemoglobin 13.5 g/dl (12.0-16.0); Mean Corpuscular Hgb Conc 32.3 g/dL (32.0-36.0); Mean Corpuscular Volume 89.9 fL (80.0-100.0); Mean Platelet Volume 9.5 fL (9.4-12.4); Platelet Count 216 K/uL (130-400); RDW Coefficient of Variation 15.4 % (11.5-14.5); RDW Standard Deviation 50.9 fL (36.4-46.3); Red Blood Count 4.65 M/uL (4.20-5.40); White Blood Count 17.94 K/ul (4.8-10.8)
[2024-07-06] MEDS: UMECLIDINIUM BROMIDE 62.5MCG/BLISTER 7 PUFFS/INHALER INH SCH (11:50)
[2024-07-06 12:04] LABS: Albumin Globulin Ratio 1.1 (0.9-2); Albumin Level 3.6 gm/dl (3.4-5.0); BUN Creatinine Ratio 26.2 (10-20); Bilirubin,Total 0.2 mg/dl (0.2-1.0); Creatinine Clr Calc Pharmacy 34.8 ml/min; Globulin 3.4 gm/dl (2.5-4.0); Phosphorus 2.5 mg/dl (2.5-4.9); Potassium 4.2 mmol/L (3.5-5.1)
[2024-07-06 12:08] LABS: Basophils # (auto) 0.01 K/uL (0.00-0.20); Basophils % (auto) 0.1 %; Immature Granulocytes # (auto) 0.13 K/uL (0.01-0.20); Immature Granulocytes % (auto) 0.7 %; Lymphocytes # (auto) 0.71 K/uL (1.20-3.40); Monocytes # (auto) 0.67 K/uL (0.11-0.59); Monocytes % (auto) 3.7 %; Neutrophils # (auto) 16.42 K/uL (1.40-6.50); Neutrophils % (auto) 91.5 %; Polychromasia 1+; Toxic Vacuolation 1+
[2024-07-06 12:15] LABS: INR 4.4 (0.9-1.1); Prothrombin Time 41.9 Seconds (9.0-12.0)
[2024-07-06] MEDS: METOPROLOL SUCC 50MG EXT REL TAB PO SCH (12:18)
[2024-07-07 07:13] LABS: Hematocrit (blood only) 39.8 % (37.0-47.0); Hemoglobin 12.9 g/dl (12.0-16.0); Mean Corpuscular Hemoglobin 29.2 pg (25.0-34.0); Mean Corpuscular Hgb Conc 32.4 g/dL (32.0-36.0); Mean Platelet Volume 9.5 fL (9.4-12.4); Platelet Count 191 K/uL (130-400); RDW Coefficient of Variation 15.3 % (11.5-14.5); Red Blood Count 4.42 M/uL (4.20-5.40); White Blood Count 13.96 K/ul (4.8-10.8)
[2024-07-07 07:35] LABS: Albumin Globulin Ratio 1.1 (0.9-2); Albumin Level 3.2 gm/dl (3.4-5.0); BUN Creatinine Ratio 31.8 (10-20); Bilirubin,Total 0.3 mg/dl (0.2-1.0); Calcium 8.6 mg/dl (8.6-10.3); Creatinine Clr Calc Pharmacy 39.7 ml/min; Phosphorus 3.1 mg/dl (2.5-4.9); Potassium 4.4 mmol/L (3.5-5.1); Total Protein 6.2 gm/dl (6.0-8.3)
[2024-07-07 07:37] LABS: Basophils # (auto) 0.01 K/uL (0.00-0.20); Basophils % (auto) 0.1 %; Immature Granulocytes # (auto) 0.07 K/uL (0.01-0.20); Immature Granulocytes % (auto) 0.5 %; Lymphocytes % (auto) 12.9 %; Monocytes # (auto) 0.92 K/uL (0.11-0.59); Monocytes % (auto) 6.6 %; Neutrophils # (auto) 11.16 K/uL (1.40-6.50); Neutrophils % (auto) 79.9 %
[2024-07-07 07:42] LABS: Prothrombin Time 47.2 Seconds (9.0-12.0)
[2024-07-07] MEDS: CEFDINIR 300 MG CAP PO SCH (08:27)
[2024-07-07] MEDS ORDERED: METOPROLOL SUCC 25MG EXT REL TAB PO SCH (09:00)
--- NOTE | 2024-07-07 11:22 | Pulmonology Progress Note ---
Date of Service July 07, 2024 Assessment & Plan (1) Infection due to human metapneumovirus (hMPV): Plan Impression: 88-year-old female with reported prior history of asthma without PFTs available admitted with human metapneumovirus. She has been treated in the outpatient setting with multiple courses of antibiotics and steroids. She is improved with bronchodilators Recommendations: 1. Human metapneumovirus infection: Continue supportive care. Continue budesonide and Perforomist as well as as needed albuterol and Atrovent. Increase appears to have been helpful for her as well and would continue for now 2. Patient's hypoxemia is resolved. Recommend assessment for supplemental oxygen with formal two-step prior to discharge. 3. Management the patient's other medical issues is deferred to the primary admitting service. Her pulmonary status appears stable to consider dismissal from the hospital. She can follow-up with her outpatient pulmonary providers at [facility]. Pulmonary will sign off. Feel free to contact us with questions or concerns Admission and Anticipated Discharge Date Admission Date: July 04, 2024 Subjective Patient seen and examined. EMR reviewed. The patient reports that she feels better this morning. Her cough is now somewhat productive and she is able to cough up some whitish thick phlegm. She continues to exhibit some wheezing with exertion but overall feels that she is improving. She has no new respiratory concerns this morning Review of Systems 2 Review of Systems: All systems reviewed & are unremarkable except as noted in Subjective Physical Exam 2 Constitutional: no acute distress Eyes: PERRL, conjunctivae normal, anicteric sclerae ENMT: external ear and nose normal, oropharynx normal Respiratory: no respiratory distress, no labored breathing, no cough and not tachypneic Auscultation: + rhonchi and + wheezes; no crackles Cardiovascular: Rate/Rhythm: + irregularly irregular Gastrointestinal (Abdomen): normal bowel sounds, soft, nontender, no hepatosplenomegaly Neurologic: PERRL, EOMI, accommodation nl, no face palsy, no dysarthria Psychiatric: A+Ox3, euthymic affect Results & Data Results & Data Vital Signs (Past 12 Hours) Vital Signs Temp Pulse Pulse Resp BP Pulse Ox O2 Del Method 07/07/24 08:00 36.8 C 74 18 134/81 96 Room Air 07/07/24 07:29 Room Air 07/07/24 07:28 73 07/07/24 07:15 86 18 97 Room Air 07/07/24 02:48 36.8 C 70 20 150/76 H 95 Room Air Laboratory Results 07/07/24 06:37 07/07/24 06:37 Diagnostic Findings No new imaging PG Care Time/CCT Total # of Minutes Spent Total Time Spent with Patient: Total time spent is greater than 50% in coordination of care (as documented) at patient's floor/unit and/or counseling patient: Coding Level of Care Code 06943 SUB INP/OBS CARE 2/35MIN Diagnoses Infection due to human metapneumovirus (hMPV) B34.8
[2024-07-07] MEDS: LEVALBUTEROL 1.25 MG/3 ML NEB NEB PRN (11:34)
--- NOTE | 2024-07-07 11:53 | Hospitalist Progress Note ---
Date of Service July 07, 2024 Assessment & Plan (1) Infection due to human metapneumovirus (hMPV): Plan Pt is an 88yoF with PMHx significant for acute hypothyroidism, moderate persistent asthma, chronic rhinitis, chronic heart failure with preserved ejection fraction, pulmonary hypertension, permanent A-fib, obesity, esophageal reflux, CKD stage IV, antiphospholipid antibody syndrome on Coumadin, CAROL ANN who presented to the ED with concern for shortness of breath. 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 IV Solu-Medrol Wean down oxygen as tolerated. Empiric rocephin and doxycycline with probiotic, pulm recommending discontinuing abx Pulmonary consulted, appreciate recs 2 step ordered Continue to monitor Supratherapeutic INR A-fib with RVR Hx of permanent a fib RVR likely in setting of viral illness Admitting EKG w/ HR 124, afib rvr Home dose of metoprolol increased to 50mg BID, rates currently controlled, continue IV metoprolol for persistent HR>= 120 bpm On warfarin for anticoagulation, currently holding as INR supratherapeutic, uptrend from 4.4 to 5 on 07/07 despite holding home warfarin Discussion with patient and her daughter: patient currently refusing acute rehab, very high fall risk at home. Will delay discharge for continued INR monitoring before discharging home to avoid falls with a supratherapeutic INR. EKG repeated on July 07 for episode of fluttering per patient early in the a.m., notes persistent atrial fibrillation Continue telemetry monitoring Antiphospholipid syndrome Supratherapeutic INR On warfarin for anticoagulation, currently holding as INR supratherapeutic uptrend from 4.4 to 5 on 07/07 despite holding home warfarin Discussion with patient and her daughter: patient currently refusing acute rehab, very high fall risk at home. Will delay discharge for continued INR monitoring before discharging home to avoid falls with a supratherapeutic INR. Denies any episodes of epistaxis, hemoptysis, hematemesis, melena or hematochezia at this time Follow INR Acute Complicated UTI UA suggestive of infection Urine Cx growing E coli Treated with IV rocephin as above Transitioned to po cefdinir, continue for a total of 10 days of rx Heart failure with preserved ejection fraction, history of 11/26/2023 echo with EF of 55 to 60% appears euvolemic on exam though BNP slightly elevated CXR with minimal vascular congestion Continue home cardiac medications Continue to monitor closely for volume status Wean down oxygen as tolerated Elevated Trop Trop flat at18.4 to 18.6 EKG as above noting a fib Echo from 2023 with EF 55-60%, mild LVH, severely dilated LA, mild AR, MR, TR Likely demand in setting of above Continue to monitor Other chronic medical conditions asthma GERD CAD HTN HLD CAROL ANN Diet: HH DNR/DNI DVT Ppx: Patient on warfarin Dispo: PT/OT for further recs Admission and Anticipated Discharge Date Admission Date: July 04, 2024 Subjective Pt was seen in the a.m. She states that she does not want to go to acute rehab Notes that her respiratory issues are still the same Notes that her heart rate has improved but did feel an episode of fluttering this morning, questioning maybe it was the way she was trying to get out of bed Denies any episodes of epistaxis, hemoptysis, hematemesis, melena or hematochezia Her daughter Jimbo was also called and updated. She states that she agrees patient should not go to rehab if she is not agreeable However agreeable to staying an additional night to monitor her supratherapeutic INR given the chance that she can have a fall at home. Review of Systems Review of Systems: All systems reviewed & are unremarkable except as noted in Subjective Physical Exam Physical Exam: General: Alert, oriented Psych: Appropriate mood and affect HEENT: NC/AT CV: Irregular Resp: Breath sounds coarse bilaterally, no increased effort of breathing Abdomen: Soft, nontender Extremities: No edema in lower extremities bilaterally. Results & Data Results & Data Vital Signs (Past 12 Hours) Vital Signs Temp Pulse Pulse Resp BP Pulse Ox O2 Del Method 07/07/24 11:34 18 96 Room Air 02/11/25 11:26 36.5 C 86 19 145/59 H 95 Room Air 07/07/24 08:00 36.8 C 74 18 134/81 96 Room Air 07/07/24 07:29 Room Air 07/07/24 07:28 73 07/07/24 07:15 86 18 97 Room Air 07/07/24 02:48 36.8 C 70 20 150/76 H 95 Room Air
[2024-07-08 02:57] VITALS: TEMP 98.2
--- NOTE | 2024-07-08 05:43 | Electrocardiogram Report ---
Test Reason : Blood Pressure : */* mmHG Vent. Rate : 124 BPM Atrial Rate : * BPM P-R Int : * ms QRS Dur : 96 ms QT Int : 346 ms P-R-T Axes : * 34 76 degrees QTcB Int : 497 ms Atrial fibrillation with rapid ventricular response Incomplete right bundle branch block Nonspecific ST and T wave abnormality Abnormal ECG When compared with ECG of 28-Nov-2023 05:31, Vent. rate has increased by 43 bpm Incomplete right bundle branch block is now Present Nonspecific T wave abnormality now evident in Anterior leads Confirmed by Ranulfo Alexander ([id number]) on 07/08/2024 5:42:41 AM Referred By: REFERRED SELF Confirmed By: Ranulfo Alexander
--- NOTE | 2024-07-08 05:43 | Electrocardiogram Report ---
Test Reason : Blood Pressure : */* mmHG Vent. Rate : 84 BPM Atrial Rate : * BPM P-R Int : * ms QRS Dur : 94 ms QT Int : 368 ms P-R-T Axes : * 28 38 degrees QTcB Int : 434 ms Atrial fibrillation Abnormal ECG When compared with ECG of 04-Jul-2024 10:29, Incomplete right bundle branch block is no longer Present Confirmed by Ranulfo Alexandre ([id number]) on 07/08/2024 5:42:57 AM Referred By: REFERRED SELF Confirmed By: Ranulfo Alexander
[2024-07-08 07:10] LABS: Basophils # (auto) 0.02 K/uL (0.00-0.20); Basophils % (auto) 0.2 %; Eosinophils # (auto) 0.04 K/uL (0.00-0.50); Eosinophils % (auto) 0.4 %; Hemoglobin 13.5 g/dl (12.0-16.0); Immature Granulocytes % (auto) 0.9 %; Lymphocytes # (auto) 2.27 K/uL (1.20-3.40); Lymphocytes % (auto) 21.3 %; Mean Corpuscular Hemoglobin 28.8 pg (25.0-34.0); Mean Corpuscular Hgb Conc 32.1 g/dL (32.0-36.0); Mean Corpuscular Volume 89.6 fL (80.0-100.0); Mean Platelet Volume 9.2 fL (9.4-12.4); Monocytes # (auto) 0.72 K/uL (0.11-0.59); Monocytes % (auto) 6.8 %; Neutrophils # (auto) 7.51 K/uL (1.40-6.50); Neutrophils % (auto) 70.4 %; Platelet Count 212 K/uL (130-400); RDW Coefficient of Variation 15.4 % (11.5-14.5); RDW Standard Deviation 50.7 fL (36.4-46.3); Red Blood Count 4.69 M/uL (4.20-5.40); White Blood Count 10.66 K/ul (4.8-10.8)
[2024-07-08 07:23] LABS: Albumin Globulin Ratio 1.1 (0.9-2); Albumin Level 3.4 gm/dl (3.4-5.0); BUN Creatinine Ratio 27.9 (10-20); Bilirubin,Total 0.3 mg/dl (0.2-1.0); Calcium 8.7 mg/dl (8.6-10.3); Creatinine Clr Calc Pharmacy 34.8 ml/min; Globulin 3.1 gm/dl (2.5-4.0); Phosphorus 3.8 mg/dl (2.5-4.9); Potassium 4.3 mmol/L (3.5-5.1); Total Protein 6.5 gm/dl (6.0-8.3)
[2024-07-08 07:29] LABS: INR 3.2 (0.9-1.1); Prothrombin Time 31.3 Seconds (9.0-12.0)
[2024-07-08 10:35] VITALS: BP 139/66; O2SAT 95
[2024-07-08 11:10] VITALS: PULSE 90
[2024-07-08 12:19] VITALS: RESP 16
--- NOTE | 2024-07-08 13:29 | Discharge Summary ---
Discharge Summary Date of Service July 08, 2024 Principal Dx & Hospital Course #1 = Principal Diagnosis (1) Infection due to human metapneumovirus (hMPV): Plan Pt is an 88yoF with PMHx significant for acute hypothyroidism, moderate persistent asthma, chronic rhinitis, chronic heart failure with preserved ejection fraction, pulmonary hypertension, permanent A-fib, obesity, esophageal reflux, CKD stage IV, antiphospholipid antibody syndrome on Coumadin, CAROL ANN who presented to the ED with concern for shortness of breath. 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 -passed 2 step oxygen Supratherapeutic INR A-fib with RVR -Hx of permanent a fib -RVR likely in setting of viral illness -Admitting EKG w/ HR 124, afib rvr -Home dose of metoprolol increased to 50mg BID, rates currently controlled, continue -IV metoprolol for persistent HR>= 120 bpm -On warfarin for anticoagulation, currently holding as INR supratherapeutic, resume day now downtrending, follow up in warfarin clini Antiphospholipid syndrome Supratherapeutic INR -On warfarin for anticoagulation, currently holding as INR supratherapeutic -uptrend from 4.4 to 5 on 07/07 despite holding home warfarin -Discussion with patient and her daughter: patient currently refusing acute rehab -Denies any episodes of epistaxis, hemoptysis, hematemesis, melena or hematochezia at this time Acute Complicated UTI -UA suggestive of infection -Urine Cx growing E coli -Treated with IV rocephin as above -Transitioned to po cefdinir, continue for a total of 10 days of rx Heart failure with preserved ejection fraction, history of -11/26/2023 echo with EF of 55 to 60% -appears euvolemic on exam though BNP slightly elevated -CXR with minimal vascular congestion -Continue home cardiac medications -Continue to monitor closely for volume status Elevated Trop -Trop flat at18.4 to 18.6 -EKG as above noting a fib -Echo from 2023 with EF 55-60%, mild LVH, severely dilated LA, mild AR, MR, TR -Likely demand in setting of above Other chronic medical conditions asthma GERD CAD HTN HLD CAROL ANN Notes For Next Care Provider Pt is an 88yoF with PMHx significant for acute hypothyroidism, moderate persistent asthma, chronic rhinitis, chronic heart failure with preserved e jection fraction, pulmonary hypertension, permanent A-fib, obesity, esophageal reflux, CKD stage IV, antiphospholipid antibody syndrome on Coumadin, CAROL ANN who presented to the ED with concern for shortness of breath. noted to have no metapneumovirus, admitted to medicine for further workup. PT OT recommended SNF, however patient vehemently refused understands risk and benefits of not going to rehab and accepts these risks. Patient on room air, passed two-step, and medically ready for discharge. Will need CT scan of chest in 3 months for follow-up. Medication Changes From Visit -cefdinir, benzonate Admission HPI Per Admitting Provider 88-year-old lady with PMH of acute hypothyroidism, moderate persistent asthma, chronic rhinitis, chronic heart failure with preserved ejection fraction, pulmonary hypertension, permanent A-fib, obesity, esophageal reflux, CKD stage IV, antiphospholipid antibody syndrome on Coumadin, CAROL ANN presented to the ED with complaint of shortness of breath. Patient states that she had COVID about 3 to 4 weeks ago, took Paxlovid course with no improvement and then was started on steroid/Augmentin/Z-Sin for 5 days. 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 Patient states that her cough was productive earlier which improved but since about 1 week she has been having dry cough and shortness of breath which has been slowly worsening. She is tired and appetite has been down. Patient denies nausea or vomiting. 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 Patient reports being exhausted due to coughing lately. The cough is mostly dry. Patient denies any pain or burning while passing urine, reports moving bowels okay. Patient denies smoking/alcohol/recreational drug use Medications reviewed with the patient and her daughter at bedside. DNR/DNI Plan of care discussed with the patient and daughter in detail, they voiced understanding and were agreeable to plan of care. Discharge Exam Gen: A&O 3 NAD HEENT: NCAT, EOMI, not icteric. External ears normal. No rhinorrhea. Moist mucous membranes. Neck: Supple, full range of motion, no observable masses, No meningeal sign. Lungs: No Respiratory distress. CV: RRR, no edema. Abdomen: Soft, nondistended, No rebound tenderness. MSK: No joint swelling, no redness. Diffusely weak but able to use walker and w alk Skin: No rashes, petechiae, lesions. Normal color per patient. Neuro: Normal Gait, Grossly intact. Psych: Appropriate for situation. Updated Medication List Medication Instructions Recorded Confirmed Type amlodipine 5 mg tablet 5 mg PO QA 11/25/23 07/04/24 History atorvastatin 20 mg tablet 20 mg PO QA 11/25/23 07/04/24 History cyclosporine 0.05 % eye drops in a 2 drp ophthalmic (eye) [facility] 11/25/23 07/04/24 History dropperette diclofenac sodium 1 % topical gel 1 ea topical BID 11/25/23 07/04/24 History fluticasone furoate 200 1 ea inhalation [facility] 11/25/23 07/04/24 History mcg-vilanterol 25 mcg/dose inhalation powder (Breo Ellipta) hydralazine 25 mg tablet 12.5 mg PO TID 11/25/23 07/04/24 History ipratropium 0.5 mg-albuterol 3 mg 3 ml inhalation TID PRN Shortness 11/25/23 07/04/24 History (2.5 mg base)/3 mL nebulization Of Breath soln isosorbide mononitrate 60 mg 60 mg PO QAM 11/25/23 07/04/24 History tablet,extended release 24 hr levothyroxine 50 mcg tablet 50 mcg PO DAILYBB 11/25/23 07/04/24 History (Levoxyl) montelukast 10 mg tablet 10 mg PO HS 11/25/23 07/04/24 History omeprazole 40 mg capsule,delayed 40 mg PO [facility]HS 11/25/23 07/04/24 History release warfarin 2.5 mg tablet (Jantoven) 2.5 mg PO UD 11/25/23 07/04/24 History albuterol sulfate 90 mcg/actuation 1 puff inhalation Q4H PRN 07/04/24 07/04/24 History aerosol inhaler SOB/WHEEZING metoprolol succinate 25 mg 0 mg PO QAM 07/04/24 07/04/24 History tablet,extended release 24 hr spironolactone 25 mg tablet 25 mg PO QAM 07/04/24 07/04/24 History benzonatate 100 mg capsule 100 mg PO TID #30 caps 07/08/24 Rx cefdinir 300 mg capsule 300 mg PO BID 8 days #16 caps 07/08/24 Rx Hospital Stay Data Consultations 07/04/24 12:12 ED Decision to Admit Stat 07/06/24 07:33 Consult Pulmonology Routine Diagnostic Imagining Performed 07/05/24 07:35 CT angio chest PE protocol Urgent Pending Results Patient Have Any Pending Studies at Discharge: No Discharge Instructions Given to Patient (Per Discharging Provider) 1. Please finish course of abx as prescribed. 2. Utilize inhalers as prescribed. 3. Please get f/u CT scan of chest in 3 months for resolution of infiltrate. 4. F/u with warfarin clinic. Total Time Total Time Spent Total Time Spent (In Minutes): I spent a total of 35 minutes in direct patient care, including [id number] time with the patient and/or family, reviewing medical records, ordering and reviewing diagnostic tests, and coordinating care with other healthcare p bette. This time includes: history taking, physical examination, medical decision making, counseling, ECG interpretation, imaging interpretation, lab interpretation, orders, and education, excluding time spent in the performance of separately billed services.
[2024-07-08] MEDS ORDERED: WARFARIN SOD 2.5 MG TAB PO SCH (16:00)
== END 2024-07-08 14:13 | disposition home or self-care (01) | DRG 202 ==
LOC: ED 10:09 → SUATTDRO 12:58 → 2E 12:58